=== PATIENT | female | born 1950 | race Caucasian/White ===

== ENCOUNTER 2020-03-18 08:16 | Outpatient (REF) | payer MEDICARE, OTHER, SELFPAY ==
--- NOTE | 2020-03-19 11:50 | HO.PICC ---
PICC Line Insertion NPICC Diagnosis: [FOR ANTIBIOTICS] Indication: [PROPHYLACTICALLY ON VANCOMYCIN FOR A PROCEDURE] Pertinent Labs: [REVIEWED] Technique: Following informed consent including risks, benefits and alternatives and using sterile technique including cap and mask, sterile gown, glove and drape, the [RIGHT] arm was prepped and draped in the usual sterile fashion of full barrier technique with CHG. Following completion of [place] Protocol the skin and soft tissues were anesthetized with 1% Lidocaine plain. Using ultrasound guidance, [THE RIGHT BASILIC] vein access was obtained. Over an 0.018 wire through peel-away sheath, a [SINGLE LUMEN] PICC line was positioned. Catheter length is [40 CM] internal length, [ZERO] external length, for a total trimmed length of [40 CM]. The procedure was performed in [ROOM 7]. Tip verification was performed by Richie Napier with Sheradri 3CG. Tip located in SVC. Ultrasound was used to document vein patency and for needle entry. A formal ultrasound picture and cardiac rhythm strip was recorded. [employer] has released the line for use and it is currently dressed with a StatLock, Tegaderm, and CHG disc. Verification has been performed for blood return and line patency. Arm Circumference: [37.5 CM] Equipment: [[employer] POWER PICC SOLO] Catheter Type: [4 DOMINICAN SINGLE LUMEN] Lot #: [[id number]]
== END 2020-03-18 08:17 | disposition home or self-care (01) ==
LOC: HO.RADIR 08:16
PROVIDERS: Visit Provider Anesthesiology
DX: Z45.2 Encounter for adjustment and management of vascular access device (principal); Z98.890 Other specified postprocedural states
CPT/HCPCS: 36573; C1751

== ENCOUNTER 2020-03-18 10:07 | Outpatient (REF) | payer MEDICARE, OTHER, SELFPAY ==
[2020-03-18 11:21] LABS: Estimated Glomerular Filt Rate 49
== END 2020-03-18 10:08 | disposition home or self-care (01) ==
LOC: HO.MDS 10:07
PROVIDERS: PCP Internal Medicine; Visit Provider Anesthesiology
DX: Z45.2 Encounter for adjustment and management of vascular access device (principal); T80.211A Bloodstream infection due to central venous catheter, initial encounter; B99.9 Unspecified infectious disease
CPT/HCPCS: 36415; 82565; 96365; J3370

== ENCOUNTER 2020-03-19 06:56 | Day surgery (SDC) | payer MEDICARE, OTHER, SELFPAY ==
--- NOTE | 2020-03-17 10:15 | P.CONAN_ITS ---
Documented by User: Marilee Muhammad 03/18/20 14:41 HPI - Anesthesia Eval Consult details Narrative: 69yo F for Spinal Cord Stim Trial [facility] Past Medical History Medical History Clostridioides difficile infection Disc disorder Fatty liver Low back pain Osteoarthritis Osteoporosis Renal cancer Surgical History Surgical History H/O kyphoplasty H/O partial adrenalectomy H/O partial nephrectomy History of back surgery Hx of appendectomy Social History Social History Smoking Status: Current every day smoker Packs Per Day: 1 Cigarettes Per Day: 20.0 Years Smoked: 50 Smoked in Last 30 Days: Yes Use of substances other than those prescribed or required for medical reasons: No Advance Directives: No Advance Directives Information Provided: No Advance Directives on File: No Meds Allergies Allergy/AdvReac Type Severity Reaction Status Date / Time No Known Allergies Allergy Verified 03/17/20 10:17 Home Medications Medication Instructions Recorded Confirmed Type Lactobacillus acidophilus 03/19/20 03/19/20 History [Probiotic] aspirin 81 mg PO DAILY 03/19/20 03/19/20 History duloxetine 1 cap PO DAILY 03/19/20 03/19/20 History lisinopril 20 mg PO DAILY 03/19/20 03/19/20 History lorazepam 1 tab PO TID PRN 03/19/20 03/19/20 History omega-3 fatty acids [Fish Oil] 1,000 mg PO DAILY 03/19/20 03/19/20 History oxycodone 1 tab PO Q8H PRN 03/19/20 03/19/20 History promethazine 1 tab PO TID 03/19/20 03/19/20 History promethazine PO 03/19/20 History Exam Exam Date and Time: March 17, 2020 1015 Assessment and Plan Assessment Anesthesia Assessment: Chart Reviewed Documented by User: Aviva Akhtar 03/19/20 08:25 [facility] Past Medical History Medical History Clostridioides difficile infection Disc disorder Fatty liver Low back pain Osteoarthritis Osteoporosis Renal cancer Surgical History Surgical History H/O kyphoplasty H/O partial adrenalectomy H/O partial nephrectomy History of back surgery Hx of appendectomy Social History Social History Smoking Status: Current every day smoker Packs Per Day: 1 Cigarettes Per Day: 20.0 Years Smoked: 50 Smoked in Last 30 Days: Yes Use of substances other than those prescribed or required for medical reasons: No Advance Directives: No Advance Directives Information Provided: No Advance Directives on File: No Meds Allergies Allergy/AdvReac Type Severity Reaction Status Date / Time No Known Allergies Allergy Verified 03/17/20 10:17 Home Medications Medication Instructions Recorded Confirmed Type Lactobacillus acidophilus 03/19/20 03/19/20 History [Probiotic] aspirin 81 mg PO DAILY 03/19/20 03/19/20 History duloxetine 1 cap PO DAILY 03/19/20 03/19/20 History lisinopril 20 mg PO DAILY 03/19/20 03/19/20 History lorazepam 1 tab PO TID PRN 03/19/20 03/19/20 History omega-3 fatty acids [Fish Oil] 1,000 mg PO DAILY 03/19/20 03/19/20 History oxycodone 1 tab PO Q8H PRN 03/19/20 03/19/20 History promethazine 1 tab PO TID 03/19/20 03/19/20 History promethazine PO 03/19/20 History Exam Airway Mallampati Class: II TM Dist: >3cm Neck ROM: Full Loose/Missing/Broken Teeth: No Heart: rrr Lungs: cta Assessment and Plan Assessment Anesthesia Assessment: Anesthesia Plan Discussed, Consent Obtained, Smoking Cess. Discussed and Chart Reviewed Final Anesthetic Review NPO: Yes ASA Class: III Final Preanesthetic Review: No Changes in Pt Med Stat, Meds & Allergies Reviewed, Consent Obtained/Reviewed, Med/Surg/Anes Hx Reviewed, Last Cigarette (If Appl.) and Anes Risks/Benef Reviewed Patient Risk: Intermediate Procedure Risk: Low Assessment/Block/Sedation in SS: Assess/Block/Sedation-SS Anesthetic Plan Anesthetic Plan: MAC: Disposition: Standard PACU
[2020-03-19] VITALS (10 sets, daily range): BP systolic 93–125; BP diastolic 41–60; PULSE 91–108; RESP 16–20; TEMP 36.4–36.7; O2SAT 92–97; BMI 31.0
[2020-03-19] MEDS: Lactated Ringers 1,000 ML 100 ML IVCONT (07:00)
--- NOTE | 2020-03-19 07:20 | FL_ITS ---
EXAMINATION: XR FLUOROSCOPY WITH IMAGES CLINICAL INFORMATION: Spinal stimulator. COMPARISON: None. TECHNIQUE: Fluoroscopy performed by Dr. Menjivar. Fluoroscopy time: 3.1 minutes DAP: 43.9 Gycm2 Images: 4 FINDINGS: There are 2 spinal stimulator electrodes seen overlying the mid to lower thoracic spine. The lateral view shows a prior vertebral augmentation. One lead extends to level of superior endplate of the fourth vertebrae superior to the augmentation. The other lead extends to level inferior endplate third vertebrae superior to the augmentation. IMPRESSION: Fluoroscopy for pain management procedure.
[2020-03-19] MEDS: ceFAZolin Sodium/Dextrose,Iso 2 GM/50 ML PIGGYBACK IV (07:38)
--- NOTE | 2020-03-19 08:41 | PC.NURSE ---
NEVRO- REF: [id number] LOT [id number] EXP 2022-11 NEVRO- REF: [id number] EXP 2022-08 NEVRO- REF [id number] EXP 2022-07
[2020-03-19] MEDS: 0.9 % Sodium Chloride Flush 10 ML SYRINGE 5 ML IVFLUSH (11:35)
--- NOTE | 2020-03-19 12:54 | P.OP_ITS ---
Operative Note Operative Note Narrative: Ms.Dianne Ashraf is very pleasant 69 years old lady who came today into the operating room for trial of spinal cord stimulator for the treatment of post laminectomy Syndrome. Preoperatively patient received Vancomycin 1 g approximately started 15 minutes before procedure. After obtaining informed consent patient was brought to the operating room, SHE was positioned prone on operating table, [employer] monitors were applied and patient was deeply sedated. The patient was taken inside of the operating room where she was positioned prone operating table. Time-out was performed delineating correct site, side, the nature of the procedure, patient's allergy, preoperative antibiotic if needed. All operating room staff was participating in OR time-out procedure. Patient's entire back was prepped with ChloraPrep twice and draped with full body fenestrated drape. Sterilely draped C-arm was brought over operating field and sqare picture of T11-T12 L1 L2 vertebrae as were demonstrated on the screen. Attention FIRST was concentrated on the_ L1-L2 epidural interspace. The location of the projection of the right pedicle center of the [id number] was found on the skin using C-arm. This location was injected with mixture of lidocaine 2% and Marcaine 0.5% 5 cc. After that 11 blade was used to make a ariana on the skin. 10 cm 14 gauge straight introducer epidural needle was inserted through the ariana and advanced to L1-L2 epidural interspace. The advancement of the needle was performed on anterior posterior and lateral views. Guitar wire and loss of resistance technique were used to locate epidural space. When guitar wire was spread in the epidural fashion, epidural lead was inserted through the needle and attempted to advance in the epidural space. Significant resistance was encountered at this level and probably due to adhesions in epidural space the lead advancement resulted in the lead position in the anterior epidural space. The decision was made after that to approach T12-L1 epidural space. Coude needle 14 gauge 6 in long was used to advance to the T12-L1 epidural interspace using loss of resistance technique with needle location on anterior posterior and lateral views. guitar wire was inserted into the needle and was spread in the epidural fashion. Epidural lead was inserted into the needle after the removal of guitar wire and it was advanced to the posterior epidural space to the upper border of T9 level slightly left to the midline. The resistance was felt in the attempt of the advancement of the lead in the right side of the epidural space.The resistance was secondary to adhesion probably because the patient HAD PREVIOUSLY DONE T12 VERTEBROPLASTY. AFTER THAT ATTEMPT WAS MADE TO REACH T11-T12 EPIDURAL SPACE ON THE RIGHT TO AVOID THE ABOVE-MENTIONED ADHESIONS. The pedicle of L1 on the right was chosen as the start of the target. Projection of the pedicle to the skin was injected with lidocaine and Marcaine mixture as above. After than 10 cm 14 gauge straight introducer needle was attempted to advanced into T11-T12 epidural interspace on anterior posterior and lateral views intermittently. The loss of resistance technique was used to locate the epidural space however the attempt to insert guitar wire into the epidural space was not very successful probably because of the same adhesions. The attempt to reach T11-T12 epidural interspace was abandoned. After that L2 pedicle projection to the skin on the left side was injected with anesthetic mixtures above. Small ariana on the skin was made with 15 blade of the scalpel and after that 10 cm 14 gauge needle was inserted through the skin and advanced to were T12-L1 epidural interspace on anterior posterior and lateral views. Loss of resistance technique was used to locate epidural space guitar wire was inserted and through this projection advanced to the epidural space without difficulty in the midline fashion. Guitar wire was withdrawn and epidural lead was inserted into the needle and advanced to upper border of the T8 epidural space posteriorly in strict midline fashion. The left position epidural lead which was positioned slightly more to the left and closer to the left gutter in the epidural space was withdrawn and re- advanced to were the T9 posterior epidural space. Lateral picture of electrode position in the posterior epidural space was obtained. Both electrodes were closely position at the midline. The electrodes were connected to the testing device and adequate impedance was read. After that the needles were withdrawn from the skin and subcutaneous tissues while care was taking to keep electrodes in their position. The position of the electrodes was again verified by x-ray on the anterior posterior and lateral views. Anchoring devices were dislodged on the each of the electrodes and sutured with 2 silk sutures to the skin. The screw driving mechanism was used to fix the electrodes inside of the anchoring devices. Upon completion of this procedure bacitracin ointment was applied to the entrance of the epidural leads with electrode and sterile dressing was applied. The testing device was also glued to the patient's back. Upon completion of the procedure the patient was taken to PACU where SHE recovered UNEVENTFULLY, SHE WENT HOME WITHOUT IMMEDIATE COMPLICATIONS. the patient was ordered to go for the every day Vancomycin infusion through the PICC line which she received 2 days ago. peak and trough will be measured on Sunday and patient will continue a Vancomycin injections. She has nephrectomy patient and Vancomycin Level needs to be monitored.
--- NOTE | 2020-03-19 13:27 | HO.POSTANES ---
Post Anesthesia Evaluation Post Anesthesia Evaluation Vital Signs: Vital Signs Temp Pulse Resp BP Pulse Ox 03/19/20 12:58 98.0 F 92 20 101/60 97 03/19/20 12:30 91 20 93/51 L 95 03/19/20 12:00 93 18 102/51 L 03/19/20 11:30 97 20 105/50 L 95 03/19/20 11:00 94 18 103/51 L 94 03/19/20 10:45 91 16 110/52 L 93 03/19/20 10:30 94 18 125/41 L 93 03/19/20 10:15 99 20 116/45 L 92 03/19/20 10:00 97.6 F 108 H 16 120/57 L 94 03/19/20 07:27 98.0 F 98 18 102/60 96 Anesthesia: Monitored Mental Status: Awake Pain Control: Satisfactory Nausea/Vomiting: None Hydration: Adequate Anesthesia-Related Issues: No Anes. Related Issues
== END 2020-03-19 13:36 ==
PROVIDERS: PCP Internal Medicine; Visit Provider Anesthesiology
PROC: (CPT 63650; principal; 2020-03-19 07:30)
DX: M96.1 Postlaminectomy syndrome, not elsewhere classified (principal); M47.816 Spondylosis without myelopathy or radiculopathy, lumbar region; M48.07 Spinal stenosis, lumbosacral region; M51.36 Other intervertebral disc degeneration, lumbar region; M54.5 Low back pain; M81.0 Age-related osteoporosis without current pathological fracture; Z85.528 Personal history of other malignant neoplasm of kidney; Z90.5 Acquired absence of kidney; F17.210 Nicotine dependence, cigarettes, uncomplicated; M19.90 Unspecified osteoarthritis, unspecified site; Z98.890 Other specified postprocedural states
CPT/HCPCS: 63650 ×2; C1897; J0690; J2405; J3010; J3370

== ENCOUNTER 2020-03-20 10:03 | Outpatient (REF) | payer MEDICARE, OTHER, SELFPAY ==
[2020-03-20 10:12] VITALS: BMI 31.9
[2020-03-20 11:15] LABS: Estimated Glomerular Filt Rate 57
[2020-03-20 11:21] LABS: Vancomycin Trough 4.9 mcg/mL (10.0-20.0)
== END 2020-03-20 10:04 | disposition home or self-care (01) ==
LOC: HO.MDS 10:03
PROVIDERS: PCP Internal Medicine; Visit Provider Anesthesiology
DX: M96.1 Postlaminectomy syndrome, not elsewhere classified (principal)
CPT/HCPCS: 36415; 80202; 82565; 96365; 96366; J3370

== ENCOUNTER 2020-03-21 09:50 | Outpatient (REF) | payer MEDICARE, OTHER, SELFPAY ==
[2020-03-21 11:10] LABS: Estimated Glomerular Filt Rate 57
== END 2020-03-21 09:51 | disposition home or self-care (01) ==
LOC: HO.MDS 09:50
PROVIDERS: PCP Internal Medicine; Visit Provider Anesthesiology
DX: M96.1 Postlaminectomy syndrome, not elsewhere classified (principal)
CPT/HCPCS: 36415; 82565; 96365; J3370

== ENCOUNTER 2020-03-22 09:47 | Outpatient (REF) | payer MEDICARE, OTHER, SELFPAY ==
[2020-03-22 10:51] LABS: Estimated Glomerular Filt Rate 52
[2020-03-22 10:58] LABS: Vancomycin Random 10.5 mcg/mL (15-20)
== END 2020-03-22 09:48 | disposition home or self-care (01) ==
LOC: HO.MDS 09:47
PROVIDERS: PCP Internal Medicine; Visit Provider Anesthesiology
DX: M96.1 Postlaminectomy syndrome, not elsewhere classified (principal)
CPT/HCPCS: 36415; 80202; 82565; 96365; 96366; J3370

== ENCOUNTER 2020-03-23 10:12 | Outpatient (REF) | payer MEDICARE, OTHER, SELFPAY ==
--- NOTE | 2020-03-23 12:25 | P.PICC_ITS ---
PICC Line Insertion NPICC Diagnosis: [] Indication: [] Pertinent Labs: [] Technique: Following informed consent including risks, benefits and alternatives and using sterile technique including cap and mask, sterile gown, glove and drape, the [] arm was prepped and draped in the usual sterile fashion of full barrier technique with G. Following completion of [place] Protocol the skin and soft tissues were anesthetized with 1% Lidocaine plain. Using ultrasound guidance, [] vein access was obtained. Over an 0.018 wire through peel-away sheath, a [] PICC line was positioned. Catheter length is [] internal length, [] external length, for a total trimmed length of []. The procedure was performed in []. Tip verification was performed by Richie Napier with Romaine 3CG. Tip located in SVC. Ultrasound was used to document vein patency and for needle entry. A formal ultrasound picture and cardiac rhythm strip was recorded. [employer] has released the line for use and it is currently dressed with a StatLock, Tegaderm, and CHG disc. Verification has been performed for blood return and line patency. Arm Circumference: [] Equipment: [] Catheter Type: [] Lot #: []
--- NOTE | 2020-03-26 09:26 | P.PICC_ITS ---
PICC Line Insertion PICC Removal) Indication: [PT NO LONGER NEEDED PICC LINES] Technique: Pt was in the discharge Lounge on 03/23/20 at 11:05, Right Bas ilic Single lumen Picc line 40Cm intact removed. No bleeding/edematous or s/s of infection. Pt tolerated procedure of removal (PICC LINE).
== END 2020-03-23 10:13 | disposition home or self-care (01) ==
LOC: HO.MDS 10:12
PROVIDERS: PCP Internal Medicine; Visit Provider Anesthesiology
DX: M96.1 Postlaminectomy syndrome, not elsewhere classified (principal); Z45.2 Encounter for adjustment and management of vascular access device
CPT/HCPCS: 96365; J3370

== ENCOUNTER 2020-03-24 | Outpatient (REF) | payer MEDICARE, OTHER, SELFPAY ==
--- NOTE | 2020-03-19 07:15 | HO.ANESPROP2 ---
[facility] Past Medical History Medical History Disc disorder Low back pain Osteoarthritis Osteoporosis Renal cancer Surgical History Surgical History H/O kyphoplasty H/O partial adrenalectomy H/O partial nephrectomy Social History Social History Advance Directives: No Advance Directives Information Provided: No Meds Allergies Allergy/AdvReac Type Severity Reaction Status Date / Time No Known Allergies Allergy Verified 03/17/20 10:17 Home Medications Medication Instructions Recorded Confirmed Type lisinopril 1 tab PO DAILY 03/19/20 03/19/20 History lorazepam 1 tab PO TID PRN 03/19/20 03/19/20 History Exam Exam Date and Time: March 19, 2020 0715 Airway Mallampati Class: II TM Dist: >3cm Neck ROM: Full Heart: RRR Lungs: CTA
--- NOTE | 2020-03-19 07:16 | HO.ANESPROP2 ---
[facility] Past Medical History Medical History Disc disorder Low back pain Osteoarthritis Osteoporosis Renal cancer Surgical History Surgical History H/O kyphoplasty H/O partial adrenalectomy H/O partial nephrectomy Social History Social History Advance Directives: No Advance Directives Information Provided: No Meds Allergies Allergy/AdvReac Type Severity Reaction Status Date / Time No Known Allergies Allergy Verified 03/17/20 10:17 Home Medications Medication Instructions Recorded Confirmed Type lisinopril 1 tab PO DAILY 03/19/20 03/19/20 History lorazepam 1 tab PO TID PRN 03/19/20 03/19/20 History Exam Exam Date and Time: March 19, 2020 0716 Assessment and Plan Assessment Anesthesia Assessment: Anesthesia Plan Discussed, Consent Obtained and Smoking Cess. Discussed Final Anesthetic Review NPO: Yes ASA Class: II Final Preanesthetic Review: No Changes in Pt Med Stat, Meds & Allergies Reviewed, Consent Obtained/Reviewed, Med/Surg/Anes Hx Reviewed and Anes Risks/Benef Reviewed Patient Risk: Intermediate Procedure Risk: Low Assessment/Block/Sedation in SS: Assess/Block/Sedation-SS Anesthetic Plan Anesthetic Plan: MAC: Disposition: Standard PACU
[2020-03-24 09:42] LABS: CDIFF Ag Negative (Negative)
[2020-03-24 09:43] LABS: CDIFF Internal ctrl Dots and bkg OK (V); CDiff Toxin Negative (Negative)
== END 2020-03-24 00:01 | disposition home or self-care (01) ==
LOC: HO.MDS
PROVIDERS: Visit Provider Anesthesiology
DX: M96.1 Postlaminectomy syndrome, not elsewhere classified (principal)
CPT/HCPCS: 87324; 87449

== ENCOUNTER → 2020-04-29 07:51 | Outpatient (BNVA) | payer MEDICARE, OTHER, SELFPAY | PROVIDERS: PCP Internal Medicine; Referring Provider Internal Medicine; Visit Provider Anesthesiology | DX: M96.1 Postlaminectomy syndrome, not elsewhere classified (principal); M51.9 Unspecified thoracic, thoracolumbar and lumbosacral intervertebral disc disorder; A49.8 Other bacterial infections of unspecified site | CPT/HCPCS: 99212 ==

== ENCOUNTER 2020-07-09 06:03 | Day surgery (SDC) | payer MEDICARE, OTHER, SELFPAY ==
[2020-07-05 11:36] VITALS: BMI 31.4
--- NOTE | 2020-07-08 14:03 | HO.ANESPROP2 ---
Documented by User: Marilee Muhammad 07/08/20 14:05 HPI - Anesthesia Eval Consult details Narrative: 70yo F for Lumar Spinal Stimuation Implant Spinal stim trial 03/2020 with MAC [facility] Past Medical History Medical History Back pain Clostridioides difficile infection Disc disorder Fatty liver History of chemotherapy Hypertension Low back pain ELIAS on CPAP Osteoarthritis Osteoporosis Renal cancer Smoker Surgical History Surgical History H/O kyphoplasty H/O partial adrenalectomy H/O partial nephrectomy History of back surgery Hx of appendectomy Status post kyphoplasty Social History Social History Smoking Status: Current every day smoker Packs Per Day: 0.5 Cigarettes Per Day: 10.0 Years Smoked: 50 Smoked in Last 30 Days: Yes Patient Given Instructions on How to Stop Smoking: Yes Date Education Initiated: 07/05/20 Use of substances other than those prescribed or required for medical reasons: No Advance Directives: No Advance Directives Information Provided: No Advance Directives on File: No Recently lost weight without trying: No Meds Allergies Allergy/AdvReac Type Severity Reaction Status Date / Time No Known Allergies Allergy Verified 07/05/20 11:36 Home Medications Medication Instructions Recorded Confirmed Type Probiotic 03/19/20 03/19/20 History duloxetine 1 cap PO DAILY 03/19/20 07/05/20 History lisinopril 20 mg PO DAILY 03/19/20 07/09/20 History lorazepam 1 tab PO TID PRN 03/19/20 07/09/20 History omega-3 fatty acids 1,000 mg PO DAILY 03/19/20 07/05/20 History promethazine 1 tab PO TID 03/19/20 07/05/20 History oxycodone 5 mg tablet 5 mg PO Q8H PRN 04/29/20 07/05/20 History prochlorperazine maleate 10 mg 10 mg PO Q6H 04/29/20 07/05/20 History tablet Exam Exam Date and Time: July 08, 2020 1403 Height,Weight and Vital Signs: Height 5 ft 8 in Weight 93.894 kg Assessment and Plan Assessment Anesthesia Assessment: Chart Reviewed Documented by User: Jaclyn Bolden 07/09/20 07:37 PMFSH Past Medical History Medical History Back pain Clostridioides difficile infection Disc disorder Fatty liver History of chemotherapy Hypertension Low back pain ELIAS on CPAP Osteoarthritis Osteoporosis Renal cancer Smoker Surgical History Surgical History H/O kyphoplasty H/O partial adrenalectomy H/O partial nephrectomy History of back surgery Hx of appendectomy Status post kyphoplasty Social History Social History Smoking Status: Current every day smoker Packs Per Day: 0.5 Cigarettes Per Day: 10.0 Years Smoked: 50 Smoked in Last 30 Days: Yes Patient Given Instructions on How to Stop Smoking: Yes Date Education Initiated: 07/05/20 Use of substances other than those prescribed or required for medical reasons: No Advance Directives: No Advance Directives Information Provided: No Advance Directives on File: No Recently lost weight without trying: No Meds Allergies Allergy/AdvReac Type Severity Reaction Status Date / Time No Known Allergies Allergy Verified 07/05/20 11:36 Home Medications Medication Instructions Recorded Confirmed Type Probiotic 03/19/20 03/19/20 History duloxetine 1 cap PO DAILY 03/19/20 07/05/20 History lisinopril 20 mg PO DAILY 03/19/20 07/09/20 History lorazepam 1 tab PO TID PRN 03/19/20 07/09/20 History omega-3 fatty acids 1,000 mg PO DAILY 03/19/20 07/05/20 History promethazine 1 tab PO TID 03/19/20 07/05/20 History oxycodone 5 mg tablet 5 mg PO Q8H PRN 04/29/20 07/05/20 History prochlorperazine maleate 10 mg 10 mg PO Q6H 04/29/20 07/05/20 History tablet Exam Airway Mallampati Class: III (Poor mouth opening effort) TM Dist: >3cm Neck ROM: Limited Loose/Missing/Broken Teeth: No Heart: RRR Lungs: CTA Assessment and Plan Assessment Anesthesia Assessment: Anesthesia Plan Discussed and Chart Reviewed Final Anesthetic Review NPO: Yes ASA Class: III Final Preanesthetic Review: Meds/Allgs Chart Reviewed, Consent Obtained/Reviewed and Anes Risks/Benef Reviewed Patient Risk: Intermediate Procedure Risk: Intermediate Anesthetic Plan Anesthetic Plan: MAC: Disposition: Standard PACU
[2020-07-09 06:24] VITALS: BP 120/66; PULSE 117; RESP 18; TEMP 36.4; O2SAT 96
--- NOTE | 2020-07-09 06:42 | MHC.SHP ---
Pre-Procedural Eval Section A The patient is an INPATIENT: No The History & Physical has been completed within 30 days and I have reviewed it.: No Section B Chief Complaint: Postlaminectomy Syndrome, Kidney Cancer Details of Present Illness: as above Relevant Family History (Specify if Yes): No Relevant Social History: None Present Medications: see Short Stay Collaborative assessment Medical History: Significant History History of Previous Operations: Relevant previous surgery/procedure and date(s) Allergies: Allergies Allergy/AdvReac Type Severity Reaction Status Date / Time No Known Allergies Allergy Verified 07/05/20 11:36 Review of Systems Sugical H&P ROS: Negative: Cardiovascular, Respiratory, Neurological, Psychiatric, Hem-Onc, Allergic/Immunologic, Gastrointestinal, Genitourinary, Musculoskeletal, Integumentary, Endocrine and Eyes/Ears/Nose/Throat and Yes, Specify: Constitution (Obesity) Exam Surgical H&P Exam: Normal: HEENT, Normal: Heart, Normal: Lungs, Normal: Extremities, Normal: Abdomen, Normal: Skin and Normal: Neurological Plan I have reviewed the history and physical and performed a pertinent physical examination on my patient. No changes have occurred unless specified.
--- NOTE | 2020-07-09 06:44 | P.OP_ITS ---
Operative Note Operative Note Date of Service: 07/09/20 Narrative: Preoperatively patient received Vancomycin 1 g approximately 1 hourbefore the procedure. After obtaining informed consent patient was brought to the operating room, she was positioned prone on operating table, [employer] monitors were applied and patient was deeply sedated. Time-out was performed delineating correct site, side, the nature of the procedure, patient's allergy, preoperative antibiotic. All operating room staff was participating in OR time-out procedure. Patient's entire back was prepped with ChloraPrep twice and draped with full body drape including Ioban film. Sterilely draped C-arm was brought over operating field and sqare picture of T12, L1, L2 vertebrae as were demonstrated on the screen. THE PROJECTION OF L2-L3 SPINAL PROCESSES TO THE SKIN WERE INFILTRATED WITH LIDOCAINE 2% MIXED WITH BUPIVACAINE 0.5%. Six CM LONG VERTICAL INCISION using 15 blade scalpel WAS PERFORMED IN STRICT MIDLINE VERTICAL FASHION. THOROUGH HEMOSTASIS WAS PERFORMED using electrocautery. Thorough tissue dissections was performed until prevertebral fascia was freed from overlying tissues. Attention FIRST was concentrated on the RIGHT L1-L2 epidural interspace. The location of the projection of the right pedicle center of the L3 vertebra was found on the prevertebral fascia using C-arm. This location was injected with mixture of lidocaine 2% and Marcaine 0.5% 5 cc in a pproximate direction of needle advancement.. After that 10cm 14 gauge - introducer epidural needle was inserted through the fascia and advanced toward L1-L2 epidural interspace. The advancement of the needle was performed on anterior posterior and lateral views. Guitar wire and loss of resistance technique were used to locate epidural space. When guitar wire was spread in the epidural fashion, epidural lead was inserted through the skin and it was advanced to T9 position POSTERIOR EPIDURAL SPACE slightly right TO THE MIDLINE. After that location of the projection of the LEFT pedicle center of the L2 vertebra was found -using C-arm. This location was injected with mixture of lidocaine 2% and Marcaine 0.5% 5 cc.. . 10 cm 14 gauge curved introducer epidural needle was inserted through the fascia and advanced to L1-L2 epidural interspace. The advancement of the needle was performed on anterior posterior and lateral views. Guitar wire and loss of resistance technique were used to locate epidural space. When guitar wire was spread in the epidural fashion, epidural lead was inserted through the needle and advanced to the T8 POSTERIOR EPIDURAL SPACE SLIGHTLY left TO THE MIDLINE. THE LOCATION OF BOTH LEADS WAS VERIFIED ON ANTERIOR POSTERIOR AND LATERAL VIEWS. After satisfactory position of the leads were established the needles were withdrawn, the stylette wires were removed from the epidural leads. At this moment patient was awaken a and the position of the epidural leads was tested. The right position epidural lead corresponded to stimulation on the right lower extremity in lower right lower back a and the left positioned epidural lead with corresponding to the left sided stimulation. The position of the electrodes was deemed to be satisfactory. The trial was undertaken for this patient with Nevro device because the patient had very short trial of spinal cord stimulator only 3 days. It was shortened because patient developed diarrhea and with thought that it is C diff diarrhea. It happened to be not so however the electrodes were removed. After establishing correct position of the epidural leads anchoring devices were dislodged on the leads and advanced to the level of the prevertebral fascia. The anchoring devices were advanced along the epidural leads and dislodged and epidural leads at the level of prevertebral fascia. They were sutured to prevertebral fascia with 2 separate etibone sutures per each anchoring device. Locking device was screwed down after the suture position was verified and position of the tips of the leads was verified. After that the wound was irrigated with copious amount of Vancomycin containing normal saline and packed with Vancomycin soaked 4 x 4. After that attention was concentrated on the left upper buttock of the patient where he wanted battery to be implanted. 6 cm long horizontal incision was performed 3 cm below the TOP right iliac crest. Thorough hemostasis was obtained. the pocket for the battery of spinal cord stimulator was formed under the skin. The wound was irrigated with copious amount of Vancomycin contained normal saline. Tunneling device was used to connect the 2 wounds and epidural leads were dislodged into the side wound. They were connected to the battery and locked with a locking screwdriver device. After that the anchoring sutures Tycron were applied in the most superior medial and most superior lateral corners of the wound. After that they were connected to the anchoring holes on the body of the battery, the epidural leads were gathered behind the body of the battery, the battery and the leads were inserted into the pocket wound and after that the anchoring 2 sutures were tied. The wounds were irrigated again with Vancomycin containing normal saline, thorough hemostasis was checked, and after that the wounds were closed using 0 Vicryl. After that the skin edges wore approximated using 2 0 Vicryl, tad were applied to the wounds at the level of the skin. sterile dressings were applied to the staple lines. Two large Tegaderm were applied to hold the dressing to the patient's skin. Abdominal binder to wear was provided to the patient. At this moment patient was awaken and transferred to the bed. she was recovering uneventfully in PACU.
[2020-07-09] MEDS: Lactated Ringers 1,000 ML 100 ML IVCONT (06:46)
--- NOTE | 2020-07-09 07:14 | FL_ITS ---
EXAMINATION: XR FLUOROSCOPY WITH IMAGES CLINICAL INFORMATION: Lumbar spinal stimulation implantation. COMPARISON: Spinal fluoroscopic spot views 03/19/2020 TECHNIQUE: Fluoroscopy performed by Dr. Bora Menjivar. Fluoroscopy time: 8.5 minutes DAP: 54.8 Gycm2 Images: 2 FINDINGS: There is prior vertebral augmentation demonstrated. There are 2 spinal stimulator leads posterior spinal canal and ending at mid aspect 4th vertebral levels superior to the augmentation. FL/FL guidance in OR IMPRESSION: Fluoroscopy for pain management procedure.
[2020-07-09 10:07] VITALS: BP 112/59; PULSE 95; RESP 12; TEMP 36.4; O2SAT 96
[2020-07-09] MEDS: Acetaminophen 325 MG TABLET 650 MG PO (10:10)
--- NOTE | 2020-07-09 10:10 | PM.OP ---
Brief Operative Note Date of Service: 07/09/20 Pre-op diagnosis: Postlaminectomy syndrome Procedure: Implantation of spinal cord stimulator Nevro. Implants: Nevro spinal cord stimulation battery and 2 epidural electrode leads. Surgeon: Bora Menjivar MD Anesthesia: MAC Estimated blood loss (mL): 20 Pathology: none sent Condition: stable Disposition: PACU
[2020-07-09] MEDS: oxyCODONE HCl Immed Release 5 MG TABLET 10 MG PO (10:11)
[2020-07-09 10:22] VITALS: BP 127/67; PULSE 89; RESP 16; TEMP 36.4; O2SAT 96
--- NOTE | 2020-07-09 10:54 | HO.POSTANES ---
Post Anesthesia Evaluation Post Anesthesia Evaluation Vital Signs: Vital Signs Temp Pulse Resp BP Pulse Ox 07/09/20 10:22 97.5 F 89 16 127/67 96 07/09/20 10:07 97.5 F 95 12 112/59 L 96 07/09/20 06:24 97.5 F 117 H 18 120/66 96 Anesthesia: Monitored Mental Status: Awake Pain Control: Satisfactory Nausea/Vomiting: None Hydration: Adequate Anesthesia-Related Issues: No Anes. Related Issues
== END 2020-07-09 11:15 | disposition home or self-care (01) ==
PROVIDERS: Visit Provider Anesthesiology
PROC: (CPT 63685; principal; 2020-07-09 07:30)
DX: M96.1 Postlaminectomy syndrome, not elsewhere classified (principal); Z98.890 Other specified postprocedural states; M51.9 Unspecified thoracic, thoracolumbar and lumbosacral intervertebral disc disorder; M54.5 Low back pain; M81.0 Age-related osteoporosis without current pathological fracture; I10 Essential (primary) hypertension; G47.33 Obstructive sleep apnea (adult) (pediatric); Z85.528 Personal history of other malignant neoplasm of kidney; Z92.21 Personal history of antineoplastic chemotherapy; Z90.5 Acquired absence of kidney; F17.210 Nicotine dependence, cigarettes, uncomplicated; M19.90 Unspecified osteoarthritis, unspecified site
CPT/HCPCS: 63685; 63650 ×2; C1778; C1787; C1816; C1897; J1100; J2250; J2405; J3010; J3370

== ENCOUNTER → 2020-07-15 11:16 | Outpatient (BNVA) | payer MEDICARE, OTHER, SELFPAY | PROVIDERS: Visit Provider Anesthesiology | DX: M54.5 Low back pain (principal); M96.1 Postlaminectomy syndrome, not elsewhere classified; M51.9 Unspecified thoracic, thoracolumbar and lumbosacral intervertebral disc disorder; A49.8 Other bacterial infections of unspecified site; Z98.890 Other specified postprocedural states | CPT/HCPCS: 99212 ==

== ENCOUNTER → 2020-07-22 11:19 | Outpatient (BNVA) | payer MEDICARE, OTHER, SELFPAY | PROVIDERS: PCP Internal Medicine; Referring Provider Internal Medicine; Visit Provider Anesthesiology | DX: M96.1 Postlaminectomy syndrome, not elsewhere classified (principal); M51.9 Unspecified thoracic, thoracolumbar and lumbosacral intervertebral disc disorder; Z98.890 Other specified postprocedural states; Z86.19 Personal history of other infectious and parasitic diseases | CPT/HCPCS: 99212 ==

== ENCOUNTER → 2020-07-28 10:20 | Outpatient (BNVA) | payer MEDICARE, OTHER, SELFPAY | PROVIDERS: PCP Internal Medicine; Visit Provider Anesthesiology | DX: M54.5 Low back pain (principal); M96.1 Postlaminectomy syndrome, not elsewhere classified; M51.9 Unspecified thoracic, thoracolumbar and lumbosacral intervertebral disc disorder; A49.8 Other bacterial infections of unspecified site; Z98.890 Other specified postprocedural states | CPT/HCPCS: 99212 ==

== ENCOUNTER → 2020-09-16 15:10 | Outpatient (BNVA) | payer MEDICARE, OTHER, SELFPAY | PROVIDERS: PCP Internal Medicine; Visit Provider Anesthesiology | DX: M54.5 Low back pain (principal); M96.1 Postlaminectomy syndrome, not elsewhere classified; M51.9 Unspecified thoracic, thoracolumbar and lumbosacral intervertebral disc disorder; A49.8 Other bacterial infections of unspecified site; F17.200 Nicotine dependence, unspecified, uncomplicated; Z98.890 Other specified postprocedural states; Z71.6 Tobacco abuse counseling | CPT/HCPCS: Q3014 ==

== ENCOUNTER 2020-10-12 03:22 | Emergency (ER) | payer MEDICARE, OTHER, SELFPAY ==
--- NOTE | ~2020-10-12 | CT_ITS ---
EXAMINATION: NONCONTRAST HEAD CT NONCONTRAST CERVICAL SPINE CT INDICATION INFORMATION: Fall COMPARISON: None TECHNIQUE: Separate noncontrast CT examinations of the head and cervical spine were performed. Coronal and sagittal images were created for each examination at the technologist workstation. This CT examination was performed using dose optimization techniques as appropriate, variously including the following: *Automated exposure control *Adjustment of mA and/or kV according to patient size (this includes techniques or standardized protocols for targeted exams where dose is matched to indication/reason for exam; i.e. extremities or head) *Use of iterative reconstruction technique DLP: 1625 mGy-cm FINDINGS: Head: There is no evidence of acute intracranial hemorrhage or territorial infarction. No abnormal mass effect or midline shift is seen. [place] to white matter differentiation is well preserved. No extra-axial fluid collections are identified. No hydrocephalus. No significant volume loss. There is no abnormal attenuation within the brain parenchyma. Subgaleal hematoma overlies the left parietal convexity. There is also swelling over the left occipital region. No calvarial fracture. Bilateral partial mastoid air cell effusions. The visualized portions of the paranasal sinuses are well aerated. Cervical spine: There is anatomic alignment of the vertebral bodies and posterior elements. The atlantoaxial and atlantooccipital articulations are intact. Vertebral body heights are maintained. There is multilevel intervertebral disc space narrowing with endplate osteophyte formation and facet arthropathy. Fusion of the right C2-C3 facets. No evidence of acute fracture. No prevertebral soft tissue swelling. Mild emphysema of the lung apices.. The thyroid gland is unremarkable. CT/CT cervical spine wo con IMPRESSION: 1. No acute intracranial finding. 2. No acute fracture or malalignment of the cervical spine. Mild degenerative changes.
[2020-10-12 03:41] VITALS: BP 128/88; PULSE 85; O2SAT 95
[2020-10-12 03:48] VITALS: BP 128/66; PULSE 84; RESP 16; TEMP 37.1; O2SAT 99; BMI 31.9
--- NOTE | 2020-10-12 03:56 | ECG_ITS ---
Test Reason : FALL Blood Pressure : / mmHG Vent. Rate : 083 BPM Atrial Rate : 083 BPM P-R Int : 146 ms QRS Dur : 078 ms QT Int : 398 ms P-R-T Axes : 059 050 047 degrees QTc Int : 467 ms Normal sinus rhythm Possible Left atrial enlargement Borderline ECG No previous ECGs available Referred By: Jaclyn Montero Electronically Signed By:AUGUSTUS FERREIRA MD
--- NOTE | 2020-10-12 03:57 | ED_ITS ---
HPI - Fall General Chief Complaint: Fall Stated Complaint: FALL/HEAD SWELLING Time Seen by Provider: 10/12/20 03:26 Source: patient and other Mode of arrival: EMS History of Present Illness HPI Narrative: 70-year-old female, every day smoker, who is brought in by EMS after reported unwitnessed fall at the long-term care facility but according to patient she states she was using her walker and going from the bathroom back to her bed became unsteady at which time she lost her balance and fell backward onto her bottom and she states she struck her head but denies any loss of consciousness. Otherwise, patient denies any fever, chills, shortness of breath, chest pain/palpitations, or GI / symptoms. Related Data Home Medications Medication Instructions Recorded Confirmed Probiotic 03/19/20 03/19/20 duloxetine 1 cap PO DAILY 03/19/20 07/05/20 lisinopril 20 mg PO DAILY 03/19/20 07/09/20 lorazepam 1 tab PO TID PRN 03/19/20 07/09/20 omega-3 fatty acids 1,000 mg PO DAILY 03/19/20 07/05/20 promethazine 1 tab PO TID 03/19/20 07/05/20 oxycodone 5 mg tablet 5 mg PO Q8H PRN 04/29/20 07/05/20 prochlorperazine maleate 10 mg 10 mg PO Q6H 04/29/20 07/05/20 tablet Previous Rx's Medication Instructions Recorded oxycodone-acetaminophen 5 mg-325 1 tab PO Q6H PRN #16 tab 07/09/20 mg tablet cephalexin 500 mg PO Q12H 7 Days #14 cap 10/12/20 Allergies Allergy/AdvReac Type Severity Reaction Status Date / Time lactose Allergy Unknown Verified 10/12/20 03:52 Review of Systems Review of Systems: Pertinent positives and negatives as stated in HPI 10 point of systems is otherwise negative. PMFSH Past Medical History Source: nursing notes reviewed Medical History Back pain Clostridioides difficile infection Disc disorder Fatty liver History of chemotherapy Hypertension Low back pain ELIAS on CPAP Osteoarthritis Osteoporosis Renal cancer Smoker Surgical History H/O kyphoplasty H/O partial adrenalectomy H/O partial nephrectomy History of back surgery Hx of appendectomy Status post kyphoplasty Social History Social History Alcohol intake: never Smoking Status: Light tobacco smoker Packs Per Day: 0.5 Cigarettes Per Day: 10.0 Years Smoked: 50 Smoked in Last 30 Days: No Use of substances other than those prescribed or required for medical reasons: No Advance Directives: No Physical Exam Vital Signs: Vital Signs: Last Vital Signs Temp 98.8 F 10/12/20 03:48 Pulse 82 10/12/20 06:00 Resp 18 10/12/20 06:00 BP 119/55 L 10/12/20 06:00 Pulse Ox 97 10/12/20 06:00 Body Mass Index 31.9 VITAL SIGNS: Reviewed. GENERAL: Well developed, well nourished, in no acute distress. HEAD: Normocephalic/slight bump at frontal vertex no lac EYES: PERRLA, EOMI OROPHARYNX: no oral lesions noted, posterior pharynx clear, dry mucosa NECK: Supple, no adenopathy LUNGS: Normal breath sounds. No adventitious sounds or accessory muscle use. SpO2<99> CARDIOVASCULAR: Regular rate and rhythm without noted murmurs, no JVD or lower extremity edema. ABDOMEN: Soft, non-tender, non-distended with bowel sounds. BACK: No midline vertebral tenderness MUSCULOSKELETAL: No tenderness, deformities, or effusions noted on gross inspection. SKIN: Inspection of the skin reveals no rashes NEUROLOGIC: Alert and oriented x 4. Strength and sensation to light touch were grossly intact x 4. Course Course Course Narrative: 70-year-old female with history and clinical presentation suggestive mechanical fall, versus fall due to infections/anemia/arrhythmia. Review of all investigations without acute findings from chronically stable with the exception of a positive urinalysis for nitrites. Patient received initial antibiotics here and then will be discharged back to long-term care with a prescription for the remaining course. She was informed of all findings. MDM - Fall Lab Data Result diagrams: 10/12/20 05:38 10/12/20 05:38 Labs: Lab Results 10/12/20 10/12/20 10/12/20 Range/Units 05:28 05:38 05:38 WBC 18.9 H (4.8-10.8) X10*3/uL RBC 3.72 L (4.20-5.50) X10*6/uL Hgb 12.7 (12.0-16.0) g/dl Hct 40.2 (37-47) % MCV 108.1 H (80-98) fL MCH 34.1 H (27.0-33.0) pg MCHC 31.6 (31.0-35.0) g/dl RDW 14.9 (11.0-16.0) % Plt Count 195 (160-400) X10*3/uL MPV 12.5 H (9.4-12.3) fL Immature Gran % (Auto) Cancelled Neut % (Auto) Cancelled Lymph % (Auto) Cancelled [place] % (Auto) Cancelled Eos % (Auto) Cancelled Baso % (Auto) Cancelled Lymph # (Auto) Cancelled [place] # (Auto) Cancelled Eos # (Auto) Cancelled Baso # (Auto) Cancelled Abs Immat Gran (auto) Cancelled Absolute Neuts (auto) Cancelled Absolute Nucleated RBC 0.030 H (0.0-0.012) X10*3/uL Nucleated RBC % (auto) 0.2 (0.0-0.2) /100WBC Neutrophils % (Manual) 75 H (45-73) % Band Neutrophils % 6 H (3-5) % Lymphocytes % (Manual) 9 L (20-40) % Monocytes % (Manual) 9 (2-11) % Eosinophils % (Manual) 1 (0-4) % Abs Neuts (Manual) 15.3 H (2.2-7.9) X10*3/uL Lymphocytes # (Manual) 1.7 (0.6-4.8) X10*3/uL Monocytes # (Manual) 1.7 H (0.0-1.2) X10*3/uL Eosinophils # (Manual) 0.2 (0.0-0.8) X10*3/UL Platelet Estimate NORMAL (NORMAL) Large Platelets PRESENT Plt Morphology Comment NOTED RBC Morphology NOTED Polychromasia 1+ (0-2) /OIF Macrocytosis 2+ (15-30) /OIF PT (10.8-13.0) SEC INR (0.9-1.1) Sodium 139 (135-145) mmol/L Potassium 4.1 (3.3-5.1) mmol/L Chloride 106 (96-108) mmol/L Carbon Dioxide 21 L (22-29) mmol/L Anion Gap 16 (12-20) BUN 12 (9-16) mg/dL Creatinine 0.69 (0.5-1.4) mg/dL Estim Creat Clear Calc 92.9 Estimated GFR > 60 Random Glucose 110 (60-115) mg/dL Calcium 8.5 (8.4-10.2) mg/dL Total Bilirubin 2.5 H (0.0-1.0) mg/dL AST 169 H (5-31) U/L ALT 89 H (0-31) U/L Alkaline Phosphatase 465 H D (39-117) U/L Total Protein 5.3 L (6.5-8.0) g/dL Albumin 2.7 L (3.5-5.0) g/dL Urine Color SIRENA Urine Appearance HAZY Urine pH 5.5 (5.0-8.0) Ur Specific [place] 1.025 (1.005-1.025) Urine Protein TRACE (NEG-TRACE) MG/DL Urine Glucose (UA) NEG (NEG) MG/DL Urine Ketones NEG (NEG) MG/DL Urine Blood TRACE (NEG) Urine Nitrite POS H (NEG) Ur Leukocyte Esterase 1+ H (NEG) Urine RBC 0-2 (0) /HPF Urine WBC 15-29 H (0-4) /HPF Urine WBC Clumps NOTED Ur Squamous Epith Cells 2+ /LPF Urine Bacteria 4+ /LPF 10/12/20 Range/Units 05:38 WBC (4.8-10.8) X10*3/uL RBC (4.20-5.50) X10*6/uL Hgb (12.0-16.0) g/dl Hct (37-47) % MCV (80-98) fL MCH (27.0-33.0) pg MCHC (31.0-35.0) g/dl RDW (11.0-16.0) % Plt Count (160-400) X10*3/uL MPV (9.4-12.3) fL Immature Gran % (Auto) Neut % (Auto) Lymph % (Auto) [place] % (Auto) Eos % (Auto) Baso % (Auto) Lymph # (Auto) [place] # (Auto) Eos # (Auto) Baso # (Auto) Abs Immat Gran (auto) Absolute Neuts (auto) Absolute Nucleated RBC (0.0-0.012) X10*3/uL Nucleated RBC % (auto) (0.0-0.2) /100WBC Neutrophils % (Manual) (45-73) % Band Neutrophils % (3-5) % Lymphocytes % (Manual) (20-40) % Monocytes % (Manual) (2-11) % Eosinophils % (Manual) (0-4) % Abs Neuts (Manual) (2.2-7.9) X10*3/uL Lymphocytes # (Manual) (0.6-4.8) X10*3/uL Monocytes # (Manual) (0.0-1.2) X10*3/uL Eosinophils # (Manual) (0.0-0.8) X10*3/UL Platelet Estimate (NORMAL) Large Platelets Plt Morphology Comment RBC Morphology Polychromasia /OIF Macrocytosis /OIF PT 14.8 H (10.8-13.0) SEC INR 1.2 H (0.9-1.1) Sodium (135-145) mmol/L Potassium (3.3-5.1) mmol/L Chloride (96-108) mmol/L Carbon Dioxide (22-29) mmol/L Anion Gap (12-20) BUN (9-16) mg/dL Creatinine (0.5-1.4) mg/dL Estim Creat Clear Calc Estimated GFR Random Glucose (60-115) mg/dL Calcium (8.4-10.2) mg/dL Total Bilirubin (0.0-1.0) mg/dL AST (5-31) U/L ALT (0-31) U/L Alkaline Phosphatase (39-117) U/L Total Protein (6.5-8.0) g/dL Albumin (3.5-5.0) g/dL Urine Color Urine Appearance Urine pH (5.0-8.0) Ur Specific [place] (1.005-1.025) Urine Protein (NEG-TRACE) MG/DL Urine Glucose (UA) (NEG) MG/DL Urine Ketones (NEG) MG/DL Urine Blood (NEG) Urine Nitrite (NEG) Ur Leukocyte Esterase (NEG) Urine RBC (0) /HPF Urine WBC (0-4) /HPF Urine WBC Clumps Ur Squamous Epith Cells /LPF Urine Bacteria /LPF ECG Data Attestation: I personally reviewed and interpreted this ECG as follows: Prior ECG tracings: not available for review Discharge Plan Discharge Clinical Impression: Fall, Acute UTI Patient Disposition: er [facility] Instructions: Fall Prevention for Older Adults (ED), Urinary Tract Infection in Older Adults (ED) Additional Instructions: Resume all home medications as prescribed. Follow-up with your primary care provider by calling the office today to set up re-evaluation. Return to the emergency department for any acute worsening of your symptoms. Prescriptions: New cephalexin 500 mg capsule 500 mg PO Q12H 7 Days Qty: 14 RF: 0 No Action oxycodone-acetaminophen [Percocet] 5-325 mg tablet 1 tab PO Q6H PRN (Reason: pain) Qty: 16 RF: 0 lorazepam 1 mg tablet 1 tab PO TID PRN (Reason: Anxiety) RF: 0 lisinopril 20 mg Tablet 20 mg PO DAILY RF: 0 promethazine 50 mg tablet 1 tab PO TID RF: 0 omega-3 fatty acids Capsule 1,000 mg PO DAILY RF: 0 duloxetine 30 mg capsule,delayed release(DR/EC) 1 cap PO DAILY RF: 0 Probiotic 10 billion cell Capsule RF: 0 Referrals: Physician,Unknown [Primary Care Provider] - 2 days
[2020-10-12 04:00] VITALS: BP 128/69; PULSE 81; RESP 20; O2SAT 99
[2020-10-12 05:33] LABS: Glucose Urine UA NEG (NEG); Leukocyte Esterase Urine 1+ (NEG); Nitrite Urine POS (NEG); PH 5.5 (5.0-8.0); Specific Gravity - Urine 1.025 (1.005-1.025); UACC Culture Trigger YES; Urine Blood TRACE (NEG); Urine Ketones NEG (NEG); Urine Protein TRACE MG/DL (NEG-TRACE)
[2020-10-12 05:34] LABS: Appearance Urine HAZY; Color Urine AMBER
[2020-10-12 05:42] LABS: Bacteria Urine 4+ /LPF; RBC Urine 0-2 /HPF (0); Squamous Epithelial Cell Urine 2+ /LPF; WBC Clumps Urine NOTED
[2020-10-12 05:45] LABS: Hematocrit 40.2 % (37-47); Hemoglobin 12.7 g/dl (12.0-16.0); Mean Corpuscular HGB Conc 31.6 g/dl (31.0-35.0); Mean Corpuscular Hemoglobin 34.1 pg (27.0-33.0); Mean Corpuscular Volume 108.1 fL (80-98); Mean Platelet Volume 12.5 fL (9.4-12.3); NRBC Pct Auto 0.2 /100WBC (0.0-0.2); Platelet Count 195 X10*3/uL (160-400); Red Blood Count 3.72 X10*6/uL (4.20-5.50); Red Cell Distribution Width 14.9 % (11.0-16.0); WBC ABN SCTR FOR CBC 1
[2020-10-12 05:57] LABS: INTERNATIONAL NORM RATIO 1.2 (0.9-1.1); Prothrombin Time 14.8 SEC (10.8-13.0)
--- NOTE | 2020-10-12 05:57 | PC.NURSE ---
pt straight cath for 130 cc yellow. urine sent to lab. pt josef well no complications
[2020-10-12 06:00] VITALS: BP 119/55; PULSE 82; RESP 18; O2SAT 97
[2020-10-12 06:09] LABS: White Blood Count 18.9 X10*3/uL (4.8-10.8)
[2020-10-12 06:11] LABS: Band Neutrophils Percent 6 % (3-5); Eosinophils Absolute Manual 0.2 X10*3/UL (0.0-0.8); Eosinophils Percent Manual 1 % (0-4); Lymphocytes Absolute Manual 1.7 X10*3/uL (0.6-4.8); Lymphocytes Percent Manual 9 % (20-40); Monocytes Absolute Manual 1.7 X10*3/uL (0.0-1.2); Monocytes Percent Manual 9 % (2-11); Neutrophils Absolute Manual 15.3 X10*3/uL (2.2-7.9); Neutrophils Percent Manual 75 % (45-73)
[2020-10-12 06:13] LABS: Large Platelet PRESENT; Macrocytosis 2+ (15-30) /OIF; Platelet Estimate NORMAL (NORMAL); Platelet Morphology Comment NOTED; Polychromasia 1+ (0-2) /OIF; RBC Morphology NOTED
[2020-10-12 06:15] LABS: Alanine Aminotransferase 89 U/L (0-31); Albumin Level 2.7 g/dL (3.5-5.0); Alkaline Phosphatase 465 U/L (39-117); Anion Gap 16 (12-20); Aspartate Amino Transferase 169 U/L (5-31); Bilirubin Total 2.5 mg/dL (0.0-1.0); Blood Urea Nitrogen 12 mg/dL (9-16); Calcium 8.5 mg/dL (8.4-10.2); Carbon Dioxide 21 mmol/L (22-29); Chloride 106 mmol/L (96-108); Creatinine Clr Calc Pharmacy 92.9; Estimated Glomerular Filt Rate > 60; Glucose Random 110 mg/dL (60-115); Potassium 4.1 mmol/L (3.3-5.1); Sodium 139 mmol/L (135-145); Total Protein 5.3 g/dL (6.5-8.0)
[2020-10-12] MEDS: cephALEXin 500 MG CAPSULE PO (07:13)
== END 2020-10-12 07:44 | disposition skilled nursing facility (03) ==
PROVIDERS: Emergency Provider Student in an Organized Health Care Education/Training Program
DX: N39.0 Urinary tract infection, site not specified (principal); S00.83XA Contusion of other part of head, initial encounter; W01.0XXA Fall on same level from slipping, tripping and stumbling without subsequent striking against object, initial encounter; Z85.53 Personal history of malignant neoplasm of renal pelvis; F17.210 Nicotine dependence, cigarettes, uncomplicated; Y93.89 Activity, other specified; Y92.122 Bedroom in nursing home as the place of occurrence of the external cause; Y99.9 Unspecified external cause status
CPT/HCPCS: 36415; 51701; 70450; 72125; 80053; 81001; 81003; 85007; 85025; 85027; 85610; 87086; 87088; 87186; 93005; 99284; 99285

== ENCOUNTER 2020-10-16 00:18 | Emergency (ER) | payer MEDICARE, OTHER, SELFPAY ==
--- NOTE | ~2020-10-16 | CT_ITS ---
EXAMINATION: NONCONTRAST HEAD CT NONCONTRAST CERVICAL SPINE CT INDICATION INFORMATION: Fall. Frontal pain. COMPARISON: 10/12/2020 TECHNIQUE: Separate noncontrast CT examinations of the head and cervical spine were performed. Coronal and sagittal images were created for each examination at the technologist workstation. This CT examination was performed using dose optimization techniques as appropriate, variously including the following: *Automated exposure control *Adjustment of mA and/or kV according to patient size (this includes techniques or standardized protocols for targeted exams where dose is matched to indication/reason for exam; i.e. extremities or head) *Use of iterative reconstruction technique DLP: 1323 mGy-cm FINDINGS: Head: There is no evidence of acute intracranial hemorrhage or territorial infarction. No abnormal mass effect or midline shift is seen. Barroso to white matter differentiation is well preserved. No extra-axial fluid collections are identified. No hydrocephalus. Proportional prominence of the ventricles and sulcal spaces is consistent with mild volume loss. Patchy periventricular and deep white matter hypoattenuation is consistent with mild small vessel ischemic changes. The soft tissue swelling over the left parieto-occipital region is improving.. Bilateral mastoid air cell effusion. The visualized paranasal sinuses are well aerated. Cervical spine: There is anatomic alignment of the vertebral bodies and posterior elements. The atlantoaxial and atlantooccipital articulations are intact. Vertebral body heights are maintained. There is multilevel intervertebral disc space narrowing with endplate osteophyte formation and facet arthropathy. No evidence of acute fracture. No prevertebral soft tissue swelling. The thyroid gland is unremarkable. CT/CT cervical spine wo con IMPRESSION: 1. No acute intracranial finding. 2. No acute fracture or malalignment of the cervical spine. Moderate degenerative change.
[2020-10-16 00:21] VITALS: BP 102/54; PULSE 83; RESP 20; O2SAT 96; BMI 32.3
--- NOTE | 2020-10-16 01:38 | ED_ITS ---
HPI - Fall General Chief Complaint: Fall Stated Complaint: FALL Time Seen by Provider: 10/16/20 01:22 Source: patient, family and EMS Mode of arrival: wheelchair Limitations: no limitations History of Present Illness HPI Narrative: Patient comes emergency room complaining of a 2nd fall this week. Patient states she tripped while walking over her own feet. Patient landed forward, bumped her head on the floor on the frontal aspect. Patient has no laceration, states that she has chronic back pain. No new pain or complaints since this fall. Patient is recovering from a UTI, states she is compliant with taking cephalexin. [facility] Patient denies loss of consciousness, she is not on blood thinners. Patient has a spinal stimulator to help control her back pain Related Data Home Medications Medication Instructions Recorded Confirmed Probiotic 03/19/20 03/19/20 duloxetine 1 cap PO DAILY 03/19/20 07/05/20 lisinopril 20 mg PO DAILY 03/19/20 07/09/20 lorazepam 1 tab PO TID PRN 03/19/20 07/09/20 omega-3 fatty acids 1,000 mg PO DAILY 03/19/20 07/05/20 promethazine 1 tab PO TID 03/19/20 07/05/20 oxycodone 5 mg tablet 5 mg PO Q8H PRN 04/29/20 07/05/20 prochlorperazine maleate 10 mg 10 mg PO Q6H 04/29/20 07/05/20 tablet Previous Rx's Medication Instructions Recorded oxycodone-acetaminophen 5 mg-325 1 tab PO Q6H PRN #16 tab 07/09/20 mg tablet cephalexin 500 mg PO Q12H 7 Days #14 cap 10/12/20 Allergies Allergy/AdvReac Type Severity Reaction Status Date / Time lactose Allergy Unknown Verified 10/12/20 03:52 Review of Systems Review of Systems: Constitutional : No Weight loss, No Fever, No Chills, No Night Sweats, No Fatigue, chronic generalized weakness ENT/Mouth : No Hearing loss, No Ear Pain, No Nasal Congestion, No Sinus Pain, No Hoarseness, No sore throat, No Rhinorrhea, No Swallowing Difficulty Eyes: No Eye Pain, No Swelling, No Redness, No Foreign Body, No Discharge, No Vision Changes Cardiovascular : No Chest Pain, No SOB, No Dyspnea on Exertion, No Orthopnea, No Edema, No Palpitations Respiratory : No Cough, No Sputum, No Wheezing, No Smoke Exposure, No Dyspnea Gastrointestinal : No Nausea, No Vomiting, No Diarrhea, No Constipation, No abdominal Pain, No Hematochezia, No Melena Genitourinary : no irregular bleeding, No Dysuria, No Urinary Frequency, No Hematuria, No Urinary Incontinence, No Urgency, No Flank Pain, No Urinary Flow Changes, No Hesitancy Musculoskeletal : Chronic back pain, No Myalgias, No Joint Swelling Skin : No Skin Lesions, No rash Neuro : No Weakness, No Numbness, No Paresthesias, No Loss of Consciousness, No Dizziness, No Headache Psych : No Anxiety/Panic, No Depression, No SI/HI/AH/VH, No Social Issues, Heme/Lymph: No Bruising, No Bleeding,No Lymphadenopathy Endocrine : No Polyuria, No Polydipsia, No Temperature Intolerance PMFSH Past Medical History Medical History Back pain Clostridioides difficile infection Disc disorder Fatty liver History of chemotherapy Hypertension Low back pain ELIAS on CPAP Osteoarthritis Osteoporosis Renal cancer Smoker Surgical History H/O kyphoplasty H/O partial adrenalectomy H/O partial nephrectomy History of back surgery Hx of appendectomy Status post kyphoplasty Social History Social History Alcohol intake: never Smoking Status: Light tobacco smoker Packs Per Day: 0.5 Cigarettes Per Day: 10.0 Years Smoked: 50 Advance Directives: No Advance Directives Information Provided: No Physical Exam Vital Signs: Vital Signs: Last Vital Signs Temp 97.6 F 10/16/20 01:58 Pulse 74 10/16/20 01:58 Resp 16 10/16/20 01:58 BP 138/64 10/16/20 01:58 Pulse Ox 99 10/16/20 01:58 Body Mass Index 32.3 Appearance: Alert. Oriented X3. No acute distress. Eyes: Pupils equal, round and reactive to light. ENT: Pharynx normal. Neck: On C-spine precautions, no C-spine tenderness on palpation, no palpable step-offs CVS: Normal heart rate and rhythm. Pulses normal. Normal S1 and S2 Respiratory: No respiratory distress. Breath sounds normal. No Wheezing. No rales Abdomen: Soft and nontender. No rigidity. No distention Skin: Skin warm and dry. Normal skin color. Normal skin turgor. Extremities: No lower extremity edema. No lower extremity edema. No Lacerations. No Rash Neuro: Oriented X 3. No motor deficit. No sensory deficit. Moving all extermities. No slurred speech. Course Course Course Narrative: I discussed the CT scan with the patient and her jive developer. No acute findings. Urinary tract infection seems to be clearing up. Instructed to finish a course of antibiotics. Patient's family will be returning her to [facility] Lab Data Labs: Lab Results 10/16/20 Range/Units 06:08 Urine Color SIRENA Urine Appearance HAZY Urine pH 6.0 (5.0-8.0) Ur Specific [place] 1.020 (1.005-1.025) Urine Protein TRACE (NEG-TRACE) MG/DL Urine Glucose (UA) NEG (NEG) MG/DL Urine Ketones NEG (NEG) MG/DL Urine Blood NEG (NEG) Urine Nitrite NEG (NEG) Ur Leukocyte Esterase NEG (NEG) Imaging Data Head and neck CT: Radiologist's impression: FINDINGS: Head: There is no evidence of acute intracranial hemorrhage or territorial infarction. No abnormal mass effect or midline shift is seen. Barroso to white matter differentiation is well preserved. No extra-axial fluid collections are identified. No hydrocephalus. Proportional prominence of the ventricles and sulcal spaces is consistent with mild volume loss. Patchy periventricular and deep white matter hypoattenuation is consistent with mild small vessel ischemic changes. The soft tissue swelling over the left parieto-occipital region is improving.. Bilateral mastoid air cell effusion. The visualized paranasal sinuses are well aerated. Cervical spine: There is anatomic alignment of the vertebral bodies and posterior elements. The atlantoaxial and atlantooccipital articulations are intact. Vertebral body heights are maintained. There is multilevel intervertebral disc space narrowing with endplate osteophyte formation and facet arthropathy. No evidence of acute fracture. No prevertebral soft tissue swelling. The thyroid gland is unremarkable. CT/CT cervical spine wo con IMPRESSION: 1. No acute intracranial finding. 2. No acute fracture or malalignment of the cervical spine. Moderate degenerative change. Discharge Plan Discharge Clinical Impression: Fall Qualifiers: Encounter type: initial encounter Qualified Code(s): W19.XXXA - Unspecified fall, initial encounter Contusion Qualifiers: Encounter type: initial encounter Contusion area: head Patient Disposition: Home, Self-Care Instructions: Fall Prevention for Older Adults (ED) Additional Instructions: Please continue taking the course of antibiotics until finished. Please follow-up with your primary care physician tomorrow. If you have any worsening or new symptoms, please return to the emergency room or call 911 Prescriptions: No Action oxycodone-acetaminophen [Percocet] 5-325 mg tablet 1 tab PO Q6H PRN (Reason: pain) Qty: 16 RF: 0 lorazepam 1 mg tablet 1 tab PO TID PRN (Reason: Anxiety) RF: 0 lisinopril 20 mg Tablet 20 mg PO DAILY RF: 0 promethazine 50 mg tablet 1 tab PO TID RF: 0 omega-3 fatty acids Capsule 1,000 mg PO DAILY RF: 0 duloxetine 30 mg capsule,delayed release(DR/EC) 1 cap PO DAILY RF: 0 Probiotic 10 billion cell Capsule RF: 0 cephalexin 500 mg capsule 500 mg PO Q12H 7 Days Qty: 14 RF: 0
[2020-10-16 01:58] VITALS: BP 138/64; PULSE 74; RESP 16; TEMP 36.4; O2SAT 99
--- NOTE | 2020-10-16 02:02 | PC.NURSE ---
MD IBARRA AWARE THAT KARLI MATAMOROS SAID TO HOLD OFF ON DOING STRAIGHT CATH UNTIL PATIENT IS CLEAR OF SCAN .
[2020-10-16] MEDS: oxyCODONE HCl Immed Release 5 MG TABLET PO (04:41)
[2020-10-16 06:18] LABS: Glucose Urine UA NEG (NEG); Leukocyte Esterase Urine NEG (NEG); Nitrite Urine NEG (NEG); Urine Blood NEG (NEG); Urine Ketones NEG (NEG); Urine Protein TRACE MG/DL (NEG-TRACE)
[2020-10-16 06:19] LABS: Appearance Urine HAZY; Color Urine AMBER; UACC Culture Trigger NO
== END 2020-10-16 08:44 | disposition home or self-care (01) ==
PROVIDERS: Emergency Provider Emergency Medicine
DX: S00.93XA Contusion of unspecified part of head, initial encounter (principal); G44.309 Post-traumatic headache, unspecified, not intractable; M54.2 Cervicalgia; M54.5 Low back pain; W19.XXXA Unspecified fall, initial encounter; Y93.9 Activity, unspecified; Y92.9 Unspecified place or not applicable; Y99.9 Unspecified external cause status; Z79.899 Other long term (current) drug therapy; F17.210 Nicotine dependence, cigarettes, uncomplicated; Z71.6 Tobacco abuse counseling
CPT/HCPCS: 51701; 51702; 70450; 72125; 81003; 99284

== ENCOUNTER 2020-10-16 08:32 | Emergency (ER) | payer MEDICARE, OTHER, SELFPAY ==
--- NOTE | ~2020-10-16 | XR_ITS ---
EXAMINATION: XR LUMBAR SPINE: 2 VIEWS XR SACRUM / COCCYX: 3 VIEWS CLINICAL INFORMATION: Fall COMPARISON: None FINDINGS: Lumbar spine: No acute fracture or traumatic malalignment. Chronic compression fracture T12 with 50-60% loss of vertebral body height status post kyphoplasty. Mild retrolisthesis of L2 on L3 proximal a 5 mm. Endplate osteophytes present throughout the lumbar spine, with moderate loss of disc space height at L2-L3, L4-L5 and L5-S1. Mild facet arthropathy throughout the lower lumbar spine. Spinal cord stimulator leads enter the lumbar spine at L1-L2 coursing superiorly into the lower thoracic spine. Paraspinal soft tissues unremarkable. Sacrum/coccyx no acute fracture or traumatic malalignment. Sacrum coccyx and sacrococcygeal alignment are intact. Sacral neurostimulator generator XR/XR lumbar spine 2-3V IMPRESSION: No acute fracture or traumatic malalignment.
--- NOTE | ~2020-10-16 | XR_ITS ---
EXAMINATION: XR LUMBAR SPINE: 2 VIEWS XR SACRUM / COCCYX: 3 VIEWS CLINICAL INFORMATION: Fall COMPARISON: None FINDINGS: Lumbar spine: No acute fracture or traumatic malalignment. Chronic compression fracture T12 with 50-60% loss of vertebral body height status post kyphoplasty. Mild retrolisthesis of L2 on L3 proximal a 5 mm. Endplate osteophytes present throughout the lumbar spine, with moderate loss of disc space height at L2-L3, L4-L5 and L5-S1. Mild facet arthropathy throughout the lower lumbar spine. Spinal cord stimulator leads enter the lumbar spine at L1-L2 coursing superiorly into the lower thoracic spine. Paraspinal soft tissues unremarkable. Sacrum/coccyx no acute fracture or traumatic malalignment. Sacrum coccyx and sacrococcygeal alignment are intact. Sacral neurostimulator generator XR/XR sacrum coccyx min 2V IMPRESSION: No acute fracture or traumatic malalignment.
--- NOTE | ~2020-10-16 | CT_ITS ---
EXAMINATION: CT HEAD WITHOUT CONTRAST CLINICAL INFORMATION: Fall. Evaluate for hemorrhage. COMPARISON: Previous head CT from earlier the same day TECHNIQUE: Contiguous axial imaging was performed from the skull base to vertex without intravenous administration of contrast. This CT examination was performed using dose optimization techniques as appropriate, variously including the following: *Automated exposure control *Adjustment of mA and/or kV according to patient size (this includes techniques or standardized protocols for targeted exams where dose is matched to indication/reason for exam; i.e. extremities or head) *Use of iterative reconstruction technique DLP: 1004 mGy-cm FINDINGS: There is no evidence of an extra-axial collection. There is question of a small focus of hemorrhage seen adjacent to the right frontal lobe near the sylvian fissure axial image 58 series 2. No other evidence of intra-axial or extra-axial hemorrhage is seen. The ventricles and extra-axial CSF spaces are appropriate. Barroso-white matter differentiation is normal. No mass, mass effect or infarct is seen. No skull fracture is seen. There is a scalp hematoma overlying the left posterior parietal bone. There is minimal soft tissue opacification of the bilateral mastoid air cells. The middle ears and paranasal sinuses are clear. CT/CT head/brain wo con IMPRESSION: Question small focus of extra-axial subarachnoid hemorrhage adjacent to the right frontal lobe near the sylvian fissure. Large scalp hematoma overlying the left posterior parietal bone. These findings are new compared to exam from earlier the same day. Findings were communicated to Dr. Nelson by telephone on 10/17/2019 at 10:40 AM.
[2020-10-16 09:14] VITALS: BP 113/54; PULSE 102; RESP 18; TEMP 36.5; O2SAT 95; BMI 33.4
--- NOTE | 2020-10-16 09:35 | ED_ITS ---
HPI - Fall General Chief Complaint: Fall Stated Complaint: FALL Time Seen by Provider: 10/16/20 09:35 History of Present Illness HPI Narrative: Patient resident of a detention was here last night evaluated for a fall was discharged went back to the detention and when she got out of the car she fell again she fell on her buttocks and hit the back of her head, now she complains of low back pain mostly in the coccyx area and denies any headache vomiting or vision change , there was no preceding dizziness or syncope she has no chest pain palpitations or shortness of breath, no neck pain no abdominal pain no extremity injury She takes a daily aspirin but no other blood thinners Related Data Home Medications Medication Instructions Recorded Confirmed Probiotic 03/19/20 03/19/20 duloxetine 1 cap PO DAILY 03/19/20 07/05/20 lisinopril 20 mg PO DAILY 03/19/20 07/09/20 lorazepam 1 tab PO TID PRN 03/19/20 07/09/20 omega-3 fatty acids 1,000 mg PO DAILY 03/19/20 07/05/20 promethazine 1 tab PO TID 03/19/20 07/05/20 oxycodone 5 mg tablet 5 mg PO Q8H PRN 04/29/20 07/05/20 prochlorperazine maleate 10 mg 10 mg PO Q6H 04/29/20 07/05/20 tablet Previous Rx's Medication Instructions Recorded oxycodone-acetaminophen 5 mg-325 1 tab PO Q6H PRN #16 tab 07/09/20 mg tablet cephalexin 500 mg PO Q12H 7 Days #14 cap 10/12/20 Allergies Allergy/AdvReac Type Severity Reaction Status Date / Time lactose Allergy Unknown Verified 10/12/20 03:52 Review of Systems Review of Systems: Positive for head injury and back pain No fainting no loss of consciousness no no dizziness or weakness no neck pain no chest pain no abdominal pain no extremity pain no numbness weakness or tingling [facility] Past Medical History Attestation statement: The following information was validated with the patient. [facility] Narrative: Patient has long history of back pain with the stimulator in place in her back, she is currently a detention resident, she was admitted to the detention after an episode where she possibly overmedicated went to [facility] and was sent to the detention as she was having difficulty with ambulation She has had 3 falls in the last week Medical History Back pain Clostridioides difficile infection Disc disorder Fatty liver History of chemotherapy Hypertension Low back pain ELIAS on CPAP Osteoarthritis Osteoporosis Renal cancer Smoker Surgical History H/O kyphoplasty H/O partial adrenalectomy H/O partial nephrectomy History of back surgery Hx of appendectomy Status post kyphoplasty Social History Social History Alcohol intake: never Smoking Status: Never smoker Packs Per Day: 0.5 Cigarettes Per Day: 10.0 Years Smoked: 50 Use of substances other than those prescribed or required for medical reasons: No Advance Directives: Yes Advance Directives Information Provided: Yes Advance Directives on File: No Physical Exam Vital Signs: Vital Signs: Last Vital Signs Temp 97.7 F 10/16/20 11:17 Pulse 91 10/16/20 11:17 Resp 18 10/16/20 11:17 BP 138/69 10/16/20 11:17 Pulse Ox 96 10/16/20 11:17 Body Mass Index 33.4 General appearance is no acute distress, a and O x3, cooperative The head did have a hematoma palpable on the left side of the rear of the skull, no dial sign no raccoon eyes Ear exam no hemotympanum Eye exam pupils equal round reactive to light extraocular motions intact Neck exam there is no tenderness, full range of motion A chest exam no chest wall tenderness, lungs are clear to auscultation bilaterally Abdomen soft nontender Back exam there is diffuse lower lumbar and coccyx tenderness, skin of the back was normal, there is no focal bony tenderness no CVA tenderness Extremities full range of motion x4 without tenderness swelling or deformity Skin no laceration Neuro there is no focal motor or sensory deficit Course Course Course Narrative: No acute findings on x-rays of back and coccyx, no fracture seen Head CT revealed small subarachnoid hemorrhage adjacent to right frontal lobe This was discussed with radiologist Dr. Ge who confirmed that there is a new small subarachnoid hemorrhage, this was not seen on the CT of her head which was done 8 hours prior from her previous fall Case was discussed with attending physician Dr. johns who agreed patient would be transferred to Trauma Service at [facility] for further evaluation and monitoring I spoke with Trauma who accepted the patient Re exam symptoms have not progressed and patient continues to be a and O x3 with no new neurologic deficit no acute changes She is aware of plan for transfer and is excepting of this plan MDM - Fall Imaging Data CT scan - head: Radiologist's impression: FINDINGS: There is no evidence of an extra-axial collection. There is question of a small focus of hemorrhage seen adjacent to the right frontal lobe near the sylvian fissure axial image 58 series 2. No other evidence of intra-axial or extra-axial hemorrhage is seen. The ventricles and extra-axial CSF spaces are appropriate. Barroso-white matter differentiation is normal. No mass, mass effect or infarct is seen. No skull fracture is seen. There is a scalp hematoma overlying the left posterior parietal bone. There is minimal soft tissue opacification of the bilateral mastoid air cells. The middle ears and paranasal sinuses are clear. CT/CT head/brain wo con IMPRESSION: Question small focus of extra-axial subarachnoid hemorrhage adjacent to the right frontal lobe near the sylvian fissure. Large scalp hematoma overlying the left posterior parietal bone. These findings are new compared to exam from earlier the same day. Findings were communicated to Dr. Nelson by telephone on 10/17/2019 at 10:40 AM. Lumbar spine: No acute fracture or traumatic malalignment. Chronic compression fracture T12 with 50-60% loss of vertebral body height status post kyphoplasty. Mild retrolisthesis of L2 on L3 proximal a 5 mm. Endplate osteophytes present throughout the lumbar spine, with moderate loss of disc space height at L2-L3, L4-L5 and L5-S1. Mild facet arthropathy throughout the lower lumbar spine. Spinal cord stimulator leads enter the lumbar spine at L1-L2 coursing superiorly into the lower thoracic spine. Paraspinal soft tissues unremarkable. Sacrum/coccyx no acute fracture or traumatic malalignment. Sacrum coccyx and sacrococcygeal alignment are intact. Sacral neurostimulator generator XR/XR lumbar spine 2-3V IMPRESSION: No acute fracture or traumatic malalignment. Discharge Plan Discharge Clinical Impression: Subarachnoid hemorrhage Patient Disposition: [facility] Transfer Details: Case was discussed with excepting Dr. Avila for transfer to [facility] for trauma evaluation for subarachnoid hemorrhage after a fall Additional Instructions: Our CT scan imaging showed that there is a new small subarachnoid hemorrhage As we do not have services necessary to treat this should it get any worse we are transferring to [facility] trauma team for further evaluation and monitoring Accepting doctor was Dr. Avila Prescriptions: No Action oxycodone-acetaminophen [Percocet] 5-325 mg tablet 1 tab PO Q6H PRN (Reason: pain) Qty: 16 RF: 0 lorazepam 1 mg tablet 1 tab PO TID PRN (Reason: Anxiety) RF: 0 lisinopril 20 mg Tablet 20 mg PO DAILY RF: 0 promethazine 50 mg tablet 1 tab PO TID RF: 0 omega-3 fatty acids Capsule 1,000 mg PO DAILY RF: 0 duloxetine 30 mg capsule,delayed release(DR/EC) 1 cap PO DAILY RF: 0 Probiotic 10 billion cell Capsule RF: 0 cephalexin 500 mg capsule 500 mg PO Q12H 7 Days Qty: 14 RF: 0
[2020-10-16] MEDS: cephALEXin 500 MG CAPSULE PO (10:26)
[2020-10-16 11:17] VITALS: BP 138/69; PULSE 91; RESP 18; TEMP 36.5; O2SAT 96
== END 2020-10-16 12:25 | disposition short-term general hospital (02) ==
PROVIDERS: Emergency Provider Emergency Medicine
DX: S06.6X9A Traumatic subarachnoid hemorrhage with loss of consciousness of unspecified duration, initial encounter (principal); G44.309 Post-traumatic headache, unspecified, not intractable; M54.5 Low back pain; W01.0XXA Fall on same level from slipping, tripping and stumbling without subsequent striking against object, initial encounter; Y93.9 Activity, unspecified; Y92.129 Unspecified place in nursing home as the place of occurrence of the external cause; Y99.9 Unspecified external cause status; F17.210 Nicotine dependence, cigarettes, uncomplicated; Z79.899 Other long term (current) drug therapy; Z71.6 Tobacco abuse counseling
CPT/HCPCS: 51701; 51702; 70450; 72100; 72125; 72220; 81003; 99284; 99285

== ENCOUNTER 2020-10-18 00:31 | Outpatient (REF) | payer OTHER, MEDICARE, SELFPAY | END 2020-10-18 00:32 | disposition home or self-care (01) | LOC: HO.MMNH1L 00:31 | PROVIDERS: Visit Provider Family Medicine | DX: Z13.89 Encounter for screening for other disorder (principal) ==

== ENCOUNTER → 2020-12-27 13:19 | Outpatient (BNVA) | payer OTHER, MEDICARE, SELFPAY | PROVIDERS: Visit Provider Anesthesiology ==

== ENCOUNTER 2021-09-22 12:56 | Outpatient (REF) | payer MEDICARE, OTHER, SELFPAY ==
--- NOTE | ~2021-09-22 | XR_ITS ---
EXAMINATION: XR THORACOLUMBAR SPINE CLINICAL INFORMATION: Postlaminectomy syndrome COMPARISON: None TECHNIQUE: AP, lateral and swimmer's views FINDINGS: No acute fracture or traumatic malalignment.. Previous vertebroplasty at T12. Age indeterminant anterior wedge compression fracture at T7. Vertebral body heights preserved. Spinal neurostimulator present within the dorsal epidural space at T12. Paraspinal soft tissues unremarkable. XR/XR thoracic spine 2V IMPRESSION: Age-indeterminate anterior wedge compression fracture at T7 resulting in 30% height loss anteriorly.
== END 2021-09-22 12:57 | disposition home or self-care (01) ==
LOC: HO.LAB 12:56
PROVIDERS: PCP Internal Medicine; Visit Provider Anesthesiology
DX: M96.1 Postlaminectomy syndrome, not elsewhere classified (principal); T85.192A Other mechanical complication of implanted electronic neurostimulator of spinal cord electrode (lead), initial encounter; Z98.890 Other specified postprocedural states
CPT/HCPCS: 72070

== ENCOUNTER → 2021-10-06 08:30 | Outpatient (BNVA) | payer MEDICARE, OTHER, SELFPAY | PROVIDERS: Visit Provider Anesthesiology | DX: Z13.89 Encounter for screening for other disorder (principal) | CPT/HCPCS: Q3014 ==

== ENCOUNTER → 2021-11-28 14:51 | Outpatient (BNVA) | payer MEDICARE, OTHER, SELFPAY | PROVIDERS: Visit Provider Internal Medicine | DX: T85.192A Other mechanical complication of implanted electronic neurostimulator of spinal cord electrode (lead), initial encounter (principal); M96.1 Postlaminectomy syndrome, not elsewhere classified; M47.816 Spondylosis without myelopathy or radiculopathy, lumbar region; M54.50 Low back pain, unspecified | CPT/HCPCS: 99212 ==

== ENCOUNTER → 2021-12-14 16:56 | Outpatient (BNVA) | payer MEDICARE, OTHER, SELFPAY | PROVIDERS: Visit Provider Anesthesiology | DX: T85.192D Other mechanical complication of implanted electronic neurostimulator of spinal cord electrode (lead), subsequent encounter (principal); M96.1 Postlaminectomy syndrome, not elsewhere classified; Z98.890 Other specified postprocedural states | CPT/HCPCS: Q3014 ==

== ENCOUNTER → 2022-03-13 15:51 | Outpatient (BNVA) | payer MEDICARE, OTHER, SELFPAY | PROVIDERS: Visit Provider Anesthesiology | DX: T85.192A Other mechanical complication of implanted electronic neurostimulator of spinal cord electrode (lead), initial encounter (principal); M96.1 Postlaminectomy syndrome, not elsewhere classified; Z98.890 Other specified postprocedural states | CPT/HCPCS: Q3014 ==

== ENCOUNTER 2022-03-31 09:17 | Day surgery (SDC) | payer MEDICARE, OTHER, SELFPAY ==
--- NOTE | 2022-03-30 13:08 | HO.ANESPROP2 ---
Documented by User: Marilee Muhammad NP 03/30/22 13:09 HPI - Anesthesia Eval Consult details Narrative: 71yo F for Remove Nevro Spinal Cord Stimulator s/p spinal stim implant 06/2020 with MAC PMFSH Active Problems Active Problems: All Active Problems (Updated 12/15/21 @ 08:15 by Bora Menjivar MD) Lumbar spondylosis (Acute) Spinal cord stimulator dysfunction (Acute) Postlaminectomy syndrome (Acute) Status post kyphoplasty (Acute) Low back pain (Acute) Disc disorder (Acute) Clostridioides difficile infection (Acute) Past Medical History Medical History Back pain C. difficile colitis Clostridioides difficile infection Disc disorder Fatty liver History of chemotherapy Hypertension Low back pain ELIAS on CPAP Osteoarthritis Osteoporosis Renal cancer Smoker Spinal cord stimulator dysfunction Surgical History Surgical History H/O kyphoplasty H/O partial adrenalectomy H/O partial nephrectomy History of back surgery Hx of appendectomy Status post kyphoplasty Social History Social History Alcohol intake: never Patient Tobacco Use Status: Former Tobacco user Quit Date: 2020 Cigarette Packs Per Day: 0.5 Cigarettes Per Day: 10.0 Years Smoked: 50 Use of substances other than those prescribed or required for medical reasons: No Advance Directives: No Advance Directives Information Provided: Yes Meds Allergies Allergy/AdvReac Type Severity Reaction Status Date / Time lactose Allergy Unknown Verified 03/13/22 15:52 Home Medications Medication Instructions Recorded Confirmed Last Taken Type Lactobacillus acidophilus 10 03/19/20 11/28/21 Unknown History billion cell capsule (Probiotic) duloxetine 30 mg capsule,delayed 1 cap PO DAILY 03/19/20 11/28/21 Unknown History release lisinopril 20 mg tablet 20 mg PO DAILY 03/19/20 11/28/21 03/31/22 History prochlorperazine maleate 10 mg 10 mg PO Q6H 04/29/20 11/28/21 Unknown History tablet lorazepam 1 mg tablet 2 mg PO TID PRN Anxiety 11/28/21 11/28/21 07/09/20 History metoprolol tartrate 50 mg tablet 50 mg PO DAILY 11/28/21 11/28/21 Unknown History Exam Exam Date and Time: March 30, 2022 1308 Assessment and Plan Assessment Anesthesia Assessment: Chart Reviewed Documented by User: Meghana Wyatt MD 03/31/22 11:03 [facility] Past Medical History Medical History Back pain C. difficile colitis Clostridioides difficile infection Disc disorder Fatty liver History of chemotherapy Hypertension Low back pain ELIAS on CPAP Osteoarthritis Osteoporosis Renal cancer Smoker Spinal cord stimulator dysfunction Functional capacity: independent ambulation Patient : No Family History Family history of problems with anesthesia: No Surgical History Surgical History H/O kyphoplasty H/O partial adrenalectomy H/O partial nephrectomy History of back surgery Hx of appendectomy Status post kyphoplasty History of Problems with Anesthesia: No Social History Social History Alcohol intake: never Patient Tobacco Use Status: Former Tobacco user Quit Date: 2020 Cigarette Packs Per Day: 0.5 Cigarettes Per Day: 10.0 Years Smoked: 50 Use of substances other than those prescribed or required for medical reasons: No Advance Directives: No Advance Directives Information Provided: Yes Meds Allergies Allergy/AdvReac Type Severity Reaction Status Date / Time lactose Allergy Unknown Verified 03/13/22 15:52 Home Medications Medication Instructions Recorded Confirmed Last Taken Type Lactobacillus acidophilus 10 03/19/20 11/28/21 Unknown History billion cell capsule (Probiotic) duloxetine 30 mg capsule,delayed 1 cap PO DAILY 03/19/20 11/28/21 Unknown History release lisinopril 20 mg tablet 20 mg PO DAILY 03/19/20 11/28/21 03/31/22 History prochlorperazine maleate 10 mg 10 mg PO Q6H 04/29/20 11/28/21 Unknown History tablet lorazepam 1 mg tablet 2 mg PO TID PRN Anxiety 11/28/21 11/28/21 07/09/20 History metoprolol tartrate 50 mg tablet 50 mg PO DAILY 11/28/21 11/28/21 Unknown History Exam Airway Mallampati Class: III TM Dist: >3cm Neck ROM: Full Heart: RRR Lungs: CTA Assessment and Plan Final Anesthetic Review Family History of Problems with Anesthesia: No History of Problems with Anesthesia: No ASA Class: III Final Preanesthetic Review: No Changes in Pt Med Stat, Meds/Allgs Chart Reviewed, Consent Obtained/Reviewed and Anes Risks/Benef Reviewed Patient Risk: Intermediate Procedure Risk: Low Anesthetic Plan Anesthetic Plan: GA Disposition: Standard PACU
[2022-03-31] VITALS (8 sets, daily range): BP systolic 139–183; BP diastolic 86–105; PULSE 71–82; RESP 16; TEMP 36.2–36.8; O2SAT 94–100; BMI 32.3
--- NOTE | ~2022-03-31 | FL_ITS ---
EXAMINATION: XR FLUOROSCOPY WITH IMAGES CLINICAL INFORMATION: Removal spinal cord stimulator. COMPARISON: Thoracic spine radiographs 09/22/2021 TECHNIQUE: Fluoroscopy performed by Dr. Bora Menjivar. Fluoroscopy time: 0.1 minutes. Cumulative Dose: 4.59 mGy. DAP: 1.255 Gycm2. Images: 2. FINDINGS: No spinal stimulator leads are demonstrated overlying the spine. There is a metallic clamp and a metallic retractor on one of the views. The other projection shows old post vertebroplasty changes lower thoracic spine similar to previous exam. FL/FL guidance in OR IMPRESSION: Fluoroscopy for pain management procedure.
--- NOTE | 2022-03-31 10:26 | P.HPSUR_ITS ---
Pre-Procedural Eval Section A Date of Service: 03/31/22 The patient is an INPATIENT: No Changes since office visit: Yes Patient answered all questions The History & Physical has been completed within 30 days and I have reviewed it.: No Section B Chief Complaint: Other mechanical complication of implanted electro Details of Present Illness: presence of Nevro SCS patient desires to remove SCS Relevant Family History (Specify if Yes): No Relevant Social History: None Present Medications: see Short Stay Collaborative assessment Medical History: No relevant PMH History of Previous Operations: Relevant previous surgery/procedure and date(s) (implantation of the SCS Nevro) Allergies: Allergies Allergy/AdvReac Type Severity Reaction Status Date / Time lactose Allergy Unknown Verified 03/13/22 15:52 Review of Systems Sugical H&P ROS: Negative: Constitution, Cardiovascular, Respiratory, Neurological, Psychiatric, Hem-Onc, Gastrointestinal, Genitourinary, Muscu loskeletal, Integumentary, Endocrine and Eyes/Ears/Nose/Throat and Yes, Specify: Allergic/Immunologic (h/o c-diff colitis.) Exam Surgical H&P Exam: Normal: HEENT, Normal: Heart, Normal: Lungs, Normal: Extremities, Normal: Abdomen, Normal: Skin and Normal: Neurological Plan Diagnosis/Plan: Unchanged I have reviewed the history and physical and performed a pertinent physical examination on my patient. No changes have occurred unless specified.
[2022-03-31] MEDS: Lactated Ringers 1,000 ML 100 ML IVCONT (10:44)
--- NOTE | 2022-03-31 11:45 | P.OP_ITS ---
Operative Note Operative Note Date of Service: 03/31/22 Narrative: Serene is very pleasant 71 years old female who came today into the operating room for explantation of spinal cord stimulator Nevro.? She continued to feel the stimulation in the appropriate painful areas when stimulator is on low frequency mode but she denies any pain relief neither on low frequency nor on high-frequency, any benefits from the device.? she requested to remove the the device. she was explained multiple times including this morning that it is not necessary to remove the device, he could live with the device without charging it - she continued to insist on the explantation. she denies any presence of the discomfort in the area of the spinal cord stimulator with the areaof the battery implantation. After obtaining informed consent patient was brought to the operating room, she was positioned supine on the stretcher, [place] [employer]hes[employer] monitors were applied and patient was induced with GETA. She was transferred on the OR table prone, all pressure points were protected. Time-out was performed delineating correct site, side, the nature of the procedure, patient's allergy, preoperative antibiotic.? All operating room staff was participating in OR time-out procedure. Patient's entire back was prepped with ChloraPrep twice and draped with full body drape .? Sterilely draped C-arm was brought over the operating field and picture of the spinal cord stimulator was demonstrated again in the appropriate position of the patient's body. Local anesthetic mixture of lidocain 2% and ropivacaine 0.5% was injected along the scar in the right? upper buttock.? 6 cm long horizontal incision was performed onto the previous scar. The wound was widened and deepened using scalpel and metzenbaum scissors.The body of the battery was located in the wound and anchoring sutures were severed, the device was delivered to the level of the skin and? gentle tugging force was applied on epidural leads.? under x-ray vision the leads were dislodged to the level L1 L2 intervertebral space below the area entrance into the epidural space. However further tugging force on the leads resulted in leads rupture. The pocket wound was packed with dry lap pad and attention was concentrated on patient's lumbar spine. Between L2 on L3 spinous processes local anesthetic was infiltrated along side the previous scar. 6 cm long incision was made along side the previous scar in strict midline fashion. The C-arm assistance was used to locate anchoring devices. The sutures holding anchoring devices of the epidural leads were severed and the location of the epidural leads were detected in the tissue. They were removed from the surrounding tissues , the tips of the epidural leads were intact. Therefore in spinal canal there were no metal artifact left!. Possibility however existed that some small fragments of the ruptured epidural leads have left behind in the subcutaneous tissues. The C-arm was brought over the operating field and the entire length of the traveling epidural leads route from l2 vertebra through the left loin and the left battery pocket was examined with x-ray. We did not find any metal artifacts on the screen. After that thorough hemostasis was obtained in the midline incision using interrupted sutures 0 Polysorb on 2 occasions as well as using bipolar and unipolar electrocautery. After that the diffuse bleeding was arrested using electrocautery, thorough irrigation was performed in the wound using normal saline with addition of vancomycin and 0 Polysorb sutures were used to close deep tissues. thorough irrigation was performed with vancomycin containing normal saline. The skin level was approximated using 2-0 Polysorb sutures. [place] were applied to the suture lines. After that attention was diverted to the left buttock pocket. The scar tissues which were forming the pocket of the spinal cord stimulator was excised using dull and sharp dissection as well as electrocautery. Hemostasis was obtained using electrocautery. The wound was irrigated? with Vancomycin containing normal saline. Irrigation with normal saline containing vancomycin was performed. 0 Polysorb sutures were used to close the battery pocket. After that the 0 Polysorb sutures were used to approximate the soft tissue. After that 2-0 Polysorb sutures was used to approximate the level of the skin. The tad were applied to the level of the skin. compression dressing was applied to the both sides due to diffuse capillary bleeding. ? Bacitracin ointment was applies to the level of the tad and sterile dressings were applied to the staple lines.? Compression tape was applied to hold the dressing to the patient's skin.?The? patient was transferred on the stretcher supine,? awaken extubated and transferred to PACU.? She was recovering uneventfully in PACU. ?
[2022-03-31 12:06] LABS: MRSA Nasal PCR NEGATIVE (Negative); SA Nasal PCR NEGATIVE (Negative)
--- NOTE | 2022-03-31 14:10 | P.BOP_ITS ---
Brief Operative Note Date of Service: 03/31/22 Pre-op diagnosis: Presence of spinal cord stimulator Nevro, patient's desire to remove spinal cord stimulator. Post-op diagnosis: same Procedure: Explantation of Nevro spinal cord stimulator battery and epidural leads. Implants: None Surgeon: Bora Menjivar MD Anesthesia: GETA Was an Hvac Design Mechanical Engineer used for this Procedure?: No Estimated blood loss (mL): 80 Pathology: none sent Condition: stable Disposition: PACU
--- NOTE | 2022-03-31 14:24 | HO.POSTANES ---
Post Anesthesia Evaluation Post Anesthesia Evaluation Vital Signs: Vital Signs Temp Pulse Resp BP Pulse Ox O2 Del Method 03/31/22 10:20 97.5 F 77 16 155/89 H 94 Room Air Anesthesia: General Endotracheal-GETA Mental Status: Awake Pain Control: Satisfactory Nausea/Vomiting: None Hydration: Adequate Anesthesia-Related Issues: No Anes. Related Issues
[2022-03-31] MEDS: oxyCODONE HCl Immed Release 5 MG TABLET PO (15:50)
[2022-03-31] MEDS: Acetaminophen 325 MG TABLET 650 MG PO (15:51)
== END 2022-03-31 15:59 | disposition home or self-care (01) ==
PROVIDERS: Nurse Practitioner Family; PCP Internal Medicine; Visit Provider Anesthesiology
PROC: (CPT 63661; principal; 2022-03-31 12:10)
DX: T85.192A Other mechanical complication of implanted electronic neurostimulator of spinal cord electrode (lead), initial encounter (principal); T85.840A Pain due to nervous system prosthetic devices, implants and grafts, initial encounter; G89.18 Other acute postprocedural pain; Y82.8 Other medical devices associated with adverse incidents; Y83.8 Other surgical procedures as the cause of abnormal reaction of the patient, or of later complication, without mention of misadventure at the time of the procedure; Y92.9 Unspecified place or not applicable; M96.1 Postlaminectomy syndrome, not elsewhere classified; M54.50 Low back pain, unspecified; M81.0 Age-related osteoporosis without current pathological fracture; I10 Essential (primary) hypertension; G47.33 Obstructive sleep apnea (adult) (pediatric); Z98.890 Other specified postprocedural states; Z86.19 Personal history of other infectious and parasitic diseases; Z85.528 Personal history of other malignant neoplasm of kidney; Z92.21 Personal history of antineoplastic chemotherapy; Z87.891 Personal history of nicotine dependence
CPT/HCPCS: 63661; 63688; 87640; 87641; J0690; J1100; J2250; J2405; J2795; J3010; J3370

== ENCOUNTER → 2022-04-04 15:32 | Outpatient (BNVA) | payer MEDICARE, OTHER, SELFPAY | PROVIDERS: PCP Internal Medicine; Visit Provider Nurse Practitioner Family | DX: M47.816 Spondylosis without myelopathy or radiculopathy, lumbar region (principal); M96.1 Postlaminectomy syndrome, not elsewhere classified; T85.192A Other mechanical complication of implanted electronic neurostimulator of spinal cord electrode (lead), initial encounter | CPT/HCPCS: 99212 ==

== ENCOUNTER → 2022-04-06 10:19 | Outpatient (BNVA) | payer MEDICARE, OTHER, SELFPAY | PROVIDERS: PCP Internal Medicine; Visit Provider Anesthesiology | DX: M47.816 Spondylosis without myelopathy or radiculopathy, lumbar region (principal); M96.1 Postlaminectomy syndrome, not elsewhere classified; T85.192A Other mechanical complication of implanted electronic neurostimulator of spinal cord electrode (lead), initial encounter | CPT/HCPCS: 99212 ==

== ENCOUNTER → 2022-04-13 10:16 | Outpatient (BNVA) | payer MEDICARE, OTHER, SELFPAY | PROVIDERS: PCP Internal Medicine; Visit Provider Anesthesiology | DX: Z48.89 Encounter for other specified surgical aftercare (principal); Z48.1 Encounter for planned postprocedural wound closure; M47.816 Spondylosis without myelopathy or radiculopathy, lumbar region; M96.1 Postlaminectomy syndrome, not elsewhere classified | CPT/HCPCS: 99212 ==

== ENCOUNTER → 2022-08-14 08:55 | Outpatient (BNVA) | payer MEDICARE, OTHER, SELFPAY | PROVIDERS: PCP Internal Medicine; Visit Provider Anesthesiology | DX: M47.816 Spondylosis without myelopathy or radiculopathy, lumbar region (principal); M96.1 Postlaminectomy syndrome, not elsewhere classified | CPT/HCPCS: 99212 ==

== ENCOUNTER 2022-09-05 06:29 | Outpatient (REF) | payer MEDICARE, OTHER, SELFPAY ==
--- NOTE | ~2022-09-05 | FL_ITS ---
EXAMINATION: XR FLUOROSCOPY WITH IMAGES CLINICAL INFORMATION: M47.816 - Spondylosis without myelopathy or radiculopathy, lumbar region COMPARISON: Lumbar radiographs 10/16/2020 TECHNIQUE: Fluoroscopy Supervised By: Dr. Bora Menjivar. Fluoroscopy Time: 0.5 minutes. Cumulative Dose: 35.6 mGy. DAP: 9.72 Gycm2. Images: 6. FINDINGS: There are spinal needles overlying the bilateral outer L3, L4, and L5 neural foramen. There is contrast seen in the respective nerve sheaths. Some early transforaminal epidural extension is suggested. No visible vascular communication. There are again degenerative disc changes seen lumbar spine. FL/FL guidance in treatment room IMPRESSION: Fluoroscopy for pain management procedures.
== END 2022-09-05 06:30 | disposition home or self-care (01) ==
LOC: CF 06:29
PROVIDERS: Visit Provider Anesthesiology
DX: M47.816 Spondylosis without myelopathy or radiculopathy, lumbar region (principal)
CPT/HCPCS: 64493; 64494

== ENCOUNTER → 2022-09-11 09:33 | Outpatient (BNVA) | payer MEDICARE, OTHER, SELFPAY | PROVIDERS: PCP Internal Medicine; Visit Provider Anesthesiology | DX: M47.816 Spondylosis without myelopathy or radiculopathy, lumbar region (principal); M96.1 Postlaminectomy syndrome, not elsewhere classified | CPT/HCPCS: Q3014 ==

== ENCOUNTER → 2022-10-05 09:05 | Outpatient (BNVA) | payer MEDICARE, OTHER, SELFPAY | PROVIDERS: PCP Internal Medicine; Visit Provider Anesthesiology | DX: M47.816 Spondylosis without myelopathy or radiculopathy, lumbar region (principal); M96.1 Postlaminectomy syndrome, not elsewhere classified; T85.192A Other mechanical complication of implanted electronic neurostimulator of spinal cord electrode (lead), initial encounter | CPT/HCPCS: 99212 ==

== ENCOUNTER 2022-10-20 12:35 | Day surgery (SDC) | payer MEDICARE, OTHER, SELFPAY ==
--- NOTE | ~2022-10-20 | FL_ITS ---
EXAMINATION: XR FLUOROSCOPY WITH IMAGES CLINICAL INFORMATION: medial branch radiofrequency AB bilateral COMPARISON: Fluoroscopic spot views 09/05/2022 TECHNIQUE: Fluoroscopy Supervised By: Dr. Bora Menjivar. Fluoroscopy Time: 1.1 minutes. Cumulative Dose: 25.0 mGy. DAP: 5.73 Gycm2. Images: no fluoroscopic spot views provided. FL/FL guidance in OR IMPRESSION: Fluoroscopy for pain management procedures.
[2022-10-20 14:25] VITALS: BMI 32.7
--- NOTE | 2022-10-20 14:38 | P.HPSUR_ITS ---
Pre-Procedural Eval Section A Date of Service: 10/20/22 Changes since office visit: Yes Patient answered all questions The History & Physical has been completed within 30 days and I have reviewed it.: No Section B Chief Complaint: Spondylosis without myelopathy or radiculopathy, l Details of Present Illness: as above Relevant Family History (Specify if Yes): No Relevant Social History: None Present Medications: see Short Stay Collaborative assessment Medical History: No relevant PMH History of Previous Operations: No relevant previous surgery Allergies: Allergies Allergy/AdvReac Type Severity Reaction Status Date / Time lactose Allergy Diarrhea Verified 10/20/22 14:21 Microfoam surgical tape Allergy Severe Blister Uncoded 10/05/22 09:17 Review of Systems Sugical H&P ROS: Negative: Constitution, Cardiovascular, Respiratory, Neurological, Psychiatric, Hem-Onc, Allergic/Immunologic, Gastrointestinal, Genitourinary, Musculoskeletal, Integumentary, Endocrine and Eyes/Ears/Nose /Throat Exam Surgical H&P Exam: Normal: HEENT, Normal: Heart, Normal: Lungs, Normal: Extremities, Normal: Abdomen, Normal: Skin and Normal: Neurological Plan Diagnosis/Plan: Unchanged I have reviewed the history and physical and performed a pertinent physical examination on my patient. No changes have occurred unless specified. Time Spent With Patient Time: Total time managing care of this patient today ____ minutes.
[2022-10-20 15:30] VITALS: BP 110/68; PULSE 85; RESP 18; TEMP 36; O2SAT 96
--- NOTE | 2022-10-20 15:37 | HO.ANESPROP2 ---
HPI - Anesthesia Eval Consult details Narrative: 72 yo female patient for bilateral radiofrequency ablation of L3, L4 and dorsal rami of L5 PMFSH Active Problems Active Problems: All Active Problems (Updated 10/20/22 @ 15:39 by Carmelina Glasgow MD) Postlaminectomy syndrome (Acute) Lumbar spondylosis (Acute) Spinal cord stimulator dysfunction (Acute) Status post kyphoplasty (Acute) Low back pain (Acute) Disc disorder (Acute) Clostridioides difficile infection (Acute) Past Medical History Medical History Back pain C. difficile colitis Clostridioides difficile infection Depression Disc disorder Fatty liver History of chemotherapy Hypertension Low back pain ELIAS on CPAP Osteoarthritis Osteoporosis Renal cancer Smoker Spinal cord stimulator dysfunction Family History Family history of problems with anesthesia: No Surgical History Surgical History H/O kyphoplasty H/O partial adrenalectomy History of back surgery Hx of appendectomy Hx of partial nephrectomy Status post kyphoplasty History of Problems with Anesthesia: No Social History Social History Alcohol intake: never Patient Tobacco Use Status: Former Tobacco user Quit Date: 09/22/2020 Cigarette Packs Per Day: 0.5 Cigarettes Per Day: 10.0 Years Smoked: 50 Meds Allergies Allergy/AdvReac Type Severity Reaction Status Date / Time lactose Allergy Diarrhea Verified 10/20/22 14:21 Microfoam surgical tape Allergy Severe Blister Uncoded 10/05/22 09:17 Home Medications Medication Instructions Recorded Confirmed Last Taken Type Lactobacillus acidophilus 10 1 cell PO DAILY 03/19/20 10/05/22 Unknown History billion cell capsule (Probiotic) lisinopril 20 mg tablet 20 mg PO DAILY 03/19/20 10/05/22 03/31/22 History prochlorperazine maleate 10 mg 10 mg PO Q6H PRN Nausea 04/29/20 10/05/22 Unknown History tablet hydroxyzine HCl 10 mg tablet 10 mg PO TID PRN anxiety 04/04/22 10/05/22 Unknown History celecoxib 200 mg capsule 200 mg PO BID 08/14/22 10/05/22 Unknown History lorazepam 2 mg tablet 2 mg PO BEDTIME 09/11/22 10/05/22 Unknown History sertraline 100 mg tablet 100 mg PO DAILY 09/11/22 10/05/22 Unknown History vitamin E PO DAILY 10/20/22 Unknown History Exam Exam Date and Time: October 20, 2022 1537 Height,Weight and Vital Signs: Height 5 ft 8 in Weight 97.522 kg Vital Signs Temp Pulse Resp BP Pulse Ox O2 Del Method 10/20/22 15:30 96.8 F 85 18 110/68 96 Room Air Airway Mallampati Class: II TM Dist: >3cm Neck ROM: Full Loose/Missing/Broken Teeth: No (Denies broken, loose, missing teeth) Heart: RRR Lungs: CTAB Assessment and Plan Assessment Anesthesia Assessment: Anesthesia Plan Discussed and Chart Reviewed Final Anesthetic Review Family History of Problems with Anesthesia: No History of Problems with Anesthesia: No NPO: Yes ASA Class: III Final Preanesthetic Review: No Changes in Pt Med Stat, Meds/Allgs Chart Reviewed, Consent Obtained/Reviewed and Anes Risks/Benef Reviewed Patient Risk: Intermediate Procedure Risk: Intermediate Assessment/Block/Sedation in SS: Assess/Block/Sedation- Anesthetic Plan Anesthetic Plan: GA and MAC: Disposition: Standard PACU
--- NOTE | 2022-10-20 15:57 | W.PM.OPN ---
Operative Note Operative Note Date of Service: 10/20/22 Narrative: [id number] on the Bilateral Informed consent was explained to the patient. All questions were explained and answered. The patient was taken inside the operating room where he was positioned prone on the operating table. Patient was not sedated, he was wide awake and? able to answer the questions and respond to the commands. Time-out was performed delineating name and of the patient,? correct site and side? ( the procedure was planned to be bilateral),? the nature of the procedure, patient's allergy, preoperative antibiotic if needed. All operating room staff was participating in OR time-out procedure. The lower back was prepped with ChloraPrep and draped with sterile towels. C-arm was brought over the operating field and sq picture of L4, L5 vertebra and S1 AREA were delineated on the screen. Point of interest were delineated as connection of superior articular process of? L4, L5 vertebra bilateral? with corresponding transverse processes as well as connection of the sacral alae on the right with superior articular process of S1 bilateral. ?The projection of the point of interest to the skin were injected with the small amount of local anesthetic lidocaine 2% 1-1.5 cc. After that 18 gauge 100 mm RFA canulas? were driven to the point of interest in oblique fashion. After needles gently contacted the bone the sensory test was performed, patient reported pressure? sensation on sensory test.? After that motor tests were performed and no motor response was detected in the patients feet lower legs or thighs. After that? at the point of interests the cannulas? were injected with small amount of ropivacaine 0.5% mixed with lidocaine 1%-1cc? and also mixed with very small amount of Kenalog. 90 seconds after the injection the energy application was performed at 89 degrees Centigrade for 90 second. After first energy application the canullas were rotated 180 degrees and energy application was repeated at the same setting. . Upon completion of the energy applications canullas were removed and sterile bandaids? were applied. the patient was taking outside of the operating room to recovery room where she recovered uneventfully. In postoperative Observation area she was examined and demonstrated no neurological deficits on lower extremities.
[2022-10-20 17:01] VITALS: BP 132/86; PULSE 70; RESP 14; TEMP 36.2; O2SAT 97
--- NOTE | 2022-10-20 17:11 | PC.NURSE ---
PATIENT REPORTS BASELINE SOME WEAKNESS TO LOWER EXTREMITIES.
--- NOTE | 2022-10-20 17:12 | PM.OP ---
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 Surgeon: Bora Menjivar MD Anesthesia: MAC Was an Brush Loader And Handle Attacher used for this Procedure?: No Estimated blood loss (mL): 8 Condition: stable Disposition: PACU
[2022-10-20 17:16] VITALS: BP 132/86; PULSE 67; RESP 18; TEMP 36.4; O2SAT 98
== END 2022-10-20 17:44 | disposition home or self-care (01) ==
PROVIDERS: PCP Internal Medicine; Visit Provider Anesthesiology
PROC: (CPT 64635; principal; 2022-10-20 13:50)
DX: M47.816 Spondylosis without myelopathy or radiculopathy, lumbar region (principal); M96.1 Postlaminectomy syndrome, not elsewhere classified; I10 Essential (primary) hypertension; G47.33 Obstructive sleep apnea (adult) (pediatric); Z87.891 Personal history of nicotine dependence; Z99.89 Dependence on other enabling machines and devices
CPT/HCPCS: 64635; 64636 ×2; J2250; J2795; J3010; J3301

== ENCOUNTER → 2022-11-22 10:07 | Outpatient (BNVA) | payer MEDICARE, OTHER, SELFPAY | PROVIDERS: PCP Internal Medicine; Visit Provider Anesthesiology | DX: M47.816 Spondylosis without myelopathy or radiculopathy, lumbar region (principal); M96.1 Postlaminectomy syndrome, not elsewhere classified; T85.192A Other mechanical complication of implanted electronic neurostimulator of spinal cord electrode (lead), initial encounter; Z98.890 Other specified postprocedural states | CPT/HCPCS: 99212 ==

== ENCOUNTER 2025-04-17 10:25 | Outpatient (AMB) | payer MEDICARE, OTHER, SELFPAY ==
--- NOTE | 2025-04-17 11:17 | A.SPINEOV_ITS ---
Vital Signs 04/17/25 11:18 Height 5 ft 8 in Weight 209 lb BMI 31.8 Intake Visit Reasons: LBP Intake Note: Mrs. Randolph is here today c/o Low back pain. Pipe Supervisor Required: No Allergies lactose Allergy (Verified 11/22/22 10:30) Diarrhea Microfoam surgical tape Allergy (Severe, Uncoded 10/05/22 09:17) Blister Physical Exam Vital Signs: BMI result Body Mass Index 31.8 Assessment & Plan Assessment & Plan (1) Low back pain: Code(s): M54.5 - Low back pain Category: Medical Plan Mrs Randolph came back in today for follow-up. She is a patient known to Dr. Marie from [facility] where he evaluated her previously for consideration of surgery but because of her bone quality and previous history of compression fractures she was deemed nonsurgical. She came back in today for another follow-up. She had a new MRI and this shows more less the same that she has multilevel degenerative disc disease, with no specific level being worse than the other. There is no new compression fracture. There are post augmentation changes at T12. She has a bone scan showing that she has osteopenia, however the CAT scan she had done at [facility] of her abdomen shows that she still has thinning bones. Unfortunately she runs a risk of high complication rate with her poor bone quality if we attempt to treat her back pain with spinal fusion. Dr. Marie has previously recommended she follow up with Dr. Menjivar for spinal cord stimulator, which she did try, but unfortunately did not work so she had a removed. She has been seeing Dr. Garnica and was consider potential candidate for Intracept but because of her bone quality was deemed contraindication. Unfortunately it seems like she is in a terrible situation. She takes oxycodone daily but that is starting to not be as helpful. Unfortunately we have nothing more we can offer her given her bone quality. Total amount of time spent in this visit was 20 minutes in discussion of symptoms, lumbar MRI at [facility] imaging results and subsequent plan of care Eber Marie MD,PhD [facility] Coding Level of Care Code Est Pt Level 3 (34266) Diagnoses Low back pain M54.5
[2025-04-17 11:18] VITALS: BMI 31.8
--- OUTSIDE RECORDS SUMMARY | 2025-04-17 11:48 | XMS_ITS | Clinical Summary ---
Author Organization [facility] Address [address] [place] [address] Phone Care Team Providers Care Seismic Prospecting Observer Helper Name Role Phone Wang Tilley MD Unavailable [phone] Rose Marie Manrique MD Primary Care Prov ider Benjamín Michelle MD Unavailable Unavailable Allergies Active Allergy Reactions Criticality Noted Date Comments Lactulose 09/20/2016 Medications aspirin 81 MG EC tablet Take 81 mg by mouth daily. Active LORazepam (ATIVAN) 1 MG tablet Take 1 mg by mouth 2 (two) times a day. Active valsartan (DIOVAN) 80 MG tablet Take 240 mg by mouth daily. Active Active Problems Problem Noted Date Diagnosed Date Renal cell carcinoma 09/20/2016 Assessment & Plan (09/20/2016 8:06 AM EDT): Assessment: Serene Araujo is a 66 y.o. female with a diagnosis of stage 3 renal cell carcinoma, possibly an unclassified variant, who is status post a left open partial nephrectomy in July 2015, now with new lesions noted with surveillance imaging one arising from the kidney adjacent to the prior resection site as well as separately in the retroperitoneum superior on the left side near the diaphragm, both concerning for disease recurrence. She has good performance status. Plan: 1. I spent this consultation with Serene Araujo discussing the natural history and management of renal cell carcinoma. I stressed that the recent imaging study cannot definitively diagnose recurrent disease, but disease recurrence must be considered or even assumed based on the history of a stage 3 renal cell carcinoma, unclassified variant. Among stage 3 renal cell carcinoma, the risk of recurrent disease can be as high as 40% and unclassified variants of RCC are often more aggressive than conventional clear cell renal cell carcinoma. 2. We spoke about the role of a percutaneous biopsy to assess the lesions for recurrent disease. I stated that the potential challenges of redo surgery argues for confirmation of malignancy preoperatively. Additionally, I stated that a biopsy would be appropriate prior to percutaneous ablation, for instance cryoablation, which is another option. However, Ms. Araujo is quite anxious about the possibility of disease recurrence and is very much intent on a completion nephrectomy. 3. I stated that a completion left nephrectomy with a wide resection to resect the 1.7 cm lesion near the diaphragm is the most definitive therapy. Given the likely perinephric fibrosis as well as the location of the retroperitoneal lesion, I explained that a left adrenalectomy may be necessary as well; I reassured Ms. Araujo that the right adrenal gland appears quite normal and thus I do not feel that there is any concern for postoperative adrenal insufficiency. The risks of surgery including bleeding, infection, injury to surrounding structure, failure to cure, renal insufficiency, deep venous thrombosis, pulmonary embolism, stroke, heart attack, and loss of life were discussed. I stated that the risks of surgery are all elevated given the prior left open partial nephrectomy. That said, I feel that this proposed surgery can be achieved via a minimally invasive laparoscopic approach.with possible open conversion. 4. Ms. Araujo will speak to Dr. Tilley about her preferred management option. At this point, Ms. Araujo remains undecided regarding her preferred therapy. I have given her my contact information and she will let me know if she has additional questions or if she wishes to proceed to surgery as described above with me. I explained that prior to surgery, I recommend completion of staging with a chest CT; however if there is a concern for pulmonary metastases, I would still recommend the above procedure given the recognized role of cytoreductive surgery in the setting a metastatic renal cell carcinoma. Family History Medical History Relation Comments Pancreatic cancer Father Hypertension Mother Relation Status Comments Father Mother Social History Tobacco Use Types Packs/Day Years Used Date Smoking Tobacco: Every Day Alcohol Use Standard Drinks/Week Comments Yes 0 (1 standard drink = 0.6 oz pur e alcohol) Education Answer Date Recorded Are you interested in more education? Not on rena e 10/13/2022 Are you concerned about learning? Not on file 10/13/2022 No 10/13/2022 No 10/13/2022 Digital Access Answer Date Recorded No 11/13/2022 No 11/13/2022 No 11/13/2022 Reliable internet access at home? Not on file 11/13/2022 Device with a working camera? Not on file Comments Unknown Sex and Gender Information Value Date Recorded Sex Assigned at Not on file Legal Sex Female 2:40 PM EST Gender Identity Not on file Sexual Orientation Not on file Last Filed Vital Signs Vital Sign Reading Time Taken Comments Blood Pressure 122/61 09/19/2016 1:39 PM EDT Pulse 110 09/19/2016 1:39 PM EDT Temperature 36.7 C (98.1 F) 09/19/2016 1:39 PM EDT Respiratory Rate 18 09/19/2016 1:39 PM EDT Oxygen Saturation - - Inhaled Oxygen Concentration - - Weight 96.7 kg (213 lb 3 oz) 09/19/2016 1:39 PM EDT dfci Height 172.6 cm (5' 7.95 ) 09/19/2016 1:39 PM ED T dfci Body Mass Index 32.46 09/19/2016 1:39 PM EDT Plan of Treatment Health Maintenance Due Date Last Done Comments Adult Td,Tdap Booster 1950 CREATININE LEVEL 1950 LIPID PANEL 1951 POTASSIUM LEVEL 1951 DEPRESSION SCREENING 1963 SMOKING Hx and SMOKELESS TOBACCO SCREENING 1964 HEPATITIS C SCREENING 1969 ZOSTER VACCINES (1 of 2) 1970 MAMMOGRAM 1991 COLOGUARD 1996 COLONOSCOPY 1996 COLORECTAL CANCER SCREENING 1996 FIT TEST 1996 FOBT 1996 SIGMOIDOSCOPY 1996 VIRTUAL COLONOSCOPY 1996 OSTEOPOROSIS SCREENING INITI AL (ONE-TIME) 2016 PNEUMOCOCCAL VACCINES (50+ years) (2 of 2 - PPSV23) 08/30/2017 07/05/2017 INFLUENZA VACCINE (#1) 2025 0, 03/26/2019, 03/17/2016 COVID-19 VACCINE (2 - 2024-2 6 season) 2025 09/08/2020 RSV VACCINE (1 - 1-dose 75+ series) 2026 HEPATITIS A VACCINES Aged Out No long er eligible based on patient's age to complete this topic HIB VACCINES Aged Out No longer eligi ble based on patient's age to complete this topic MENINGOCOCCAL VACCINES (ACWY) Aged Out No longer eligible based on patient's age to complete this topic MENINGOCOCCAL VACCINES (B) Aged Out N o longer eligible based on patient's age to complete this topic Medical Devices Not on file Insurance [employer] [facility] TOTAL CHOICE INDEMNITY MEDICARE PART A & B [facility] TOTAL CHOICE INDEMNITY MEDICARE PART A & B [facility] TOTAL CHOICE INDEMNITY MEDICARE PART A & B [facility] TOTAL CHOICE INDEMNITY MEDICARE PART A & B Member Subscriber Plan / Payer ([facility] Name:Serene Araujo Member ID:[id number] Relation to Subscriber:Self Name:Serene Araujo Subscriber ID:[id number] Payer ID:[id number] Group ID:Not on file Type:Medicare Address: [employer] [address] [place] [id number] [employer] TOTAL CHOICE INDEMNITY MEDICARE PART A & B [facility] TOTAL CHOICE INDEMNITY MEDICARE PART A & B [employer] TOTAL CHOICE INDEMNITY MEDICARE PART A & B [employer] TOTAL CHOICE INDEMNITY MEDICARE PART A & B [facility] TOTAL CHOICE INDEMNITY [employer] Address: [address] [facility] [address] [facility] [place] [address] MEDICARE PART A & B Advance Directives For more information, please contact: [phone] (9AM - 5PM [facility], Sunday-Sunday) Documents on File Type Date Recorded Patient Senior Technical Trainer Expl anation Durable Power of Cake Icer 11/17/2019 11:10 AM Healthcare Proxy 09/19/2016 1:14 PM Healthc are Proxy Care Teams Seismic Prospecting Observer Helper Relationship Specialty Start Date End Date Rose Marie Manrique MD [address] [facility] [address] [place] [address] PCP - General Internal Medicine 09/19/16 Wang Tilley MD [address] [facility] [address] [place] [address] [email or web address] Referring Physician Urology 08/23/16 Benjamín Michelle MD Orthopedic Surgery 09/19/16 Additional Source Comments The information contained in this document represents components of the legal health record. It is not the complete legal health record.[facility]
--- OUTSIDE RECORDS SUMMARY | 2025-04-17 11:49 | XMS_ITS | Encounter Summary ---
Author Organization [facility] Address [address] [place] [address] Phone Care Team Providers Care Chief Technology Officer Name Role Phone Wang Tilley MD Unavailable [phone] Rose Marie Manrique MD Primary Care Prov ider Benjamín Michelle MD Unavailable Unavailable Encounter Details Date Type Department Care Team (Late st Contact Info) Description 09/19/2016 Procedure Pass [facility] [address] [place] [address] Social History Tobacco Use Types Packs/Day Years Used Date Smoking Tobacco: Never Assessed Comments Unknown Sex and Gender Information Value Date Recorded Sex Assigned at Not on file Legal Sex Female 2:40 PM EST Gender Identity Not on file Sexual Orientation Not on file documented as of this encounter Plan of Treatment Not on file documented as of this encounter Visit Diagnoses Not on filedocumented in this encounter Care Teams Chief Technology Officer Relationship Specialty Start Date End Date Rose Marie Manrique MD [address] [facility] [address] [place] [address] PCP - General Internal Medicine 09/19/16 Wang Tilley MD [address] [facility] [address] [place] [address] [email or web address] Referring Physician Urology 08/23/16 Benjamín Michelle MD Orthopedic Surgery 09/19/16 documented as of this encounter Additional Source Comments The information contained in this document represents components of the legal health record. It is not the complete legal health record.[facility]
--- OUTSIDE RECORDS SUMMARY | 2025-04-17 11:49 | XMS_ITS | Clinical Summary ---
Author Organization [facility] Address [address] [place] [phone] Phone Care Team Providers Care Wrecking Mechanic Name Role Phone Dennise Mcelroy MD Primary Care Provider Allergies Active Allergy Reactions Criticality Noted Date Comments Lactose Other (see comments) 03/20/2024 Lactulose 09/20/2016 Medications gabapentin (NEURONTIN) 100 MG capsule Take 100 mg by mouth in the morning and 100 mg at noon and 100 mg in the evening. 4 Active hydrOXYzine (ATARAX) 50 MG tablet Take 50 mg by mouth 2 (two) times a day if needed for anxiety 4 Active lisinopril 20 MG tablet Take 20 mg by mouth 1 (one) time each day 1 Active LORazepam (ATIVAN) 2 MG tablet TAKE ONE TABLET BY MOUTH DAILY AT BEDTIME NEEDED Active oxyCODONE (ROXICODONE) 5 MG immediate release tablet Take 5 mg by mouth 1 (one) time each day Active OxyCONTIN 15 MG 12 hr abuse-deterren t tablet Take 15 mg by mouth every 12 (twelve) hours 4 Active prochlorperazi ne (COMPAZINE) 10 MG tablet Take 1 tablet by mouth every 6 (six) hours if needed 3 Active DULoxetine (CYMBALTA) [address] capsule Take 60 mg by mouth 1 (one) time each day Do not crush or chew. Active BUPROPION HCL PO Take 70 mg by mouth in the morning and 70 mg in the evening. Active Probiotic Product (PROBIOTIC ADVANCED PO) Take by mouth Act aditi calcium citrate (CALCITRATE) 950 (200 Ca) MG tablet Take 950 mg by mouth 1 (one) time each day Active Ascorbic Acid (vitamin C) 1000 MG tablet Take 1,000 mg by mouth 1 (one) time each day Active INOSITOL PO Take by mouth Acti ve cloNIDine (CATAPRES) 0.1 MG tablet TAKE ONE TABLET BY MOUTH TWICE A DAY NEEDED FOR ANXIETY/PANIC ATTACKS 4 Active D-Mannose 500 MG capsule Take 1 capsule every day by oral route. Active estradiol (ESTRACE) 0.1 MG/GM vaginal cream INSERT 1 APPLICATORFUL VAGINALLY 3 TIMES A WEEK DIRECTED Active FLUoxetine (PROzac) 10 MG capsule Active furosemide (LASIX) 20 MG tablet Take 20 mg by mouth in the morning. 5 Active metoprolol succinate XL (TOPROL XL) 25 MG 24 hr tablet take one tablet by mouth every day as directed Active Mag Aspart-Potassi um Aspart 250-250 MG capsule Take 1 capsule every day by oral route. 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 Insomnia 03/20/2024 Hypercholesterolemia 03/20/2024 Hypertensive disorder 03/20/2024 Weight decreased 03/01/2021 Clostridioides difficile infection 03/01/2021 Anxiety 03/01/2021 Candidiasis of mouth 11/26/2020 Cachexia 11/26/2020 Abnormal gait 11/26/2020 Urinary tract infection 09/28/2020 Acute urinary tract infection 09/28/2020 Smoker 09/28/2020 Opioid abuse, uncomplicated 09/28/2020 Metabolic encephalopathy 09/28/2020 Malignant neoplasm of unspec ified kidney, except renal pelvis 09/28/2020 Major depressive disorder, recurrent, mild 09/28 History of nephrectomy 09/28/2020 H/O: alcoholism 09/28/2020 Gastro-esophageal reflux disease without esophag itis 09/28/2020 Chronic pain 09/28/2020 Mixed anxiety and depressive disorder 09/28/2020 Anxiety disorder 09/28/2020 Alcohol dependence, uncomplicated 09/28/2020 Acute kidney failure 09/28/2020 Abuse of other non-psychoactive substance 2020 Muscle wasting and atrophy, not elsewhere classified, shoulder 09/27/2020 Difficulty in walking 09/27/2020 Body mass index (BMI) 34.0-34.9, adult 1 Left upper quadrant pain 09/08/2020 Alcohol abuse 09/08/2020 Backache 09/30/2019 extermination inspector systemic steroid user 08/19/2019 Osteoporosis 04/08/2019 Nausea 03/24/2019 Essential hypertension 03/24/2019 Collagenous colitis 03/24/2019 Malignant tumor of kidney 02/28/2017 Renal cell carcinoma 09/20/2016 Overview (03/20/2024): Last Assessment & Plan: Assessment: Serene Araujo is a 66 y.o. [...] the setting a metastatic renal cell carcinoma. Encounters Date Type Department Care Team Description 04/06/2025 1:30 PM EDT Office Visit [facility] [address] [address] Josiah Bright MD Stage 3 chronic kidney disease, not otherwise specified (HCC) (Primary Dx); Hypertension; S/P nephrectomy 04/04/2025 Orders Only [facility]. [address] [address] Josiah Bright MD Stage 3 chronic kidney disease, not otherwise specified (HCC) from Last 3 Months Family History Medical History Relation Comments Cancer Father Hypertension Mother Relation Status Comments Father Mother Social History Tobacco Use Types Packs/Day Years Used Date Smoking Tobacco: Former Cigarettes Smokeless Tobacco: Never Tobacco Cessation:Counseling Given: Not Answered Alcohol Use Standard Drinks/Week Comments Yes 0 (1 standard drink = 0.6 oz pur e alcohol) Comments Unknown Sex and Gender Information Value Date Recorded Sex Assigned at Not on file Legal Sex Female 4:28 PM EDT Gender Identity Not on file Sexual Orientation Not on file Last Filed Vital Signs Vital Sign Reading Time Taken Comments Blood Pressure 110/70 04/06/2025 1:17 PM EDT Pulse 74 04/06/2025 1:17 PM EDT Temperature - - Respiratory Rate - - Oxygen Saturation 93% 03/20/2024 1:09 PM EDT Inhaled Oxygen Concentration - - Weight 94.8 kg (209 lb) 04/06/2025 1:17 PM EDT Height 172.7 cm (5' 8 ) 03/20/2024 1:09 PM EDT Body Mass Index 31.78 03/20/2024 1:09 PM EDT Plan of Treatment Upcoming Encounters Date Type Department Care Team (Late st Contact Info) Description 04/05/2026 1:45 PM EDT [facility]. [address] [address] Josiah Bright MD [address] [address] Health Maintenance Due Date Last Done Comments Breast Cancer Screening 1950 Colorectal Cancer Screening: Annual FOBT 2000 Colorectal Cancer Screening: Colonoscopy 2000 Hepatitis B Vaccine (1 of 3 - Risk 3-dose series) 2011 Influenza Vaccine (#1) 2025 4, 04/07/2022, 03/04/2022, Additional history exists Colorectal Cancer Screening: Sigmoidoscopy 10/04/2029 10/04/2024 Pneumococcal Vaccine: 50+ Years Completed 8, 06/28/2016 Procedures Procedure Name Priority Date/Time Associated Diagnosis Comments URINE ALBUMIN / CREATININE RATIO Routine 03/31/2025 10:55 AM EDT RENAL FUNCTION PANEL Routine 03/31/2025 10:55 AM EDT from Last 3 Months Results * (ABNORMAL) Urine Albumin / Creatinine Ratio (03/31/2025 10:55 AM EDT) Creatinine, Ur 58.2 Not Estab. mg/dL [facility] Albumin, Urine 71.9 Not Estab. ug/mL [facility] Albumin/Creatin ine Ratio 124(H) 0 - 29 mg/g creat [facility] Comment: Normal: 0 - 29 Moderately increased: 30 - 300 Severely increased: >300 03/31/2025 10:5 5 AM EDT 03/31/2025 Josiah Bright MD LAB URINE ORDERABLES Final Resul t [facility] [address] [place] [address] * (ABNORMAL) Renal Function Panel (03/31/2025 10:55 AM EDT) Glucose 101(H) 70 - 99 mg/dL [facility] BUN 31(H) 8 - 27 mg/dL [facility] Creatinine 1.31(H) 0.57 - 1.00 mg/dL [facility] eGFR CKD-EPI CR 2020 43(L) >59 mL/min/1.7 3 [facility] BUN/Creatinine Ratio 24 12 - 28 [facility] Sodium 139 134 - 144 mmol/L [facility] Potassium 5.2 3.5 - 5.2 mmol/L [facility] Chloride 103 96 - 106 mmol/L [facility] Bicarbonate (CO2) 18(L) 20 - 29 mmol/L [facility] Calcium 10.0 8.7 - 10.3 mg/dL [facility] Albumin 4.4 3.8 - 4.8 g/dL [facility] Phosphorus 3.4 3.0 - 4.3 mg/dL [facility] 03/31/2025 10:5 5 AM EDT 03/31/2025 us Josiah Bright MD LAB BLOOD ORDERABLES Final Resul t [facility] [address] [place] [phone] from Last 3 Months Insurance Medicare [facility] Medicare [employer] Care Teams Wrecking Mechanic Relationship Specialty Start Date End Date Dennise Mcelroy MD [address] [phone] PCP - General Family Medicine 01/22/24
--- OUTSIDE RECORDS SUMMARY | 2025-04-17 11:49 | XMS_ITS | Encounter Summary ---
Author Organization [facility] Address [address] [place] [address] Care Team Providers Care Manager Technical Services Name Role Phone Dennise Mcelroy MD Primary Care Provider [phone] Encounter Details Date Type Department Care Team (Late st Contact Info) Description 10/27/2024 Lab Requisition [facility] - Main Lab [address] [facility] [place] [address] Racquel Hendricks MD [address] [place] [phone] Acute kidney failure, unspecified (CMS/HCC V24); Sepsis, unspecified organism (CMS/HCC V24, CMS/HCC V28) Social History Tobacco Use Types Packs/Day Years Used Date Smoking Tobacco: Every Day Cigarettes Smokeless Tobacco: Never Alcohol Use Standard Drinks/Week Comments Yes 0 (1 standard drink = 0.6 oz pur e alcohol) Housing Instability Answer Date Recorde d Are you worried that in the next 2 months you may not have stable housing? No 10/04/2024 Food Access & Nutrition Answer Date Rec orded Do you have access to a vari ety of food including fruits and vegetables? Yes 10/04/2024 Health Literacy Answer Date Recorded How often do you need to hav e someone help you when you read instructions, pamphlets, or other written material from your doctor or pharmacy? Never 10/04/2024 Caregiver: How often do you need to have someone help you when you read instructions, pamphlets, or other written material from your doctor or pharmacy? Not on file 10/04/2024 Financial Risk Answer Date Recorded How hard is it for you to pa y for the very basics like food, housing, medical care, and air conditioning / heating? Not very hard 10/04/2024 Transportation Answer Date Recorded Has the lack of transportati on kept you from meetings, work, or from getting things needed for daily living? No Has the lack of transportati on kept you from medical appointments or from getting medications? No 10/04/2024 Social Isolation Answer Date Recorded How often do you feel lonely or isolated from th ose around you? Never 10/04/2024 Food Risk Answer Date Recorded Within the past 12 months we worried whether our food would run out before we got money to buy more. Never true 10/04/2024 Within the past 12 months th e food we bought just didn't last and we didn't have money to get more. Never true 10/04/2024 Dependent Care Answer Date Recorded Do you need help finding or paying for care for your loved ones. For example, early childhood coordinator or elderly care for an older adult? No 10/04/2024 Education Answer Date Recorded Do you think completing more education or training, like finishing a GED, going to college, or learning a trade, would be helpful for you? No 10/04/2024 Employment and Income Answer Date Recor ded During the last four weeks, have you been actively looking for work? No 10/04/2024 Living Situation Answer Date Recorded What is your living situation? Unrecognized valu e 10/04/2024 Interpersonal Safety Answer Date Record ed Physical Abuse Unrecognized value 10/18/2024 Verbal Abuse Unrecognized value 10/18/2024 Comments No Sex and Gender Information Value Date Recorded Sex Assigned at Female 10/17/2024 3:19 PM EDT Legal Sex Female 9:37 AM EST Gender Identity Female 10/17/2024 3:19 PM EDT Sexual Orientation Straight 10/04/2024 12 :21 AM EDT documented as of this encounter Plan of Treatment Upcoming Encounters Date Type Department Care Team (Late st Contact Info) Description 05/12/2025 1:30 PM EST Office Visit [facility] [address] [facility] [address] [place] [phone] Nick Esqueda MD [facility] [address] [place] [phone] 05/29/2025 9:45 AM EST Office Visit [facility] [address] [place] [address] Teo Mcclain MD [address] [place] [address] documented as of this encounter Procedures Procedure Name Priority Date/Time Associated Diagnosis Comments COMPLETE BLOOD COUNT Routine 10/27/2024 4:14 AM EDT Acute kidney failure, unspecified (CMS/HCC V24) Sepsis, unspecified organism ([facility]/HCC V24, CMS/HCC V28) BASIC METABOLIC PANEL Routine 10/27/2024 4:14 AM EDT Acute kidney failure, unspecified (CMS/HCC V24) Sepsis, unspecified organism ([facility]/HCC V24, CMS/HCC V28) documented in this encounter Results * (ABNORMAL) Basic metabolic panel (10/27/2024 4:14 AM EDT) Sodium 142 133 - 145 mmol/L LAB CHEMISTRY METHOD 10/27/2024 10:43 AM [facility] Potassium 4.0 3.5 - 5.5 mmol/L LAB CHEMISTRY METHOD 10/27/2024 10:43 AM [facility] Comment:Hemolysis present Chloride 106 96 - 110 mmol/L LAB CHEMISTRY METHOD 10/27/2024 10:43 AM [facility] CO2 28 21 - 32 mmol/L LAB CHEMISTRY METHOD 10/27/2024 10:43 AM [facility] Anion Gap 8 3 - 11 LAB CHEMISTRY METHOD 10/27/2024 10:43 AM EDT [facility] Glucose 84 70 - 100 mg/dL LAB CHEMISTRY METHOD 10/27/2024 10:43 AM [facility] BUN 7 5 - 25 mg/dL LAB CHEMISTRY METHOD 10/27/2024 10:43 AM [facility] Creatinine 1.19(H) 0.50 - 1.10 mg/dL LAB CHEMISTRY METHOD 10/27/2024 10:43 AM [facility] eGFR 48(L) >=60 mL/min/1. 73m2 LAB CHEMISTRY METHOD 10/27/2024 10:43 AM [facility] Comment:Calculation based on the Chronic Kidney Disease Epidemiology Collaboration (CKD-EPI) equation refit without adjustment for race. BUN/Creatinine Ratio 5.9 LAB CHEMISTRY METHOD 10/27/2024 10:43 AM [facility] Calcium 9.0 8.5 - 10.5 mg/dL LAB CHEMISTRY METHOD 10/27/2024 10:43 AM [facility] Blood Venous blood specimen / Unknown Venipuncture / Unknown 10/27/2024 4:14 AM EDT 10/27/2024 9:43 AM EDT us Racquel Hendricks MD LAB BLOOD ORDERABLES Final Resu lt [facility] [address] [place] [address], * (ABNORMAL) Complete blood count (10/27/2024 4:14 AM EDT) WBC 4.7(L) 4.8 - 10.8 K/mcL LAB HEMETOLOGY METHOD 10/27/2024 10:08 AM EDT [facility] RBC 3.50(L) 3.80 - 4.80 M/mcL LAB HEMETOLOGY METHOD 10/27/2024 10:08 AM EDT [facility] Hemoglobin 9.9(L) 11.5 - 16.0 g/dL LAB HEMETOLOGY METHOD 10/27/2024 10:08 AM [facility] Hematocrit 32.5(L) 35.0 - 47.0 % LAB HEMETOLOGY METHOD 10/27/2024 10:08 AM [facility] MCV 93.4 79.0 - 98.0 FL LAB HEMETOLOGY METHOD 10/27/2024 10:08 AM [facility] MCH 28.4 27.0 - 32.0 pcg LAB HEMETOLOGY METHOD 10/27/2024 10:08 AM [facility] MCHC 30.5(L) 32.0 - 37.0 g/dL LAB HEMETOLOGY METHOD 10/27/2024 10:08 AM [facility] RDW 14.6 11.0 - 15.0 % LAB HEMETOLOGY METHOD 10/27/2024 10:08 AM [facility] Platelets 136 130 - 400 K/mcL LAB HEMETOLOGY METHOD 10/27/2024 10:08 AM [facility] MPV 12.6(H) 7.0 - 11.0 FL LAB HEMETOLOGY METHOD 10/27/2024 10:08 AM [facility] NRBC 0.0 <1.0 % LAB HEMETOLOGY METHOD 10/27/2024 10:08 AM [facility] NRBC Absolute 0.00 <0.10 K/mcL LAB HEMETOLOGY METHOD 10/27/2024 10:08 AM [facility] Blood Venous blood specimen / Unknown Venipuncture / Unknown 10/27/2024 4:14 AM EDT 10/27/2024 9:43 AM EDT us Racquel Hendricks MD LAB BLOOD ORDERABLES Final Resu lt [facility] [address] [place] [address], documented in this encounter Visit Diagnoses Diagnosis Acute kidney failure, unspecified (CMS/[facility] V24) Acute kidney failure, unspecified Sepsis, unspecified organism (CMS/HCC V24, CMS/HCC V28) documented in this encounter Care Teams Manager Technical Services Relationship Specialty Start Date End Date Dennise Mcelroy MD [address] [phone] PCP - General 08/08/23 documented as of this encounter
--- OUTSIDE RECORDS SUMMARY | 2025-04-17 11:49 | XMS_ITS | Clinical Summary ---
Author Organization [facility] Address [address] [place] [address] Phone Care Team Providers Care Res Habilitation Assistant Name Role Phone Dennise Mcelroy MD Primary Care Provider [phone] Allergies Active Allergy Reactions Criticality Noted Date Comments Lactose Unknown 10/03/2024 Medications calcium citrate-vitamin D (CITRACAL+D) 315 mg-5 mcg (200 unit) per tablet Take 1 tablet by mouth 2 (two) times a day. Active folic acid/multivit-m in/lutein (CENTRUM SILVER ORAL) Take by mouth 1 (one) time each day. Active omega-3 fatty acids 1,000 mg capsule Take by mouth daily. Active Lactobacillus acidophilus (PROBIOTIC ORAL) Take by mouth. Activ e cloNIDine (CATAPRES) 0.1 mg tablet Take 1 tablet (0.1 mg total) by mouth 2 (two) times a day. Active rosuvastatin (CRESTOR) 10 mg tablet Take 1 tablet (10 mg total) by mouth 1 (one) time each day. Active prochlorperazin e (COMPAZINE) 10 mg tablet Take 1 tablet (10 mg total) by mouth every 6 (six) hours if needed for nausea. 120 tablet 3 5 Active DULoxetine (CYMBALTA) [address] capsule Take 2 capsules (60 mg total) by mouth 1 (one) time each day. Do not crush or chew. 5 Active buPROPion (WELLBUTRIN) 75 mg tablet Take 1 tablet (75 mg total) by mouth 2 (two) times a day. 60 each 5 Active lisinopriL (PRINIVIL,ZESTR IL) 5 mg tablet Take 1 tablet (5 mg total) by mouth 1 (one) time each day. 30 each 5 Active furosemide (LASIX) 20 mg tablet Take 1 tablet (20 mg total) by mouth 1 (one) time each day. 30 each 5 Active hydrOXYzine pamoate (VISTARIL) 50 mg capsuleIndicati ons:Aspiration pneumonia of both lungs, unspecified aspiration pneumonia type, unspecified part of lung ([facility] V24, [facility] V28),Severe diarrhea Take 1 capsule (50 mg total) by mouth 3 (three) times a day if needed for anxiety for up to 10 days. 5 Active lactobacillus acidoph-l.bulga r 100 million cell granules in packet Take 1 packet by mouth 4 (four) times a day (with meals and nightly). 5 Active mirtazapine (REMERON) 7.5 mg tablet Take 1 tablet (7.5 mg total) by mouth at bedtime as needed (sleep). 5 Active psyllium (METAMUCIL) 3.4 gram packet Take 1 packet by mouth 1 (one) time each day. 5 10/27/19 26 Active metoprolol tartrate (LOPRESSOR) 25 mg tablet Take 1 tablet (25 mg total) by mouth 2 (two) times a day. 5 10/26/19 26 Active bisacodyL (DULCOLAX) 5 mg EC tablet Take 2 tablets by mouth right before beginning bowel prep. See instructions provided by the office 2 tablet 5 Active polyethylene glycol (Golytely) 236-22.74-6.74 -5.86 gram solution Take 4L by mouth once for one dose. May substitue any PEG. Starting at 6PM the night before your procedure drink 1 8oz glasses at your own pace until you complete half of the gallon. Finish 2nd half of the gallon 5 hours before your procedure. 4000 mL 5 Active LORazepam (ATIVAN) 2 mg tablet Take 1 tablet (2 mg total) by mouth at bedtime as needed. 1 Active mirtazapine (REMERON) 15 mg tablet Take 1 tablet (15 mg total) by mouth. at bedtime Active lisinopriL (PRINIVIL,ZESTR IL) 5 mg tablet Take 1 tablet (5 mg total) by mouth 1 (one) time each day. Active buPROPion SR (WELLBUTRIN SR) 150 mg 12 hr tablet Take 1 tablet (150 mg total) by mouth 1 (one) time each day in the morning. Active Active Problems Problem Noted Date Diagnosed Date Acute encephalopathy 10/18/2024 Acute hypoxic respiratory fa ilure ([facility] V24, [facility] V28) 10/18/2024 Septic shock ([facility]24, [facility] V28) 10/19/19 25 Aspiration pneumonia ([facility] V24, [facility] V28) 10/18/2024 Sepsis with acute organ dysf unction, due to unspecified organism, unspecified organ dysfunction type, unspecified whether septic shock present ([facility] V24, [facility] V28) 10/17/2024 Anxiety and depression 10/06/2024 Panic anxiety syndrome 10/06/2024 Septic shock ([facility] V24, [facility] V28) 10/04/19 25 UTI (urinary tract infection) 10/03/2024 Metabolic acidosis 10/03/2024 Increased ammonia level 10/03/2024 Severe diarrhea 10/03/2024 Severe dehydration 10/03/2024 DEVYN (acute kidney injury) ([facility] V24) 10/04/19 25 Clostridium difficile infection 03/01/2021 Weight loss 03/01/2021 Cachexia ([facility] V24) 11/26/2020 Gait instability 11/26/2020 Oral candidiasis 11/26/2020 Alcohol abuse 09/08/2020 Left upper quadrant abdominal pain 09/08/2020 Intractable back pain 09/30/2019 Anxiety 06/02/2019 Osteoporosis with current pathological fracture 04/08/2019 Weight gain 04/08/2019 Collagenous colitis 03/24/2019 Essential hypertension 03/24/2019 Nausea 03/24/2019 Malignant neoplasm metastati c to both lungs ([facility] V24, [facility] V28) 10/29/2017 Malignant neoplasm of left k idney ([facility] V24, [facility] V28) 02/28/2017 Immunizations Immunization Administration Dates Next Due Pfizer (ages 12 & older) GERARD S-CoV-2 COVID-19, mRNA, LNP-S, stephen-sucrose, preservative free 09/16/2021 Pfizer SARS-CoV-2 COVID-19, mRNA, LNP-S, preservative free 04/08/2021,09/30/2020,09/08/2020 SARS-COV-2 (COVID-19) Vaccin e, Unspecified 03/21/2023,04/13/2022,09/16/2021,2020,09/30/2020,09/08/2020 Surgical History Surgery Date Site/Laterality Comments BACK SURGERY PROCEDURE:BACK SURGERY PARTIAL NEPHRECTOMY PROCEDURE:PARTIAL NEPHRECTOMY COLONOSCOPY Medical History Medical History Date Comments FH: kidney cancer DX:FH: kidney cancer Hypertension DX:Hypertension Depression DX:Depression Anxiety disorder DX:Anxiety diso rder Renal cell carcinoma ([facility] V24, [facility] V28) DX:Renal cell carcinoma (HCC) Hyperlipidemia Sleep apnea Social History Tobacco Use Types Packs/Day Years Used Date Smoking Tobacco: Every Day Cigarettes Smokeless Tobacco: Never Tobacco Cessation:Ready to Q uit: Not Asked; Counseling Given: Not Answered Alcohol Use Standard Drinks/Week [...] care for your loved ones. For example, child welfare counselor or elderly care for an older adult? [...] Date Record ed Physical Abuse Unrecognized value 11/25/2024 Verbal Abuse Unrecognized value 11/25/2024 Comments No Sex and Gender Information Value Date Recorded Sex Assigned at Female 10/17/2024 3:19 PM EDT Legal Sex Female 9:37 AM EST Gender Identity Female 10/17/2024 3:19 PM EDT Sexual Orientation Straight 10/04/2024 12 :21 AM EDT Obstetrics History Last Filed Vital Signs Vital Sign Reading Time Taken Comments Blood Pressure 128/61 11/27/2024 10:06 AM EDT Pulse 110 11/27/2024 10:06 AM EDT Temperature 37 C (98.6 F) 11/27/2024 10:06 AM EDT Respiratory Rate 17 11/25/2024 12:38 PM EDT Oxygen Saturation 97% 11/27/2024 10:06 AM EDT Inhaled Oxygen Concentration - - Weight 93.2 kg (205 lb 6.4 oz) 11/27/2024 10:06 AM EDT Height 172.7 cm (5' 8 ) 11/27/2024 10:06 AM EDT Body Mass Index 31.23 11/27/2024 10:06 AM EDT Plan of Treatment Upcoming Encounters Date Type Department Care Team (Late st Contact Info) Description 05/12/2025 1:30 PM EST Office Visit [facility] [address] [place] [address] Nick Esqueda MD [address] [place] [address] [address] [place] [phone] 05/29/2025 9:45 AM EST Office Visit [facility] Hematology Oncology [address] [place] [address] Hadley-Teo Hawthorne MD [address] [place] [address] Health Maintenance Due Date Last Done Comments Hepatitis A Vaccines (1 of 2 - Risk 2-dose series) 1970 Hepatitis B Vaccines (1 of 3 - Risk 3-dose series) 2011 Breast Cancer Screening 01/06/2022 01/07/2020 Cholesterol Screening (Lipid Panel) 05/25/2022 Hepatitis C Screening 05/25/2022 Medicare Annual Wellness Visit 11/03/2023 11/02/2022 Depression Screening 06/18/2024 COVID-19 Vaccine (12 - Mixed Product risk season) 2025 03/08/2024, 03/21/2023, 04/13/2022, Additional history exists Influenza Vaccine (#1) 2025 , 03/15/2023, 03/06/2023, Additional history exists DTaP,Tdap,and Td Vaccines (3 - Td or Tdap) 05/19/2025 05/19/2015, 10/29/2006 Social Influencers of Health Screening 10/04/2025 10/04/2024 Falls Risk Assessment 11/25/2025 11/25/2024 Hypertension/CHF/CAD Annual BMP Blood Test 11/27/2025 11/27/2024, 10/31/2024, 10/27/2024, Additional history exists Osteoporosis Screening (Bone Density Screening) 01/03/2029 01/03/2019 Colorectal Cancer Screening: Colonoscopy 11/25/2034 11/25/2024, 09/24/2024 Pneumococcal Vaccine: 50+ Years Completed 04/14/2022, 07/05/2017, 06/28/2016 RSV Immunization Adult Patients Completed 03/06/2023 Zoster Vaccines Completed 02/07/2024, 11/16, 07/20/2012 HIB Vaccines Aged Out No longer eligi ble based on patient's age to complete this topic HPV Vaccines Aged Out No longer eligi ble based on patient's age to complete this topic IPV Vaccines Aged Out No longer eligi ble based on patient's age to complete this topic MMR Vaccines Aged Out No longer eligi ble based on patient's age to complete this topic Meningococcal ACWY Vaccine Aged Out N o longer eligible based on patient's age to complete this topic Meningococcal B Vaccine Aged Out No l onger eligible based on patient's age to complete this topic RSV Immunization Patients Under 20 months Aged Out No longer eligible based on patient's age to complete this topic Varicella Vaccines Aged Out No longer eligible based on patient's age to complete this topic Procedures Procedure Name Priority Date/Time Associated Diagnosis Comments COMPREHENSIVE METABOLIC PANEL Routine 11/27/2024 11:02 AM EDT Malignant neoplasm of left kidney ([facility] V24, [facility] V28) COLONOSCOPY Routine 11/25/2024 12:17 PM EDT History of colon polyps from Last 3 Months or Most Recently Relevant to Health Maintenance Results * (ABNORMAL) Comprehensive metabolic panel (11/27/2024 11:02 AM EDT) Sodium 143 133 - 145 mmol/L LAB CHEMISTRY METHOD 11/27/2024 1:47 PM EDT [facility] Potassium 3.8 3.5 - 5.5 mmol/L LAB CHEMISTRY METHOD 11/27/2024 1:47 PM [facility] Chloride 107 96 - 110 mmol/L LAB CHEMISTRY METHOD 11/27/2024 1:47 PM [facility] CO2 25 21 - 32 mmol/L LAB CHEMISTRY METHOD 11/27/2024 1:47 PM [facility] Anion Gap 11 3 - 11 LAB CHEMISTRY METHOD 11/27/2024 1:47 PM [facility] Glucose 107(H) 70 - 100 mg/dL LAB CHEMISTRY METHOD 11/27/2024 1:47 PM [facility] BUN 27(H) 5 - 25 mg/dL LAB CHEMISTRY METHOD 11/27/2024 1:47 PM [facility] Creatinine 1.83(H) 0.50 - 1.10 mg/dL LAB CHEMISTRY METHOD 11/27/2024 1:47 PM [facility] eGFR 29(L) >=60 mL/min/1. 73m2 LAB CHEMISTRY METHOD 11/27/2024 1:47 PM [facility] Comment:Calculation based on the Chronic Kidney Disease Epidemiology Collaboration (CKD-EPI) equation refit without adjustment for race. BUN/Creatinine Ratio 14.8 LAB CHEMISTRY METHOD 11/27/2024 1:47 PM [facility] Calcium 9.5 8.5 - 10.5 mg/dL LAB CHEMISTRY METHOD 11/27/2024 1:47 PM [facility] AST (SGOT) 31 10 - 42 unit/L LAB CHEMISTRY METHOD 11/27/2024 1:47 PM [facility] ALT (SGPT) 28 10 - 60 unit/L LAB CHEMISTRY METHOD 11/27/2024 1:47 PM [facility] Alkaline Phosphatase 144(H) 42 - 121 unit/L LAB CHEMISTRY METHOD 11/27/2024 1:47 PM [facility] Total Protein 7.8 6.0 - 8.0 g/dL LAB CHEMISTRY METHOD 11/27/2024 1:47 PM EDT [facility] Albumin 3.7 3.2 - 5.0 g/dL LAB CHEMISTRY METHOD 11/27/2024 1:47 PM EDT [facility] Total Bilirubin 0.2 0.0 - 1.4 mg/dL LAB CHEMISTRY METHOD 11/27/2024 1:47 PM EDT [facility] Blood Venous blood specimen / Unknown Venipuncture / Unknown 11/27/2024 11:02 AM EDT 11/27/2024 12:53 PM EDT Subramony Sarahi [facility] LAB BLOOD ORDERABLE S Final Result [facility] [address] [place] [address], * COLONOSCOPY Anesthesia - MAC; [facility] ENDOSCOPY (11/25/2024 12:17 PM EDT) Anatomical Region Laterality Modality Other 11/25/2024 11:5 3 AM EDT Impressions 11/25/2024 12:13 PM EDT - Diverticulosis in the sigmoid colon. - Non-bleeding internal hemorrhoids. - The examination was otherwise normal on direct and retroflexion views. - No specimens collected. Recommendation: - Discharge patient to home. - High fiber diet. - Continue present medications. - Repeat colonoscopy in 5 years for surveillance. - Return to GI office as previously scheduled. Narrative 11/25/2024 12:13 PM EDT [facility] GI Patient Name: Serene Araujo Procedure Date: 11/25/2024 11:53 AM Date of : 1950 Age: 74 Room: ROOM 14 Gender: Female Note Status: Finalized Attending MD: Jose Maria Aragon MD, Procedure Date No Time: 11/25/2024 Procedure: Colonoscopy Indications: High risk colon cancer surveillance: Personal history of colonic polyps Providers: Jose Maria Aragon MD Referring MD: Jose Maria Aragon MD Medicines: Monitored Anesthesia Care Complications: No immediate complications. Estimated Blood Loss: Estimated blood loss: none. Procedure: Pre-Anesthesia Assessment: - ASA Grade Assessment: III - A patient with severe systemic disease. - After reviewing the risks and benefits, the patient was deemed in satisfactory condition to undergo the procedure. After I obtained informed consent, the scope was passed under direct vision. Throughout the procedure, the patient's blood pressure, pulse, and oxygen saturations were monitored continuously.The Olympus Colonoscope was introduced through the anus and advanced to the cecum, identified by appendiceal orifice and ileocecal valve. The colonoscopy was performed without difficulty. The patient tolerated the procedure well. The quality of the bowel preparation was adequate. Findings: Scattered small-mouthed diverticula were found in the sigmoid colon. Non-bleeding internal hemorrhoids were found during retroflexion. The hemorrhoids were small. The exam was otherwise without abnormality on direct and retroflexion views. Procedure Code(s): --- Professional --- G0105, Colorectal cancer screening; colonoscopy on individual at high risk Diagnosis Code(s): --- Professional --- Z86.010, Personal history of colonic polyps CPT copyright 2020 [employer]. All rights reserved. The codes documented in this report are preliminary and upon automatic log cut off sawyer review may be revised to meet current compliance requirements. Jose Maria Aragon MD 11/25/2024 12:13:02 PM This report has been signed electronically.Jose Maria Aragon MD Number of Addenda: 0 Note Initiated On: 11/25/2024 11:53 AM Scope In: Scope Out: Endoscopy Department at [facility] - [address] [place] [id number] Procedure Note Jose Maria Aragon MD - 11/25/2024 [facility] GI Patient Name: Serene Araujo Procedure Date: 11/25/2024 11:53 AM Date of : 1950 Age: 74 Room: ROOM 14 Gender: Female Note Status: Finalized Attending MD: JoseM aria Aragon MD, Procedure Date No Time: 11/25/2024 Procedure: Colonoscopy Indications: High risk colon cancer surveillance: Personalhistory of colonic polyps Providers: Jose Maria Aragon MD Referring MD: Jose Maria Aragon MD Medicines: Monitored Anesthesia Care Complications: No immediate complications. Estimated Blood Loss: Estimated blood loss: none. Procedure: Pre-Anesthesia Assessment: - ASA Grade Assessment: III - A patient with severe systemic disease. - After reviewing the risks and benefits, thepatient was deemed in satisfactory condition to undergo the procedure. After I obtained informed consent, the scope was passed under direct vision. Throughout theprocedure, the patient's blood pressure, pulse, and oxygen saturations were monitored continuously.The Olympus Colonoscope was introduced through the anus and advanced to the cecum, identified by appendiceal orifice and ileocecal valve. The colonoscopy was performed without difficulty. The patient tolerated the procedure well. The quality of the bowel preparation was adequate. Findings: Scattered small-mouthed diverticula were found inthe sigmoid colon. Non-bleeding internal hemorrhoids were found during retroflexion. The hemorrhoids were small. The exam was otherwise without abnormality ondirect and retroflexion views. Procedure Code(s): --- Professional --- G0105, Colorectal cancer screening; colonoscopy on individual at high risk Diagnosis Code(s): --- Professional --- Z86.010, Personal history of colonic polyps CPT copyright 2020 [employer]. All rights reserved. The codes documented in this report are preliminary and upon automatic log cut off sawyer reviewmay be revised to meet current compliance requirements. Jose Maria Aragon MD 11/25/2024 12:13:02 PM This report has been signed electronically.Jose Maria Aragon MD Number of Addenda: 0 Note Initiated On: 11/25/2024 11:53 AM Scope In: Scope Out: Endoscopy Department at [facility] - [address] [place] [phone] IMPRESSION: - Diverticulosis in the sigmoid colon. - Non-bleeding internal hemorrhoids. - The examination was otherwise normal on directand retroflexion views. - No specimens collected. Recommendation: - Discharge patient to home. - High fiber diet. - Continue present medications. - Repeat colonoscopy in 5 years for surveillance. - Return to GI office as previously scheduled. us Jose Maria Aragon MD GI~PROCEDURE ORDERABLES Final Result from Last 3 Months or Most Recently Relevant to Health Maintenance Insurance MEDICARE [facility] Advance Directives Documents on File Type Date Recorded Patient Factory Maintenance Manager Expl anation Health Care Decision (hx) 09/28/2020 ADVANCE DIRECTIVE Health Care Decision (hx) 09/28/2020 ADVANCE DIRECTIVE Health Care Decision (hx) 09/28/2020 ADVANCE DIRECTIVE Health Care Decision (hx) 09/28/2020 ADVANCE DIRECTIVE Health Care Decision (hx) 09/28/2020 ADVANCE DIRECTIVE Health Care Decision (hx) 09/28/2020 ADVANCE DIRECTIVE Health Care Decision (hx) 09/28/2020 ADVANCE DIRECTIVE Health Care Decision (hx) 09/28/2020 ADVANCE DIRECTIVE Health Care Decision (hx) 09/28/2020 ADVANCE DIRECTIVE Health Care Decision (hx) 09/28/2020 ADVANCE DIRECTIVE Health Care Decision (hx) 09/28/2020 ADVANCE DIRECTIVE Health Care Decision (hx) 09/28/2020 ADVANCE DIRECTIVE Health Care Decision (hx) 09/28/2020 ADVANCE DIRECTIVE Health Care Decision (hx) 09/28/2020 ADVANCE DIRECTIVE Health Care Decision (hx) 09/28/2020 Colby Chilel WatsonNancy Misislex ADVANCE DIRECTIVE Health Care Decision (hx) 09/25/2020 ADVANCE DIRECTIVE Health Care Decision (hx) 09/25/2020 ADVANCE DIRECTIVE Health Care Decision (hx) 09/25/2020 ADVANCE DIRECTIVE Health Care Decision (hx) 09/25/2020 ADVANCE DIRECTIVE Health Care Decision (hx) 09/25/2020 ADVANCE DIRECTIVE Health Care Decision (hx) 09/25/2020 ADVANCE DIRECTIVE Health Care Decision (hx) 09/25/2020 ADVANCE DIRECTIVE Health Care Decision (hx) 09/25/2020 ADVANCE DIRECTIVE Health Care Decision (hx) 09/25/2020 ADVANCE DIRECTIVE Health Care Decision (hx) 09/25/2020 ADVANCE DIRECTIVE Health Care Decision (hx) 09/25/2020 ADVANCE DIRECTIVE Health Care Decision (hx) 09/25/2020 ADVANCE DIRECTIVE Health Care Decision (hx) 09/25/2020 ADVANCE DIRECTIVE Health Care Decision (hx) 09/25/2020 ADVANCE DIRECTIVE Health Care Decision (hx) 09/25/2020 ADVANCE DIRECTIVE * Full Code - Confirmed (Latest Code Status on File) Date Activated Date Inactivated Comments 10/17/2024 9:48 PM 10/25/2024 6:39 PM This code sta tus was ascertained in the following way: Code status discussion: discussion with healthcare medical representative To update the patient's code status, place a code status order. Do not modify or discontinue any currently active code status orders. * Full Code - Confirmed Date Activated Date Inactivated Comments 10/03/2024 9:38 PM 10/16/2024 2:44 PM This code sta tus was ascertained in the following way: Code status discussion: discussion with patient To update the patient's code status, place a code status order. Do not modify or discontinue any currently active code status orders. Healthcare Agents on File Name Relationship Healthcare Agent Relationshi p Communication Colby Araujo Spouse Health Care Agent Care Teams Res Habilitation Assistant Relationship Specialty Start Date End Date Dennise Mcelroy MD [address] [phone] PCP - General 08/08/23
--- OUTSIDE RECORDS SUMMARY | 2025-04-17 11:49 | XMS_ITS | Encounter Summary ---
Author Organization [facility] Address [address] [place] [address] Care Team Providers Care Tanbark Laborer Name Role Phone Dennise Mcelroy MD Primary Care Provider Encounter Details Date Type Department Care Team (Late st Contact Info) Description 10/31/[address] [facility] - Main Lab [address] [facility] [place] [address] Racquel Hendricks MD [address] [place] [id number] Chronic systolic (congestive) heart failure (CMS/HCC V24, CMS/HCC V28); Severe sepsis with septic shock (CODE) (CMS/HCC V24, CMS/HCC V28) Social History Tobacco [...] your loved ones. For example, child welfare worker or elderly care for an older adult? [...] Description 05/12/2025 1:30 PM EST Office Visit [facility] - [address] [place] [phone] Nick Esqueda MD [address] [facility] [address] [place] [phone] 05/29/2025 9:45 AM EST Office Visit [facility] Hematology Oncology [address] [place] [address] Teo Mcclain MD [address] [place] [address] documented as of this encounter Procedures Procedure Name Priority Date/Time Associated Diagnosis Comments CBC WITH AUTO DIFFERENTIAL Routine 10/31/2024 5:42 AM EDT Chronic systolic (congestive) heart failure (CMS/HCC V24, CMS/HCC V28) Severe sepsis with septic shock (CODE) ([facility]/HCC V24, CMS/[facility] V28) CBC AND DIFFERENTIAL Routine 10/31/2024 5:42 AM EDT Chronic systolic (congestive) heart failure (CMS/HCC V24, CMS/HCC V28) Severe sepsis with septic shock (CODE) (CMS/HCC V24, CMS/HCC V28) BASIC METABOLIC PANEL Routine 10/31/2024 5:42 AM EDT Chronic systolic (congestive) heart failure (CMS/HCC V24, CMS/HCC V28) Severe sepsis with septic shock (CODE) (CMS/HCC V24, CMS/HCC V28) documented in this encounter Results * (ABNORMAL) CBC auto differential (10/31/2024 5:42 AM EDT) [facility] Signature WBC 7.6 4.8 - 10.8 K/mcL LAB HEMETOLOGY METHOD 10/31/2024 10:14 AM EDT [facility] LAB RBC 3.70(L) 3.80 - 4.80 M/mcL LAB HEMETOLOGY METHOD 10/31/2024 10:14 AM [facility] LAB Hemoglobin 10.4(L) 11.5 - 16.0 g/dL LAB HEMETOLOGY METHOD 10/31/2024 10:14 AM [facility] LAB Hematocrit 34.0(L) 35.0 - 47.0 % LAB HEMETOLOGY METHOD 10/31/2024 10:14 AM [facility] LAB MCV 92.9 79.0 - 98.0 FL LAB HEMETOLOGY METHOD 10/31/2024 10:14 AM [facility] LAB MCH 28.4 27.0 - 32.0 pcg LAB HEMETOLOGY METHOD 10/31/2024 10:14 AM [facility] LAB MCHC 30.6(L) 32.0 - 37.0 g/dL LAB HEMETOLOGY METHOD 10/31/2024 10:14 AM [facility] LAB RDW 14.1 11.0 - 15.0 % LAB HEMETOLOGY METHOD 10/31/2024 10:14 AM [facility] LAB Platelets 172 130 - 400 K/mcL LAB HEMETOLOGY METHOD 10/31/2024 10:14 AM [facility] LAB MPV 12.6(H) 7.0 - 11.0 FL LAB HEMETOLOGY METHOD 10/31/2024 10:14 AM [facility] LAB NRBC 0.0 <1.0 % LAB HEMETOLOGY METHOD 10/31/2024 10:14 AM [facility] LAB NRBC Absolute 0.00 <0.10 K/mcL LAB HEMETOLOGY METHOD 10/31/2024 10:14 AM [facility] LAB Neutrophils Relative 60.8 % LAB HEMETOLOGY METHOD 10/31/2024 10:14 AM [facility] LAB Lymphocytes Relative 23.6 % LAB HEMETOLOGY METHOD 10/31/2024 10:14 AM [facility] Monocytes Relative 10.8 % LAB HEMETOLOGY METHOD 10/31/2024 10:14 AM [facility] LAB Eosinophils Relative 4.1 % LAB HEMETOLOGY METHOD 10/31/2024 10:14 AM [facility] LAB Basophils Relative 0.4 % LAB HEMETOLOGY METHOD 10/31/2024 10:14 AM [facility] LAB Immature Granulocytes Relative 0.3 % LAB HEMETOLOGY METHOD 10/31/2024 10:14 AM [facility] LAB Neutrophils Absolute 4.61 1.50 - 7.00 K/mcL LAB HEMETOLOGY METHOD 10/31/2024 10:14 AM [facility] Lymphocytes Absolute 1.79 1.00 - 5.00 K/mcL LAB HEMETOLOGY METHOD 10/31/2024 10:14 AM [facility] LAB Monocytes Absolute 0.82 0.20 - 1.00 K/mcL LAB HEMETOLOGY METHOD 10/31/2024 10:14 AM [facility] Eosinophils Absolute 0.31 0.00 - 0.50 K/mcL LAB HEMETOLOGY METHOD 10/31/2024 10:14 AM [facility] Basophils Absolute 0.03 0.00 - 0.20 K/mcL LAB HEMETOLOGY METHOD 10/31/2024 10:14 AM [facility] LAB Immature Granulocytes Absolute 0.02 0.00 - 0.03 K/mcL LAB HEMETOLOGY METHOD 10/31/2024 10:14 AM [facility] LAB Blood Venous blood specimen / Unknown Venipuncture / Unknown 10/31/2024 5:42 AM EDT 10/31/2024 9:15 AM EDT us Racquel Hendricks MD LAB BLOOD ORDERABLES Final Resu lt [facility] [address] [place] [address], * (ABNORMAL) Basic metabolic panel (10/31/2024 5:42 AM EDT) Sodium 140 133 - 145 mmol/L LAB CHEMISTRY METHOD 10/31/2024 11:47 AM [facility] Potassium 3.5 3.5 - 5.5 mmol/L LAB CHEMISTRY METHOD 10/31/2024 11:47 AM [facility] Chloride 103 96 - 110 mmol/L LAB CHEMISTRY METHOD 10/31/2024 11:47 AM [facility] CO2 25 21 - 32 mmol/L LAB CHEMISTRY METHOD 10/31/2024 11:47 AM [facility] Anion Gap 12(H) 3 - 11 LAB CHEMISTRY METHOD 10/31/2024 11:47 AM [facility] Glucose 72 70 - 100 mg/dL LAB CHEMISTRY METHOD 10/31/2024 11:47 AM [facility] BUN 22 5 - 25 mg/dL LAB CHEMISTRY METHOD 10/31/2024 11:47 AM [facility] Creatinine 1.64(H) 0.50 - 1.10 mg/dL LAB CHEMISTRY METHOD 10/31/2024 11:47 AM [facility] LAB eGFR 33(L) >=60 mL/min/1. 73m2 LAB CHEMISTRY METHOD 10/31/2024 11:47 AM [facility] LAB Comment:Calculation based on the Chronic Kidney Disease Epidemiology Collaboration (CKD-EPI) equation refit without adjustment for race. BUN/Creatinine Ratio 13.4 LAB CHEMISTRY METHOD 10/31/2024 11:47 AM [facility] Calcium 9.5 8.5 - 10.5 mg/dL LAB CHEMISTRY METHOD 10/31/2024 11:47 AM EDT [facility] Blood Venous blood specimen / Unknown Venipuncture / Unknown 10/31/2024 5:42 AM EDT 10/31/2024 9:15 AM EDT us Racquel Hendricks MD LAB BLOOD ORDERABLES Final Resu lt [facility] ([facility] [address] [place] [address], documented in this encounter Visit Diagnoses Diagnosis Chronic systolic (congestive) heart failure (CMS/HCC V24, CMS/HCC V28) Severe sepsis with septic shock (CODE) (CMS/HCC V24, CMS/HCC V28) documented in this encounter Care Teams Tanbark Laborer Relationship Specialty Start Date End Date Dennise Mcelroy MD [address] [phone] PCP - General 08/08/23 documented as of this encounter
--- OUTSIDE RECORDS SUMMARY | 2025-04-17 11:49 | XMS_ITS | Clinical Summary ---
Author Organization [facility] Address [address] [place] [address] Care Team Providers Care Tv Technician Name Role Phone Dennise Mcelroy MD Primary Care Provider Allergies Active Allergy Reactions Criticality Noted Date Comments Lactulose 02/27/2017 Medications Medication Sig Dispensed Refills Start Date End Date Status Multiple Vitamins-Minerals (CENTRUM SILVER PO) Take by mouth daily. 0 Active calcium citrate-vitamin D (CITRACAL+D) 315-200 MG-UNIT per tablet Take 1 tablet by mouth 2 (two) times a day. 0 Active Probiotic Product (PROBIOTIC PO) Take by mouth. 0 Active [place]-3 Fatty Acids (FISH OIL) 1000 MG CAPS Take by mouth daily. 0 Active DULoxetine (CYMBALTA) DR capsule 30 mg Take 1 capsule (30 mg total) by mouth daily. 0 Active lisinopril (PRINIVIL,ZESTRIL) tablet 20 mg Take 1 tablet (20 mg total) by mouth daily. 0 Active LORazepam (ATIVAN) 1 MG tablet Take 2 tablets (2 mg total) by mouth every 6 (six) hours as needed. 0 Active prochlorperazine (COMPAZINE) 10 MG tablet TAKE ONE TABLET BY MOUTH EVERY 6 HOURS NEEDED 120 tablet 1 09/29/2022 Active oxyCODONE (ROXICODONE) 5 MG immediate release tablet Take 1 tablet (5 mg total) by mouth every 4 (four) hours as needed for pain. 0 Active oxyCODONE-acetaminop hen (PERCOCET) 5-325 MG per tablet Take 1 tablet by mouth every 6 (six) hours as needed for pain. 0 Active buPROPion (WELLBUTRIN) 100 MG tablet Take 1 tablet (100 mg total) by mouth 2 (two) times a day. 0 Active Active Problems Problem Noted Date Diagnosed Date Anxiety 03/01/2021 Weight loss 03/01/2021 Clostridium difficile infection 03/01/2021 Cachexia 11/26/2020 Gait instability 11/26/2020 Oral candidiasis 11/26/2020 Left upper quadrant abdominal pain 09/08/2020 Alcohol abuse 09/08/2020 Intractable back pain 09/30/2019 Steroid dependent for adrenal supression 020 Osteoporosis with current pathological fracture 04/08/2019 Weight gain 04/08/2019 Collagenous colitis 03/24/2019 Nausea 03/24/2019 Essential hypertension 03/24/2019 Malignant neoplasm metastatic to both lungs 10/16 Malignant neoplasm of left kidney 02/28/2017 Social History Tobacco Use Types Packs/Day Years Used Date Smoking Tobacco: Every Day Cigarettes 1.5 Smokeless Tobacco: Never Alcohol Use Standard Drinks/Week Comments Yes 0 (1 standard drink = 0.6 oz pur e alcohol) social Sex and Gender Information Value Date Recorded Sex Assigned at Not on file Gender Identity Not on file Sexual Orientation Not on file Job Start Date Occupation Industry Not on file Not on file Not on file Last Filed Vital Signs Vital Sign Reading Time Taken Comments Blood Pressure 131/83 01/30/2024 11:40 AM EDT Pulse 109 01/30/2024 11:40 AM EDT Temperature 36.2 C (97.2 F) 01/30/2024 11:40 AM EDT Respiratory Rate 22 09/08/2020 12:2 8 PM EDT Oxygen Saturation 95% 01/30/2024 11: 40 AM EDT Inhaled Oxygen Concentration - - Weight 103.2 kg (227 lb 9.6 oz) 024 11:40 AM EDT Height 175.3 cm (5' 9 ) 08/08/2022 11:0 7 AM EST Body Mass Index 33.61 08/08/2022 11:07 AM EST Plan of Treatment Health Maintenance Due Date Last Done Comments Hepatitis C Screening 1950 Depression Screening 1963 BMI Counseling 1969 Preventative Health Evaluation 1969 Tobacco Cessation Counseling 1969 Colon Cancer Screening (Colonoscopy) 1996 Breast Cancer Screening (Mammogram) 2001 Fall Risk Assessment 2016 Osteoporosis Screening (DEXA Scan) 2016 Shingrix-Zoster Vaccine (2 of 2) 01/23/2024 11/28/2023 COVID-19 Vaccine ( season) 2025 03/21/2023, 04/13/2022, 09/16/2021, Additional history exists Influenza Vaccine (#1) 2025 3, 04/07/2022, 03/04/2022, Additional history exists DTap / Tdap / Td (2 - Td or Tdap) 05/19/2025 05/19/2015, 10/29/2006, 10/29/2006 Pneumococcal Vaccine Completed 04/14/2022, 07/05/2017, 06/28/2016 RSV Adult > 60+ Yrs or Completed 03/06/2023 Hepatitis B Vaccines Aged Out No long er eligible based on patient's age to complete this topic RSV Ped < 20 months Aged Out No longe r eligible based on patient's age to complete this topic Care Teams Tv Technician Relationship Specialty Start Date End Date Dennise Mcelroy MD [address] [phone] PCP - General Internal Medicine 08/08/23
--- OUTSIDE RECORDS SUMMARY | 2025-04-17 11:49 | XMS_ITS ---
Author [place] [facility] [place] Providers Care Veterinary Practice Manager Name Role Phone Funmilayo Rivera Unavailable Unavailable Allergies and adverse reactions No Known Allergies Care Team Name Role Address Phone Organization Dates Rivera Funmilayo [address], [place], [address], [place] (Office): : [facility] 09/27/2020 - 10/16/2020 Goals Section Goals Description Status Target Date I will be free from discomfo rt or adverse reactions related to anti-anxiety therapy through the review date Active I will be free from discomfo rt or adverse reactions related to antidepressant therapy through the review date Active 021 I will be free of injury through the next review date. Active 01/01/2021 I will be offered drinks and snacks. I am on a heart healthy, regular texture, thin liquid diet. Active 01/01/2021 I will effectively cope with his/her feelings of social isolation. Active 01/01/2021 I will exhibit acceptable be havior AEB (e.g., No alcohol / drugs hidden in room or brought in by visitors, No use of addictive substances unless physician prescribed, No inappropriate disruptive or abusive behavior directed at staff or other patients). Active 01/01/2021 I will express my need to ch rajwinder my Advance Directives if I wish to. Active 01/01/2021 I will have intact skin, debbie e of redness, blisters or discoloration by/through review date Active 01/01/2021 I will improve current level of function in (Specify Bed Mobility, Transfers, Eating, Dressing, Toilet Use and Personal Hygiene, ADL Score) through the review date. Active 01/01/2021 I will maintain involvement in cognitive stimulation, social activities as desired through next review date. Active 2020 I will not have an interrupt ion in normal activities due to pain through the review date Active 01/01/2021 My discharge goal is to return home as soon as a ble Active 01/01/2021 My urinary tract infection w ill resolve without complications by the review date. Active 01/01/2021 Will have intake >75% of daniel ls W ill have stable weights W ill tolerate a therapeutic diet S kin intact W ill have no s/sx of dehydration Active 01/01/2021 Immunizations Immunization Status Vaccine Details Vaccine Code CodeSystem Jhon e Notes Influenza completed Influenza, split virus, trivalent, injectable, contains preservative 141 CVX created date: 09/28/2020 administered date: 03/18/2020 PCV13 (Pneumococcal Conjugate)Vaccine new pneumococcal conjugate vaccine, 13 valent 133 CVX created date: 09/28/2020 consent date: 09/28/2020 Mental Status Section Date Assessment Total Score Description 10/16/2020 CAM 0 No delirium ind icated 10/04/2020 BIMS 15 cognitively int act CAM 0 No delirium ind icated PHQ-9 00 Insurance Providers Plan of Treatment Section Interventions Intervention Code Code System Display Name Proposed D ate Problems Problem # Description Date of onset Resolved Date Code CodeSystem Concern Status 1 ABUSE OF OTHER NON-PSYCHOACTIVE SUBSTANCES 09/28/[address] active 2 ACUTE KIDNEY FAILURE, UNSPECIFIED 09/28/[address] active 3 ALCOHOL DEPENDENCE, UNCOMPLICATED 09/28/[address] active 4 ANXIETY DISORDER, UNSPECIFIED 09/28/[address] active 5 ESSENTIAL (PRIMARY) HYPERTENSION 09/28/[address] active 6 MAJOR DEPRESSIVE DISORDER, RECURRENT, MILD 09/28/[address] active 7 MALIGNANT NEOPLASM OF UNSPECIFIED KIDNEY, EXCEPT RENAL PELVIS 09/28/[address] active 8 METABOLIC ENCEPHALOPATHY 09/28/[address] active 9 OPIOID ABUSE, UNCOMPLICATED 09/28/[address] active 10 URINARY TRACT INFECTION, SITE NOT SPECIFIED 09/28/[address] active 11 BODY MASS INDEX [BMI] 34.0-34.9, ADULT 09/27/[address] active 12 DIFFICULTY IN WALKING, NOT ELSEWHERE CLASSIFIED 09/27/[address] active 13 MUSCLE WASTING AND ATROPHY, NOT ELSEWHERE CLASSIFIED, LEFT SHOULDER 09/27/[address] active 14 MUSCLE WASTING AND ATROPHY, NOT ELSEWHERE CLASSIFIED, RIGHT SHOULDER 09/27/[address] active Reason for Referral No Reasons for Referral Entered Social History Social History Observation Description Start Date End Date Code Code System Current Smoking Status Tobacco smoking consumption unknown 331764241 SNOMED CT Sex Assigned At Female 1950 15157-5 [facility] Gender Identity Sexual Orientation Vital Signs Code Code System Vitals Name Values and Units Timing Information 2339-0 [facility] Blood Sugar Dgnig=096.0 Units=mg/dL 10/16/2020 13650-3 [facility] Pain Level Value=6.0 10/16/2020 9279-1 [facility] Respiratory Rate Value=20.0 Units=/m in 10/16/2020 8310-5 [facility] Body Temperature Value=96.8 Units= F 10/16/2020 73217-6 [facility] O2 % BldC Oximetry Value=96.0 Units= % 10/16/2020 8867-4 [facility] Heart rate Value=89.0 Units=/min 06/2020 8462-4 [facility] Blood Pressure-Diastolic Value=72 Un its=mmHg 10/15/2020 8480-6 [facility] Blood Pressure-Systolic Nheiy=286 Un its=mmHg 10/15/2020 11388-3 [facility] Weight Nrath=026.0 Units=Lbs 8302-2 [facility] Height Value=66.0 Units=Inches 09/27/2020
--- OUTSIDE RECORDS SUMMARY | 2025-04-17 11:49 | XMS_ITS ---
Author Organization [facility] [place] [facility] Care Team Providers Care Spindle Frame Carver Name Role Phone Annelise Huynh Unavailable Unavailable Esthela Toney Unavailable Unavailable Anneliese Lopez Unavailable Bertha vailable Allergies and adverse reactions No Known Allergies Care Team Name Role Address Phone Organization Dates Annelise Huynh [address] [facility] [address], [place], [address], [facility] (Office): : : [facility] [place] 10/21/2020 - 11/11/2020 Esthela Toney [address] [place] [address], [address], [place] (Office): : [facility] [place] [facility] [place] 10/21/2020 - 11/11/2020 Anneliese Schneider [address] [place], [address], [place] (Office): : [facility] [place] 10/21/2020 - 11/11/2020 Immunizations Immunization Status Vaccine Details Vaccine Code CodeSystem Jhon e Notes TB 2 Step Mantoux Skin Test completed tuberculin skin test; purified protein derivative solution, intradermal lotNumber: [id number] expiry: 08/15/2021 Mfg: PAR Given 0.1 ml Left Forearm intradermally Step 1 of Multi-step with next step required 96 CVX created date: 10/31/2020 consent date: 10/31/2020 administere d date: 10/30/2020 COVID-19 Vaccine Dose 1 completed unknown vaccine or immune globulin 999 CVX created date: 10/27/2020 administere d date: 09/08/2020 COVID-19 Vaccine Dose 2 completed unknown vaccine or immune globulin 999 CVX created date: 10/27/2020 administere d date: 09/30/2020 Mental Status Section Date Assessment Total Score Description 11/11/2020 BIMS 10 moderate cognit aditi impairment CAM 0 No delirium ind icated PHQ-9 10 moderate depres joselyn 10/27/2020 BIMS 08 moderate cognit aditi impairment CAM 0 No delirium ind icated PHQ-9 18 moderately deysi re depression Insurance Providers Problems Problem # Description Date of onset Resolved Date Code CodeSystem Concern Status 1 AGE-RELATED OSTEOPOROSIS WITH CURRENT PATHOLOGICAL FRACTURE, UNSPECIFIED SITE, INITIAL ENCOUNTER FOR FRACTURE 10/21/[address] active 2 ANXIETY DISORDER, UNSPECIFIED 10/21/[address] active 3 COGNITIVE COMMUNICATION DEFICIT 10/21/[address] active 4 COLLAGENOUS COLITIS 10/21/[address] T active 5 ESSENTIAL (PRIMARY) HYPERTENSION 10/21/[address] active 6 LOW BACK PAIN 10/21/[address] act aditi 7 MAJOR DEPRESSIVE DISORDER, RECURRENT, MILD 10/21/[address] active 8 MALIGNANT NEOPLASM OF UNSPECIFIED PART OF UNSPECIFIED BRONCHUS OR LUNG 10/21/[address] active 9 MUSCLE WEAKNESS (GENERALIZED) 10/21/[address] active 10 NONTRAUMATIC SUBARACHNOID HEMORRHAGE, UNSPECIFIED 10/21/[address] active 11 PERSONAL HISTORY OF OTHER MALIGNANT NEOPLASM OF KIDNEY 10/21/[address] active 12 TRAUMATIC SUBARACHNOID HEMORRHAGE WITH LOSS OF CONSCIOUSNESS OF UNSPECIFIED DURATION, SUBSEQUENT ENCOUNTER 10/21/[address] active 13 UNSPECIFIED FALL, SUBSEQUENT ENCOUNTER 10/21/[address] active 14 UNSTEADINESS ON FEET 10/21/[address] active 15 URINARY TRACT INFECTION, SITE NOT SPECIFIED 10/21/[address] active 16 WEAKNESS 10/21/[address] active Reason for Referral No Reasons for Referral Entered Social History Social History Observation Description Start Date End Date Code Code System Current Smoking Status Tobacco smoking consumption unknown 009555800 SNOMED CT Sex Assigned At Female 1950 96[address]-3 [facility] Gender Identity Sexual Orientation Vital Signs Code Code System Vitals Name Values and Units Timing Information 11980-4 [facility] Weight Naxbf=605.4 Units=Lbs 9279-1 [facility] Respiratory Rate Value=20.0 Units=/m in 11/08/2020 8310-5 [facility] Body Temperature Value=97.4 Units= F 11/08/2020 8867-4 [facility] Heart rate Value=77.0 Units=/min 83265-6 [facility] O2 % BldC Oximetry Value=95.0 Units= % 11/08/2020 98783-4 [facility] Pain Level Value=0.0 11/08/2020 8302-2 [facility] Height Value=64.0 Units=Inches 10/28/2020 8462-4 [facility] Blood Pressure-Diastolic Value=74 Un its=mmHg 10/27/2020 8480-6 [facility] Blood Pressure-Systolic Eqbhw=197 Un its=mmHg 10/27/2020
--- OUTSIDE RECORDS SUMMARY | 2025-04-17 11:49 | XMS_ITS | Encounter Summary ---
Author Organization [facility] Address [address] [place] [address] Phone Care Team Providers Care Emergency Medicine Medical Director Name Role Phone Wang Tilley MD Unavailable [phone] Rose Marie Manrique MD Primary Care Prov ider Benjamín Michelle MD Unavailable Unavailable Encounter Details Date Type Department Care Team (Late st Contact Info) Description 09/19/2016 Procedure Pass [facility] [address] [place] [address] Social History Tobacco Use Types Packs/Day Years [...] on filedocumented in this encounter Care Teams Emergency Medicine Medical Director Relationship Specialty Start Date End Date Rose Marie Manrique MD [address] [facility] [address] [place] [address] PCP - General Internal Medicine 09/19/16 Wang Tilley MD [address] [facility] [address] [place] [address] [email or web address] Referring Physician Urology 08/23/16 Benjamín Michelle MD Orthopedic Surgery 09/19/16 documented as of this encounter Additional Source Comments The information contained in this document represents components of the legal health record. It is not the complete legal health record.[facility]
--- OUTSIDE RECORDS SUMMARY | 2025-04-17 11:49 | XMS_ITS | Encounter Summary ---
Author Organization [facility] Address [address] [place] [address] Phone Care Team Providers Care New Product Trainer Name Role Phone Wang Tilley MD Unavailable [phone] Rose Marie Manrique MD Primary Care Prov ider Benjamín Michelle MD Unavailable Unavailable Encounter Details Date Type Department Care Team (Late st Contact Info) Description 09/19/2016 Procedure Pass [facility] [address] [place] [address] Social History Tobacco Use Types Packs/Day Years [...] on filedocumented in this encounter Care Teams New Product Trainer Relationship Specialty Start Date End Date Rose Marie Manrique MD [address] [facility] [address] [place] [address] PCP - General Internal Medicine 09/19/16 Wang Tilley MD [address] [facility] [address] [place] [address] [email or web address] Referring Physician Urology 08/23/16 Benjamín Michelle MD Orthopedic Surgery 09/19/16 documented as of this encounter Additional Source Comments The information contained in this document represents components of the legal health record. It is not the complete legal health record.[facility]
--- OUTSIDE RECORDS SUMMARY | 2025-04-17 11:49 | XMS_ITS | Data Portability ---
Author Organization [facility], Main Office Address [address] [facility] [address] [place] [id number] Care Team Providers Care Finish Repair Worker Name Role Phone KIET RESTREPO Senior Electrical Controls Engineer [phone] [facility] Oncologist DE MORROW Network Systems Administrator SAM LORENZO Medical Oncologist [phone] MAURO SUNG Sports Medicine ROSE GERMAIN Donation Worker [facility] Pain Management LIAN COCHRAN Referring Provider DANILO HICKMAN General Surgeon BENTLEY PATTERSON Orthopedic Surgeon TO DELA CRUZ Neurologist DENNISE MCELROY Primary Care Provider MAGNO CADENA Ict Support Technicians Assessment Encounter Date Assessment Date Assessment LastModified by Organization Details LastModified Time 11/27/2024 11/27/2024 I have spent 45 minutes on this encounter. The time documented represents time spent on the day of the encounter preparing for and completing the visit. Time spent performing a physical exam, obtaining history from the patient, counseling/educ ating the patient n possible diagnosis and treatment options. This time is independent of any additional procedures/diag nostic testing/interpr etations. Not available 11/27/2024 20:06:06 02/27/2025 02/27/2025 This service was provided using telemedicine. Patient consented to video & audio visit Patient was located at home in the [facility]. Provider was located in the office. No other persons participated in the telemedicine visit except for the patient unless otherwise indicated here. Total time of visit was 12 minutes. Not available 02/27/2025 16:22:38 Plan of Treatment Reminders Order Date Submit Date Provider Last Modified By Organization Details Last Modified Time Details Appointments FOLLOW UP 2024 09:15A Kenny MCELROY MD Not available Not available Not available Lab vaginal pathogens panel, RAMANDEEP+probe , vaginal fluid 2024 025 NORDEN [facility] (Centralized Electronic Ordering - All Locations), Patient Can Go To The Location Of Their Choice, [id number] 02/22/2025 08:33:05 Referral cardiolog ist referral - attention Ramona, would like to see Nick Esqueda 2024 025 [facility] Cardiology, [address], [facility] [address], [place], [address], 12/02/2024 10:31:57 Procedures None recorded. Surgeries None recorded. Imaging electroca rdiogram 2024 025 [email or web address] In-Office Order, Internal Use Only DO Not Attach Compendium DO Not Attach Compendium, Do Not Delete/merge, [id number] 12/16/2024 15:20:06 MAMMO, screening , bilateral 2024 025 Not available 11/27/2024 14:55:57 Medication Orders oxycodone -acetamin ophen 10 mg-325 mg tablet 2024 025 [facility]I [facility], [address] [place], [address], 02/27/2025 14:55:32 estradiol 0.01% (0.1 mg/gram) vaginal cream 2024 025 NORDEN [facility], [address] [place], [address], 02/27/2025 14:55:32 morphine 30 mg immediate release tablet 2024 025 NORDEN [facility], [address] [place] [address], [address], 02/27/2025 16:23:32 fluconazo le 150 mg tablet 2024 025 NORDEN [facility], [address] [place] [address], [address], 03/04/2025 05:02:01 oxycodone -acetamin ophen 10 mg-325 mg tablet 2024 025 NORDEN [facility], [address] [place] [address], [address], 02/19/2025 14:16:59 buprenorp lilia 10 mcg/hour weekly transderm al patch 2024 025 [place] [address] [facility], [address] [place] [address], [address], 01/09/2025 16:55:14 metoprolo l succinate ER 25 mg tablet,ex tended release 24 hr 2024 025 [place] [address] [facility], [address] [place] [address], [address], 02/27/2025 14:48:36 Suboxone 2 mg-0.5 mg sublingua l film 2024 025 [place] [address] [facility], [address] [place] [address], [address], 12/16/2024 15:12:07 metoprolo l succinate ER 50 mg tablet,ex tended release 24 hr 2024 025 [place] [address] [facility], [address] [place] [address], [address], 12/16/2024 15:16:11 Patient TargetsNo targets recorded. Patient Instructions Encounter Date Encounter Id Patient Instructions Last Modified By Organization Details Last Modified Time 11/27/2024 [id number] palpitations: care instructions Not available 11/27/2024 14:55:11 medicines to avoid with kidney disease: care instructions Not available 11/27/2024 14:55:11 At [facility] follow up visit, all current and discharge medications (OTC, herbal therapies, supplements) reviewed and reconciled with patient and or caregiver, including potential side effects, drug interactions, instructions, and the consequences of not taking medication. Reviewed potential barriers to medication adherence, such as side effects from medication or cost of medication. 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 Ramona, would like to see Nick Esqueda Referring Physician: Dennise Mcelroy, Family Medicine, Encounter Date: 11/27/2024 Results Created Date Observation Date Name Description Value Unit Range Abnormal Flag Note LastModifiedBy Organization Detail LastModifiedTime 10/28/1910/27/2024 COMPL ETE BLOOD COUNT WBC 4.7 K/mcL 4.8-10 .8 low Not Available [address], [address], 10/27/2024 10:10:40 05/12/20 25 10/27/2024 COMPL ETE BLOOD COUNT RBC 3.50 M/mcL 3.80-4 .80 low Not Available [address], [address], 10/27/2024 10:10:40 10/28/19 25 10/27/2024 COMPL ETE BLOOD COUNT hemoglobin 9.9 g/dL 11.5-1 6.0 low Not Available [address], [address], 10/27/2024 10:10:40 10/28/19 25 10/27/2024 COMPL ETE BLOOD COUNT hematocrit 32.5 % 35.0-4 7.0 low Not Available [address], [address], 10/27/2024 10:10:40 10/28/19 25 10/27/2024 COMPL ETE BLOOD COUNT MCV 93.4 fL 79.0-9 8.0 Not Available [address], [address], 10/27/2024 10:10:40 10/28/19 25 10/27/2024 COMPL ETE BLOOD COUNT MCH 28.4 pcg 27.0-3 2.0 Not Available [address], [address], 10/27/2024 10:10:40 10/28/19 25 10/27/2024 COMPL ETE BLOOD COUNT MCHC 30.5 g/dL 32.0-3 7.0 low Not Available [address], [address], 10/27/2024 10:10:40 10/28/19 25 10/27/2024 COMPL ETE BLOOD COUNT RDW 14.6 % 11.0-1 5.0 Not Available [address], [address], 10/27/2024 10:10:40 10/28/19 25 10/27/2024 COMPL ETE BLOOD COUNT platelets 136 K/mcL 130-40 0 Not Available [address], [address], 10/27/2024 10:10:40 10/28/19 25 10/27/2024 COMPL ETE BLOOD COUNT MPV 12.6 fL 7.0-11 .0 high Not Available [address], [address], 10/27/2024 10:10:40 10/28/19 25 10/27/2024 COMPL ETE BLOOD COUNT NRBC 0.0 % <1.0 Not Available [address], [address], 10/27/2024 10:10:40 10/28/19 25 10/27/2024 COMPL ETE BLOOD COUNT NRBC absolute 0.00 K/mcL <0.10 Not Available [address], [address], 10/27/2024 10:10:40 10/28/19 25 10/27/2024 COMPL ETE BLOOD COUNT note See Report [facility], [address] [facility] [address], [place], [place] [address] Not Available [address], [address], 10/27/2024 10:10:40 10/28/19 25 10/27/2024 BASIC METAB OLIC PANEL sodium 142 mmol/ L 133-14 5 Not Available [address], [address], 10/27/2024 10:45:22 10/28/19 25 10/27/2024 BASIC METAB OLIC PANEL potassium 4.0 mmol/ L 3.5-5. 5 Hemol ysis prese nt Not Available [address], [address], 10/27/2024 10:45:22 10/28/19 25 10/27/2024 BASIC METAB OLIC PANEL chloride 106 mmol/ L 96-110 Not Available [address], [address], 10/27/2024 10:45:22 10/28/19 25 10/27/2024 BASIC METAB OLIC PANEL CO2 28 mmol/ L 21-32 Not Available [address], [address], 10/27/2024 10:45:22 10/28/19 25 10/27/2024 BASIC METAB OLIC PANEL anion gap 8 3-11 Not Available [address], [address], 10/27/2024 10:45:22 10/28/19 25 10/27/2024 BASIC METAB OLIC PANEL glucose 84 mg/dL 70-100 Not Available [address], [address], 10/27/2024 10:45:22 10/28/19 25 10/27/2024 BASIC METAB OLIC PANEL BUN 7 mg/dL 5-25 Not Available [address], [address], 10/27/2024 10:45:22 10/28/19 25 10/27/2024 BASIC METAB OLIC PANEL creatinine 1.19 mg/dL 0.50-1 .10 high Not Available [address], [address], 10/27/2024 10:45:22 10/28/19 25 10/27/2024 BASIC METAB OLIC PANEL eGFR 48 mL/mi n/1.7 3m2 >=60 low Calcu latio n based on the Chron ic Kidne y Disea se Epide miolo gy Colla borat ion (CKD- EPI) equat ion refit witho ut adjus tment for race. Not Available [address], [address], 10/27/2024 10:45:22 10/28/19 25 10/27/2024 BASIC METAB OLIC PANEL BUN/creatini ne ratio 5.9 Not Available [address], [address], 10/27/2024 10:45:22 10/28/19 25 10/27/2024 BASIC METAB OLIC PANEL calcium 9.0 mg/dL 8.5-10 .5 Not Available [address], [address], 10/27/2024 10:45:22 10/28/19 25 10/27/2024 BASIC METAB OLIC PANEL note See Report [facility], [address] [facility] [address], [place], [place] [address] Not Available [address], [address], 10/27/2024 10:45:22 11/01/19 25 10/31/2024 CBC WITH AUTO DIFFE RENTI AL WBC 7.6 K/mcL 4.8-10 .8 Not Available [facility] [address] [place], [address], 10/31/2024 10:16:37 11/01/19 25 10/31/2024 CBC WITH AUTO DIFFE RENTI AL RBC 3.70 M/mcL 3.80-4 .80 low Not Available [facility] [address] [facility] [place] [address], 10/31/2024 10:16:37 11/01/19 25 10/31/2024 CBC WITH AUTO DIFFE RENTI AL hemoglobin 10.4 g/dL 11.5-1 6.0 low Not Available [facility] [address] [facility] [place], [address], 10/31/2024 10:16:37 11/01/19 25 10/31/2024 CBC WITH AUTO DIFFE RENTI AL hematocrit 34.0 % 35.0-4 7.0 low Not Available [facility] Dept [facility] [place], [address], 10/31/2024 10:16:37 11/01/19 25 10/31/2024 CBC WITH AUTO DIFFE RENTI AL MCV 92.9 fL 79.0-9 8.0 Not Available [facility] Dept [facility] [place], [address], 10/31/2024 10:16:37 11/01/19 25 10/31/2024 CBC WITH AUTO DIFFE RENTI AL MCH 28.4 pcg 27.0-3 2.0 Not Available [facility]/S Dept [address] [place] [address] [facility] [address], 10/31/2024 10:16:37 11/01/19 25 10/31/2024 CBC WITH AUTO DIFFE RENTI AL MCHC 30.6 g/dL 32.0-3 7.0 low Not Available [facility] Dept [facility] [place] [place], [address], 10/31/2024 10:16:37 11/01/19 25 10/31/2024 CBC WITH AUTO DIFFE RENTI AL RDW 14.1 % 11.0-1 5.0 Not Available [facility] Dept [address] [place] [address] [place], [address], 10/31/2024 10:16:37 11/01/19 25 10/31/2024 CBC WITH AUTO DIFFE RENTI AL platelets 172 K/mcL 130-40 0 Not Available [facility]/S Dept [address] [place], [place] [address] [address], 10/31/2024 10:16:37 11/01/19 25 10/31/2024 CBC WITH AUTO DIFFE RENTI AL MPV 12.6 fL 7.0-11 .0 high Not Available [facility] [address] [place], [place] [address]sonia [facility] [place], [address], 10/31/2024 10:16:37 11/01/19 25 10/31/2024 CBC WITH AUTO DIFFE RENTI AL NRBC 0.0 % <1.[address] [facility] [address] [place] [address] [place], [address], 10/31/2024 10:16:37 11/01/19 25 10/31/2024 CBC WITH AUTO DIFFE RENTI AL NRBC absolute 0.00 K/mcL <0.10 Not Available [facility] [address] [place] [address] [place], [address], 10/31/2024 10:16:37 11/01/19 25 10/31/2024 CBC WITH AUTO DIFFE RENTI AL neutrophils relative 60.8 % Not Available [facility] [address] [place] [address], [address], 10/31/2024 10:16:37 11/01/19 25 10/31/2024 CBC WITH AUTO DIFFE RENTI AL lymphocytes relative 23.6 % Not Available [facility] [address] [place] [address] [place], [address], 10/31/2024 10:16:37 11/01/19 25 10/31/2024 CBC WITH AUTO DIFFE RENTI AL monocytes relative 10.8 % Not Available [facility] [address] [place] [address], [address], 10/31/2024 10:16:37 11/01/19 25 10/31/2024 CBC WITH AUTO DIFFE RENTI AL eosinophils relative 4.1 % Not Available [facility] [address] [place] [address] [place], [address], 10/31/2024 10:16:37 11/01/19 25 10/31/2024 CBC WITH AUTO DIFFE RENTI AL basophils relative 0.4 % Not Available [facility] [address] [place] [address] [place], [address], 10/31/2024 10:16:37 11/01/19 25 10/31/2024 CBC WITH AUTO DIFFE RENTI AL immature granulocytes relative 0.3 % Not Available [facility] [address] [place] [address] [place], [address], 10/31/2024 10:16:37 11/01/19 25 10/31/2024 CBC WITH AUTO DIFFE RENTI AL neutrophils absolute 4.61 K/mcL 1.50-7 .00 Not Available [facility] [address] [place] [address] [place], [address], 10/31/2024 10:16:37 11/01/19 25 10/31/2024 CBC WITH AUTO DIFFE RENTI AL lymphocytes absolute 1.79 K/mcL 1.00-5 .00 Not Available [facility] [address] [place] [address], [address], 10/31/2024 10:16:37 11/01/19 25 10/31/2024 CBC WITH AUTO DIFFE RENTI AL monocytes absolute 0.82 K/mcL 0.20-1 .00 Not Available [facility] [address] [place] [address], [address], 10/31/2024 10:16:37 11/01/19 25 10/31/2024 CBC WITH AUTO DIFFE RENTI AL eosinophils absolute 0.31 K/mcL 0.00-0 .50 Not Available [facility] [address] [place] [address], [place], [address], 10/31/2024 10:16:37 11/01/19 25 10/31/2024 CBC WITH AUTO DIFFE RENTI AL basophils absolute 0.03 K/mcL 0.00-0 .20 Not Available [facility] Dept [facility] [place], [address], 10/31/2024 10:16:37 11/01/19 25 10/31/2024 CBC WITH AUTO DIFFE RENTI AL immature granulocytes absolute 0.02 K/mcL 0.00-0 .03 Not Available [facility] Dept [facility] [place], [address], 10/31/2024 10:16:37 11/01/19 25 10/31/2024 CBC WITH AUTO DIFFE RENTI AL note See Report [facility], [address], [place], [place] [address] Not Available [facility]/S Dept [address] [place], [place] [address], [address], 10/31/2024 10:16:37 11/01/19 25 10/31/2024 BASIC METAB OLIC PANEL sodium 140 mmol/ L 133-14 5 Not Available [facility] Dept [address] [place], [place] [address]one [place] [facility], [address], 10/31/2024 11:49:01 11/01/19 25 10/31/2024 BASIC METAB OLIC PANEL potassium 3.5 mmol/ L 3.5-5. 5 Not Available [facility] [address] [place] [address] [facility], [address], 10/31/2024 11:49:01 11/01/19 25 10/31/2024 BASIC METAB OLIC PANEL chloride 103 mmol/ L 96-110 Not Available [facility] Dept [address] [place], [place] [address], [address], 10/31/2024 11:49:01 11/01/19 25 10/31/2024 BASIC METAB OLIC PANEL CO2 25 mmol/ L 21-32 Not Available [facility] [address] [place] [address] [place], [address], 10/31/2024 11:49:01 11/01/19 25 10/31/2024 BASIC METAB OLIC PANEL anion gap 12 3-11 high Not Available [facility] [address] [place] [address] [place], [address], 10/31/2024 11:49:01 11/01/19 25 10/31/2024 BASIC METAB OLIC PANEL glucose 72 mg/dL 70-[address] [facility] [address] [place], [place] [address], [place], [address], 10/31/2024 11:49:01 11/01/19 25 10/31/2024 BASIC METAB OLIC PANEL BUN 22 mg/dL 5-[address] [facility] [address] [place], [place] [address], [place], [address], 10/31/2024 11:49:01 11/01/19 25 10/31/2024 BASIC METAB OLIC PANEL creatinine 1.64 mg/dL 0.50-1 .10 high Not Available [facility] [address] [place] [address] [place], [address], 10/31/2024 11:49:01 11/01/19 25 10/31/2024 BASIC METAB OLIC PANEL eGFR 33 mL/mi n/1.7 3m2 >=60 low Calcu latio n based on the Chron ic Kidne y Disea se Epide miolo gy Colla borat ion (CKD- EPI) equat ion refit witho ut adjus tment for race. Not Available [facility] [address] [place], [address], 10/31/2024 11:49:01 11/01/19 25 10/31/2024 BASIC METAB OLIC PANEL BUN/creatini ne ratio 13.4 Not Available [facility]/S Dept [facility] [place], [address], 10/31/2024 11:49:01 11/01/19 25 10/31/2024 BASIC METAB OLIC PANEL calcium 9.5 mg/dL 8.5-10 .5 Not Available [facility]S Dept [facility] [place], [address], 10/31/2024 11:49:01 11/01/19 25 10/31/2024 BASIC METAB OLIC PANEL note See Report [facility], [address], [place]ne[place] geriiel d, [facility] [place] [address] Not Available [facility]S Dept [facility] [place], [address], 10/31/2024 11:49:01 11/28/19 25 11/27/2024 CBC WITH AUTO DIFFE RENTI AL WBC 9.1 K/mcL 4.8-10 .8 Not Available [facility]S Dept [facility] [place], [address], 11/27/2024 13:11:52 11/28/19 25 11/27/2024 CBC WITH AUTO DIFFE RENTI AL RBC 4.10 M/mcL 3.80-4 .80 Not Available [facility]S Dept [facility] [place], [address], 11/27/2024 13:11:52 11/28/19 25 11/27/2024 CBC WITH AUTO DIFFE RENTI AL hemoglobin 11.0 g/dL 11.5-1 6.0 low Not Available [facility] Dept [facility] [place], [address], 11/27/2024 13:11:52 11/28/19 25 11/27/2024 CBC WITH AUTO DIFFE RENTI AL hematocrit 37.4 % 35.0-4 7.0 Not Available [facility] [place], [address], 11/27/2024 13:11:52 11/28/19 25 11/27/2024 CBC WITH AUTO DIFFE RENTI AL MCV 92.1 fL 79.0-9 8.0 Not Available [facility] Dept [address] [place], [place] [address], [address], 11/27/2024 13:11:52 11/28/19 25 11/27/2024 CBC WITH AUTO DIFFE RENTI AL MCH 27.1 pcg 27.0-3 2.0 Not Available [facility] Dept [facility] [place] [place], [address], 11/27/2024 13:11:52 11/28/19 25 11/27/2024 CBC WITH AUTO DIFFE RENTI AL MCHC 29.4 g/dL 32.0-3 7.0 low Not Available [facility] [address] [place], [place] [address], [address], 11/27/2024 13:11:52 11/28/19 25 11/27/2024 CBC WITH AUTO DIFFE RENTI AL RDW 14.3 % 11.0-1 5.0 Not Available [facility]/S Dept [address] [place] [address] [place], [address], 11/27/2024 13:11:52 11/28/19 25 11/27/2024 CBC WITH AUTO DIFFE RENTI AL platelets 207 K/mcL 130-40 0 Not Available [facility]/S Dept [address] [place], [place] [address], [place], [address], 11/27/2024 13:11:52 11/28/19 25 11/27/2024 CBC WITH AUTO DIFFE RENTI AL MPV 11.7 fL 7.0-11 .0 high Not Available [facility]/S Dept [facility] [place], [address], 11/27/2024 13:11:52 11/28/19 25 11/27/2024 CBC WITH AUTO DIFFE RENTI AL NRBC 0.0 % <1.[address] [facility]/S Dept [facility] [place], [address], 11/27/2024 13:11:52 11/28/19 25 11/27/2024 CBC WITH AUTO DIFFE RENTI AL NRBC absolute 0.00 K/mcL <0.10 Not Available [facility] [place], [address], 11/27/2024 13:11:52 11/28/19 25 11/27/2024 CBC WITH AUTO DIFFE RENTI AL neutrophils relative 67.3 % Not Available [facility] [address] [place], [place] [address], [address], 11/27/2024 13:11:52 11/28/19 25 11/27/2024 CBC WITH AUTO DIFFE RENTI AL lymphocytes relative 20.8 % Not Available [facility]/S Dept [address] [place] [address] [place], [address], 11/27/2024 13:11:52 11/28/19 25 11/27/2024 CBC WITH AUTO DIFFE RENTI AL monocytes relative 7.9 % Not Available [facility] [address] [place], [place] [address], [address], 11/27/2024 13:11:52 11/28/19 25 11/27/2024 CBC WITH AUTO DIFFE RENTI AL eosinophils relative 3.4 % Not Available [facility] Dept [address] [place], [place] [address], [address], 11/27/2024 13:11:52 11/28/19 25 11/27/2024 CBC WITH AUTO DIFFE RENTI AL basophils relative 0.3 % Not Available [facility] [address] [place] [address] [place], [address], 11/27/2024 13:11:52 11/28/19 25 11/27/2024 CBC WITH AUTO DIFFE RENTI AL immature granulocytes relative 0.3 % Not Available [facility] [address] [place] [address] [place], [address], 11/27/2024 13:11:52 11/28/19 25 11/27/2024 CBC WITH AUTO DIFFE RENTI AL neutrophils absolute 6.10 K/mcL 1.50-7 .00 Not Available [facility] [address] [place] [address] [place], [address], 11/27/2024 13:11:52 11/28/19 25 11/27/2024 CBC WITH AUTO DIFFE RENTI AL lymphocytes absolute 1.89 K/mcL 1.00-5 .00 Not Available [facility] [address] [place] [address] [place], [address], 11/27/2024 13:11:52 11/28/19 25 11/27/2024 CBC WITH AUTO DIFFE RENTI AL monocytes absolute 0.72 K/mcL 0.20-1 .00 Not Available [facility] [address] [place] [address] [place], [address], 11/27/2024 13:11:52 11/28/19 25 11/27/2024 CBC WITH AUTO DIFFE RENTI AL eosinophils absolute 0.31 K/mcL 0.00-0 .50 Not Available [facility]/S Dept [address] [place], [place] [address] [place], [address], 11/27/2024 13:11:52 11/28/19 25 11/27/2024 CBC WITH AUTO DIFFE RENTI AL basophils absolute 0.03 K/mcL 0.00-0 .20 Not Available [facility] [address] [place] [address] [place], [address], 11/27/2024 13:11:52 11/28/19 25 11/27/2024 CBC WITH AUTO DIFFE RENTI AL immature granulocytes absolute 0.03 K/mcL 0.00-0 .03 Not Available [facility] Dept [address] [place] [address] [place] [address], 11/27/2024 13:11:52 11/28/19 25 11/27/2024 CBC WITH AUTO DIFFE RENTI AL note See Report [facility], [address], Fern gutierrez d, [facility] [place] [address] Not Available [facility]S Dept [address] [place] [address] [place], [address], 11/27/2024 13:11:52 11/28/19 25 11/27/2024 COMPR EHENS EZIO METAB OLIC PANEL sodium 143 mmol/ L 133-14 5 Not Available [facility] [address] [place] [address] [place], [address], 11/27/2024 13:49:13 11/28/19 25 11/27/2024 COMPR EHENS EZIO METAB OLIC PANEL potassium 3.8 mmol/ L 3.5-5. 5 Not Available [facility] [address] [place] [address] [place], [address], 11/27/2024 13:49:13 11/28/19 25 11/27/2024 COMPR EHENS EZIO METAB OLIC PANEL chloride 107 mmol/ L 96-110 Not Available [facility] Dept [facility] [place], [address], 11/27/2024 13:49:13 11/28/19 25 11/27/2024 COMPR EHENS EZIO METAB OLIC PANEL CO2 25 mmol/ L 21-32 Not Available [facility] [address] [place] [address] [place], [address], 11/27/2024 13:49:13 11/28/19 25 11/27/2024 COMPR EHENS EZIO METAB OLIC PANEL anion gap 11 3-11 Not Available [facility] [place], [address], 11/27/2024 13:49:13 11/28/19 25 11/27/2024 COMPR EHENS EZIO METAB OLIC PANEL glucose 107 mg/dL 70-[address] [facility] [address] [place] [address] [place], [address], 11/27/2024 13:49:13 11/28/19 25 11/27/2024 COMPR EHENS EZIO METAB OLIC PANEL BUN 27 mg/dL 5-25 high Not Available [facility] [address] [place] [address] [place], [address], 11/27/2024 13:49:13 11/28/19 25 11/27/2024 COMPR EHENS EZIO METAB OLIC PANEL creatinine 1.83 mg/dL 0.50-1 .10 high Not Available [facility] [address] [place] [address] [place], [address], 11/27/2024 13:49:13 11/28/19 25 11/27/2024 COMPR EHENS EZIO METAB OLIC PANEL eGFR 29 mL/mi n/1.7 3m2 >=60 low Calcu latio n based on the Chron ic Kidne y Disea se Epide miolo gy Colla borat ion (CKD- EPI) equat ion refit witho ut adjus tment for race. Not Available [facility] Dept [facility] [place], [address], 11/27/2024 13:49:13 11/28/19 25 11/27/2024 COMPR EHENS EZIO METAB OLIC PANEL BUN/creatini ne ratio 14.8 Not Available [facility] Dept [address] [place] [address] [place], [address], 11/27/2024 13:49:13 11/28/19 25 11/27/2024 COMPR EHENS EZIO METAB OLIC PANEL calcium 9.5 mg/dL 8.5-10 .5 Not Available [facility] [address] [place] [address], [address], 11/27/2024 13:49:13 11/28/19 25 11/27/2024 COMPR EHENS EZIO METAB OLIC PANEL AST (SGOT) 31 unit/ L 10-42 Not Available [facility] Dept [address] [place], [place] [address], [address], 11/27/2024 13:49:13 11/28/19 25 11/27/2024 COMPR EHENS EZIO METAB OLIC PANEL ALT (SGPT) 28 unit/ L 10-60 Not Available [facility] Dept [address] [place] [address] [place], [address], 11/27/2024 13:49:13 11/28/19 25 11/27/2024 COMPR EHENS EZIO METAB OLIC PANEL alkaline phosphatase 144 unit/ L 42-121 high Not Available [facility] Dept [address] [place] [address] [place], [address], 11/27/2024 13:49:13 11/28/19 25 11/27/2024 COMPR EHENS EZIO METAB OLIC PANEL total protein 7.8 g/dL 6.0-8. 0 Not Available [facility] [place], [address], 11/27/2024 13:49:13 11/28/19 25 11/27/2024 COMPR EHENS EZIO METAB OLIC PANEL albumin 3.7 g/dL 3.2-5. 0 Not Available [facility] [place], [address], 11/27/2024 13:49:13 11/28/19 25 11/27/2024 COMPR EHENS EZIO METAB OLIC PANEL total bilirubin 0.2 mg/dL 0.0-1. 4 Not Available [facility] [place], [address], 11/27/2024 13:49:13 11/28/19 25 11/27/2024 COMPR EHENS EZIO METAB OLIC PANEL note See Report [facility], [address], [place], [facility] [place] [address] Not Available [facility] [place], [address], 11/27/2024 13:49:13 11/28/19 25 11/27/2024 BHAVESH TIN ferritin 17 NG/mL 8-252 Not Available [facility] Dept [facility] [place], [address], 11/27/2024 13:49:14 11/28/19 25 11/27/2024 BHAVESH TIN note See Report [facility], [address], [place], [facility] [place] [place] [address] Not Available [facility]/ Dept [facility] [address], [place], [address], 11/27/2024 13:49:14 11/28/19 25 11/27/2024 HAPTO GLOBI N haptoglobin 316 mg/dL 16-200 high Not Available [facility] Dept [address] [place], [place] [address], [address], 11/27/2024 13:49:15 11/28/19 25 11/27/2024 HAPTO GLOBI N note See Report high [facility], [address], Fern [place], [place] [address] Not Available [facility] [address] [place] [address] [place], [address], 11/27/2024 13:49:15 11/28/19 25 11/27/2024 LACTA TE DEHYD ROGEN ASE LDH 228 unit/ L 120-24 6 Not Available [facility] Dept [address] [place] [address] [place], [address], 11/27/2024 13:49:16 11/28/19 25 11/27/2024 LACTA TE DEHYD ROGEN ASE note See Report [facility], [address], [place], [place] [address] Not Available [facility] [address] [place] [address] [place], [address], 11/27/2024 13:49:16 11/28/19 25 11/27/2024 IRON AND TIBC iron 35 mcg/d L 40-150 low Not Available [facility] [address] [place] [address] [place], [address], 11/27/2024 13:49:18 11/28/19 25 11/27/2024 IRON AND TIBC TIBC 505 mcg/d L 250-45 0 high Not Available [facility] [address] [place] [address] [place], [address], 11/27/2024 13:49:18 11/28/19 25 11/27/2024 IRON AND TIBC iron saturation 7 % 15-50 low Not Available [facility] Dept [facility] [place], [address], 11/27/2024 13:49:18 11/28/19 25 11/27/2024 IRON AND TIBC note See Report low [facility], [address], Fern gutierrez d, [place] [facility] [place] [place] [address] Not Available [facility]/S Dept [address] [place], [place] [address], [address], 11/27/2024 13:49:18 11/28/19 25 11/27/2024 VITAM IN B12 AND FOLAT E vitamin B-12 524 pcg/m L 250-90 0 Not Available [facility] Dept [address] [place], [place] [address], [place], [address], 11/27/2024 13:49:19 11/28/19 25 11/27/2024 VITAM IN B12 AND FOLAT E folate >20.0 NG/mL 2.8-17 .0 high Not Available [facility] Dept [address] [place], [place] [address], [place], [address], 11/27/2024 13:49:19 11/28/19 25 11/27/2024 VITAM IN B12 AND FOLAT E note See Report high [facility], [address], Fern gutierrez d, [facility] [place] [address] Not Available [facility] Dept [address] [place], [place] [address], [place], [address], 11/27/2024 13:49:19 02/20/20 25 02/20/2025 NUSWA B VAGIN ITIS PLUS (VG+) atopobium vaginae Low - 0 score Not Available [facility] ([facility]) [address] [facility], [place], [address], 02/22/2025 08:33:05 02/20/20 25 02/20/2025 NUSWA B VAGIN ITIS PLUS (VG+) bvab 2 Low - 0 score Not Available [facility] ([facility]) [address] [facility], [place], [address], 02/22/2025 08:33:05 02/20/20 25 02/20/2025 NUA B VAGIN ITIS PLUS (VG+) megasphaera 1 Low - 0 score Calcu late total score by abigail ward the 3 indiv idual bacte rial vagin osis (BV) marke r score s toget her. Total score is inter prete d as follo ws: Total score 0-1: Indic ates the absen ce of BV. Total score 2: Indet ermin ate for BV. Addit ional clini gerhard data shoul d be evalu ated to estab dontae a diagn osis. Total score 3-6: Indic ates the prese nce of BV. Not Available [facility] ([facility]) [address] [facility], [place], [address], 02/22/2025 08:33:05 02/20/20 25 02/20/2025 NUSWA B VAGIN ITIS PLUS (VG+) dami albicans, RAMANDEEP Negati ve negati ve Not Available [facility] ([facility]) [address] [place], [address], 02/22/2025 08:33:05 02/20/20 25 02/20/2025 NUSWA B VAGIN ITIS PLUS (VG+) dami glabrata, RAMANDEEP Negati ve negati ve Not Available [facility] ([facility]) [address] [facility], [place], [address], 02/22/2025 08:33:05 02/20/20 25 02/22/2025 NUSWA B VAGIN ITIS PLUS (VG+) trich vag by RAMANDEEP Negati ve negati ve Not Available [facility] ([facility]) [address] [facility], [place], [address], 02/22/2025 08:33:05 02/20/20 25 02/22/2025 NUA B VAGIN ITIS PLUS (VG+) chlamydia trachomatis, RAMANDEEP Negati ve negati ve Not Available [facility] ([facility]) [address] [facility], [place], [address], 02/22/2025 08:33:05 02/20/20 25 02/22/2025 NUA B VAGIN ITIS PLUS (VG+) neisseria gonorrhoeae, RAMANDEEP Negati ve negati ve Not Available [facility] ([facility]) [address] [facility], [place], [address], 02/22/2025 08:33:05 11/26/19 25 colon oscop y proce dure (PROC ) No observ ation record ed. [facility] Dept [address] [facility], [place], [address], 11/25/2024 17:25:06 12/17/19 25 12/25/2024 elect rocar diogr am No observ ation record ed. In-Office Order Internal Use Only DO Not Attach Compendium DO Not Attach Compendium, Do Not Delete/merge, [id number] 12/25/2024 12:29:38 12/17/19 elect rocar diogr am No observ ation record ed. In-Office Order Internal Use Only DO Not Attach Compendium DO Not Attach Compendium, Do Not Delete/merge, [id number] 12/16/2024 16:37:55 01/08/20 25 01/07/2025 MRI, lumba r spine , w/o contr ast See Note [facility] , a member of [facility] Name: SERENE ASHRAF Date of : 1949 Reason for Exam: pain Exam Date: 2024 [id number] EST Report Status : Final Orderi ng Provid er: BUSHRA GILLIAM PCP: ALBERTO ANDREWS PROCED URE: Lumbar spine MRI INDICA TION: Pain TECHNI QUE: Multip lanar, multis equenc e MRI of the Lumbar spine Withou t contra st. COMPAR NITISH: 2024 CT. FINDIN GS: Mild retrol isthes is at L1-2, L2-3, and L3-4, simila r compar ed to prior. Chroni c T12 compre ssion fractu re with eviden ce of prior verteb ral augmen tation , unchan ged. No acute fractu re or suspic ious marrow replac ing lesion . Multil evel degene rative loss of normal disc height and signal of associ ated degene rative discog enic endpla te change , most pronou nced at L1-2 and L3-4. Type I degene rative Modic change s seen at L1-2 and L3-4. Lower lumbar predom inant degene rative facet arthri tis, most pronou nced on the right at L3-4, L4-5, and L5-S1 as well as on the left at L5-S1. Conus medull fifi is normal and termin ates at L1. No epidur al collec tion or masses in the spinal canal. Parasp inal muscle s are within normal limits . Visual ized intra- abdomi nal and pelvic struct ures are unrema rkable . Findin gs by level: L1-2: Diffus e disc bulge with endpla te spurri ng. Bilate ral facet arthro will. Modera te left greate r than right forami nal stenos is. No spinal canal stenos is.. L2-3: Bilate ral facet arthro will and ligame ntum flavum thicke sheldon. Diffus e disc bulge with endpla te spurri ng, eccent clif to the left. Modera te left and mild right forami nal stenos is. Mild spinal canal stenos is. L3-4: Diffus e disc bulge with endpla te spurri ng, eccent clif to the left. Right greate r than left arthro will. Mild spinal canal stenos is. Modera te forami nal stenos is bilate rally. L4-5: Suspec adán prior right lamino coral. No spinal canal stenos is. Bilate ral facet arthro will. Diffus e disc bulge with endpla te spurri ng. Mild forami nal stenos is bilate rally. L5-S1: Bilate ral facet arthro will and ligame ntum flavum thicke sheldon. Diffus e disc bulge with centra l annula r tear and endpla te spurri ng. Mild forami nal stenos is bilate rally. No spinal canal stenos is. IMPRES JOSELYN: Degene rative and postsu rgical change s throug hout the lumbar spine withou t high-g rade forami nal or spinal canal stenos is. Chroni c T12 compre ssion fractu res status post verteb ral augmen tation . No acute fractu re. ------ -- FINAL REPORT ------ -- Dictat ed By: PJ CASIANO Dictat ed Date: 2024 15:11 ET Assign ed Physic inderjit: PJ CASIANO Review ed and Electr onical ly Signed By: PJ CASIANO Signed Date: 2024 15:30 ET Workst ation ID: [id number] Transc ribed By: Self Edit Transc ribed Date: 2024 15:11 ET [facility] Dept [address] [place] [address] [place], [address], 01/07/2025 16:03:47 02/10/20 25 02/09/2025 MAMMO , scree sheldon, digit al, bilat eral PROCED URE: MM Digita l Mammo Screen ing INDICA TION: Screen ing for breast cancer . No known palpab le abnorm alitie s. COMPAR NITISH: Priors dating back to 09/18/19 22 TECHNI QUE: Full-f ield digita l CC and MLO 3D tomosy nthesi s images of both breast s were acquir ed. Comput er-aid ed detect ion (CAD) was utiliz ed in the interp retati on of this study. DENSIT Y: There are scatte red areas of fibrog landul ar densit y. FINDIN GS: No suspic ious masses , suspic ious microc alcifi cation s, or areas of dorie ectura l distor tion are seen in either breast to sugges t malign luzma. IMPRES JOSELYN: No mammog raphic eviden ce of malign luzma. RECOMM ENDATI ON: Annual mammog raphic screen ing BI-RAD S: 1 (Negat ezio) Lay letter mailed to brea schafer WSN: [id number] Orderi ng Physic inderjit: Alberto Hoffman Dictat ed By: Chelsea Pritchett MD Dictat ed Date/T nathan: 4:15 pm Review ed By: Chelsea Pritchett MD Signed By: Chelsea Pritchett MD Signed Date/T nathan: 4:15 pm Transc ribed By: CSB Transc riptio n Date/T nathan: 4:15 pm Birads : Brea schafer Class: Outpat ient [id number] [facility] (Outpt Imaging) [address], [place], [address], 02/13/2025 15:25:23 02/10/2002/09/2025 MAMMO , scree sheldon, digit al, bilat eral No observ ation record ed. [facility] [address] [facility], [place], [address], 02/09/2025 19:25:33 Result Notes Documentation Provider Name and Address Organization Details Recorded Time Mri, Lumbar Spine, W/o Contrast : See Note [facility], a member of [employer] Patient Name: SERENE ASHRAF Date of : 1950 Reason for Exam: pain Exam Date: 01/07/2025 [id number] EST Report Status: Final Ordering Provider: MONICA BAKER PCP: DENNISE MCELROY PROCEDURE: Lumbar spine MRI INDICATION: Pain TECHNIQUE: Multiplanar, multisequence MRI of the Lumbar spine Without contrast. COMPARISON: 10/17/2024 CT. FINDINGS: Mild retrolisthesis at L1-2, L2-3, and L3-4, similar compared to prior. Chronic T12 compression fracture with evidence of prior vertebral augmentation, unchanged. No acute fracture or suspicious marrow replacing lesion. Multilevel degenerative loss of normal disc height and signal of associated degenerative discogenic endplate change, most pronounced at L1-2 and L3-4. Type I degenerative Modic changes seen at L1-2 and L3-4. Lower lumbar predominant degenerative facet arthritis, most pronounced on the right at L3-4, L4-5, and L5-S1 as well as on the left at L5-S1. Conus medullaris is normal and terminates at L1. No epidural collection or masses in the spinal canal. Paraspinal muscles are within normal limits. Visualized intra-abdominal and pelvic structures are unremarkable. Findings by level: L1-2: Diffuse disc bulge with endplate spurring. Bilateral facet arthropathy. Moderate left greater than right foraminal stenosis. No spinal canal stenosis.. L2-3: Bilateral facet arthropathy and ligamentum flavum thickening. Diffuse disc bulge with endplate spurring, eccentric to the left. Moderate left and mild right foraminal stenosis. Mild spinal canal stenosis. L3-4: Diffuse disc bulge with endplate spurring, eccentric to the left. Right greater than left arthropathy. Mild spinal canal stenosis. Moderate foraminal stenosis bilaterally. L4-5: Suspected prior right laminotomy. No spinal canal stenosis. Bilateral facet arthropathy. Diffuse disc bulge with endplate spurring. Mild foraminal stenosis bilaterally. L5-S1: Bilateral facet arthropathy and ligamentum flavum thickening. Diffuse disc bulge with central annular tear and endplate spurring. Mild foraminal stenosis bilaterally. No spinal canal stenosis. IMPRESSION: Degenerative and postsurgical changes throughout the lumbar spine without high-grade foraminal or spinal canal stenosis. Chronic T12 compression fractures status post vertebral augmentation. No acute fracture. -------- FINAL REPORT -------- Dictated By: PJ CASIANO Dictated Date: 01/07/2025 15:11 ET Assigned Physician: PJ CASIANO Reviewed and Electronically Signed By: PJ CASIANO Signed Date: 01/07/2025 15:30 ET Workstation ID: [id number] Transcribed By: Self Edit Transcribed Date: 01/07/2025 15:11 ET DENNISE MCELROY MD [address], [place], [address], [facility] 01/07/2025 16:03:47 Mammo, Screening, Digital, Bilateral : PROCEDURE: MM Digital Mammo Screening INDICATION: Screening for breast cancer. No known palpable abnormalities. COMPARISON: Priors dating back to 09/17/2021 TECHNIQUE: Full-field digital CC and MLO 3D tomosynthesis images of both breasts were acquired. Computer-aided detection (CAD) was utilized in the interpretation of this study. DENSITY: There are scattered areas of fibroglandular density. FINDINGS: No suspicious masses, suspicious microcalcifications, or areas of architectural distortion are seen in either breast to suggest malignancy. IMPRESSION: No mammographic evidence of malignancy. RECOMMENDATION: Annual mammographic screening BI-RADS: 1 (Negative) Lay letter mailed to patient WSN: [id number] Ordering Physician: Dennise Mcelroy Dictated By: Oliva Pritchett MD Dictated Date/Time: 02/09/25 4:15 pm Reviewed By: Oliva Pritchett MD Signed By: Oliva Pritchett MD Signed Date/Time: 02/09/25 4:15 pm Transcribed By: MO Recruiting Coordinator Date/Time: 02/09/25 4:15 pm Birads: Patient Class: Outpatient Kiana Peoples criss 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 10:40:53 Anxiety state 379320647 Active Eusebia kahn [facility] 10:40:53 Tobacco dependen ce syndrome 20142365 Completed 07/01/2024 DENNISE MCELROY MD [address] [facility] [address], [place], [address] , [facility] 5 07:35:00 Malaise and fatigue 128428843 Completed 11/15/2016 Gordo kahn [facility] 7 09:33:44 Chronic nonalcoh olic liver disease 16963583 Active Eusebia kahn, [facility] 1 10:40:53 Pure hypercho lesterol emia 227618791 Completed 10/10/2017 Gordo Geovanna-Di fozia criss, [facility] 8 09:53:41 [facility]ia l hyperten joselyn [id number] Completed 12/26/2017 DENNISE MCELROY MD [address], [place], [address] , [facility] 5 07:33:45 Hypokale joselin [id number] Completed 05/06/2023 DENNISE MCELROY MD [address], [place], [address] , [facility] 3 10:24:28 Recurren t major depressi ve episodes 041550070 Completed 07/05/2017 Gordo Geovanna-Bernice fozia criss, [facility] 8 10:28:21 Persiste nt insomnia 401753251 Active Eusebia kahn [facility] 1 10:40:53 Sleep apnea 79822044 Active Eusebia kahn [facility] 1 10:40:53 Upper respirat ory infectio n 71276259 Completed 11/15/2016 DARNELL Bourne, [facility] 7 08:49:31 Major depressi on in partial remissio n 59755841 Active Eusebia kahn [facility] 1 10:40:53 Lesion of neck 610301463 Completed 11/15/2016 Gordo Austin-Bernice copelandfozia criss [facility] 7 09:33:47 Advance care planning Active DARNELL Bourne, [facility] 3 13:55:35 Allergic rhinitis 15005556 Completed 200701/06/2014 IMPRESSI ON: STABLE ON JANIS; RECORDED 02/13/20 08 3:47PM BY GIANNI LOCKATI ON/ADDEN DUM Not Available [facility] 4 14:24:31 Cough 24803441 Completed 200701/06/2014 IMPRESSI ON: MUCH BETTER ON JANIS; RECORDED 02/13/20 08 3:47PM BY GIANNI LOCKATI ON/ADDEN DUM Not Available [facility] 4 14:24:32 General examinat ion of patient Completed 200701/06/2014 RESOLVED DATE: 02/13/20 08; IMPRESSI ON: PAP, MAMMO UP TO DATE.; RECORDED 02/13/20 08 3:48PM BY GIANNI LOCKATI ON/ADDEN DUM Not Available [facility] 4 14:24:32 Allergic rhinitis 57379705 Completed 200701/26/2014 IMPRESSI ON: STABLE ON JANIS; RECORDED 02/13/20 08 3:47PM BY GIANNI LOCKATI ON/ADDEN DUM Not Available [facility] 4 06:41:40 Cough 70727879 Completed 200701/26/2014 IMPRESSI ON: MUCH BETTER ON JANIS; RECORDED 02/13/20 08 3:47PM BY KAITLYN LOCK ON/ADDEN DUM Not Available [facility] 4 06:41:40 General examinat ion of patient Completed 200701/26/2014 RESOLVED DATE: 02/13/20 08; IMPRESSI ON: PAP, MAMMO UP TO DATE.; RECORDED 02/13/20 08 3:48PM BY KAITLYN LOCK ON/ADDEN DUM Not Available [facility] 4 06:41:40 Generali zed abdomina l pain [id number] Completed 200701/06/2014 IMPRESSI ON: US WITH MILD FATTY LIVER, PT WILL WATCH CHOLESTE ROL AND I WILL SEE PT IN A FEW WEEKS AND SEND HER A SHHET WITH INFO; RECORDED 05/20/20 08 9:10AM BY GIANNI BELTRANATI ON/ADDEN DUM Not Available [facility] 4 14:24:31 Abnormal weight gain [id number] Completed 200701/06/2014 IMPRESSI ON: GAINED 14 LBS IN A YEAR, NEG ABD AND PELVIS US EXCEPT FOR FTTY LIVER. CHECK TSH, INCREASE EXERCISE ; RECORDED 05/20/20 08 9:10AM BY GIANNI BELTRANATI ON/ADDEN DUM Not Available [facility] 4 14:24:32 Generali zed abdomina l pain [id number] Completed 200701/26/2014 IMPRESSI ON: US WITH MILD FATTY LIVER, PT WILL WATCH CHOLESTE ROL AND I WILL SEE PT IN A FEW WEEKS AND SEND HER A SHHET WITH INFO; RECORDED 05/20/20 08 9:10AM BY GIANNI BELTRANATI ON/ADDEN DUM Not Available [facility] 4 06:41:40 Abnormal weight gain 147797630 Completed 200701/26/2014 IMPRESSI ON: GAINED 14 LBS IN A YEAR, NEG ABD AND PELVIS US EXCEPT FOR FTTY LIVER. CHECK TSH, INCREASE EXERCISE ; RECORDED 05/20/20 08 9:10AM BY GIANNI BELTRANATI ON/ADDEN DUM Not Available [facility] 4 06:41:40 Acute upper respirat ory infectio n [id number] Completed 200801/06/2014 IMPRESSI ON: MILD, SELF RESOLVIN G; RECORDED 07/23/19 09 3:45PM BY KAITLYN BOURNE ON/ADDEN DUM Not Available [facility] 4 14:24:31 Acute upper respirat ory infectio n [id number] Completed 200801/26/2014 IMPRESSI ON: MILD, SELF RESOLVIN G; RECORDED 07/23/19 09 3:45PM BY GIANNI BOURNEATI ON/ADDEN DUM Not Available [facility] 4 06:41:40 Screenin g for malignan t neoplasm of breast Completed 201101/06/2014 RECORDED 04/11/20 12 8:57AM BY JAMIN WADDELL MA, ANNOTATI ON/ADDEN DUM Not Available [facility] 4 14:24:31 Screenin g for malignan t neoplasm of cervix Completed 201101/06/2014 RECORDED 04/11/20 12 8:57AM BY JAMIN WADDELL MA, ANNOTATI ON/ADDEN DUM Not Available [facility] 4 14:24:32 Low back pain [id number] Completed 201101/06/2014 IMPRESSI ON: GETTING BETTER SOUNDS MUSCULAR , STRETCH MOTRIN; RECORDED 04/11/20 12 8:57AM BY JAMIN WADDELL MA, ANNOTATI ON/ADDEN DUM Not Available [facility] 4 14:24:32 Chronic sinusiti s [id number] Completed 201101/06/2014 RECORDED 04/11/20 12 8:57AM BY JAMIN WADDELL MA, ANNOTATI ON/ADDEN DUM Not Available [facility] 4 14:24:33 Screenin g for malignan t neoplasm of colon Completed 201101/06/2014 RECORDED 04/11/20 12 8:57AM BY JAMIN WADDELL MA, ANNOTATI ON/ADDEN DUM Not Available [facility] 4 14:24:33 Spontane ous ecchymos is [id number] Completed 201101/06/2014 RECORDED 04/11/20 12 8:57AM BY JAMIN WADDELL MA, ANNOTATI ON/ADDEN DUM Not Available [facility] 4 14:24:33 Screenin g for malignan t neoplasm of breast Completed 201101/26/2014 RECORDED 04/11/20 12 8:57AM BY JAMIN WADDELL MA, ANNOTATI ON/ADDEN DUM Not Available [facility] 4 06:41:40 Screenin g for malignan t neoplasm of cervix Completed 201101/26/2014 RECORDED 04/11/20 12 8:57AM BY JAMIN WADDELL MA, ANNOTATI ON/ADDEN DUM Not Available [facility] 4 06:41:40 Low back pain [id number] Completed 201101/26/2014 IMPRESSI ON: GETTING BETTER SOUNDS MUSCULAR , STRETCH MOTRIN; RECORDED 04/11/20 12 8:57AM BY JAMIN WADDELL MA, ANNOTATI ON/ADDEN DUM Not Available [facility] 4 06:41:40 Chronic sinusiti s [id number] Completed 201101/26/2014 RECORDED 04/11/20 12 8:57AM BY JAMIN WADDELL MA, ANNOTATI ON/ADDEN DUM Not Available [facility] 4 06:41:40 Screenin g for malignan t neoplasm of colon Completed 201101/26/2014 RECORDED 04/11/20 12 8:57AM BY JAMIN WADDELL MA, ANNOTDONN ON/ADDEN DUM Not Available [facility] 4 06:41:40 Spontane ous ecchymos is [id number] Completed 201101/26/2014 RECORDED 04/11/20 12 8:57AM BY JAMIN WADDELL MA, ANNOTATI ON/ADDEN DUM Not Available [facility] 4 06:41:40 Influenz a vaccine needed [id number] 06 Completed 201201/06/2014 RECORDED 06/19/19 13 9:29AM BY YULISA MALIK, OFFICE VISIT Not Available [facility] 4 14:24:32 Influenz a vaccine needed [id number] 06 Completed 201201/26/2014 RECORDED 06/19/19 13 9:29AM BY YULISA MALIK, OFFICE VISIT Not Available [facility] 4 06:41:40 Administ ration of viral vaccine Completed 201201/06/2014 RECORDED 09/06/19 13 10:02AM BY KAITLYN BOURNE ON/ADDEN DUM Not Available [facility] 4 14:24:33 Administ ration of viral vaccine Completed 201201/26/2014 RECORDED 09/06/19 13 10:02AM BY KAITLYN BOURNE ON/ADDEN DUM Not Available [facility] 4 06:41:40 Diarrhea [id number] Completed 201301/06/2014 IMPRESSI ON: SOUNDS RELATED TO CEFTIN NOT C DIF BUT EDUCATED PT TO CHECK C DIF TEST IF NOT GETTING BETTER OR GETTING WORSE, FEVER, CRAMPS OR BLOOD IN THE STOOL SHE HAS A CUP, IWL INCREASE DOSE OF PROBIOTI C AND ADD YOGURT; RECORDED 07/09/19 14 10:53AM BY CLARITA CHOWDARY MA, KAITLYN ON/ADDEN DUM Not Available [facility] 4 14:24:32 Blood chemistr y outside referenc e range [id number] Completed 201301/06/2014 IMPRESSI ON: ALT AND AST UP A BIT, PT TO STOP DRINKING NAD RECHECK IN 3 WEEKS; RECORDED 07/09/19 14 10:53AM BY CLARITA CHOWDARY MA, KAITLYN ON/ADDEN DUM Not Available [facility] 4 14:24:32 Malaise and fatigue [id number] Completed 201301/06/2014 IMPRESSI ON: DEPRESSI ON IS ACTIVE, DRINKING 3 RUM AND COKES A DAY, PT WILL CUT IT OUT OR DECREASE PT WILL SET UP COUNSELI NG FOR HERSELF; RECORDED 07/09/19 14 10:53AM BY CLARITA CHOWDARY MA, KAITLYN ON/ADDEN DUM Gordo kahn, [facility] [place] 7 09:33:44 Insomnia [id number] Completed 201301/06/2014 IMPRESSI ON: USE ALPROZOL AM AT NIGHT; RECORDED 07/09/19 14 10:53AM BY CLARITA CHOWDARY MA, ANNOTATI ON/ADDEN DUM DENNISE MCELROY MD [address] [address], [place], [address] , [facility] 5 07:37:03 Urinary tract infectio us disease [id number] Completed 201301/06/2014 IMPRESSI ON: SYMPTOMS RESOLVED ; RECORDED 07/09/19 14 10:53AM BY CLARITA CHOWDARY MA, ANNOTATI ON/ADDEN DUM DENNISE MCELROY MD [address] [facility] [address], [place], [address] , [facility] 5 07:34:53 Diarrhea [id number] Completed 201301/26/2014 IMPRESSI ON: SOUNDS RELATED TO CEFTIN NOT C DIF BUT EDUCATED PT TO CHECK C DIF TEST IF NOT GETTING BETTER OR GETTING WORSE, FEVER, CRAMPS OR BLOOD IN THE STOOL SHE HAS A CUP, IWL INCREASE DOSE OF PROBIOTI C AND ADD YOGURT; RECORDED 07/09/19 14 10:53AM BY CLARITA CHOWDARY MA, ANNOTATI ON/ADDEN DUM Not Available [facility] 4 06:41:40 Blood chemistr y outside referenc e range [id number] Completed 201301/26/2014 IMPRESSI ON: ALT AND AST UP A BIT, PT TO STOP DRINKING NAD RECHECK IN 3 WEEKS; RECORDED 07/09/19 14 10:53AM BY CLARITA CHOWDARY MA, GIANNIATI ON/ADDEN DUM Not Available [facility] 4 06:41:40 Insomnia [id number] Completed 201301/26/2014 IMPRESSI ON: USE ALPROZOL AM AT NIGHT; RECORDED 07/09/19 14 10:53AM BY CLARITA CHOWDARY MA, ANNOTATI ON/ADDEN DUM DENNISE MCELROY MD [address] [facility] [address], [place], [address] , [facility] 5 07:37:03 Urinary tract infectio us disease [id number] Completed 201301/26/2014 IMPRESSI ON: SYMPTOMS RESOLVED ; RECORDED 07/09/19 14 10:53AM BY CLARITA CHOWDARY MA, ANNOTATI ON/ADDEN DUM DENNISE MCELROY MD [address] [facility] [address], [place], [address] , [facility] 5 07:34:53 Adult health examinat ion Completed 201301/06/2014 IMPRESSI ON: PAP, MAMMOGRA M AND COLONOSC OY ARE UTD, PT TO GET MORE ACITVE, WORK ON DIET AND WEIGHT LOSS. LIMIT WINE TO ONE GLASS A NIGHT MAX,MAY BE BRINGING OUT SLEEP APNEA; RECORDED 10/16/19 14 11:19AM BY KAITLYN BOURNE ON/ADDEN DUM Not Available [facility] 4 14:24:32 Adult health examinat ion Completed 201301/26/2014 IMPRESSI ON: PAP, MAMMOGRA M AND COLONOSC OY ARE UTD, PT TO GET MORE ACITVE, WORK ON DIET AND WEIGHT LOSS. LIMIT WINE TO ONE GLASS A NIGHT MAX,MAY BE BRINGING OUT SLEEP APNEA; RECORDED 10/16/19 14 11:19AM BY KAITLYN BOURNE ON/ADDEN DUM Not Available [facility] 4 06:41:40 Renal cell carcinom a [id number] Completed 201607/01/2024 DENNISE MCELROY MD [address] [facility] [address], [place], [address] , [facility] 5 07:35:23 Malignan t neoplasm of kidney 578854033 Active [address] 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 1 10:40:53 Collagen ous colitis 55550149 Active 2018 [facility] 1 10:40:53 Nausea 299013130 Completed 201805/04/2021 DENNISE MCELROY MD [address], [place], [address] , [facility] 5 07:35:47 Nausea 634270353 Completed 201807/01/2024 DENNISE MCELROY MD [address] [facility] [address], [place], [address] , [facility] 5 07:35:47 Kyra alves 21376636 Completed 201807/01/2024 DENNISE MCELROY MD [address], [place], [address] , [facility] 5 07:33:45 Osteopor osis 99231206 [facility] 10:[facility] Weight gain 0413699 Completed 201807/01/2024 DENNISE MCELROY MD [address], [place], [address] , [facility] 5 07:34:47 FCI systemic steroid user [id number] 427418 Completed 201905/04/20[facility] 11:22:09 FCI systemic steroid user 89402126231 445438 Active 2019 DAR[address] Bourne, [facility] 4 15:04:00 Harmful pattern of use of alcohol 20389580 Completed 202007/01/2024 DENNISE MCELROY MD [address], [place], [address] , [facility] 5 07:32:56 Left upper quadrant pain 784841495 Completed 202007/01/2024 DENNISE MCELROY MD [address], [place], [address] , [facility] 5 07:37:20 Acute kidney injury 35439266 Completed 202007/01/2024 DENNISE MCELROY MD [address], [place], [address] , [facility] 5 07:31:40 History of alcoholi sm 280794188 Active 2020 Yulisa Malik MA null, [facility] 4 15:04:00 Gastroes ophageal reflux disease without esophagi tis 513421638 Active 2020 Yulisa Malik MA null, [facility] 4 15:04:01 Acute urinary tract infectio n 012089929 Completed 202007/01/2024 DENNISE MCELROY MD [address], [place], [address] , [facility] 5 07:31:37 Metaboli c encephal opathy 81228483 Completed 202007/01/2024 DENNISE MCELROY MD [address], [place], [address] , [facility] 5 07:36:14 History of nephrect jazzy 45979274322 104 Active 2020 Yulisa Malik MA null, [facility] 4 15:04:01 Urinary tract infectio us disease 10012571 Completed 202007/01/2024 DENNISE MCELROY MD [address], [place], [address] , [facility] 5 07:34:53 Chronic pain 00357792 Active 2020 uYlisa Malik MA null, [facility] 4 15:04:01 Abnormal gait 39374376 Active 2020 Yulisa Malik MA null, [facility] 4 15:04:01 Cachexia 928746505 Completed 202007/01/2024 DENNISE MCELROY MD [address], [place], [address] , [facility] 5 07:33:01 Candidia sis of mouth 44771264 Completed 202007/01/2024 DENNISE MCELROY MD [address] [facility] [address], [place], [address] , [facility] 5 07:33:18 Clostrid ioides difficil e infectio n 648873758 Completed 202007/01/2024 DENNISE MCELROY MD [address] [address], [place], [address] , [facility] 5 07:33:25 Weight loss 41075956 Completed 202007/01/2024 DENNISE MCELROY MD [address] [address], [place], [address] , [facility] 5 07:34:40 History of primary malignan t neoplasm of kidney 742930245 Active 2021 Gordo kahn, [facility] 2 10:40:23 Chronic low back pain 093870869 Active 2021 Kingsley Pham PA-C [address] [address], [place], [address] , [facility] 2 15:22:35 COVID-19 888943373 Completed 202205/06/2023 DENNISE MCELROY MD [address] [address], [address] , [facility] 3 10:24:04 Ex-smoke r 9677190 Active 2022 DENNISE MCELROY MD [address] [facility] [place], [address] , [facility] 3 20:09:51 Chronic kidney disease stage 3 130525402 Active 2023 DENNISE MCELROY MD [address] [address], [address] , [facility] 4 07:06:13 Impaired fasting glycemia 959212797 Active 2023 DENNISE MCELROY MD [address] [facility] [address], [place], [address] , [facility] 4 07:06:20 Cellulit is of left foot 99499321179 189806 Completed 202305/01/2024 DENNISE MCELROY MD [address] [facility] [address], [place], [address] , [facility] 4 12:22:46 Gout 57367820 Active 2023 [facility] [address] [facility] [address], [place], [address] , [facility] 4 13:44:32 Hyperten sive renal disease 58067397 Active 2023 Sonjaaidan Garciavedalysa kahn, [facility] 4 16:23:02 Hypercho lesterol emia 94406696 Active 2023 DARNE[address] Bourne, 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 4 15:04:01 Notes:Some problems listed i n Documents: #[id number], #[id number], #[id number] could not be added to this patient's chart. Please review these documents and add these problems to the patient's chart manually as needed. Problem Notes None recorded. Procedures Surgical History Date Name Laterality Status Provider Name and Address Organization Details Recorded Time 02/10/20 25 Most Recent Mammogram completed Kiana Peoples [facility] 02/13/2025 15:25:20 02/10/20 25 Mammogram screening completed Kiana Peoples [facility] 02/13/2025 15:25:07 11/26/19 25 Date of Last Colonoscopy completed Kiana Peoples [facility] 11/25/2024 13:39:34 11/26/19 25 Colonoscopy completed Kiana Peoples [facility] 11/25/2024 13:38:40 09/30/19 25 Chronic Pain Assessment completed DENNISE MCELROY MD [address], [place], [address], [facility] 09/29/2024 12:21:01 07/01/19 25 Advanced Care Planning completed DENNISE MCELROY MD [address], [place], [address], [facility] 07/01/2024 07:21:35 02/19/20 24 Chronic Pain Assessment completed Yulisa Malik MA [facility] 02/19/2024 14:03:41 12/24/19 24 procedure completed Joanna Lopez [facility] 12/24/2023 10:07:26 11/21/19 24 injection of sacroiliac joint completed Joanna Lopez [facility] 11/21/2023 09:07:33 11/05/19 24 Chronic Pain Assessment completed Yulisa Malik MA [facility] 11/05/2023 11:35:11 10/02/19 24 Chronic Pain Assessment completed Roxann Leiva MA [facility] 10/02/2023 11:30:16 09/13/19 24 Other completed [address] [facility] 09/13/2023 12:37:44 08/20/19 24 Chronic Pain Assessment completed Jamin paulino MA [facility] 08/20/2023 15:37:52 10/21/19 23 Other completed [address]anna Lopez [facility] 10/23/2022 10:29:02 03/31/20 22 removal of spinal neurostimulator completed Joanna Lopez [facility] 04/03/2022 16:11:05 09/10/19 22 Advanced Care Planning completed Yulisa Malik MA [facility] 09/09/2021 10:02:25 04/12/20 20 Six-Item Cognitive Test completed Yulisa Malik MA [facility] 04/12/2020 13:58:38 12/17/19 20 laparoscopic-mary alice adán right colectomy completed Hilary Earl [facility] 12/18/2019 08:31:55 12/17/19 20 Appendectomy completed Yulisa Malik MA [facility] 09/09/2021 09:55:01 01/16/20 19 Mini-Cog Test completed Yulisa Malik MA [facility] 01/15/2019 14:00:47 01/04/20 19 Most Recent Bone Density completed Eusebia Ahuja [facility] 01/08/2019 13:45:43 01/04/20 19 Dxa bone density jeffrey vrt fx completed Eusebia Ahuja [facility] 01/08/2019 13:45:35 07/05/19 18 Fall Risk Assessment completed Yulisa Malik MA [facility] 07/05/2017 09:26:05 07/05/19 18 Mini-Cog Test completed Yulisa Malik MA [facility] 07/05/2017 09:24:57 01/27/20 17 Perc cryo ablate renal dru completed Eusebia Ahuja [facility] 02/14/2017 11:53:26 10/25/19 17 Remove kidney open completed Gayle Bergeron [facility] 10/26/2016 15:04:06 10/25/19 17 Cancer Surgery completed Yulisa Malik MA [facility] 09/09/2021 09:55:01 06/28/19 17 Fall Risk Assessment completed Yulisa Malik MA [facility] 06/28/2016 14:33:19 06/28/19 17 Mini-Cog Test completed Yulisa Malik MA [facility] 06/28/2016 14:32:11 05/17/20 16 Date of Last Pap Smear completed Lizeth Osullivan [facility] 05/18/2016 10:01:55 06/18/19 06 Back Surgery completed Yulisa Malik MA [facility] 09/09/2021 09:55:01 Other completed Yulisa Malik MA [facility] 09/20/2015 10:18:27 Back Surgery completed Yulisa Malik MA [facility] 06/28/2016 14:42:14 Cancer Surgery completed Donna Blevins MA [facility] 02/09/2021 13:28:26 Appendectomy completed Donna Blevins MA [facility] 02/09/2021 13:28:26 Imaging Results None recorded. Procedure Notes None recorded. Medical Equipment None Reported. Allergies Allergen ID Allergen Name Allergen Category Reaction Reaction Severity Criticality Documentation Date Start Date Code Code System Note Provider Name and Address Organization Details Recorded Time 23151 lactulose medicatio n Not available Not available Not available 11/19/20192016 6218 RxNorm DENNISE MCELROY MD [address] [facility] [address] [address], [facility] 5 14:32:44 24398 lactose food,medi cation other Not available Not available 05/01/20242023 [address] [facility] 4 15:11:42 9432 cow milk allergeni c extract food,medi cation Not available Not available Not available 12/30/2013 25238 5 RxNorm REACT ION: SALIC YLIC LACTO SE PROBL EMS DARNELL Bourne [facility] 4 15:11:42 Medications Name Sig Start Date Stop Date Status Note LastModified by Organization Details LastModified Time achz ketoprofe n 10% pain relief APPLY 4-5 GRAMS (4-5 PUMPS) TOPICALL Y TO LOWER BACK TWICE A DAY 04/12 completed Not Available Not Available Not Available celecoxib 200 mg capsule TAKE ONE CAPSULE BY MOUTH TWICE A DAY 05/28 completed Not Available Not Available Not Available amoxicill in 500 mg capsule TAKE FOUR CAPSULES BY MOUTH 1 HOUR PRIOR TO DENTAL APPOINTM ENT, AND THEN 1 CAPSULE THREE TIMES A DAY FOR 1 WEEK 05/07 completed Not Available Not Available Not Available clotrimaz ole 10 mg tosin DISSOLVE ONE TOSIN MOUTH/TH ROAT 5 TIMES A DAY FOR 7 DAYS 02/08 completed Not Available Not Available Not Available bupropion HCl SR 150 mg tablet,12 hr sustained -release TAKE ONE TABLET BY MOUTH EVERY MORNING active Not Available Not Available No t Available ascorbic acid (vitamin C) 1,000 mg tablet Take 1000 mg by oral route. 05/09 completed Not Available Not Available Not Available venlafaxi ne ER 37.5 mg capsule,e xtended release 24 hr TAKE ONE CAPSULE BY MOUTH EVERY DAY STARTING 05/04/2305/28 completed Not Available Not Available Not Available clonidine HCl 0.1 mg tablet TAKE ONE TABLET BY MOUTH TWICE A DAY NEEDED FOR ANXIETY/ PANIC ATTACKS active Not Available Not Available No t Available prednison e 10 mg tablet TAKE 5 TABLETS BY MOUTH ONCE DAILY FOR 2 DAYS. THEN TAKE 4 TABLETS FOR 2 DAYS, THEN TAKE 3 TABLETS FOR 2 DAYS. THEN TAKE 2 TABLETS FOR 2 DAY 11/04 completed Not Available Not Available Not Available venlafaxi ne ER 75 mg capsule,e xtended release 24 hr TAKE ONE CAPSULE BY MOUTH EVERY MORNING FOR 14 DAYS, THEN DECREASE TO 37.5MG CAPSULES 05/07 completed Not Available Not Available Not Available atorvasta tin 20 mg tablet TAKE ONE TABLET BY MOUTH EVERY DAY 12/09 completed Not Available Not Available Not Available citalopra m 40 mg tablet Take 1 tablet every day by oral route in the morning for 30 days. 2013 active Not Available Not Available Not Avai lable Vitamin C 500 mg tablet Take 2 tablets every day by oral route. active Not Available Not Available No t Available trazodone 50 mg tablet 1 at night 01/15 completed Not Available Not Available Not Available polyethyl jessica glycol 3350 17 gram oral powder packet 07/05 completed Not Available Not Available Not Available ibuprofen 800 mg tablet TAKE ONE TABLET BY MOUTH FOUR TIMES A DAY NEEDED 07/31 completed Not Available Not Available Not Available Lidocaine Viscous 2 % mucosal solution 07/05 completed Not Available Not Available Not Available fluconazo le 150 mg tablet Take 1 tablet every 72 hours by oral route as directed for 6 days. 03/04 completed Not Available Not Available Not Available metoprolo l succinate ER 50 mg tablet,ex tended release 24 hr TAKE ONE TABLET BY MOUTH EVERY DAY active Not Available Not Available No t Available urea 40 % topical cream active Not Available Not Available Not Available senna 8.6 mg tablet Take 2 tablets every day by oral route as directed . 04/12 completed Not Available Not Available Not Available sucralfat e 100 mg/mL oral suspensio n TAKE 10ML BY MOUTH 4 TIMES A DAY, (SHAKE WELL BEFORE EACH USE) 11/19 completed Not Available Not Available Not Available prochlorp erazine maleate 5 mg tablet 11/12 completed Not Available Not Available Not Available meloxicam 15 mg tablet 02/08 completed Not Available Not Available Not Available promethaz ine 12.5 mg tablet 04/12 completed Not Available Not Available Not Available lisinopri l 20 mg tablet TAKE ONE TABLET BY MOUTH EVERY DAY active Not Available Not Available No t Available ondansetr on HCl 4 mg tablet TAKE ONE TABLET BY MOUTH EVERY 8 TO 12 HOURS 11/19 completed Not Available Not Available Not Available prednison e 20 mg tablet TAKE TWO TABLETS BY MOUTH EVERY DAY DIRECTED FOR 5 DAYS 07/01 completed Not Available Not Available Not Available alendrona te 70 mg tablet TAKE ONE TABLET BY MOUTH ONCE WEEKLY IN THE MORNING ON EMPTY STOMACH WITH FULL GLASS OF WATER. REMAIN UPRIGHT AND NO OTHER FOOD/ DRINK FOR 3 11/02 completed Not Available Not Available Not Available clonazepa m 0.5 mg tablet Take 1 tablet twice a day by oral route for 30 days. 06/28 completed Not Available Not Available Not Available doxycycli ne hyclate 50 mg capsule 01/15 completed Not Available Not Available Not Available sertralin e 100 mg tablet TAKE ONE AND ONE-HALF TABLETS BY MOUTH EVERY MORNING 11/02 completed Not Available Not Available Not Available prednison e 5 mg tablet 1 in am 01/15 completed Not Available Not Available Not Available Zithromax Z-Mahendra 250 mg tablet QD 10/16 completed RECORDED 11/01/19 12 12:20PM BY MONICA SARABIA, PA-C, MEDICATI ON AUTO-DOROTHY CTIVATIO N;2PO QD FOR 1 DAY, THEN 1 QD FOR 4 DAYS. Not Available Not Available Not Available venlafaxi ne ER 150 mg capsule,e xtended release 24 hr TAKE ONE CAPSULE BY MOUTH EVERY MORNING 05/07 completed Not Available Not Available Not Available diphenoxy late-atro pine 2.5 mg-0.025 mg tablet 08/17 completed Not Available Not Available Not Available valsartan 80 mg tablet TAKE 3 TABLETS DAILY 01/09 completed Not Available Not Available Not Available metronida zole 500 mg tablet 08/17 completed Not Available Not Available Not Available hydroxyzi ne HCl 50 mg tablet TAKE ONE TABLET BY MOUTH TWICE A DAY NEEDED FOR ANXIETY 12/16 completed Not Available Not Available Not Available acetamino phen 300 mg-codein e 30 mg tablet TAKE ONE TO TWO TABLETS BY MOUTH EVERY 4 TO 6 HOURS NEEDED FOR PAIN 11/02 completed Not Available Not Available Not Available prochlorp erazine maleate 10 mg tablet TAKE ONE TABLET BY MOUTH EVERY 6 HOURS NEEDED FOR NAUSEA AND VOMITING active Not Available Not Available No t Available allopurin ol 100 mg tablet Take 1 tablet every day by oral route for 30 days. 06/16 completed Not Available Not Available Not Available morphine ER 30 mg tablet,ex tended release TAKE ONE TABLET BY MOUTH EVERY 12 HOURS 07/08 completed Not Available Not Available Not Available sulfameth oxazole 800 mg-trimet hoprim 160 mg tablet TAKE 1 TABLET BY MOUTH EVERY 12 HOURS DIRECTED FOR 7 DAYS 03/10 completed Not Available Not Available Not Available olanzapin e 2.5 mg tablet Take 1 mg twice a day by oral route. 04/12 completed Not Available Not Available Not Available aspirin 81 mg tablet,de layed release Take 1 mg every day by oral route. 11/19 completed Not Available Not Available Not Available tramadol 50 mg tablet 07/31 completed Not Available Not Available Not Available acetamino phen 500 mg tablet TAKE ONE TABLET BY MOUTH EVERY 8 HOURS 04/12 completed Not Available Not Available Not Available bupropion HCl SR 100 mg tablet,12 hr sustained -release active Not Available Not Available Not Available vancomyci n 125 mg capsule TAKE ONE CAPSULE BY MOUTH FOUR TIMES A DAY FOR 14 DAYS, THEN TAKE ONE CAPSULE BY MOUTH TWICE A DAY FOR 7 DAYS, THEN TAKE 1 BY MOUTH EVERY OT 12/09 completed Not Available Not Available Not Available calcium 315 mg (as citrate)- ergocalci ferol (vit D2) 200 unit tablet Take 1 {tbl} by oral route. 04/12 completed Not Available Not Available Not Available magnesium aspartate -potassiu m aspartate 250 mg-250 mg capsule Take 1 capsule every day by oral route. active Not Available Not Available No t Available oxycodone -acetamin ophen 5 mg-325 mg tablet TAKE ONE TABLET BY MOUTH EVERY 12 HOURS NEEDED FOR 5 DAYS 07/14 completed Not Available Not Available Not Available bupropion HCl 100 mg tablet TAKE ONE TABLET BY MOUTH TWICE A DAY; SECOND DOSE SHOULD BE TAKEN NO LATER THAN 2PM. 11/04 completed Not Available Not Available Not Available alprazola m 0.5 mg tablet TAKE ONE TABLET(S ) TWICE A DAY ASNECESS SELMA active Not Available Not Available No t Available propranol ol 10 mg tablet Take 1 tablet twice a day by oral route for 30 days. 06/28 completed Not Available Not Available Not Available calcium 600 mg (as calcium carbonate 1,500 mg) tablet QD active RECORDED 09/08/19 12 8:20AM BY JAMIN WADDELL MA, OFFICE VISIT; Not Available Not Available Not Available amoxicill in 875 mg tablet TAKE ONE TABLET BY MOUTH TWICE A DAY FOR 7 DAYS UNTIL FINISHED 09/09 completed Not Available Not Available Not Available hydromorp christelle 2 mg tablet TAKE ONE TABLET BY MOUTH TWICE A DAY NEEDED FOR PAIN 11/19 completed Not Available Not Available Not Available oxycodone -acetamin ophen 10 mg-325 mg tablet TAKE ONE TABLET BY MOUTH EVERY 8 HOURS NEEDED active Not Available Not Available No t Available Mapap (acetamin ophen) 500 mg capsule Take 1 capsule every 8 hours by oral route as directed . 04/12 completed Not Available Not Available Not Available dexametha sone 1 mg tablet 08/27 completed Not Available Not Available Not Available lorazepam 2 mg tablet TAKE ONE TABLET BY MOUTH DAILY AT BEDTIME NEEDED active Not Available Not Available No t Available diazepam 2 mg tablet 10/15 completed RECORDED 10/16/19 14 11:27AM BY YULISA MALIK, OFFICE VISIT; Not Available Not Available Not Available promethaz ine 50 mg tablet TAKE ONE TABLET BY MOUTH EVERY 8 HOURS NEEDED FOR NAUSEA 04/12 completed Not Available Not Available Not Available prochlorp erazine 25 mg rectal supposito ry INSERT ONE SUPPOSIT ORY INTO RECTUM ONCE DAILY NEEDED FOR NAUSEA. 11/19 completed Not Available Not Available Not Available Janis 180 mg tablet DAILY 11/11 completed RECORDED 11/12/19 10 2:41PM BY YULISA MALIK, OFFICE VISIT; Not Available Not Available Not Available benzonata te 100 mg capsule TAKE ONE CAPSULE BY MOUTH THREE TIMES A DAY NEEDED FOR 7 DAYS FOR COUGH 11/04 completed Not Available Not Available Not Available morphine 30 mg immediate release tablet TAKE ONE TABLET BY MOUTH EVERY 8 HOURS 02/27 completed Not Available Not Available Not Available cephalexi n 500 mg capsule TAKE ONE CAPSULE BY MOUTH EVERY 12 HOURS FOR 7 DAYS 11/19 completed Not Available Not Available Not Available erythromy tom 5 mg/gram (0.5 %) eye ointment 04/16 completed Not Available Not Available Not Available venlafaxi ne 37.5 mg tablet START WITH TAKE ONE TABLET BY MOUTH EVERY DAY FOR 2 WEEKS, THEN INCREASE TO TAKE ONE TABLET BY MOUTH TWICE A DAY IF WELL TOLERATE D 12/21 completed Not Available Not Available Not Available potassium 75 mg tablet Take 1 tablet every day by oral route. 07/05 completed Not Available Not Available Not Available nystatin 100,000 unit/gram topical cream APPLY TOPICALL Y TO AFFECTED AREA TWO TIMES A DAY FOR 10 DAYS 05/09 completed Not Available Not Available Not Available vancomyci n 250 mg capsule TAKE ONE CAPSULE BY MOUTH FOUR TIMES A DAY 12/31 completed Not Available Not Available Not Available oxycodone 5 mg capsule Take 1 capsule every day by oral route as directed for 30 days. 10/01 completed Not Available Not Available Not Available bupropion HCl 75 mg tablet TAKE ONE TABLET TWO TIMES A DAY 11/27 completed Not Available Not Available Not Available guanfacin e 1 mg tablet 08/17 completed Not Available Not Available Not Available indometha tom 50 mg capsule TAKE 1 CAPSULE BY MOUTH 3 TIMES A DAY 02/26 completed Not Available Not Available Not Available nicotine 21 mg/24 hr daily transderm al patch 02/08 completed Not Available Not Available Not Available fluoxetin e 10 mg capsule active Not Available Not Available Not Available docusate sodium 100 mg capsule TAKE ONE CAPSULE BY MOUTH EVERY DAY NEEDED 01/20 completed Not Available Not Available Not Available gabapenti n 300 mg capsule TAKE 1 CAPSULE BY MOUTH 3 TIMES A DAY FOR 30 DAYS 05/28 completed Not Available Not Available Not Available buspirone 7.5 mg tablet 06/28 completed Not Available Not Available Not Available omeprazol e 20 mg capsule,d elayed release TAKE ONE CAPSULE BY MOUTH TWICE A DAY 11/19 completed Not Available Not Available Not Available irbesarta n 75 mg tablet Take 3 tablets every day by oral route for 30 days. 03/27 completed Not Available Not Available Not Available folic acid 1 mg tablet TAKE ONE TABLET BY MOUTH EVERY DAY 11/19 completed Not Available Not Available Not Available hydroxyzi ne HCl 25 mg tablet TAKE ONE TABLET BY MOUTH TWICE A DAY NEEDED FOR ANXIETY 11/04 completed Not Available Not Available Not Available allopurin ol 300 mg tablet TAKE ONE TABLET BY MOUTH EVERY DAY 09/29 completed Not Available Not Available Not Available bisacodyl 5 mg tablet,de layed release TAKE TWO TABLETS BY MOUTH RIGHT BEFORE BEGINNIN G BOWEL PREP . SEE INSTRUCT IONS PROVIDED BY THE OFFICE 11/27 completed Not Available Not Available Not Available lisinopri l 5 mg tablet TAKE ONE TABLET BY MOUTH ONCE DAILY 11/27 completed Not Available Not Available Not Available hydrochlo rothiazid e 25 mg tablet QD 10/15 completed RECORDED 10/16/19 14 11:26AM BY YULISA MALIK, OFFICE VISIT; Not Available Not Available Not Available zolpidem 5 mg tablet TAKE ONE TABLET BY MOUTH EVERY DAY AT BEDTIME 02/08 completed Not Available Not Available Not Available furosemid e 20 mg tablet TAKE ONE TABLET BY MOUTH EVERY DAY 11/27 completed Not Available Not Available Not Available mirtazapi ne 15 mg tablet TAKE ONE TABLET BY MOUTH DAILY AT BEDTIME active Not Available Not Available No t Available gabapenti n 100 mg capsule Take 1 capsule 3 times a day by oral route. 07/01 completed Not Available Not Available Not Available metoprolo l succinate ER 25 mg tablet,ex tended release 24 hr TAKE ONE TABLET BY MOUTH EVERY DAY DIRECTED active Not Available Not Available No t Available clobetaso l 0.05 % topical ointment APPLY A THIN FILM TOPICALL Y TO AFFECTED AREA SUNDAY & SUNDAY active Not Available Not Available No t Available propranol ol ER 120 mg capsule,2 4 hr,extend ed release TAKE ONE CAPSULE BY MOUTH EVERY DAY 12/09 completed Not Available Not Available Not Available lorazepam 1 mg tablet TAKE ONE TABLET BY MOUTH 1 HOUR PRIOR TO INJECTIO N IF NEEDED FOR ANXIETY 01/20 completed Not Available Not Available Not Available budesonid e DR - ER 3 mg capsule,d elayed,ex tended release Take 2 capsules every day by oral route for 30 days. 11/19 completed Not Available Not Available Not Available diazepam 10 mg tablet TAKE 1 TO 2 TABLETS BY MOUTH 1 HOUR BEFORE MRI 04/12 completed Not Available Not Available Not Available chlorprom azine 200 mg tablet 04/12 completed Not Available Not Available Not Available estradiol 0.01% (0.1 mg/gram) vaginal cream INSERT 1 APPLICAT ORFUL VAGINALL Y 3 TIMES A WEEK DIRECTED active Not Available Not Available No t Available scopolami ne 1 mg over 3 days transderm al patch APPLY 1 PATCH ONTO THE SKIN EVERY THIRD DAY 04/12 completed Not Available Not Available Not Available colchicin e 0.6 mg tablet TAKE 3 TABLETS BY MOUTH DAILY FOR 3 DAYS. 05/09 completed PRN Not Available Not Available Not Available dexametha sone 0.5 mg tablet TAKE 1 TABLET (0.5MG) BY MOUTH 3 TIMES DAILY. 04/16 completed Not Available Not Available Not Available ketoconaz ole 2 % topical cream APPLY TO RED SCALY RASH ON FACE TWO TIMES A DAY FOR MAINTENA NCE 09/29 completed Not Available Not Available Not Available hydromorp christelle 4 mg tablet 11/15 completed Not Available Not Available Not Available morphine 15 mg immediate release tablet TAKE ONE TABLET BY MOUTH EVERY 12 HOURS 07/31 completed Not Available Not Available Not Available hydroxyzi ne HCl 10 mg tablet TAKE ONE TABLET BY MOUTH THREE TIMES A DAY NEEDED FOR ANXIETY SYMPTOMS 11/02 completed Not Available Not Available Not Available lisinopri l 40 mg tablet 05/29 completed .5 po qd Mar [address] Malloy Not Available Not Available Not Available ondansetr on 4 mg disintegr ating tablet Place 4 mg by oral route. 04/12 completed Not Available Not Available Not Available cefdinir 300 mg capsule TAKE 1 CAPSULE BY MOUTH EVERY 12 HOURS 02/26 completed Not Available Not Available Not Available losartan 100 mg tablet Take 1 tablet every day by oral route for 90 days. 07/09 completed Not Available Not Available Not Available sertralin e 50 mg tablet TAKE ONE TABLET BY MOUTH EVERY MORNING FOR 2 WEEKS, THEN DECREASE TO 1/2 TABLET ONCE DAILY 11/02 completed Not Available Not Available Not Available Potassium Chloride CR 10 mEq tablet,ex tended release DAILY 11/11 completed RECORDED 11/12/19 10 2:42PM BY YULISA MALIK, OFFICE VISIT; Not Available Not Available Not Available irbesarta n 300 mg tablet Take 1 tablet every day by oral route as directed for 90 days. 07/09 completed Not Available Not Available Not Available metoclopr amide 10 mg tablet TAKE ONE TABLET BY MOUTH FOUR TIMES A DAY 04/12 completed Not Available Not Available Not Available amoxicill in 875 mg-potass ium clavulana te 125 mg tablet TAKE 1 TABLET BY MOUTH EVERY 12 HOURS FOR 5 DAYS. 05/09 completed Not Available Not Available Not Available amoxicill in 500 mg-potass ium clavulana te 125 mg tablet TAKE 1 TABLET BY MOUTH TWICE A DAY FOR 2 DAYS DIRECTED 04/12 completed Not Available Not Available Not Available tobramyci n 0.3 %-dexamet hasone 0.1 % eye drops,[facility] 01/15 completed Not Available Not Available Not Available oxycodone 5 mg tablet TAKE ONE TABLET BY MOUTH EVERY DAY 07/01 completed Not Available Not Available Not Available inositol 650 mg tablet Take 1 tablet every day by oral route as directed . 05/15 completed Not Available Not Available Not Available Excedrin Extra Strength 250 mg-250 mg-65 mg tablet Take 1 tablet as needed by oral route. 03/18 completed Not Available Not Available Not Available magnesium 200 mg tablet DAILY active RECORDED 10/16/19 14 11:26AM BY YULISA MALIK, OFFICE VISIT; Not Available Not Available Not Available calcium 200 mg (as calcium citrate 950 mg) tablet Take 950 mg by oral route. 07/01 completed Not Available Not Available Not Available bupropion HCl SR 200 mg tablet,12 hr sustained -release TAKE ONE TABLET BY MOUTH EVERY DAY 10/01 completed Not Available Not Available Not Available Mucinex 600 mg tablet, extended release Take 1 tablet every 12 hours by oral route as needed for 5 days. 11/04 completed Not Available Not Available Not Available alprazola m ER 0.5 mg tablet,ex tended release 24 hr DAILY PRN ANXIETY 04/09 completed RECORDED 06/21/19 11 4:05PM BY GORDO Roberts MD, MEDICATI ON AUTO-DOROTHY CTIVATIO N;PRN ANXIETY Not Available Not Available Not Available cholestyr amine (with sugar) 4 gram oral powder TAKE 1 SCOOP DISSOLVE D IN WATER THREE TIMES A DAY WITH MEALS 05/24 completed Not Available Not Available Not Available cholestyr amine (with sugar) 4 gram powder for susp in a packet 08/17 completed Not Available Not Available Not Available rosuvasta tin 10 mg tablet TAKE ONE TABLET BY MOUTH EVERY DAY active Not Available Not Available No t Available bupropion HCl XL 300 mg 24 hr tablet, extended release 06/28 completed Not Available Not Available Not Available bupropion HCl XL 150 mg 24 hr tablet, extended release 06/28 completed Not Available Not Available Not Available Aspartate -Mg+K 99 mg- 90 mg capsule IN THE EVENING active RECORDED 04/11/20 12 9:03AM BY JAMIN WADDELL MA, OFFICE VISIT; Not Available Not Available Not Available mirtazapi ne 7.5 mg tablet Take 1 tablet every day by oral route as directed . 12/16 completed Not Available Not Available Not Available duloxetin e 20 mg capsule,d elayed release TAKE ONE CAPSULE BY MOUTH EVERY DAY FOR 14 DAYS, IF WELL TOLERATE D INCREASE TO 30MG CAPSULES 05/07 completed Not Available Not Available Not Available duloxetin e 30 mg capsule,d elayed release TAKE ONE CAPSULE BY MOUTH ONCE DAILY IN THE MORNING. START 05/04/2305/28 completed Not Available Not Available Not Available duloxetin e 60 mg capsule,d elayed release TAKE ONE CAPSULE BY MOUTH EVERY MORNING active Not Available Not Available No t Available omega-3 acid ethyl esters 1 gram capsule 04/12 completed Not Available Not Available Not Available bromfenac 0.09 % eye drops Instill 1 drop twice a day by ophthalm ic route for 60 days. 03/30 completed Not Available Not Available Not Available chlorhexi dine gluconate 0.12 % mouthwash RINSE MOUTH WITH 15 ML 1 CAPFUL) FOR 30 SECONDS IN THE IN THE MORNING AND IN THE EVENING AFTER TOOTHBRU SHING. SPIT OUT AFTER RINSING. DO 11/02 completed Not Available Not Available Not Available sertralin e 50 mg 1 po qd 12/21 completed Not Available Not Available Not Available vancomyci n 50mg 1 po q d 12/31 completed Not Available Not Available Not Available aspirin 81 mg po qd 11/27 completed Not Available Not Available Not Available Acidophil us 1 capsule by mouth 4 times a day 12/16 completed Not Available Not Available Not Available lidocaine apply every day as directed 11/19 completed Not Available Not Available Not Available Centrum Silver 1 Tablet PO DAILY 10/10 completed Not Available Not Available Not Available Metamucil heaping teaspoon po qd 04/12 completed Not Available Not Available Not Available Centrum 1 po qd active Not Available Not Avai lable Not Available Maalox liquid 15 ml qid as directed 11/19 completed Not Available Not Available Not Available Glucosami ne Complex 1 Tablet PO TWO TIMES DAILY 11/19 completed Not Available Not Available Not Available Calcium Citrate + D 1 Tablet QD active Not Available Not Available No t Available One A Day W/Mineral s 1 po qd 12/26 completed Not Available Not Available Not Available sodium fluoride 1.1 % dental paste BRUSH TWO TIMES A DAY DIRECTED active Not Available Not Available No t Available sodium fluoride 1.1 %-potassi um nitrate 5 % dental paste BRUSH TEETH TWICE DAILY. 12/21 completed Not Available Not Available Not Available varenicli ne tartrate 1 mg tablet BID 11/11 completed RECORDED 11/12/19 10 2:40PM BY YULISA MALIK, OFFICE VISIT; Not Available Not Available Not Available Zostavax (PF) 19,400 unit/0.65 mL subcutane ous suspensio n SAI X 1 06/20 completed RECORDED 06/24/19 13 8:39AM BY GORDO Roberts MD, MEDICATI ON AUTO-DOROTHY CTIVATIO N; Not Available Not Available Not Available Chantix Starting Month Mahendra 0.5 mg (11)-1 mg (42) tablets in dose pack BID 05/03 completed RECORDED 05/06/20 07 11:39AM BY GORDO Rboerts MD, MEDICATI ON AUTO-DOROTHY CTIVATIO N; Not Available Not Available Not Available morphine ER 10 mg capsule,e xtended release pellets Take 1 capsule every 12 hours by oral route as directed for 30 days, for chronic pain. 09/29 completed Not Available Not Available Not Available oxycodone 10 mg tablet TAKE 1/2 TABLETS BY MOUTH EVERY DAY\ FOR 8 DAYS. 10/01 completed Not Available Not Available Not Available psyllium husk 3.4 gram/5.8 gram oral powder Take 1 {packet} by oral route. 04/12 completed Not Available Not Available Not Available febuxosta t 40 mg tablet TAKE ONE TABLET BY MOUTH EVERY DAY 07/01 completed Not Available Not Available Not Available GaviLyte- N 420 gram oral solution 06/28 completed Not Available Not Available Not Available GaviLyte- G 236 gram-22.7 4 gram-6.74 gram-5.86 gram oral solution STARTING AT 6PM THE NIGHT BEFORE PROCEDUR E DRINK ONE 8OZ PORTION AT A TIME AT YOUR OWN PACE UNTIL HALF OF THE GALLON IS GONE. DRINK 2ND HALF 12/16 completed Not Available Not Available Not Available Votrient 200 mg tablet 07/05 completed Not Available Not Available Not Available Probiotic 1 Tablet PO DAILY active Not Available Not Available No t Available buprenorp lilia 2 mg-naloxo ne 0.5 mg sublingua l film PLACE 1 FILM UNDER THE TONGUE EVERY 8 HOURS 12/16 completed says ''I am not taking it Not Available Not Available Not Available thiamine mononitra te (vitamin B1) 100 mg tablet TAKE ONE TABLET BY MOUTH EVERY DAY 11/19 completed Not Available Not Available Not Available buprenorp lilia 10 mcg/hour weekly transderm al patch APPLY 1 PATCH TO SKIN ONCE A WEEK. REMOVE OLD PATCH BEFORE APPLYING THE NEXT ONE 01/09 completed Not Available Not Available Not Available psyllium husk (bulk) 100 % powder 10 ml by mouth one time a day 2024 active Not Available Not Available Not Avai lable oxycodone 5 mg tablet,or al ONLY (not feeding tubes) Take 5 mg by oral route. 05/01 completed Not Available Not Available Not Available budesonid e DR-ER 9 mg tablet,de layed and extended release TAKE 1 TABLET BY MOUTH DAILY 04/12 completed Not Available Not Available Not Available buprenorp lilia 15 mcg/hour weekly transderm al patch active Not Available Not Available Not Available Probiotic Formula (inulin) once a day as directed 11/19 completed Not Available Not Available Not Available OxyContin 15 mg tablet,cr ush resistant ,extended release Take 1 tablet twice a day by oral route. 07/01 completed Not Available Not Available Not Available Narcan 4 mg/actuat ion nasal spray Take 1 spray by nasal route as needed for 1 day. 2023 active Not Available Not Available Not Avai lable bupropion HCl 150 mg tablet,12 hr sustained -release( smoking deterrent ) Take 1 tablet every day by oral route. 09/29 completed Not Available Not Available Not Available Fluvirin 7118-4160 45 mcg (15 mcg x 3)/0.5 mL intramusc ular suspensio n 06/28 completed Not Available Not Available Not Available Fish Oil 1,000 mg (120 mg-180 mg) capsule Take 1 capsule every day by oral route. active Not Available Not Available No t Available metoprolo l succinate ER 50 mg capsule sprinkle, ext. release 24 hr Take 1 capsule every day by oral route. 02/27 completed Not Available Not Available Not Available Fluzone High-Dose 2018- (PF) 180 mcg/0.5 mL intramusc ular syringe VACCINAT ION ADMINIST ERED BY [facility] 04/12 completed Not Available Not Available Not Available Fluad Quad (65yr up)(PF) 60 mcg (15 mcg x 4)/0.5mL IM syringe VACCINE ADMINSIT ERED BY THE [facility] 04/12 completed Not Available Not Available Not Available d-mannose 500 mg capsule Take 1 capsule every day by oral route. active Not Available Not Available No t Available Paxlovid 150 mg-100 mg tablets in a dose pack (Moderate Renal Dose) TAKE TWO TABLETS BY MOUTH TWICE A DAY FOR 5 DAYS 05/07 completed Not Available Not Available Not Available Vitals Date Recorded Oxygen saturation Oxygen saturation in Arterial blood by Pulse oximetry Heart rate Provider Name and Address Organization Details Last Updated DateTime 11/27/2024 94 % 94 % 114 /min DENNISE MCELROY MD [address] [facility] [address], [address], [facility] 11/27/2024 19:32:51 Date Recorded Body height Body mass index (BMI) Body weight Heart rate Oxygen saturation Oxygen saturation in Arterial blood by Pulse oximetry Body temperature Systolic And Diastolic Provider Name and Address Organization Details Last Updated DateTime 5 172.72 cm 31.2 kg/m2 17281.4 4 g 110 /min 93 % 93 % 97 [degF] 128/79 mm[Hg] Jess Wiggins MA [facility] 5 14:17:27 Date Recorded Body height Body mass index (BMI) Body weight Oxygen saturation Oxygen saturation in Arterial blood by Pulse oximetry Heart rate Body temperature Systolic And Diastolic Provider Name and Address Organization Details Last Updated DateTime 5 172.72 cm 31.6 kg/m2 61410.9 1 g 98 % 98 % 69 /min 97.6 [degF] 126/83 mm[Hg] Yulisa Malik MA [facility] 5 14:47:34 Date Recorded Body height Body mass index (BMI) Body weight Heart rate Oxygen saturation Oxygen saturation in Arterial blood by Pulse oximetry Body temperature Systolic And Diastolic Provider Name and Address Organization Details Last Updated DateTime 5 172.72 cm 30.4 kg/m2 32139.4 7 g 90 /min 95 % 95 % 97.3 [degF] 104/74 mm[Hg] Monica Goodwin MA [facility] 5 12:01:16 Date Recorded Body height Body mass index (BMI) Body weight Heart rate Oxygen saturation Oxygen saturation in Arterial blood by Pulse oximetry Body temperature Systolic And Diastolic Provider Name and Address Organization Details Last Updated DateTime 5 172.72 cm 30.7 kg/m2 03123.6 6 g 69 /min 95 % 95 % 96.7 [degF] 103/71 mm[Hg] Jess Wiggins MA [facility] 5 13:56:28 Date Recorded Body height Provider Name an d Address Organization Details Last Updated DateTime 02/27/2025 172.72 cm Jses Wiggins MA [facility] 02/27/2025 14:32:47 Social History Question Answer Notes LastModified by Organizat ion Details LastModified Time Tobacco Smoking Status [facility]09[facility]21 13:28:22 Is Blood Transfusion Acceptable In An Emergency? Yes [email or web address] Information not available 01/14/2015 What Is Your Level Of Caffeine Consumption? Occasional [email or web address] Information not available 09/09/2021 How Much Tobacco Do You Chew? None Information not available 09/09/2021 What Type Of Diet Are You Following? REGULAR [email or web address] Information not available 01/14/2015 When Did You Quit Smoking? 1-5yearssincel astcigarette [email or web address] Information not available 05/04/2021 Live Alone Or With Others? With Others Information not available 03/30/2022 Do You Take Precautions To Prevent Distracted Driving? Yes [email or web address] Information not available 01/14/2015 How Often Do You Need To Have Someone Help You When You Read Instructions, Pamphlets, Or Other Written Material From Your Doctor Or Pharmacy? Never Information not available 01/14/2015 Have You Served In The ? No Information not available 06/28/2016 Have You Or Anyone In Your Household Had Any Of The Following Symptoms In The Last 14 Days: Sore Throat, Cough, Chills, Body Aches For Unknown Reasons, Shortness Of Breath For Unknown Reasons, Loss Of Smell, Loss Of Taste, Fever At Or Greater Than 100 Degrees Fahrenheit? No [email or web address] Information not available 04/12/2020 Are You Or Anyone In Your Household A Health Care Provider Or Emergency Responder? No [email or web address] Information not available 04/12/2020 To The Best Of Your Knowledge Have You Been In Close Proximity To Any Individual Who Tested Positive For COVID-19? No [email or web address] Information not available 04/12/2020 *[facility] ONLY* Are You Presently Prescribed Opioid Medication By PCP Or Specialist? If YES -Provider Assess The Benefit For Other, Non-opioid Pain Therapies Instead, Even If The Patient Does Not Have OUD But Is Possibly At Risk. Yes [email or web address] Information not available 07/01/2024 Have You Recently Traveled To A COVID-19 High Risk Area Or Gathering In The Last 10 Days? No [email or web address] Information not available 11/19/2020 What Was The Date Of Your Most Recent Tobacco Screening? 06/27/2000 [email or web address] Information not available 07/01/2024 How Many Children Do You Have? 2 [email or web address] Information not available 09/09/2021 What Is Your Current Pack Years? [email or web address] Information not available 03/30/2022 What Is Your Relationship Status? Information not available 03/30/2022 Do You Use Your Seat Belt Or Car Seat Routinely? Yes [email or web address] Information not available 09/09/2021 Seat Belts Used Routinely Yes Information not available 03/30/2022 Are You Sexually Active? No Information not available 02/09/2021 Smoke Alarm In Home Yes Information not available 03/30/2022 Do You Have Smoke And Carbon Monoxide Detectors In Your Home? Yes Information not available 02/09/2021 At What Age Did You Start Smoking Tobacco? 19 [email or web address] Information not available 09/09/2021 Are You Passively Exposed To Smoke? No [email or web address] Information no t available 09/09/2021 How Much Tobacco Do You Smoke? No [email or web address] Information not available 09/09/2021 General Stress Level High Information not available 03/30/2022 Do You Use Sunscreen Routinely? No Information not available 09/09/2021 How Many Years Have You Smoked Tobacco? 47 [email or web address] Information not available 06/28/2016 Sex: Unknown Functional Status Question Answer Note LastModified by Organizat ion Details LastModified Time What is your level of alcohol consumption? Occasional [email or web address] Information not available 09/09/2021 Are you currently employed? No retired Information not available 05/28/2023 Are you able to walk independently without assistance or assistive devices? YESASSIST uses for precaution when out Information not available 03/30/2022 Are you able to care for yourself independently? 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 None Information not available 05/28/2023 Mental Status None recorded. Family History Relationship Description Onset Age of this Age Resolved Age Notes LastModified by Organization Details LastModified Time Mother Essential hypertension Not available 06/2023 14:55:38 Mother Alzheimer's disease [email or web address] Not available 09/09 09:54:21 Father Malignant neoplasm of pancreas 75 Not available 2023 14:55:38 Sister Anxiety disorder [email or web address] Not available 09/09 09:54:21 Daughter Anxiety disorder [email or web address] Not available 09/09 09:54:21 Notes:No FH of colon or heladio st cancer Medical History Condition Response Anxiety Disorder Y Obesity Y Hospitalizations Y Headaches/Migraines N Cancer Y Hypertension Y Depression Y Allergies Y Kidney Disease Y Gynecological History Statement/Question Response Date of Last Pap Smear 05/17/2016 Date of Last Colonoscopy 11/25/2024 Most Recent Mammogram 02/09/2025 Most Recent Bone Density 01/03/2019 Obstetrics History GPAL:G 0 P 0 0 0 0 Immunizations Vaccine Type Date Status Note Provider Nam e and Address Organization Details Recorded Time Pneumococcal conjugate PCV 13 8 completed Yulisaamarjit Malik, [place] kahn, [facility] 09/09/2021 10:03:24 Influenza, high-dose, trivalent, PF 9 completed Yulisa Malik, [place] null, [facility] 09/09/2021 10:03:24 COVID-19, mRNA, LNP-S, PF, 30 mcg/0.3 mL dose 1 completed Yulisaamarjit Malik, [place] null, [facility] 09/09/2021 10:03:24 Influenza, high-dose, trivalent, PF 1 completed Yulisa Malik [place] null, [facility] 05/04/2021 11:06:23 Influenza, adjuvanted, quadrivalent, PF 1 completed Yulisa Malik [place] kahn, [facility] 09/09/2021 10:03:24 Influenza, split virus, trivalent, preservative 6 completed Yulisaamarjit Malik, [place] null, [facility] 09/09/2021 10:03:24 COVID-19, mRNA, LNP-S, PF, 30 mcg/0.3 mL dose 1 completed Yulisaamarjit Malik, [place] null, [facility] 09/09/2021 10:03:24 Influenza, adjuvanted, quadrivalent, PF 0 completed Yulisa Malik, [place] null, [facility] 09/09/2021 10:03:24 COVID-19, mRNA, LNP-S, PF, 30 mcg/0.3 mL dose 1 completed Yulisaamarjit Malik, [place] null, [facility] 09/09/2021 10:03:24 COVID-19, mRNA, LNP-S, PF, 30 mcg/0.3 mL dose, stephen-sucrose 2 completed Yulisaamarjit Malik [place] null, [facility] 12/09/2021 11:20:09 Influenza, split virus, quadrivalent, PF 5 completed Not Available [facility] 07/05/2019 02:22:02 Tdap 5 completed Not Available [facility] 07/05/2019 02:21:45 Influenza, high-dose, trivalent, PF 7 completed [place] Whitfield, [facility] 01/16/2022 14:39:14 pneumococcal polysaccharide PPV23 7 completed [place] Whitfield, [facility] 01/16/2022 14:39:15 Influenza, high-dose, trivalent, PF 8 completed D[place] Whitfield, [facility] 01/16/2022 14:39:15 Influenza, split virus, trivalent, PF 4 completed [place] Whitfield, [facility] 01/16/2022 14:39:15 Influenza, adjuvanted, quadrivalent, PF 2 completed DARNELL Hull, [facility] 03/10/2022 08:46:05 Influenza, adjuvanted, trivalent, PF 2 completed DARNELL Bourne, [facility] 11/02/2022 13:55:47 Pneumococcal conjugate PCV20, polysaccharide [id number] conjugate, adjuvant, PF 2 [facility] 13:55:47 COVID-19, mRNA, LNP-S, bivalent, PF, 30 mcg/0.3 mL dose 2 completed DARNELL Tracey, [facility] 11/27/2024 14:11:41 Influenza, high-dose, quadrivalent, PF 3 [facility]07[facility] 15:07:33 RSV, bivalent, protein subunit RSVpreF, diluent reconstituted, 0.5 mL, PF 3 completed DARNELL Bourne, [facility] 05/07/2023 15:07:33 COVID-19, mRNA, LNP-S, PF, stephen-sucrose, 30 mcg/0.3 mL 3 completed D[place]NE[place] Tracey, [facility] 11/27/2024 14:11:41 zoster recombinant 4 completed Eusebia Ahujajeff kahn, [facility] 01/21/2024 13:25:45 zoster recombinant 4 completed DARNELL Bourne, [facility] 02/19/2024 13:58:02 Influenza, adjuvanted, trivalent, PF 4 completed DARNE[place] Whitfield, [facility] 03/10/2024 14:18:16 COVID-19, mRNA, LNP-S, PF, stephen-sucrose, 30 mcg/0.3 mL 4 completed DARNELL Whitfield, [facility] 03/10/2024 14:18:16 Tdap 5 completed Not Available [facility] 02/27/2025 12:46:26 Td (adult), 2 Lf tetanus toxoid, preservative free, adsorbed 7 completed Eusebia Ahuja criss, [facility] 09/16/2020 10:40:54 influenza, seasonal, intradermal, preservative free 3 completed Eusebia Ahujajeff kahn, [facility] 09/16/2020 10:40:54 zoster live 3 completed Eusebia Ahuja null, [facility] 09/16/2020 10:40:54 Past Encounters Encounter ID Performer Location Encounter Start Date Encounter Closed Date Diagnosis/Indication Diagnosis SNOMED-CT Code Diagnosis ICD10 Code Diagnosis IMO Codes Diagnosis Note [id number] Gordo marcelo MD Main Office [address] [place] [address] 01/08/2014 10:31:05 01/08/2014 11:38:27 Hypertensive disorder 52720721 Recurrent major depressive episodes [id number] Hypokalemia 41322691 [id number] [facility] erce [address] [facility] [place] [address] 07/30/2006 00:00:00 [id number] autoEComm erce [address] [facility] [place] [address] 05/03/2006 00:00:00 [id number] autoEComm erce [address] [facility] [place] [address] 03/12/2006 00:00:00 [id number] autoEComm erce [address] [facility] [place] [address] 05/18/2004 00:00:00 [id number] autoEComm erce [address] [facility] [place] [address] 10/29/2006 00:00:00 [id number] autoE[employer] erce [address] [facility],[address] [place] [address] 12/31/2006 00:00:00 [id number] autoEComm erce [address] [facility] [place] [address] 04/05/2007 00:00:00 [id number] autoEComm erce [address] [facility] [place] [address] 05/13/2007 00:00:00 [id number] autoEComm erce [address] [facility] [place] [address] 06/24/2007 00:00:00 [id number] autoEComm erce [address] [facility] [place] [address] 08/08/2007 00:00:00 [id number] autoEComm erce [address] [facility] [place] [address] 12/05/2007 00:00:00 [id number] autoEComm erce [address] [facility] [place] [address] 02/13/2008 00:00:00 [id number] [place] [address] 05/20/2008 00:00:00 [id number] [address] [place] [address] 07/23/2008 00:00:00 [id number] [place] [address] 11/27/2008 00:00:00 [id number] [place] [address] 01/14/2009 00:00:[id number] [facility] [address] [place] [address] 04/15/2009 00:00:00 [id number] autoEComm erce [address] [facility],[address] [place] [address] 07/15/2009 00:00:00 [id number] autoEComm erce [address] [facility] [place] [address] 11/11/2009 00:00:00 [id number] autoEComm erce [address] [facility] [place] [address] 03/10/2010 00:00:00 [id number] autoEComm erce [address] [facility] [place] [address] 06/22/2010 00:00:00 [id number] autoEComm erce [address] [facility] [place] [address] 09/22/2010 00:00:00 [id number] autoEComm erce [address] [facility] [place] [address] 02/02/2011 00:00:00 [id number] autoEComm erce [address] [facility] [place] [address] 03/10/2011 00:00:[id number] [facility] [address] [place] [address] 09/08/2011 00:00:00 [id number] autoEComm erce [address] [facility] [place], [place] [address] 10/12/2011 00:00:00 [id number] [address] [address] [place], [place] [address] 12/04/2011 00:00:[id number] [facility] [address] [place], [place] [address] 04/11/2012 00:00:00 [id number] autoEComm erce [address] [facility] [place], [place] [address] 06/19/2012 00:00:00 [id number] autoEComm erce [address] [facility] [place], [place] [address] 09/05/2012 00:00:00 [id number] autoEComm erce [address] [facility] [place] [address] 12/06/2012 00:00:00 [id number] autoEComm erce [address] [facility] [place] [address] 07/09/2013 00:00:00 [id number] autoEComm erce [address] [facility] [place] [address] 10/15/2013 00:00:00 [id number] Gordo marcelo MD Main Office [address] [facility] [address] [place] [address] 03/05/2014 10:00:54 03/05/2014 10:43:31 Essential hypertension 67804198 BP is well controlled ,s he takes OTC K but not sure why she is on it, hoover top K and recheck labs today. if nl no K Recurrent major depressive episodes 760702760 pt is weaning off celexa, will continue therapy and knows to contact me if any worsening of mmod and I will restart antidepres sants, long hx of depression Hypokalemia 99897809 stop OTC K Active or passive immunization [id number] Gordo marcelo MD Main Office [address] [place] [address] 06/24/2014 08:32:25 06/24/2014 09:30:41 Essential hypertension 87558489 BP is a bit high, stressed. Recurrent major depressive episodes 300000071 pt is on Zoloft for anxiety, she is having low mood, is in counseling with Amado and finds that helps, will increase her Zoloft to 150mg a day Upper resp iratory infection 06555979 no abx needed, seems viral [id number] Gordo marcelo MD Main Office [address] [place] [address], [place] [address] 08/10/2014 09:45:11 08/10/2014 10:44:36 Essential hypertension 99780204 BP is a bit high due to stress, continue meds Recurrent major depressive episodes 508420377 pt with a lot of anxiety, she will try to see Amado more often and I will ask Amado to set pt up for a med eval, she will continue on sertraline and Xanax as needed. [id number] Gordo marcelo MD Main Office [address] [place] [address], [place] [address] 01/14/2015 10:45:04 01/14/2015 11:52:09 Hypertensive disorder 63629985 BP is well controlled . Recurrent major depressive episodes, moderate 314507918 pt is on meds, stress with caring her mother. is seeing amado once a month and sees psychiatry [id number] LULY Ruffin Main Office [address] [place] [address] 04/06/2015 10:43:05 04/06/2015 11:25:59 Essential hypertension 06288103 I10 Repeat manual BPs WNL. She has ordered a large cuff for her home BP, she will take BP daily at the same time and f/u in 1.5 months at her PE, she will keep a log and bring it with her. Call for any readings > 160 systolic, and alsoif any low readings < 100 systolic. Continue limiting sodium intake, and exercise [id number] Gordo marcelo MD Main Office [address] [place] [address] [place] [address] 05/19/2015 10:47:09 05/19/2015 12:05:57 Adult health examination 563741094 Z00.00 screening is utd. Needs infl uenza immunization 088740083 Z23 Administra tion of diphtheria, pertussis, and tetanus vaccine 357752728 Z23 Essential hypertension 02605791 I10 BP is well controlled . 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 36607515 F32.4 on meds and in counseling , will talk to them about meds for anxiety Tobacco de pendence syndrome 64027928 F17.290 will try to quit with a CD she ordered Malignant neoplasm of kidney 041044002 C64.9 left side, had partial nephroctom y, is doing well, next scan 01/31, healed wel from the surgery, needs to quit smoking [id number] Gordo marcelo MD Main Office [address] [address] [place] [address] 12/27/2015 14:40:09 12/27/2015 15:49:15 Malignant neoplasm of kidney 050662187 C64.9 left side, had partial nephroctom y, is doing well, next scan 01/31, healed wel from the surgery, needs to quit smoking Hypertensive disorder 38 152798 I10 BP is well controlled . pt needs to lose weight and exercise Tobacco de pendence syndrome 31671539 F17.290 Reviewed motivation s for smoking cessation. Advised about benefits of stopping smoking. 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 [address] [facility] [place] [address] 06/28/2016 14:14:16 06/28/2016 15:26:20 Adult health examination 096154142 Z00.00 screening is utd, needs to stop smoking, exercise History of primary malignant neoplasm of kidney 365904251 Z85.[address] scan through urology, had tumor removed Administra tion of pneumococcal vaccine 30702398 Z23 Fatigue 72316373 R53.83 check thyroid Hypertensive disorder 38 403196 I10 BP is well controlled . 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 Advised about benefits of stopping smoking. [id number] Gordo marcelo MD Main Office [address] [facility] [address] [facility] [place] [address] 11/15/2016 08:31:27 11/15/2016 09:41:52 Essential hypertension 20150621 I10 well controlled continuem eds Malignant neoplasm of kidney 181569203 C64.9 left nephrectom y and left adrenal removed, she is healing but still in pain. cancer is all removed Anxiety state F41.1 only on lorazepam bid adn in counsleing with Amado, feels well, will talk to prescriber if she needs to stay in counsleing Sleep apnea 14021870 G47 .30 well treated on CPAP [id number] Gordo marcelo MD Main Office [address] [facility] [address] [facility] [place] [address] 02/08/2017 09:45:00 02/08/2017 11:01:52 Malignant neoplasm of kidney 154536429 C64.9 long talk with pt, 2 surgeries and now implanted radiation tx due to local cancer on/near diaphragm, pt is interested in seeing an oncologist and will be seeing ehr urologist next week, will bring family to help her get all the info Fatigue 58523310 R53.83 check thyroid adn other labs, markedly tired Essential hypertension 28687225 I10 well controlled continue meds, well controlled . Influenza vaccine needed 2446118881 106 Z23 [id number] Gordo marcelo MD Main Office [address] [facility] [address] [place] [address] 07/05/2017 09:17:06 07/05/2017 10:35:39 Adult health examination 248997449 Z00.00 screening is utd, needs to stop smoking, exercise Malignant neoplasm of kidney 550883283 C64.9 see hpi, primary cancer in kidney, lesion on diaphragm and recent scan has 20 nodule on peritoenum , seeing oncology, pt is upset over early tx with DR Tilley, we discussed how I could help and she is interested in med talking to Dr Tilley to review the unfolding of her treatment . 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 Metastatic malignant neoplasm to kidney 80191490 C79.00 on meds for metastatic disease to diaphragm and peritoneum [id number] Gordo marcelo MD Main Office [address] [facility] [address] 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 depression is doing ok, obviously upset and angry over her diagnosis, pt will set up appt with Deanne Essential hypertension 96552667 I10 well controlled continue meds, well controlled . [id number] Gordo marcelo MD Main Office [address] [facility] [address] [place] [address] 12/26/2017 10:27:47 12/26/2017 11:21:44 Malignant neoplasm of kidney 984088530 C64.9 pt with metastatic kidney cancer, did chemothera py and repeat CT scan shows resolution of metastatic lesions! is on IV chemo every other week, will find out about how long she will be treated for. fllowed by Dr Lorenzo Recurrent major depressive episodes, moderate 244073684 F33.1 on duloxetine , pt sees a provider on [facility] for meds. sees Amado for counseling . mood and anxiety is doing well. Hypertensive disorder 38 032411 I10 BP is well controlled . continue meds Tobacco de pendence syndrome 39752635 F17.290 Reviewed motivation s for smoking cessation. Advised about benefits of stopping smoking. will try nicotine patch. Chronic no nalcoholic liver disease 29769665 K76.9 liver test is normal recent labs 12/20/17 [id number] Gordo marcelo MD Main Office [address] [facility] [address] [facility] [place] [address] 03/27/2018 10:22:32 03/27/2018 11:42:01 Hypertensive disorder 56043151 I10 poor control, gained weight and prednisone is increasing BP and weight. 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 is on IV chemo every other week, will need for a year total tired from chemo and puffy from prednisone [id number] Gordo marcelo MD Main Office [address] [place] [address] 08/17/2018 10:53:35 08/17/2018 12:10:33 Compression fracture of thoracic vertebra 9383852269 104 M48.54XA had kyphoplast y and oncology is looking into meds for osteoporos is Recurrent major depressive episodes, moderate 766875948 F33.1 I will take over the prescribin g, doses are stable Malignant neoplasm of kidney 386596698 C64.9 doing pretty well Anxiety 45571931 F41.9 [id number] Gordo marcelo MD Main Office [address] [facility] [address] [place] [address] 01/15/2019 13:50:28 01/15/2019 14:51:13 Adult health examination 253719980 Z00.00 screening is utd, needs to stop smoking, exercise Fatigue 29104433 R53.83 check thyroid adn other labs, markedly tired, only sleeps 4-6 hours Recurrent major depressive episodes, moderate 230881602 F33.1 I, doses are stable is on cymbalta Persistent insomnia 1919 80692 G47.09 uses lorazepam 2 times a day for anxiety, very poor sleep use 2mg at night, one in day if needed History of primary malignant neoplasm of kidney 157826728 Z85.[address] without evidence of disease Anxiety 74148723 F41.9 will increase lorazepam to 1mg 3 a day as needed, she will try one in day if needed and 2 for sleep. Hypertensive disorder 38 736979 I10 Pre-surger y evaluation 654256342 Z01.818 patient is cleared for surgery, will be getting lesions removed form eyelid next week, no preoperati ve labs or EKG needed [id number] Gordo marcelo MD Main Office [address] [facility] [address] [place] [address] 04/16/2019 12:35:03 04/16/2019 13:27:33 Persistent insomnia 513130100 G47.09 uses lorazepam 2 times a day for anxiety, very poor sleep use 2mg at night, one in day if needed Hypertensive disorder 38 237917 I10 well controlled . continue med Anxiety state 738804993 F41.1 is on prn lorazeapm, anxiety is well controlled , not in counseling . Sleep apnea 95307893 G47 .30 well treated on CPAP Malignant neoplasm of kidney 347303041 C64.9 doing pretty well, recent scan 03/07/19 without recurrence Low back pain 233584741 M54.5 being treated by pain management , Tobacco de pendence syndrome 35538660 F17.290 strongly encouraged pt to quit smoking pt is getting CT of chest due to malignancy , when they are done following then will need LDCT for lung cancer screening purposes [id number] Gordo marcelo MD Main Office [address] [facility] [address] [facility] [place] [address] 08/28/2019 09:29:39 08/28/2019 10:26:00 Hypertensive disorder 38683234 I10 well controlled . 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 18093926 F32.4 on meds and in counseling , depression is active, reaction over cancer dx Sleep apnea 96766644 G47 .30 well treated on CPAP History of primary malignant neoplasm of kidney 866950428 Z85.[address] without evidence of disease Metastatic malignant neoplasm 239848135 C79.9 kidney with metastatic disease to lung Adrenal co rtical hypofunction 003845981 E27.40 has stress dose steroids at home from endo, pt knows if she gets sick she will need to talk to a doc about this Persistent insomnia 1919 06475 G47.09 uses lorazepam 2 times a day for anxiety, very poor sleep use 2mg at night, one in day if needed [id number] Gordo marcelo MD [facility] [address] [place] [address] 11/13/2019 08:16:12 11/13/2019 13:34:13 Hypertensive disorder 44016895 I10 well controlled . 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 is very happy about that. Chronic low back pain 27 9183193 M54.5 awaiting spinal cord stimulator from pain management [id number] Gordo marcelo MD Main Office [address] [place] [address] 12/22/2019 14:22:22 12/23/2019 08:56:44 [id number] Gordo marcelo MD [facility] [address] [place] [address] 04/12/2020 11:56:48 04/12/2020 14:41:41 Adult health examination 489180641 Z00.00 screening is utd, needs to stop smoking, exercise. colonoscop y and mammogram are utd, Essential hypertension 16418390 I10 on lisinopril stable in past. will sign up for [employer] monitoring Low back pain 539537932 M54.5 being treated by pain management , used a stimulator and it helped some, pt will get implanted stimulator when her recovers from knee surgery Major depr ession single episode, in partial remission 22526941 F32.4 on cymbalta, mood is low, pt to see me in a month, if not any better will change meds and take off cymbalta and start SSRI [id number] Gordo marcelo MD [facility] [address] [place] [address] [address] [place] [address] 05/24/2020 08:39:56 05/24/2020 12:28:25 Anxiety state 587107266 F41.1 anxiety is up due to pandemic. treat as below, I recc pt see a psychiatri st [facility] and counsleing but she is not interested . 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 treat as below, in the past I recc pt see a psychiatri st since hx of taoamarjit sanchez anxiety and depression and counseling but she is not interested . Gastroesop hageal reflux disease 444997560 K21.9 having nausea. will increase to bid PPI Sleep apnea 63645697 G47 .30 well treated on CPAP Low back pain 178685203 M54.5 being treated by pain management , used a stimulator and it helped some, pt got implanted stimulator and is recovering . History of primary malignant neoplasm of kidney 959238885 Z85.528 follow up with urology [id number] Gordo marcelo MD [facility] [address] [facility] [address] [place] [address] 09/13/2020 08:41:49 09/13/2020 11:50:38 [id number] Gordo marcelo MD Main Office [address] [place] [address] [place] [address] 09/16/2020 10:23:47 09/21/2020 13:35:50 [id number] Gordo marcelo MD Main Office [facility] [address] [place] [address] 09/17/2020 09:17:20 09/17/2020 11:23:57 Anxiety state 722679692 F41.1 pt has had a lot of pain, anxiety is high will change to every 6 hours asneeded but encouraged limiting ot q 8 hours most days, will see me in office 5 weeks, could not ocme in now due to back pain she felt Chronic low back pain 27 3311827 M54.5 awaiting spinal cord stimulator from pain management , is very uncomforta ble [id number] Gordo marcelo MD Main Office [facility] [address] [place] [address] 11/12/2020 11:31:02 11/15/2020 14:04:42 [id number] Gordo marcelo MD Main Office [facility] [place] [address] [place] [address] 11/19/2020 10:24:19 11/19/2020 11:45:32 Memory impairment 266874067 R41.3 Pt had had MRI during hospital stay and has had most labs needed for workup. Some impairment may be due to alcohol usel History of subarachnoid hemorrhage 552159974 Z86.79 Pt was told no further followup needed, had almost resolved on last imaging Essential hypertension 00642294 I10 BP is controlled on present regimen, continue all meds at current dosages. 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 renew med for now Tobacco de pendence syndrome 17667682 F17.200 pt has stopped smoking Anxiety state 086154130 F41.1 pt has come off of benzodiaze carmen, will use hydroxyzin e sparingly only as needed. Her administer s her meds, advised using only if anxious. Want to avoid impairment of memory [id number] Gordo marcelo MD Main Office [address] [facility] 207 [facility] [place] [address] 12/31/2020 10:38:23 12/31/2020 11:43:47 Major depression in partial remission 64083251 F32.4 pt is on cymbalta, she is off of alcohol and stopped smoking, I told pt how I would give ambien for sleep and avoid lorazepam. Essential hypertension 03940991 I10 on lisinopril stable in past. Insomnia 352270447 G47.0 0 ambien started today History of primary malignant neoplasm of kidney 820326359 Z85.528 doing pretty well, has appt with oncology, [id number] Gordo marcelo MD [facility] [address] [facility] 207 [facility] [place] [address] 02/09/2021 10:18:38 02/09/2021 14:29:01 Persistent insomnia 797283284 G47.09 see HPI long talk with pt about addictive potential, was on lorazepam tid, I told pt I would only write for it if used just for sleep, she agreed, no ambien when using, Essential hypertension 30117328 I10 on lisinopril stable in past. 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 [id number] Gordo marcelo MD Main Office [address] [facility] [place] [address] 05/04/2021 10:34:53 05/04/2021 11:39:10 Essential hypertension 94870653 I10 on lisinopril stable in past. 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 Pain in left thumb 02663 25567 339741 M79.645 no help with cortisone injection. 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 [place] [address] 09/09/2021 09:50:57 09/09/2021 10:39:33 Adult health examination 378320035 Z00.00 not doing well, gained 15lbs, multiple medical complaints and is anxious screening is utd, colonoscop y and mammogram are utd, (has mammo appt) needs to take better care of self. Advance di rective discussed with patient 534036341 Z71.89 I discussed MOLST and health care proxy form. I gave pt MOLST form and proxy form, pt will fill out, discuss MOLST form with proxy and sign and return to our office Anxiety state 203253105 F41.1 gettin panic attacks, Essential hypertension 71266592 I10 on lisinopril stable in past. 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 gained a lot of weight History of primary malignant neoplasm of kidney 236254553 Z85.528 doing pretty well, has appt with oncology next month Insomnia 659526116 G47.0 0 sleeps well with lorazepam [id number] Gordo marcelo MD Main Office [address] [facility] [address] [facility] [place] [address] 12/09/2021 11:15:40 12/09/2021 11:56:40 Major depression in partial remission 17370646 F32.4 pt is on cymbalta, she is off of alcohol and stopped smoking, mood seems low, is anxious with many health complaints . gained a lot of weight will increase cymbalta to 30mg bid to help mood and pain Anxiety 13882338 F41.1 use for sleep, workon strategies for stress, not interested in a counselor History of primary malignant neoplasm of kidney 846606723 Z85.528 doing pretty well, has appt with oncology next month Low back pain 966584960 M54.50 increase cymbalta [id number] Ken Schwartz MD Main Office [address] [facility] [address] 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 207 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 [address] [place] [address] 03/30/2022 11:25:31 03/30/2022 11:59:02 Backache 080510405 M54.9 will be seeing rheumatolo gy and is getting nerve stimulator out. Chronic low back pain 27 3648113 M54.50 excedrin helps. 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 I recc pt see a marin mendez for her depression and start therapy, she is reluctant but agrees to do it knowing it will be the best step, pt to set up appts for psychiatry and counseling Anxiety 12167645 F41.1 hydroxyzin e really helps, continue and use lorazepam only for sleep [id number] Gordo marcelo MD Main Office [address] [facility] 207 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 Persistent insomnia 1919 63601 G47.09 off alcohol and smoking Tobacco de pendence syndrome 92444150 F17.200 stopped smoking History of primary malignant neoplasm of kidney 341095716 Z85.528 doing pretty well, has appt with oncology next month Low back pain 423772222 M54.50 just had radiofrequ ency ablation,. Hypercholesterolemia 136 67730 E78.00 [id number] Arnold Pickett MD Tele[facility] h [address] [facility] [address] [place] [address] 12/21/2022 14:43:37 12/22/2022 14:32:44 COVID-19 197732662 U07.1 We discussed side effects and isolation protocols. [id number] DENNISE MCELROY MD Main Office [address] [facility] 207 [facility] [place] [address] 05/07/2023 14:56:12 05/07/2023 15:36:45 Anxiety state 997001810 F41.1 - CHERYL-7 score of 6- c/w hydroxyzin e 25mg BID as needed and lorazepam 2mg as needed (given by med prescriber )- c/w venlafaxin e ER 37.5mg Chronic low back pain 27 5119683 M54.50 - pt is following with ortho, last seen on 03/30/2023 and MRI was ordered- pt is taking celecoxib 200mg BID> advised not to take with ibuprofen 800mg- gabapentin 900mg QD- pt will return in 4 weeks for discussion on chronic pain and starting pain medication Essential hypertension 36996503 I10 - at goal- BP today 124/77- c/w lisinopril 20mg QD Pt counselled on:-Dietar y Approaches to Stop Hypertensi on (DASH) is an eating plan rich in fruits, vegetables , whole grains, fish, poultry, nuts, legumes, and low-fat dairy. These foods are high in major nutrients such as potassium, magnesium, calcium, fiber, and protein.-A dvised continued adherence to medication s and low salt diet - extensive counsellin g done regarding dietary habits.-En couraged regular aerobic exercise 30 min for 4-5 x week.-BP monitoring at home advised to bring log at every visit-Side -effects of high BP can cause Stroke, Heart attack and even d/w pt-D/w pt when to call 911 or reach out to Health care provider:> Think you are having a reaction to a medicine you are taking.>Olivo ve headaches that keep coming back (recurring ).>Feel dizzy.>Hav e swelling in your ankles.>Olivo ve trouble with your vision. 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 69080462 F32.4 - PHQ-9 score of 11- c/w venlafaxin e ER 37.5mg QD and bupropion 75mg QD- pt saw a counsellor in the past and does not want try again- pt was does have a med provider who prescribes her medication for both anxiety and depression - denies SI/HI- counsellin g provided Persistent insomnia 1919 95506 G47.09 - pt currently taking lorazepam 2mg in the evening -> prescribed by another provider- pt also has a history of ELIAS on a CPAP- counselled on sleep hygiene Candidiasis of vagina 72 526363 B37.31 - located on genital region- started patient on nystatin cream- pt was advised to keep area clean and dry Ex-smoker 6626443 Z87.89 1 - quit four years ago, started at age 19, and smoked 2 packs per day- has an 98 year pack year smoking history- pt gets low dose CT scans every 6 months (last was 06/2022) [id number] DENNISE MCELROY MD Main Office [address] [facility] [address] 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 [address] [place] [address] 07/31/2023 10:28:51 07/31/2023 11:02:32 Chronic low back pain 870607097 M54.50 - pt is following with ortho, last seen on 03/30/2023 and MRI was ordered- stopped ibuprofen 800mg due to CKD- pt has stopped gabapentin 900mg QD- pt gave MD today all her left over oxycodone and hydrocodon e- tramadol and morphine was not providing relief- has had two facet injections with PSSP with no relief- was seen by pain management on 07/23/2023 who recommende d hydromorph one- c/w duloxetine 60mg QD- will now try oxycodone 5mg BID and percocet 5mg-325mg once daily for middle of day or if patient knows she will doing heavy lifting- pt has narcan at home- pt will return in 4 weeks for discussion on chronic pain and starting pain medication Chronic pain syndrome 37 0271440 G89.4 - please see above Chronic ki dney disease stage 3A 080865984 N18.31 - creatine 1.1 with GFR of 56- creatine clearance of 75- will need to monitor pain regimen as it cause kidney damage- pt to avoid NSAIDS [id number] DENNISE MCELROY MD Main Office [address] [facility] [address] [place] [address] 08/20/2023 15:20:00 08/20/2023 15:59:57 Chronic low back pain 848659249 M54.50 - pt is following with ortho, last seen on 03/30/2023 and MRI was ordered- stopped ibuprofen 800mg due to CKD- pt has stopped gabapentin 900mg QD- tramadol, percocet morphine was not providing relief- has had two facet injections with PSSP with no relief- was seen by pain management on 07/23/2023 who recommende d hydromorph one however will leave this till last resort- c/w duloxetine 60mg QD- started on oxycontin 15mg BID and can take oxycodone 5mg in the middle of the day- pt has narcan at home- pt will return in 4 weeks for discussion on chronic pain and starting pain medication Chronic pain syndrome 37 4010699 G89.4 - please see above Chronic ki dney disease stage 3A 951004831 N18.31 - creatine 1.1 with GFR of 56- creatine clearance of 75- will need to monitor pain regimen as it cause kidney damage- pt to avoid NSAIDS [id number] DENNISE MCELROY MD Main Office [address] [facility] 207 [facility] [place] [address] 10/02/2023 11:08:54 10/02/2023 12:34:00 Chronic low back pain 364004896 M54.50 - pt is following with ortho, last seen on 03/30/2023 and MRI was ordered> will see next at the end of September- stopped ibuprofen 800mg due to CKD- pt has stopped gabapentin 900mg QD as it was providing relief- tramadol, percocet morphine was not providing relief- has had two facet injections with PSSP with no relief- was seen by pain management on 07/23/2023 who recommende d hydromorph one however will not prescribe due to intensity of medication and hx of overdose on lorazepam- c/w duloxetine 60mg QD- c/w oxycontin 15mg BID and can take oxycodone 5mg in the middle of the day> not best regimen for patient however will not be increasing due to hx of overdose on lorazepam, pt does take more meds then supposed to- pt has narcan at home- pt will return in 4 weeks for discussion on chronic pain and starting pain medication Chronic pain syndrome 37 0573315 G89.4 - please see above Chronic ki dney disease stage 3A 242384845 N18.31 - creatine 1.1 with GFR of 56- creatine clearance of 75- will need to monitor pain regimen as it cause kidney damage- pt to avoid NSAIDS Low back pain 395793728 M54.50 Persistent cough 7737681 02 R05.3 - improved- due to recent URI- will switch to mucinex to be taken as needed- can also take honey for cough [id number] Arnold Pickett MD Main Office [address] [facility] [address] [facility] [place] [address] 09/28/2023 13:47:32 09/28/2023 14:17:13 Chronic low back pain 810898212 M54.50 -episode of a panic attack during office visit due to the chronic pain-pt states she has been taking her lorazepam as directed; is seeking more pain medication -highly advised pt to seek ER, pt refused and prefers to wait until next office visit on 10/01-low back pain is 30% better since last visit-pt requests refill to her oxycodone to last her until 10/01; PCP will cover Viral uppe r respiratory tract infection 345585937 J06.9 x3 days of cough, congestion , and fatigue-hu sband recently sick with similar symptoms last week-has been taking OTC medication s which provides relief-sukhwinder gs were CTA b/l-discus sed conservati ve measuremen ts; rest, hydration, and OTC medication s for symptomati c relief-paulina l provide benzonatat e for cough [id number] DENNISE MCELROY MD Main Office [address] [facility] 207 [facility] [place] [address] 11/05/2023 11:18:15 11/05/2023 11:57:48 Chronic low back pain 306993308 M54.50 - pt is following with ortho, last seen on 03/30/2023 and MRI was ordered> will see next at the end of September- stopped ibuprofen 800mg due to CKD- pt has stopped gabapentin 900mg QD as it was providing relief- tramadol, percocet, morphine, oxycodone (ER as well) was not providing relief- has had two facet injections with PSSP with no relief- was seen by pain management on 07/23/2023 who recommende d hydromorph one however will not prescribe due to intensity of medication and hx of overdose on lorazepam- c/w duloxetine 60mg QD- c/w oxycontin 15mg BID and can take oxycodone 5mg in the middle of the day> not best regimen for patient however will not be increasing due to hx of overdose on lorazepam, pt does take more meds then supposed to> signed narcotics contract- pt advised to continue to look for a new pain specialist as she feels pain is not adequately controlled and who will prescribe- pt has narcan at home- RTC in 3 months Chronic pain syndrome 37 0749879 G89.4 - please see above Chronic ki dney disease stage 3A 163858524 N18.31 - creatine 1.1 with GFR of 56- creatine clearance of 75- will need to monitor pain regimen as it cause kidney damage- pt to avoid NSAIDS Screening for malignant neoplasm of breast 650730111 Z12.39 Bone density finding 385 368150 M85.89 [id number] DENNISE MCELROY MD Main Office [address] [facility] [address] [facility] [place] [address] 01/21/2024 13:21:29 01/21/2024 14:26:02 History of primary malignant neoplasm of kidney 145673343 Z85.528 - currently in remission- will request most recent note Chronic ki dney disease stage 3B 802682685 N18.32 - GFR currently 37 which is a decrease from 56- pt counselled on staying hydrated- pt advised to hold advil- ordered repeat BMP for 4 weeks> if worsening will need to start holding the oxycodone- pt referred to nephrology Chronic low back pain 27 1905703 M54.50 - pt is following with ortho, last seen on 03/30/2023 and MRI was ordered> will see next at the end of September- stopped ibuprofen 800mg due to CKD- pt has stopped gabapentin 900mg QD as it was providing relief- tramadol, percocet, morphine, oxycodone (ER as well) was not providing relief- has had two facet injections with PSSP with no relief- was seen by pain management on 07/23/2023 who recommende d hydromorph one however will not prescribe due to intensity of medication and hx of overdose on lorazepam- c/w duloxetine 60mg QD- c/w oxycontin 15mg BID and can take oxycodone 5mg in the middle of the day> not best regimen for patient however will not be increasing due to hx of overdose on lorazepam, pt does take more meds then supposed to> signed narcotics contract- pt advised to continue to look for a new pain specialist as she feels pain is not adequately controlled and who will prescribe- pt has narcan at home- RTC in 3 months [id number] DENNISE MCELROY MD Main Office [address] [facility] [address] [facility] [place] [address] 02/19/2024 13:39:27 02/19/2024 14:39:44 Chronic kidney disease stage 3B 893886365 N18.32 - improving- GFR currently 42, increased from 37 (baseline is 44)- pt counselled on staying hydrated- pt advised to hold advil- pt referred to nephrology -> has an appoitment on 03/20/2024 History of primary malignant neoplasm of kidney 005998760 Z85.528 - currently in remission- last seen on 08/08/2023 Chronic low back pain 27 [id number] M54.50 - pt is following with ortho, last seen on 03/30/2023 and MRI was ordered> will see next at the end of September- stopped ibuprofen 800mg due to CKD- pt has stopped gabapentin 900mg QD as it was providing relief- tramadol, percocet, morphine, oxycodone (ER as well) was not providing relief- has had two facet injections with PSSP with no relief- was seen by pain management on 07/23/2023 who recommende d hydromorph one however will not prescribe due to intensity of medication and hx of overdose on lorazepam- c/w duloxetine 60mg QD- c/w oxycontin 15mg BID and can take oxycodone 5mg in the middle of the day> not best regimen for patient however will not be increasing due to hx of overdose on lorazepam, pt does take more meds then supposed to> signed narcotics contract- pt advised to continue to look for a new pain specialist as she feels pain is not adequately controlled and who will prescribe- pt has narcan at home- RTC in 3 months Chronic pain syndrome 37 4254048 G89.4 - please see above [id number] Arnold Pickett MD [facility] [address] [facility] [address] [facility] [place] [address] 02/27/2024 12:49:06 02/27/2024 13:59:57 Cellulitis of left foot [id number] L03.116 will change to bactrim BID x 7 days, take med with food, continue probiotic daily. elevate, ice as needed. Call/ return for worseningI f any worsening of redness, swelling, weeping, fever, chills please go to ED Gout [id number] M10.9 took 5 days of indomethac in, has 1 kidney, will rx prednisone x 5 days burst in case this is gout related. Chronic ki dney disease stage 3 957271456 N18.32 Hypertensi ve renal disease 65020642 I12.9 Repeat manual BPs WNL. She has ordered a large cuff for her home BP, she will take BP daily at the same time and f/u in 1.5 months at her PE, she will keep a log and bring it with her. Call for any readings > 160 systolic, and alsoif any low readings < 100 systolic. Continue limiting sodium intake, and exercise [id number] Ken Schwartz MD [facility] [address] [facility] [address] [place] [address] 03/10/2024 14:04:43 03/10/2024 15:44:29 Pain in bilateral feet [id number] 5322749 M79.671 Likely cause is arthritis flare. Pt. have been using topical OTC lidocaine with minimal results. Recommend to discontinu e that and try Voltaren gel to affected areas of the foot as per medicaton instructio ns. Call office next week if pain persisted or worsened after 1 week trial f topical antiinflam matory. [id number] Ken Schwartz MD [facility] h [address] [facility] [address] [facility] [place] [address] 03/18/2024 14:55:31 03/18/2024 16:15:41 Pain in bilateral feet [id number] M79.671 was previously rx'd c bactrim, prednisone then voltarenpt states her feet look normal (no redness or edema) hence why requested Rochelle feels 'sunburn' on her feet 08/01suspec t radiating from her lower backsee belowrtc next week for in-person assessment Lumbar radiculopathy 128 698559 M54.16 trial c gbn - pt states used to take this yr's ago from [facility] Chronic low back pain 27 5263259 M54.50 see abovecont narcotics as per pcpcont f/u c specialist s [id number] DENNISE MCELROY MD Main Office [address] [facility] [address] [facility] [place] [address] 05/01/2024 14:56:35 05/01/2024 15:40:12 Acute kidney injury [id number] N17.9 - creatine level at discharge was 1.3> GFR is at baseline- lisinopril on hold until kidney function is back to baseline- ordered repeat BMP Bacteremia 6704641 R78.8 1 - pt was found to be septic on hospitaliz ation 04/25/2024 from E. coli- repeat blood cultures were normal- pt is currently on augmentin for a total of 10 day antibiotic s> while in the hospital was on ceftriaxon e- due to bacteremia ordered U/S echo> mentions had it done however cannot find on pvix, re-ordered Urinary tr act infectious disease 49686954 N39.0 - caused bacteremia and sepsis> infection was coming from E. coli Chronic ki dney disease stage 3 561638828 N18.32 - GFR currently 44, increased from 37 (baseline is 44)> based on blood work from 04/28- pt counselled on staying hydrated- pt advised to hold advil- pt referred to nephrology -> has an appoitment on 03/20/2024 Hypertensi ve renal disease 61763793 I12.9 - BP today is 124/80- if DEVYN has resolved, will continue with lisinopril 20mg- for now to hold all bp meds Gout 09808890 M10.9 - most recent episode on 02/27/2024 and again on 04/01/2024 with steroids- this is two episodes within the last month- ordered uric acid- pt will need to be started on allopurino l after this flare- creatine clearance 78 currently, started on colchicine - rtc in 1 week 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 58871944 F32.4 - PHQ-9 score of 6- stable at this time, due to patient having a lot going on with her health- venlafaxin e switched to duloxetine - pt is still on wellbutrin 75mg- pt saw a counsellor in the past and does not want try again- pt was does have a med provider who prescribes her medication for both anxiety and depression - denies SI/HI- lay ward provided Transition from acute care to self-care [id number] 41128 Z76.89 - reviewed hospitaliz ation record note Hypokalemia 19007825 E87 .6 - potassium level at discharge was 3.4- will order repeat BMP to ensure within normal limits- pt has not started her potassium back yet, pt advised to start back [id number] DENNISE MCELROY MD Main Office [address] [facility] [address] [facility] [place] [address] 05/09/2024 08:14:05 05/09/2024 09:17:11 Acute kidney injury 37741742 N17.9 - resolved- creatine and GFR at baseline- restarted lisinopril - ordered repeat BMP Hypokalemia 76811342 E87 .6 - now resolved- potassium level at 4.1 Bacteremia 7565007 R78.8 1 - pt was found to be septic on hospitaliz ation 04/25/2024 from E. coli- repeat blood cultures were normal- completed augmentin for a total of 10 day antibiotic s> while in the hospital was on ceftriaxon e- due to bacteremia ordered U/S echo> mentions had it done however cannot find on pvix, re-ordered Chronic ki dney disease stage 3 528152788 N18.32 - GFR currently 44, increased from 37 (baseline is 44)> based on blood work from 04/28 and 05/01- pt counselled on staying hydrated- pt advised to hold advil- pt referred to nephrology -> has an appoitment on 03/20/2024 Gout 68450022 M10.9 - most recent episode on 02/27/2024 and again on 04/01/2024 with steroids- this is two episodes within the last month- uric acid trending down 10.4>8.9- pt will need to be started on allopurino l after this flare, will recheck CBC and inflammato ry markers before starting Candidiasis of vagina 72 827607 B37.31 - located on genital region- pt was advised to keep area clean and dry- pt provided with treatment [id number] Ken Schwartz MD Main Office [address] [facility] [address] [place] [address] 05/28/2024 09:22:38 05/28/2024 10:21:33 Gout 04957974 M10.9 acute on chronic gout. recom adding uloric 40 mg , generic form. It's slightly better than colchicine for gout and continue small dose allopurino l and purine free diet. F/u with PCP as scheduled in June. Pt. will need bmp repeated. [id number] DENNISE MCELROY MD Main Office [address] [place] [address] 07/01/2024 14:55:23 07/01/2024 15:45:09 Advance directive discussed with patient 203674403 Z71.89 - discussed molts and hcp Adult heal th examination 921933228 Z00.00 Health Maintenanc e FemaleA) Patient was counseled on healthy diet, exercise and nutrition due to BMI of 35 B) ScreeningL ast Mammogram: start at age 50 stop at 75Date: 02/08/2024 esult: BIRADS-1Ne xt: 01/2025 Last Pap smear: aged out Last Colonoscop y: start at age 45-75Date: 10/22/2018Re sult: diverticul osis (hx of tubular adenoma)Ne xt: 5 years, DUE Last DEXA scan:Date: 02/08/2024 esult: osteopenia Next: 01/2026 C) Vaccines:I nfluenza: 03/08/2024T dAP: 05/19/2015Z marylou: 11/28/2023, 4P CV13: 07/05/2017P PSV23: 06/28/2016P CV20: 04/14/2022 COVID: 09/08/2020, 09/30/2020, 04/08/2021 , 09/16/2021, 04/13/2022 , 03/21/2023, 03/08/2024 SV: 03/06/2023 D) Routine blood work orderedE) Updated patient's history RTC in one year for annual exam or sooner if any acute complaints Anxiety state 515562114 F41.1 - CHERYL-7 score of 6- c/w hydroxyzin e 25mg BID as needed and lorazepam 2mg as needed (given by med prescriber )- c/w duloxetine ER 60mg QD Chronic ki dney disease stage 3 406865486 N18.32 - GFR currently 46- pt counselled on staying hydrated- pt advised to hold advil- pt somers follow with nephrology Chronic low back pain 27 5325863 M54.50 - pt is following with ortho, last seen on 03/30/2023 and MRI was ordered> will see next at the end of September- stopped ibuprofen 800mg due to CKD- pt has stopped gabapentin 900mg QD as it was providing relief- tramadol, percocet, morphine, oxycodone (ER as well) was not providing relief- has had two facet injections with PSSP with no relief- was seen by pain management on 07/23/2023 who recommende d hydromorph one however will not prescribe due to intensity of medication and hx of overdose on lorazepam- c/w duloxetine 60mg QD- pt stopped oxycontin 15mg BID and can take oxycodone 5mg in the middle of the day as insurance no longer covers- will try morphine ER 30mg BID and morphine IR 30mg for miday- pt advised to continue to look for a new pain specialist as she feels pain is not adequately controlled and who will prescribe- pt has narcan at home- RTC in 3 months Clear cell carcinoma of kidney 821848551 C64.9 - hx of renal carcinoma Gout 20312004 M10.9 - most recent episode on 02/27/2024 and again on 04/01/2024 with steroids- this is two episodes within the last month- uric acid trending down 10.4>8.9>8 > ordered repeat levels- c/w allopurino l 300mg QD Hypertensi ve renal disease 87439346 I12.9 - at goal- BP today 125/81- c/w lisinopril 20mg QD Pt counselled on:-Dietar y Approaches to Stop Hypertensi on (DASH) is an eating plan rich in fruits, vegetables , whole grains, fish, poultry, nuts, legumes, and low-fat dairy. These foods are high in major nutrients such as potassium, magnesium, calcium, fiber, and protein.-A dvised continued adherence to medication s and low salt diet - extensive counsellin g done regarding dietary habits.-En couraged regular aerobic exercise 30 min for 4-5 x week.-BP monitoring at home advised to bring log at every visit-Side -effects of high BP can cause Stroke, Heart attack and even d/w pt-D/w pt when to call 911 or reach out to Health care provider:> Think you are having a reaction to a medicine you are taking.>Olivo ve headaches that keep coming back (recurring ).>Feel dizzy.>Hav e swelling in your ankles.>Olivo ve trouble with your vision. 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 47653038 F32.4 - PHQ-9 score of 16- stable at this time, due to patient having a lot going on with her health- venlafaxin e switched to duloxetine - c/w wellbutrin 150mg- pt has been started on mirtazapin e 15mg QD- pt saw a counsellor in the past and does not want try again- pt was does have a med provider who prescribes her medication for both anxiety and depression - denies SI/HI- counsellin g provided- pt has med-prescr iber, medication s to be adjusted by specialist Hypercholesterolemia 136 36020 E78.00 Screening for malignant neoplasm of breast 516012794 Z12.39 Screening for malignant neoplasm of colon 758031457 Z12.11 Fatigue 76120632 R53.83 Z00.00 [id number] DENNISE MCELROY MD Main Office [address] [facility] [address] [facility] [place] [place] [address] 09/29/2024 10:34:12 09/29/2024 11:12:10 Anxiety state 216710752 F41.1 - stable- c/w hydroxyzin e 25mg BID as needed and lorazepam 2mg as needed (given by med prescriber )- c/w duloxetine ER 60mg QD Chronic ki dney disease stage 3 534867043 N18.32 - GFR currently 27 (ordered by specialist )- pt counselled on staying hydrated- pt advised to hold advil- pt somers follow with nephrology Chronic low back pain 27 7785582 M54.50 - pt is following with ortho and physiatry> currently undergoing Interlamin ar Epidural Injection- stopped ibuprofen 800mg due to CKD- pt has stopped gabapentin 900mg QD as it was providing relief- tramadol, percocet, morphine, oxycodone (ER as well) was not providing relief- has had two facet injections with PSSP with no relief- was seen by pain management on 07/23/2023 who recommende d hydromorph one however will not prescribe due to intensity of medication and hx of overdose on lorazepam> pt is also constantly asking for more meds and mixed her meds> too much a risk of overdose and misuse with stronger narcotics- c/w duloxetine 60mg QD- pt stopped oxycontin 15mg BID and can take oxycodone 5mg in the middle of the day as insurance no longer covers- c/w percocept 10mg-325mg TID- pt has been given several names of different organisati on for pain management has not called to make appoitment or follow-up- pt has narcan at home Clear cell carcinoma of kidney 428701085 C64.9 - hx of renal carcinoma Gout 88340644 M10.9 - most recent episode on 02/27/2024 and again on 04/01/2024 with steroids- this is two episodes within the last month- uric acid trending down 10.4>8.9>8 >3.1- pt stopped allopurino l 300mg QD without telling MD- currently following with podiatry for this Hypertensi ve renal disease 62710609 I12.9 - at goal- BP today 124/80- c/w lisinopril 20mg QD Pt counselled on:-Dietar y Approaches to Stop Hypertensi on (DASH) is an eating plan rich in fruits, vegetables , whole grains, fish, poultry, nuts, legumes, and low-fat dairy. These foods are high in major nutrients such as potassium, magnesium, calcium, fiber, and protein.-A dvised continued adherence to medication s and low salt diet - extensive counsellin g done regarding dietary habits.-En couraged regular aerobic exercise 30 min for 4-5 x week.-BP monitoring at home advised to bring log at every visit-Side -effects of high BP can cause Stroke, Heart attack and even d/w pt-D/w pt when to call 911 or reach out to Health care provider:> Think you are having a reaction to a medicine you are taking.>Olivo ve headaches that keep coming back (recurring ).>Feel dizzy.>Hav e swelling in your ankles.>Olivo ve trouble with your vision. 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 - stable at this time, due to patient having a lot going on with her health- venlafaxin e switched to duloxetine - c/w wellbutrin 150mg- pt has been started on mirtazapin e 15mg QD> recommende d patient to speak with her prescriber to change this as she is worried about her weight- pt saw a counsellor in the past and does not want try again- pt was does have a med provider who prescribes her medication for both anxiety and depression - denies SI/HI- counsellin g provided- pt has med-prescr ibcoreen, medication s to be adjusted by specialist Hypercholesterolemia 136 07289 E78.00 - ASCVD score of 16.4%- lipid panel 06/2024: cholestero l-188, triglyceri de-179, HDL-48, LDL-109- pt was started on rosuvastat in 10mg- will recheck levels Pt counselled on:- Eat a heart-heal thy diet- Choose healthy fats. Avoid saturated fats that are found primarily in red meat, moseley, sausage, and full-fat dairy products. Advised to choose lean proteins like chicken, turkey, and fish when possible. Switch to low-fat or fat-free dairy. And use monounsatu rated fats like olive and canola oil for cooking.- Cut out the trans fats. Trans fats are found in fried food and processed foods, like cookies, crackers, and other snacks.- Eat more omega-3s. Counseled on eating more fish, including salmon, mackerel, arias ,nuts and seeds, like walnuts and flax seeds.- Increase your fiber intake. By eating more oats, brain, fruits, beans, and vegetables , can lower your LDL cholestero l levels.- Eat more fruits and veggies. Chronic pain syndrome 37 5042603 G89.4 - please see above Screening for malignant neoplasm of breast 394556733 Z12.39 [id number] DENNISE MCELROY MD Main Office [address] [facility] [address] [place] [address] 10/17/2024 08:30:56 10/20/2024 12:11:43 [id number] DENNISE MCELROY MD Main Office [address] [place] [address] [place] [address] 11/11/2024 11:07:01 11/11/2024 14:08:32 [id number] DENNISE MCELROY MD Main Office [address] [facility] [address] [place] [address] 11/27/2024 14:02:28 11/27/2024 14:55:56 Screening for malignant neoplasm of breast 935869721 Z12.39 Palpitations 28709593 R0 0.2 923050 - HR today is between 110 bpm to 114 bpm- this is most likely because patient has not been taking her metoprolol succinate> sent refill of metoprolol succinate ER 50mg QD to the pharmacy- pt was seen by cardiology 10/2021 and underwent extensive testing> holter monitor was normal Hypertensi ve renal disease 12864676 I12.9 - at goal- BP today 128/79- c/w lisinopril 20mg QD Pt counselled on:-Dietar y Approaches to Stop Hypertensi on (DASH) is an eating plan rich in fruits, vegetables , whole grains, fish, poultry, nuts, legumes, and low-fat dairy. These foods are high in major nutrients such as potassium, magnesium, calcium, fiber, and protein.-A dvised continued adherence to medication s and low salt diet - extensive counsellin g done regarding dietary habits.-En couraged regular aerobic exercise 30 min for 4-5 x week.-BP monitoring at home advised to bring log at every visit-Side -effects of high BP can cause Stroke, Heart attack and even d/w pt-D/w pt when to call 911 or reach out to Health care provider:> Think you are having a reaction to a medicine you are taking.>Olivo ve headaches that keep coming back (recurring ).>Feel dizzy.>Hav e swelling in your ankles.>Olivo ve trouble with your vision. Anxiety state 931044034 F41.1 - stable- pt mentions that hydroxyzin e was not helping therefore medication was stopped- do not recommend patient going back on lorazepam as on two occasions it caused acute respirator y failure> medication prescribed by another provider- c/w duloxetine ER 60mg QD Chronic ki dney disease stage 3 190080765 N18.32 - GFR currently 29 (ordered by specialist )- pt counselled on staying hydrated- pt advised to hold advil- pt does follow with nephrology /oncology Chronic low back pain 27 0544757 M54.50 - pt is following with ortho and physiatry> currently undergoing Interlamin ar Epidural Injection- stopped ibuprofen 800mg due to CKD- pt has stopped gabapentin 900mg QD as it was providing relief- tramadol, percocet, morphine, oxycodone (ER as well) was not providing relief- has had two facet injections with PSSP with no relief- was seen by pain management on 07/23/2023 who recommende d hydromorph one however will not prescribe due to intensity of medication and hx of overdose on lorazepam> pt is also constantly asking for more meds and mixed her meds> too much a risk of overdose and misuse with stronger narcotics- c/w duloxetine 60mg QD- stopped all opioids as patient due to recent hospitaliz ation. 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 38461440 F32.4 - stable at this time, due to patient having a lot going on with her health- venlafaxin e switched to duloxetine - c/w wellbutrin 150mg- pt has been started on mirtazapin e 15mg QD> recommende d patient to speak with her prescriber to change this as she is worried about her weight- pt saw a counsellor in the past and does not want try again- pt was does have a med provider who prescribes her medication for both anxiety and depression - denies SI/HI- counsellin g provided- pt has med-prescr iber, medication s to be adjusted by specialist Post-disch arge follow-up [id number] Z09 786989 - reviewed two hospitaliz ations Acute resp iratory failure 25531702 J96.01 49063362 - now resolved- it was initially thought to be from infectious causes however seen by ID who stopped all antibiotic s as not likely cause- likely from opiod overdose and polypharma cy> this is based urine screen toxicology screen that was negative for benzos and positive for fentanyl, please note pt did receive fentanyl 2 weeks prior to the urine test however vector control specialist felt it was from new source- due to nature of hospitaliz ation will no longer be placing patient on any opioid pain medication [id number] DENNISE MCELROY MD Main Office [address] [place] [address] 12/16/2024 14:34:51 12/16/2024 15:20:06 Hypertensive renal disease 15702325 I12.9 - at goal- BP today 126/83- c/w lisinopril 20mg QD Pt counselled on:-Dietar y Approaches to Stop Hypertensi on (DASH) is an eating plan rich in fruits, vegetables , whole grains, fish, poultry, nuts, legumes, and low-fat dairy. These foods are high in major nutrients such as potassium, magnesium, calcium, fiber, and protein.-A dvised continued adherence to medication s and low salt diet - extensive counsellin g done regarding dietary habits.-En couraged regular aerobic exercise 30 min for 4-5 x week.-BP monitoring at home advised to bring log at every visit-Side -effects of high BP can cause Stroke, Heart attack and even d/w pt-D/w pt when to call 911 or reach out to Health care provider:> Think you are having a reaction to a medicine you are taking.>Olivo ve headaches that keep coming back (recurring ).>Feel dizzy.>Hav e swelling in your ankles.>Olivo ve trouble with your vision. Chronic ki dney disease stage 3 616311871 N18.32 - GFR currently 29 (ordered by specialist )- pt counselled on staying hydrated- pt advised to hold advil- pt does follow with nephrology /oncology Palpitations 84288399 R0 0.2 481254 - resolved- HR today is 69 and on EKG 56- will decrease metoprolol succinate from 50mg to 25mg due to mild bradycardi a- pt was seen by cardiology 10/2021 and underwent extensive testing> holter monitor was normal Chronic pain 14310576 M5 4.50 - pt is following with ortho and physiatry> currently undergoing Interlamin ar Epidural Injection- stopped ibuprofen 800mg due to CKD- pt has stopped gabapentin 900mg QD as it was providing relief- tramadol, percocet, morphine, oxycodone (ER as well) was not providing relief- has had two facet injections with PSSP with no relief- was seen by pain management on 07/23/2023 who recommende d hydromorph one however will not prescribe due to intensity of medication and hx of overdose on lorazepam> pt is also constantly asking for more meds and mixed her meds> too much a risk of overdose and misuse with stronger narcotics- c/w duloxetine 60mg QD- stopped all opioids as patient due to recent hospitaliz ation. pt was seen by vector control specialist and diagnosed with opiod dependence - pt felt as the suboxone was not helping her therefore medication was stopped- instead will try buprenorph ine 10mcg weekly> no QTC prolongati on on EKG Chronic low back pain 27 0969177 M54.50 [id number] DENNISE MCELROY MD Main Office [address] [facility] [address] [facility] [place] [address] 01/23/2025 11:20:17 01/23/2025 12:25:17 Chronic low back pain [id number] M54.50 - pt is following with ortho and physiatry- stopped ibuprofen 800mg due to CKD- pt has stopped gabapentin 900mg QD as it was not providing relief- tramadol, percocet, morphine, oxycodone (ER as well) was not providing relief- has had two facet injections with PSSP with no relief- was seen by pain management on 07/23/2023 who recommende d hydromorph one however will not prescribe due to intensity of medication and hx of overdose on lorazepam and fentanyl causing respirator y failure> pt is also constantly asking for more meds and mixed her meds> too much a risk of overdose and misuse with stronger narcotics- c/w duloxetine 60mg QD- pt stopped oxycontin 15mg BID and oxycodone 5mg in the middle of the day as insurance no longer covers- c/w percocept 10mg-325mg TID- pt has been given several names of different organisati on for pain management has not called to make appoitment or follow-up- pt has narcan at home Chronic pain syndrome 37 [id number] G89.4 - please see above [id number] DENNISE MCELROY MD Main Office [address] [place] [address] 02/19/2025 13:49:22 02/19/2025 14:35:11 Chronic low back pain [id number] M54.50 - pt is following with ortho and physiatry- stopped ibuprofen 800mg due to CKD- pt has stopped gabapentin 900mg QD as it was not providing relief- tramadol, percocet, morphine, oxycodone (ER as well), percocet was not providing relief> stopped oxycontin 15mg BID and oxycodone 5mg in the middle of the day as insurance no longer covers- has had two facet injections with PSSP with no relief- was seen by pain management on 07/23/2023 who recommende d hydromorph one however will not prescribe due to intensity of medication and hx of overdose on lorazepam and fentanyl causing respirator y failure> pt is also constantly asking for more meds and mixed her meds> too much a risk of overdose and misuse with stronger narcotics- c/w duloxetine 60mg QD- stopped percocet 10mg-325mg TID- will retry back morphine 30mg IR TID as needed as it provided more relief> counselled on AE- pt has been given several names of different organisati on for pain management has not called to make appoitment or follow-up- pt has narcan at home Pruritus of vagina [id number] 003 N89.8 916000 - recurrent problem- performed vaginitis swab in office today- provided patient with treatment Osteoporosis [id number] M8 1.0 - improved, currently osteopenia - c/w vitamin d and calcium- pt was on alendronat e for a short period of time> dentist does not want patient to resume this due to concerns for jaw and teeth [id number] DENNISE MCELROY MD Main Office [address] [facility] [address] [place] [address] 02/27/2025 12:46:07 02/27/2025 16:08:18 Atrophy of vagina [id number] N95.2 179774 - patient has been having recurrent episodes of vaginal itching. initially thought to be candiasis however after undergoing vaginitis swab which was negative that is not likely to be the case- will treat for vaginal atrophy with estradiol cream to see if there is improvemen t Chronic low back pain 27 [id number] M54.50 - pt is following with ortho and physiatry- stopped ibuprofen 800mg due to CKD- pt has stopped gabapentin 900mg QD as it was not providing relief- tramadol, percocet, morphine, oxycodone (ER as well), percocet was not providing relief> stopped oxycontin 15mg BID and oxycodone 5mg in the middle of the day as insurance no longer covers> small update on morphine 30mg makes patient very numb and stomach problems, this was suspected has medication did this to her in the past however patient kept on insisting that this was the perfect med for her- has had two facet injections with PSSP with no relief- was seen by pain management on 07/23/2023 who recommende d hydromorph one however will not prescribe due to intensity of medication and hx of overdose on lorazepam and fentanyl causing respirator y failure> pt is also constantly asking for more meds and mixed her meds> too much a risk of overdose and misuse with stronger narcotics- c/w duloxetine 60mg QD- restarted percocet 10mg-325mg TID- pt has been given several names of different organisati on for pain management has not called to make appoitment or follow-up- pt has narcan at home Chronic pain syndrome 37 [id number] G89.4 02329 - please see above Health Concerns Section Related Observation LastModified by Organization Detai ls LastModified Time None Recorded Concern Status LastModified by Organization Details LastModified Time None Recorded Advance Directives Directive None Recorded Payers Insurance Date Sequence Insurance Name Policy Number Policy Ricci Covered Member ID Ricci Member ID Guarantor Name 03/19/2025 1 MEDICARE [place]: [employer] Serene Cox Ashraf [id number] Serene Cox Andriy 03/11/2025 2 [facility] ([facility]DEMNITY) [id number] 2 Colby Ye Andriy [id number] Serene Cox Andriy Notes Date Note Type Note Provider Name and Address Organization Details Recorded Time text/html Hospitalization Contact RecordReported by PatientHospitalization Contact RecordFor follow up, [facility],admit date: (please enter in format 'mm/dd/yyyy') (/),date of discharge: (please enter in format 'mm/dd/yyyy') (/06/2024), anddate of contact: (please enter in format 'mm/dd/yyyy') (/07/2024).Medi care covered inpatient stay? yesMedicare GOPI with in 48 working hours? yesHigh Complexity code valid on or before:OctoberModerate Complexity code valid on or before:NovemberHCP on file? noMOLST on file? noDischarge Summary available? yes 74 year old female was transferred to [facility] on 10/25/2024 from [facility] for further medical management and conditioning . patient transferred due to deconditioning , generalized weakness . due to high risk of falls , patient agreed to be transferred to rehab. During rehab stay patient received the following services PT, OT, chcf. after 14 days patient hit all milestones to be discharge to home with VNA services. Patient was admitted on 11/08/2024 , [facility]. Gr[employer] GOPI call to patient regarding recent discharge status, no answer left detailed message on voice mail. patient is schedule for hospital follow up with Chrissie on 11/19/2024 at 10:15 am. Coordinator updated all medications for provider review . Hospitalization from 10/03/2024- year old female presented to [facility] on 10/03/2024 complaining of nausea,vomiting, diarrhea and poor PO intake x 2 days. During ED evaluation found to be hypotensive , lab revealed UTI with large LE and moderate bacteria. Septic protocol was completed. Patient was admitted to ICU for septic vs hypovolemic shock due to positive for UTI and severe dehydration. During hospital stay patient completed the following : antibiotic regimen for UTI / IV fluid for hydration diarrhea improved treated with short term steriod opiates management was treated as needed Sleep apnea was noted patient requires CPAP at night PCP Heads Up: Medical staff recommended rehab patient deferred[facility]. Updated medications as noted on discharge .ROS as noted in the HPI Kaitlin Ashraf is a 74 year old F who presents to the clinic for hospital follow-up. Please note that patient had two hospitalizations back to back. Patient reports she is doing well. She is very upset that there was fentanyl noted in the urine while she was hospitalized. Firmly states that she has not taken it and believes there may have been an error. DENNISE MCELROY MD [address] [address], [place], [address], [facility] 11/27/2024 20:06:25 5 text/html Hypertension F/UReported by PatientHPIFor lifestyle, patient reportsnot exercising regularlybut reportslimiting/avoiding salt. For associated symptoms, patient reportsno dizziness,no lightheadedness,no chest pain,no shortness of breath,no palpitations,no edema, andno calf pain with exertion. For medications, patient reportstaking medications as directedandno side effects from medication. palpitationsReported by Patientcardiovascular symptomsFor rapid or irregular heartbeat (palpitations), patient reportsfast. EdemaReported by PatientHPIFor associated symptoms, patient reportsswelling in lower legs onlybut reportsno shortness of breath,no shortness of breath during exertion,no nocturia,no significant weight gain, andno cough. For quality, patient reportslegs swell equally. For severity, patient reportsmild. For duration, patient reportsintermittent. For onset/timing, patient reportsabrupt onset. Serene Ashraf is a 74 year old F who presents to the clinic for follow-up no HR, BP and lower extremity edema. Pt sent a patient case on 12/01/2024 stating that she was getting swelling in her feet and tachycardia. Both of these complaints have now resolved. Pt continues ask MD for opiod medications. It was stated to patient on multiple occasions that she cannot be placed back on opioids. This is because during recent hospitalization there was fentanyl noted in the urine. The urine was also negative for opioids and benzos two medications in which patient's should have been on. Therefore, there is a question on how fentanyl got into patient's utox and if there is a opioid abuse. Serene continues to deny missuage of medication and denies ever taking fentanyl. DENNISE MCELROY MD [address] [address], [place], [address], [facility] 12/16/2024 16:26:21 5 text/html Back PainReported by PatientHPIFor quality, patient reportssharp(and aching). For severity, patient reportsworsening. For aggravating factors, patient reportsmovement/positioning . For location, patient reportspain is not radiating. For duration, patient reportschronic. For onset/timing, patient reportsrecurrent episode. For context, patient reportsprior back problems,used medications for back pain, andhad evaluations by back specialist. For alleviating factors, patient reportsrelieved by changing position. For associated symptoms, patient reportsno fever,no weak limbs,no numbness of the legs/feet,no tingling,no incontinence, andno shortness of breath.Chronic problem. Pt tried internal muscle relaxer device which provided no relief so it was removed. Pt spends most of her day in bed and cannot cook or stay on her feet for long.ROS as noted in the HPI Serene Ashraf is a 74 year old F who presents to the clinic for follow-up on her chronic back pain. Patient has been speaking with Louise to get clarification on her hospitalizations in October. In the notes from the vector control specialist they mentioned opiod abuse. Patient did clarify with hospital and letter was sent to PCP. Patient has received 4 doses of fentanyl on previous admission and most likely the cause of fentanyl noted in the urine. Pt has seen several specialist and has tried several therapies with no success. Pt was seen by physiatry and completed two facet injections. This provided no improvement to patient. Patient tried tramadol, oxycodone, oxycodone ER and morphine as well which provided no relief. Patient continues to request for stronger medication even after dosages have been increased. Pt does have a questionable history with pain medication. Please note was once hospitalized for overuse a of benzos (lorazepam). Continues to follow with physiatry. Recently got a L5-S1 intralaminar epidural. Gave no relief. Will be another in one month. Pt has other narcotics at home which she did not finish from coursed. Likes to mix and match and make own regimen. DENNISE MCELROY MD [address], [address], [facility] 01/23/2025 14:07:13 5 text/html Back PainReported by PatientHPIFor quality, patient reportssharp(and aching). For severity, patient reportsworsening. For aggravating factors, patient reportsmovement/positioning . For location, patient reportspain is not radiating. For duration, patient reportschronic. For onset/timing, patient reportsrecurrent episode. For context, patient reportsprior back problems,used medications for back pain, andhad evaluations by back specialist. For alleviating factors, patient reportsrelieved by changing position. For associated symptoms, patient reportsno fever,no weak limbs,no numbness of the legs/feet,no tingling,no incontinence, andno shortness of breath.Chronic problem. Pt tried internal muscle relaxer device which provided no relief so it was removed. Pt spends most of her day in bed and cannot cook or stay on her feet for long.ROS as noted in the HPI Serene Ashraf is a 74 year old F who presents to the clinic for follow-up on her chronic back pain. Patient has been speaking with Louise to get clarification on her hospitalizations in October. In the notes from the vector control specialist they mentioned opiod abuse. Patient did clarify with hospital and letter was sent to PCP. Patient has received 4 doses of fentanyl on previous admission and most likely the cause of fentanyl noted in the urine. Pt does have a questionable history with pain medication. Please note was once hospitalized for overuse a of benzos (lorazepam). Pt has seen several specialist and has tried several therapies with no success. Pt was seen by physiatry and completed two facet injections. This provided no improvement to patient. Patient tried tramadol, oxycodone, oxycodone ER, percocet and morphine as well which provided no relief. Patient continues to request for stronger medication even after dosages have been increased. It has been very clear to patient that stronger medication will not be provided. Also, patient was seen by Dr. Eli for pain management who recommended dilaudid. PCP told patient that she will not prescribe this and MD who recommended this can prescribe it. Dr. Eli does not want to prescribe therfore unsure why it was even recommended. Continues to follow with physiatry. Recently got a L5-S1 intralaminar epidural. Gave no relief. Will be another in one month. Pt has other narcotics at home which she did not finish from coursed. Likes to mix and match and make own regimen. DENNISE MCELROY MD [address] [address], [place], [address], [facility] 02/19/2025 17:26:30 5 text/html Back PainReported by PatientHPIFor quality, patient reportssharp(and aching). For severity, patient reportsworsening. For aggravating factors, patient reportsmovement/positioning . For location, patient reportspain is not radiating. For duration, patient reportschronic. For onset/timing, patient reportsrecurrent episode. For context, patient reportsprior back problems,used medications for back pain, andhad evaluations by back specialist. For alleviating factors, patient reportsrelieved by changing position. For associated symptoms, patient reportsno fever,no weak limbs,no numbness of the legs/feet,no tingling,no incontinence, andno shortness of breath.Chronic problem. Pt tried internal muscle relaxer device which provided no relief so it was removed. Pt spends most of her day in bed and cannot cook or stay on her feet for long.ROS as noted in the HPI Serene Asrhaf is a 74 year old F who was seen over [facility] for follow-up on her chronic back pain. Patient spoke with Louise to get clarification on her hospitalizations in October. In the notes from the vector control specialist they mentioned opiod abuse. Patient did clarify with hospital and letter was sent to PCP. Patient has received 4 doses of fentanyl on previous admission and most likely the cause of fentanyl noted in the urine. Pt does have a questionable history with pain medication. Please note was once hospitalized for overuse a of benzos (lorazepam). Pt has seen several specialist and has tried several therapies with no success. Pt was seen by physiatry and completed two facet injections. This provided no improvement to patient. Patient tried tramadol, oxycodone, oxycodone ER, percocet and morphine as well which provided no relief. Patient continues to request for stronger medication even after dosages have been increased. It has been very clear to patient that stronger medication will not be provided. Also, patient was seen by Dr. Eli for pain management who recommended dilaudid. PCP told patient that she will not prescribe this and MD who recommended this can prescribe it. Dr. Eli does not want to prescribe therfore unsure why it was even recommended. Continues to follow with physiatry. Recently got a L5-S1 intralaminar epidural. Gave no relief. Will be another in one month. Pt has other narcotics at home which she did not finish from coursed. Likes to mix and match and make own regimen. DENNISE MCELROY MD [address] [address], [place], [address], [facility] 02/27/2025 16:25:01 OBGyn Episode No OBEpisode recorded.
--- OUTSIDE RECORDS SUMMARY | 2025-04-17 11:50 | XMS_ITS | Encounter Summary ---
Author Organization Formerly [facility] Address [address] [place] [address] Phone Care Team Providers Care [employer]er [employer] Name Role Phone Wang Tilley MD Unavailable [phone] Rose Marie Manrique MD Primary Care Prov ider Benjamín Michelle MD Unavailable Unavailable Encounter Details Date Type Department Care Team (Late st Contact Info) Description 09/19/2016 Procedure Pass [facility] [address] [place] [address] Social History Tobacco Use Types Packs/Day Years [...] on filedocumented in this encounter Care Teams As[employer]er [employer] Relationship Specialty Start Date End Date Rose Marie Manrique MD [address] [place] [address] PCP - General Internal Medicine 09/19/16 Wang Tilley MD [address] [facility] [facility] [address] [place] [address] [email or web address] Referring Physician Urology 08/23/16 Benjamín Michelle MD Orthopedic Surgery 09/19/16 documented as of this encounter Additional Source Comments The information contained in this document represents components of the legal health record. It is not the complete legal health record.[facility]
--- OUTSIDE RECORDS SUMMARY | 2025-04-17 11:50 | XMS_ITS | Data Portability ---
Author Organization [facility] [employer] [facility], Main Office Address [address] [place] [address] Care Team Providers Care Metal Drawer Name Role Phone ADITYA JAMES 1ST FLOOR OTHER [phone] GORDO MERLOS Primary Care Provider Assessment No assessment recorded. Plan of Treatment Reminders Order Date Submit Date Provider Last Modified By Organization Details Last Modified Time Details Appointments None record ed. Lab None record ed. Referral None record ed. Procedures None record ed. Surgeries None record ed. Imaging None record ed. Medication Orders None record ed. Patient TargetsNo targets recorded. Patient InstructionsNo instructions recorded. Reason for Referral None Reported. Problems Name Problem SNOMED Code Status Onset Date Resolution Date Notes Provider Name and Address Organization Details Recorded Time Acute urinary tract infection 922898801 Active 2020 FRANCISCO OLIVEIRA NP [address], [address], [place], [address], [facility] [employer] 10:03:53 Gastroesoph ageal reflux disease without esophagitis 530900925 Active 2020 FRANCISCO OLIVEIRA NP [address], [address], [place], [address], [facility] [employer] [facility] 10:04:03 Chronic pain 79629806 Active 2020 FRANCISCO OLIVEIRA NP [address], [address], [place], [address], [facility] [employer] 10:04:18 Essential hypertensio n 20858849 Active 2020 FRANCISCO OLIVEIRA NP [address] , [address], [place], [address], [facility] [employer] 10:04:25 Smoker 57288641 Active 2020 FRANCISCO OLIVEIRA NP [address], [address], [place], [address], [employer] [facility] 1 10:04:35 Mixed anxiety and depressive disorder 142328351 Active 2020 FRANCISCODestiny COOLEYCARLOTTA HOLMAN [address], [address], [place], [address], [employer] [facility] 1 10:24:22 History of nephrectomy 9557482135721 4 Active 2020 FRANCISCO CARLOTTA OLIVEIRA [address], [address], [place], [address], [place] [facility] 1 10:26:37 History of alcoholism 368351310 Active 2020 FRANCISCO OLIVEIRA NP [address], [address], [place], [address], [place] [facility] 1 10:27:37 Fall Active 2020 FRANCISCO OLIVEIRA NP [address], [address], [place], [address], [facility] 1 08:34:49 Problem Notes None recorded. Medical Equipment None Reported. Allergies No known drug allergies Vitals Date Recorded Body height Body temperature Oxygen saturation Oxygen saturation in Arterial blood by Pulse oximetry Heart rate Systolic And Diastolic Provider Name and Address Organization Details Last Updated DateTime 1 167.64 cm 97.2 [degF] 94 % 94 % 91 /min 113/62 mm[Hg] Serenity Evans MD [address] , [address], [place], [address], [employer] [facility] 1 06:56:26 Date Recorded Body height Heart rate Respiratory rate Body temperature Oxygen saturation Oxygen saturation in Arterial blood by Pulse oximetry Systolic And Diastolic Provider Name and Address Organization Details Last Updated DateTime 1 167.64 cm 100 /min 18 /min 97.4 [degF] 96 % 96 % 164/95 mm[Hg] FRANCISCO OLIVEIRA NP [address], [address], [place], [address], [facility] 1 11:34:36 Date Recorded Body height Heart rate Respiratory rate Body temperature Oxygen saturation Oxygen saturation in Arterial blood by Pulse oximetry Systolic And Diastolic Provider Name and Address Organization Details Last Updated DateTime 1 167.64 cm 88 /min 18 /min 97.2 [degF] 99 % 99 % 125/79 mm[Hg] FRANCISCO OLIVEIRA NP [address], [address], [place], [address], [facility] [facility] 1 15:53:57 Date Recorded Body height Heart rate Respiratory rate Body temperature Oxygen saturation Oxygen saturation in Arterial blood by Pulse oximetry Systolic And Diastolic Provider Name and Address Organization Details Last Updated DateTime 1 167.64 cm 78 /min 18 /min 97 [degF] 96 % 96 % 128/66 mm[Hg] FRANCISCO OLIVEIRA NP [address], [address], [place], [address], [facility] 1 08:34:39 Date Recorded Body height Heart rate Respiratory rate Body temperature Oxygen saturation Oxygen saturation in Arterial blood by Pulse oximetry Systolic And Diastolic Provider Name and Address Organization Details Last Updated DateTime 1 167.64 cm 79 /min 18 /min 97.1 [degF] 95 % 95 % 106/60 mm[Hg] FRANCISCO OLIVEIRA NP [address], [address], [place], [address], [facility] 1 11:37:24 Social History Question Answer Notes LastModified by [employer] Details LastModified Time Tobacco Smoking Status Current Every Day Smoker FRANCISCO OLIVEIRA NP [address], [address], [place], [address], [facility] 09/28/2020 10:06:21 Do You Have An Advance Directive? Yes [facility], No Hd Or Art Nut Information not available 09/28/2020 How Much Tobacco Do You Smoke? 0.5 PPD Information not available 09/28/2020 On What Date Was Tobacco Cessation Counseling Provided? 09/28/2020 Declined Information not available 09/28/2020 Sex: Unknown Functional Status Question Answer Note LastModified by [employer] Details LastModified Time What is your level of alcohol consumption? Moderate 2 hiballs a day, alleged quit 4 weeks ago Information not available 09/28/2020 Mental Status None recorded. Family History Nothing Reported. Medical History No medical history recorded. Gynecological HistoryNo gynecological history recorded. Obstetrics History GPAL:G 0 P 0 0 0 0 Immunizations Vaccine Type Date Status Note Provider Nam e and Address Organization Details Recorded Time Influenza, split virus, quadrivalent, preservative [facility] 12[facility]06:57 Tdap 5 completed [facility] 10/01/2020 12:07:13 COVID-19, mRNA, LNP-S, PF, 30 mcg/0.3 mL dose 1 [facility] 12:07:32 Pneumococcal conjugate PCV 13 8 completed [facility] 10/01/2020 12:07:49 pneumococcal polysaccharide PPV23 7 [facility] 12:08:02 zoster live 3 completed [facility] 10/01/2020 12:08:17 Past Encounters Encounter ID Performer Location Encounter Start Date Encounter Closed Date Diagnosis/Indication Diagnosis SNOMED-CT Code Diagnosis ICD10 Code Diagnosis IMO Codes Diagnosis Note [id number] CARLOTTA SEPULVEDA [address] [facility] [place] [address] 09/28/2020 08:03:21 09/30/2020 13:59:36 Acute urinary tract infection 553771577 N39.0 cefpodoxin e 200 mg b id for 4 doses monitor urine output Chronic pain 40838515 G8 9.29 oxycodone 5 mg q8hr prn Essential hypertension 22235687 I10 lisinopril 20 mg daily monitor bp Gastroesop hageal reflux disease without esophagitis 343324411 K21.9 omeprazole 20 mg daily carafate 1 gm ac/hs ca/carb 600 daily Mixed anxi ety and depressive disorder 508463042 F41.8 cymbalta 60 mg daily lorazapam 1 mg q12 hr psych prn Smoker 31174665 F17.200 nicotine patch 21 mg daily encourage cessation History of nephrectomy 2339330341 9104 Z90.5 prednisone taper History of alcoholism 16 6112094 F10.21 omega 3 daily folic acid 1 mg daily thiamine 100 mg daily mvi daily ecnourage cessation [id number] Serenity Evans MD [address] [address] 10/01/2020 06:55:25 10/05/2020 14:27:23 Chronic pain 21058396 G89.29 duloxetine 60 mg daily oxycodone 4 mg q8h prn s/p stimulator for chronic LBP physiatry PT/OT Essential hypertension 08005594 I10 lisinopril 20 mg daily ASA 81 mg daily will monitor Gastroesop hageal reflux disease without esophagitis 856814898 K21.9 sucralfate 1 gm before meals and at hs omeprazole 20 mg bid will monitor History of alcoholism 16 9115806 F10.21 thiamine 100 mg daily folic acid 1 mg daily MVI daily will monitor Mixed anxi ety and depressive disorder 479345655 F41.8 duloxetine 60 mg daily lorazepam 1 mg q12h fu psychiatry Smoker 11024896 F17.200 nicotine patch 21 mg/24h daily will monitor and encourage d/c smoking Renal cell carcinoma 702 180193 C64.9 s/p nephrectom y fu oncology 10/08/20 prednisone taper - see [facility] Acute urin radha tract infection 792257280 N30.00 antibiotic s completed will monitor [id number] CARLOTTA SEPULVEDA ERIKA [address] [place] [address] 10/04/2020 11:08:26 10/07/2020 09:48:05 Essential hypertension 25822982 I10 lisinopril 20 mg daily monitor bp Chronic pain 88184506 G8 9.29 oxycodone 5 mg q8hr prn [id number] FRANCISCO OLIVEIRA NP [address] [address] 10/08/2020 15:41:09 10/12/2020 16:03:33 Gastroesophageal reflux disease without esophagitis 071532493 K21.9 omeprazole 20 mg daily carafate 1 gm ac/hs ca/carb 600 daily Mixed anxi ety and depressive disorder 146762223 F41.8 cymbalta 60 mg daily lorazapam 1 mg q12 hr psych prn [id number] FRANCISCO COOLEYCARLOTTA HOLMAN [facility] [address] [place] [address] 10/12/2020 08:34:08 10/14/2020 13:16:39 Acute urinary tract infection 419831752 N39.0 cefalexin 500 mg q12 hr x 7days monitor urine output Fall W19.XXXA PT OT eval and treat fall precaution s frequent safety checks [id number] FRANCISCO OLIVEIRA NP [address] [address] 10/15/2020 08:29:02 10/18/2020 12:43:10 Fall W19.XXXA PT OT eval and treat fall precaution s frequent safety checks History of alcoholism 16 4577646 F10.21 omega 3 daily folic acid 1 mg daily thiamine 100 mg daily mvi daily encourage cessation Health Concerns Section Related Observation LastModified by Organization Detai ls LastModified Time None Recorded Concern Status LastModified by Organization Details LastModified Time None Recorded Advance Directives Directive Y: DNI [facility], ivf, no hd or art nut Payers Insurance Date Sequence Insurance Name Policy Number Policy Ricci Covered Member ID Ricci Member ID Guarantor Name 09/30/2020 1 [place]ICARE [place]: [employer] [employer] [employer] Serene Ashraf [id number] Serene Ashraf 10/18/2020 2 [facility] IN[facility]MNITY [facility]AN (INDEMNITY) [id number] 2 Serene Ashraf [id number] Serene Ashraf Notes Date Note Type Note Provider Name and Address Organization Details Recorded Time 10/01/2020 text/html ROS as noted in the HPI This 70 year old woman was admitted to [facility] on 09/27/20 for rehab and continued care. Patient presented to [facility] ER on 09/23/20 with weakness. Evaluation revealed leukocytosis with WBC 14.7, Metabolic panel remarkable for anion gap 14, random glucose 138. Toxicology was positive for opiates. Serum alcohol <3. UA positive for leukocyte esterase and nitrites as well as heavy bacteriuria. Patient received IV fluids in ER. Patient is on chronic opiates for pain due to osteoporotic fractures. She was diagnosed with acute metabolic encephalopathy unclear if from UTI or taking her medications incorrectly. Patient was seen by psychiatry and duloxetine dose was increased and lorazepam dose decreased. UC grew Ecoli and patient was initially treated with ceftriaxone which was transitioned to cefpodoxime. Patient had been on chronic steroids in conjuction with treatment fo renal cancer and was discharged from hospital on a steroid taper 40 mg daily x 2d, then 30 mg daily x2d, then 20 mg daily x 2d, then 10 mg daily x 3d. Medical history is remarkable for hypertension, tobacco dependence, renal cell carcinoma s/p left nephrectomy, chronic low back pain s/p multiple facet injections and spinal stimulator, osteoporosis MOLST: full code except DNI - dated 09/27/20 Serenity Evans MD [address] [facility] [address], [place], [address], [employer] 10/01/2020 12:48:40 10/04/2020 text/html ROS as noted in the HPI seen today for acute rounding visit, CAOx3 she tends to lie flat on the bed and refuses to get up to a chair, she will reluctantly participate withPT, tolerating her current pain med routine and frequently asks for more, she appears comfortable at time of visit, lungs clear FRANCISCO OLIVEIRA NP [address], [address], [place], [address], [employer] 10/04/2020 13:11:01 10/08/2020 text/html ROS as noted in the HPI seen today for acute rounding visit, CAOx3 vague and forgetful, she is complaining of abdominal pain, she did have a large bm today, visual exam noted a 3 cm oval bruise on her left abdomen, it is healing, soft slightly tender to touch, BS+, she tends to stay in bed most of the time even with encouragement to get up FRANCISCO OLIVEIRA NP [address], [address], [place], [address], [employer] 10/08/2020 15:56:50 10/12/2020 text/html ROS as noted in the HPI seen today for acute rounding visit, she went to the hospital last night after a fall hitting her head, CT was negative, she was found to have a uti again, she refused a chair van/ambulance back to facility and her brought her back, she was unable to get out of the car independently, PT and PHARMACY SERVICE ASSOCIATE needed to assist her to a wheelchair, she is slow to respond, very sleepy and it was reported the car smelled of pot smoke, she had difficulty transfering from wheelchair to bed or following directions to do so. VSS neuros intact but slow, lungs clear FRANCISCO OLIVEIRA NP [address], [address], [place], [address], [employer] [facility] [facility] 10/12/2020 08:40:41 10/15/2020 text/html ROS as noted in the HPI seen today for acute rounding visit, CAOx3 very forgetful, she tends to stay in bed, and says she cannot stand or walk but she was witnessed ambulating independently with her walker to the bathroom, I believe she at her baseline for activity FRANCISCO OLIVEIRA NP [address], [address], [place], [address], [employer] [facility] 10/15/2020 12:16:49 OBGyn Episode No OBEpisode recorded.
--- OUTSIDE RECORDS SUMMARY | 2025-04-17 11:50 | XMS_ITS | Data Portability ---
Author Organization [place] - [facility] Address [address] [place], [place] [address] [address] Care Team Providers Care Floral Merchandiser Name Role Phone GORDO MERLOS Primary Care Provider Assessment Encounter Date Assessment Date Assessment LastModified by Organization Details LastModified Time 01/27/2021 01/27/2021 Overview/History : 70 yo female with PMH of HTN, insomnia, chronic low back pain with spinal stimulator, depression, and history of renal cancer with nephrectomy c/o pain to the left hand for 2 months since she being discharged from short term rehab for a fall and SAH. She is not able to recall any events around the fall or possible injury to left hand and denies any new injury. Left hand pain is continuous to dorsum of left lateral hand and over thenar surface of left hand as well as generalized left wrist pain. Pain has been consistent in intensity over the past 2 months. Pain 3-4/10. Pain sometimes worse when using hand but not always. Pain somewhat improved with occasional use of Excedrin. Denies any new injury. Denies any numbness, weakness, or tingling in left fingers, hand or wrist. Exam: VSS, alert and ambulatory with no focal deficits, Lungs CTA, Heart with normal heart sounds and normal peripheral pulses. No visible deformity to left hand. Normal range of motion with full extension & flexion of all digits. 5/5 strength of all digits and hand grasps. Sensation intact to each digit and both hands/wrists. No snuffbox tenderness left hand/wrist. Minimal tenderness over thenar prominence and dorsum of left hand over 4th and 5th metacarpals. No bony crepitus. No edema noted, good CMS present.Skin normal appearance with no erythema, ecchyosis, edema or wounds. DDx considered, but not limited to: left hand/wrist strain/sprain, bone fracture left hand/wrist, including navicular fracture, carpal tunnel, arthritis (OA) Left hand/wrist sprain/strain - likely due to history of past fall with fairly benign exam of left hand and wrist - no deformity, FROM and CMS intact Bone fracture including navicular fx- less likely as patient has had pain for at least 2 months and fall in October 2020 with no new injury reported. No gross deformity, no bony crepitus, FROM and CMS intact, No snuffbox tenderness, No joint edema. Carpal tunnel - unlikely as patient denies any paresthesia and CMS intact Arthritis (OA) - somewhat likely given patient age, as well as chronicity of pain without visible deformity and mild tenderness present with FROM and CMS intact Work up/Results: Left hand and wrist xrays ordered Plan/Discussion: Due to history of fall with limited recall of events and chronicity of persistent pain, will xray left hand and wrist to check for any bony fracture or abnormality. Advised patient to rest left hand as possible and avoid lifting with it, to apply cool compresses to area multiple times per day. Advised ibuprofen 200 mg 2-3 tablets every 6 hours as needed for pain and to follow up with PCP in 4-5 days if no improvement or any worsening. Patient verbalized understanding of and agreed to plan. In order to obtain further information and compare any laboratory results/values, I have accessed patient records on the [place] [facility]. This information was pertinent in my medical decision making today. [email or web address] Not available 01/28/2021 06:12:54 Plan of Treatment Reminders Order Date Submit Date Provider Last Modified By Organization Details Last Modified Time Details Appointments None recorded . Lab None recorded . Referral None recorded . Procedures None recorded . Surgeries None recorded . Imaging XR, hand, 2 view - fall injury 021 01/28/20 21 [address] [facility] ([facility] [address] [place] [address], [id number], 1 08:53:47 XR, wrist, 3 or more view 021 01/28/20 21 [address] ([facility] [address] [place] [address], [address], 08:53:47 Medication Orders None recorded . Patient TargetsNo targets recorded. Patient Instructions Encounter Date Encounter Id Patient Instructions Last Modified By Organization Details Last Modified Time 01/27/2021 [id number] Today you were seen for pain in your left hand and wrist for the past 2 months. We have ordered xrays to be done to check for any possible broken bones or abnormalities. You will be contacted by the agency that will come to do the xrays. You should rest the left hand as possible and apply cool compresses for 20-30 minutes 4- 6 times per day and elevate hand when doing so. You may take ibuprofen 200 mg (2-3 tablets) every 6 hour as needed for pain. You will be notified regarding the results of your xrays and further instructions if needed. A copy of this report will be sent to your doctor for follow up. You should your doctor if no improvement in 4-5 days or if any worsening. [email or web address] Not available 01/27/2021 14:37:39 Reason for Referral None Reported. Results Created Date Observation Date Name Description Value Unit Range Abnormal Flag Note LastModifiedBy Organization Detail LastModifiedTime 01/30/20 21 XR, hand, 2 view No observ ation record ed. [email or web address] [employer] ([employer]) [address] [facility], [place], [address], 01/29/2021 11:34:38 01/30/20 21 XR, wrist , 3 or more view No observ ation record ed. [employer] ([employer]) [address] [facility], [place], [address], 01/29/2021 11:34:39 Result Notes None recorded. Problems Name Problem SNOMED Code Status Onset Date Resolution Date Notes Provider Name and Address Organization Details Recorded Time History of primary malignan t neoplasm of kidney 214500841 Active 2020 TRENTON RIGGS NP [address], [place], [address], [place] [facility] 14:16:03 History of nephrect jazzy 2220578373 9104 Completed 202001/27/2021 Removal Reason: cancer TRENTON RIGGS, CARLOTTA [address], [place], [address], [place] [facility] 06:11:41 History of nephrect jazzy 0203277691 9104 Completed 202001/27/2021 TRENTON RIGGS NP [address], [place], [address], [place] [facility] 06:11:41 Chronic low back pain 429212646 Active 2020 TRENTONJack RIGGS, FOXER [address], [place], [address], [place] [facility] 14:17:30 History of nephrect jazzy 3244716732 9104 Active 2020 TRENTONJack RIGGS, CARLOTTA [address], [place], [address], [place] [facility] 06:11:41 Depressi ve disorder 59692166 Active 2020 TRENTON ONEIL, FOXER [address] [place], [address], [place] [facility] 14:18:09 Chronic insomnia 554956832 Active 2020 TRENTON ONEIL, CARLOT[place] [address], [place], [address], [place] [facility] 14:18:27 Hyperten sive disorder 75996728 Active 2020 TRENTON FLOWERMARYSE, FOXER [address], [place], [address], [place] [facility] 14:18:35 Subarach noid hemorrha ge 11167700 Active 2020 TRENTON ONEIL, FOXER [address], [place], [address], [place] [facility] 05:30:27 Problem Notes None recorded. Medical Equipment None Reported. Allergies No known drug allergies Medications Name Sig Start Date Stop Date Status Note LastModified by Organization Details LastModified Time clotrimazole 10 mg tosin DISSOLVE ONE TOSIN MOUTH/THROA T 5 TIMES A DAY FOR 7 DAYS active Not Available Not Available No t Available prednisone 10 mg tablet TAKE ONE TABLET BY MOUTH EVERY DAY IN THE MORNING WITH BREAKFAST active Not Available Not Available No t Available sucralfate 100 mg/mL oral suspension TAKE 10ML BY MOUTH 4 TIMES A DAY, (SHAKE WELL BEFORE EACH USE) active Not Available Not Available No t Available promethazine 12.5 mg tablet active Not Available Not Available Not Available lisinopril 20 mg tablet TAKE ONE TABLET BY MOUTH EVERY DAY active Not Available Not Available No t Available ondansetron HCl 4 mg tablet TAKE ONE TABLET BY MOUTH EVERY 8 TO 12 HOURS active Not Available Not Available No t Available prednisone 20 mg tablet TAKE ONE TABLET BY MOUTH TWICE A DAY active Not Available Not Available No t Available prochlorpera zine maleate 10 mg tablet TAKE ONE TABLET BY MOUTH EVERY 6 HOURS NEEDED active Not Available Not Available No t Available hydromorphon e 2 mg tablet TAKE ONE TABLET BY MOUTH TWICE A DAY NEEDED FOR PAIN active Not Available Not Available No t Available promethazine 50 mg tablet TAKE ONE TABLET BY MOUTH EVERY 8 HOURS NEEDED FOR NAUSEA active Not Available Not Available No t Available prochlorpera zine 25 mg rectal suppository INSERT ONE SUPPOSITORY INTO RECTUM ONCE DAILY NEEDED FOR NAUSEA. active Not Available Not Available Not Available cephalexin 500 mg capsule TAKE ONE CAPSULE BY MOUTH EVERY 12 HOURS FOR 7 DAYS active Not Available Not Available N ot Available vancomycin 250 mg capsule TAKE ONE CAPSULE BY MOUTH FOUR TIMES A DAY active Not Available Not Available Not Available omeprazole 20 mg capsule,bel yed release TAKE ONE CAPSULE BY MOUTH TWICE A DAY active Not Available Not Available No t Available folic acid 1 mg tablet TAKE ONE TABLET BY MOUTH EVERY DAY active Not Available Not Available No t Available hydroxyzine HCl 25 mg tablet TAKE ONE TABLET BY MOUTH EVERY 8 HOURS NEEDED active Not Available Not Available No t Available zolpidem 5 mg tablet TAKE ONE TABLET BY MOUTH EVERY DAY AT BEDTIME active Not Available Not Available No t Available lorazepam 1 mg tablet TAKE ONE TABLET BY MOUTH EVERY 6 HOURS NEEDED active Not Available Not Available No t Available budesonide DR - ER 3 mg capsule,bel yed,extended release TAKE TWO CAPSULES BY MOUTH EVERY DAY active Not Available Not Available No t Available scopolamine 1 mg over 3 days transdermal patch APPLY 1 PATCH ONTO THE SKIN EVERY THIRD DAY active Not Available Not Available No t Available oxycodone 5 mg tablet TAKE 1 TABLET BY MOUTH EVERY 8 HOURS NEEDED FOR PAIN. active Not Available Not Available No t Available cholestyrami ne (with sugar) 4 gram oral powder TAKE 1 SCOOP DISSOLVED IN WATER THREE TIMES A DAY WITH MEALS active Not Available Not Available No t Available duloxetine 30 mg capsule,bel yed release TAKE ONE CAPSULE BY MOUTH EVERY DAY active Not Available Not Available No t Available thiamine mononitrate (vitamin B1) 100 mg tablet TAKE ONE TABLET BY MOUTH EVERY DAY active Not Available Not Available No t Available Vitals Date Recorded Oxygen saturation Oxygen saturation in Arterial blood by Pulse oximetry Heart rate Respiratory rate Body temperature Systolic And Diastolic Provider Name and Address Organization Details Last Updated DateTime 1 95 % 95 % 94 /min 18 /min 97.7 [degF] 132/70 mm[Hg] Not Available [facility] 14:19:23 Social History None recorded. Functional Status None recorded. Mental Status None recorded. Family History Nothing Reported. Medical History No medical history recorded. Gynecological HistoryNo gynecological history recorded. Obstetrics History GPAL:G 0 P 0 0 0 0 Past Encounters Encounter ID Performer Location Encounter Start Date Encounter Closed Date Diagnosis/Indication Diagnosis SNOMED-CT Code Diagnosis ICD10 Code Diagnosis IMO Codes Diagnosis Note [id number] TRENTON RIGGS NP [facility] [address] [place] [address] 01/27/2021 14:12:09 01/28/2021 09:28:18 Pain of left wrist [id number] 56707 M25.532 Pending xray results Pain of left hand 210323 2069 15599 M79.642 Pending xray results Health Concerns Section Related Observation LastModified by Organization Clair [email or web address] LastModified Time None Recorded Concern Status LastModified by Organization Details LastModified Time None Recorded Advance Directives Directive None Recorded Payers Insurance Date Sequence Insurance Name Policy Number Policy Ricci Covered Member ID Ricci Member ID Guarantor Name 01/28/2021 1 MEDICARE B-[place]: [facility] [employer] Serene Ashraf [id number] Serene Ashraf 01/26/2021 2 [facility] SERVICES PLAN F (MEDICARE SUPPLEMENT) [id number] Serene Ashraf [id number] Serene Ashraf 01/26/2021 1 *SELF PAY* Serene Ashraf [id number] Serene Ashraf Notes Date Note Type Note Provider Name and Address Organization Details Recorded Time 01/27/2021 text/html 70 yo female with PMH of HTN, chronic insomnia, chronic low back pain with spinal stimulator, depression, history of renal cancer with nephrectomy c/o pain to the left hand for 2 months since she being discharged from short term rehab at [facility] after inpatient stay at [facility] for a fall. Reports she was getting out of a car and fell. Does not remember how she landed. Not able to recall events surrounding fall. Per [facility], patient was admitted to [facility] on 10/16/20 for fall and SAH, no surgery. She was discharged to rehab on 10/21/20. Patient reports pain is continuous to dorsum of left lateral hand and over medial aspect on palmar surface of left hand as well as generalized left wrist pain. Pain has been consistent in intensity over the past 2 months. Pain 3-4/10. Pain sometimes worse when using hand but not always. Pain somewhat improved with occasional use of Excedrin. Denies any new injury. Denies any numbness, weakness, or tingling in left fingers, hand or wrist. TRENTON RIGGS NP [address], [place], [address], [place] [facility] 01/28/2021 06:13:07 OBGyn Episode No OBEpisode recorded.
--- OUTSIDE RECORDS SUMMARY | 2025-04-17 11:50 | XMS_ITS | Encounter Summary ---
Author Organization [facility] Address [address] [place] [address] Phone Care Team Providers Care Crap Game Box Person Name Role Phone Wang Tilley MD Unavailable [phone] Rose Marie Manrique MD Primary Care Prov ider Benjamín Michelle MD Unavailable Unavailable Encounter Details Date Type Department Care Team (Late st Contact Info) Description 09/19/2016 Procedure Pass [facility] [address] [place] [address] Social History Tobacco Use Types Packs/Day Years [...] on filedocumented in this encounter Care Teams Crap Game Box Person Relationship Specialty Start Date End Date Rose Marie Manrique MD [address] [place] [address] PCP - General Internal Medicine 09/19/16 Wang Tilley MD [address] [facility] [place] [address] [email or web address] Referring Physician Urology 08/23/16 Benjamín Michelle MD Orthopedic Surgery 09/19/16 documented as of this encounter Additional Source Comments The information contained in this document represents components of the legal health record. It is not the complete legal health record.[facility]
== END 2025-04-17 11:45 | disposition home or self-care (01) ==
LOC: HO.HNS 10:26
PROVIDERS: PCP Internal Medicine; Visit Provider Physician Assistant
DX: M54.50 Low back pain, unspecified (principal)
CPT/HCPCS: 99213

== ENCOUNTER → 2025-04-17 10:25 | Outpatient (BNVA) | payer MEDICARE, OTHER, SELFPAY | PROVIDERS: PCP Internal Medicine; Visit Provider Physician Assistant | DX: M54.50 Low back pain, unspecified (principal); M85.89 Other specified disorders of bone density and structure, multiple sites | CPT/HCPCS: 99212 ==

== ENCOUNTER 2025-06-03 08:59 | Outpatient (AMB) | payer MEDICARE, OTHER, SELFPAY ==
--- OUTSIDE RECORDS SUMMARY | 2025-05-29 09:45 | XMS_ITS | Encounter Summary ---
Author Organization [facility] Address [address] [place] [address] Care Team Providers Care Airplane Designer Name Role Phone Dennise Mcelroy MD Primary Care Provider [phone] Reason for Visit * Reason Comments Follow-up Encounter Details Date Type Department Care Team (Latest Contact Info) Description 05/29/2025 9:45 AM EST Office Visit [facility] Hematology Oncology [address] [place] [address] Teo Mcclain MD [address] [place] [address] Malignant neoplasm of left kidney (CMS/HCC V24, CMS/HCC V28) (Primary Dx); Septic shock (CMS/HCC V24, CMS/HCC V28); Anemia, unspecified type; Anxiety; Intractable back pain; Drug-induced hypothyroidism Social History Tobacco Use Types Packs/Day Years [...] for your loved ones. For example, child care center administrator or elderly care for an older adult? [...] AM EDT documented as of this encounter Last Filed Vital Signs Vital Sign Reading Time Taken Comments Blood Pressure 112/51 05/29/2025 9:44 AM EST Pulse 80 05/29/2025 9:44 AM EST Temperature 36.1 C (97 F) 05/29/2025 9:44 AM EST Respiratory Rate - - Oxygen Saturation 98% 05/29/2025 9:44 AM EST Inhaled Oxygen Concentration - - Weight 94.8 kg (209 lb) 05/29/2025 9:44 AM EST Height 172.7 cm (5' 8 ) 05/29/2025 9:44 AM EST Body Mass Index 31.78 05/29/2025 9:44 AM EST documented in this encounter Progress Notes * Teo Butcher-MD Marine - 05/29/2025 9:45 AM EST CHIEF COMPLAINT: No chief complaint on file. Renal cell carcinoma Anemia Sepsis, UTI IDENTIFIER:Serene Ashraf is a 75 y.o. female. HPI: The patient returns for follow up of C carcinoma metastatic disease Immunotherapy related colitis, intractable nausea Intractable back pain Weight gain Anxiety For details of initial diagnosis and follow up until APR 18, 2024- please refer to notes from prior [facility] EMR last note dated 01/30/2024 - Patient was seen in clinic 6 months previously. She had lab work performed, but the specimens were lost. Due to recheck today. She continues close follow-up with her PCP who is providing her pain medication. She is to have a new PCP evaluation, requests the recommendations. No recent imaging, as she has completed more than 9 years on surveillance for metastatic renal cellcarcinoma Continues to be quite anxious, about her health and also her 's health. had a familymember/brother who due to leukemia and currently he is battling anemia. Patient is veryworried if he would develop leukemia as well Her weight is stable. Continues to experience intense back pain particularly with standing, movement which has been present for more than 5 years The following is copied, reviewed and edited Cancer Staging No matching staging information was found for the patient. Oncology History No problem history exists. 68 year-old presented with a upper pole left kidney mass in 2016 and underwent left partial nephrectomy on 07/22/2015 demonstrating a 2.5 x 2.1 x 1.6 cm renal cell carcinoma unclassified with papillary and collecting duct morphologic features. Tumor extended into the perinephric tissue. The surgical margins were negative, thus yielding tumor stage pT 3a NX. Ms. Ashraf was carefully followed with serial CT scans and on 08/08/2016 was seen to have a new mass arising from the posterior aspect of the left kidney measuring 1.5 cm in diameter with ill- defined margins. On 10/24/2016, Ms. Ashraf underwent left sided total nephrectomy adrenalectomy and lymphadenectomy with perinephric fat tissue exci joselyn as well. Residual tumor was seen to measure 1.5 x 0.6 x 0.5 cm. 17 lymph nodes contained in the specimen were all negative. There was no vascular invasion seen. Once again the pathology type is reported as renal cell carcinoma unclassified type. Postoperatively close serial CT scan management was then again undertaken. Ms. Ashraf was then seen by Dr. Didier Ernst of interventional radiology in consultation. After consideration of repeat biopsy, the decision was taken based on progression on serial CT scans and the malignant appearance of the lesion to undertake cryoablation. This wasperformed with excellent tolerance on 01/26/2017. After documented progression was observed, a trial of Votrient generated hepatotoxicity with protracted jaundice no evidence of benefit on repeat imaging. Opdivo was initiated on 08/27/2017 and has the yielded complete clinical response which has been stable now since that time with most recent scan on 04/12/2018 nivolumab discontinued after the last dose on 04/29/2018 because of intractable diarrhea. This has responded beautifully to a single dose of octreotide and oral budesonide. 09/13/2018 : Diarrhea resolved; Back didn't respond to IR cortisone injection; Feet currently hurting 09/20/2018: CT scan showed no evidence of cancer, Blood cultures negative Echocardiogram no vegetations, Feet still hurt 10/18/2018: Back still major issue along with fatigue. neurosurgeon recommended facet injections atinterventional radiology 10/30/2018: Had facet injection without relief 01/15/2019: Still fatigued; Bowels fine tapering steroid. Back better after facet injections PLAN --68-year-old smoker with metastatic renal cell carcinoma developed severe hepatotoxicity after one month of therapy with Votrient. It took nearly 2 months for jaundice and associated symptoms to resolve. After 8 months of therapy with Opdivo , CT scan showed marked stable response. Opdivo wasstopped because of the severe diarrhea. Exacerbation of diarrhea has resolved on budesonide. Currently no evidence of disease recurrence. No evidence of the endocarditis either septic or marantic with negative echocardiogram negative blood cultures. Plan 1. Stop Prednisone 2.5 mg every other day 2. Stop Budesonide 3. [address] scan 03/2019 -- More recently she has been experiencing significant, persistent nausea. Patient had a GI evaluationlast Sunday, Dr. Townsend called me to discuss, patient had cortisol estimates, that showed low values in the a.m., and low normal values in the p.m. Therefore, hypoadrenalism was suspected, patient was started on dexamethasone 0.5 mg p.o. twice a day. Patient denies any dizziness, episodes of fall, or weakness. Her weight has been fluctuating. For hypertension, she has been on lisinopril 40 mg daily She also has a prescription for pain medication, oxycodone, uses for severe back pain, osteoporoticvertebral fractures 02/08 She returns after labs and restaiging imaging No evidence of cancer recureence-- reassured But has chronic issues-- bothersome Very upset about back pain Inability to walk, weight gain, nausea, anxiety about cancer recurrence etc Follows with PCP re:L pain medication I advised against using more anxiety meds She may need counselling Diet management as unable to walk or exerise She denies any headache or vision changes. No new areas of skeletal pain apart from her chronic back issues. 11/2024 - Patient returns for 4-month follow-up. In the interim she had a hospitalization with episode of UTI, sepsis, hypotension requiring pressor support and ICU stay for nearly 2 weeks in late September. She is quite annoyed with the care that she received, so is her , reports that they nearly lost her twice due to the low blood pressure issues. She was also concerned about her diet requirements such as lactose-free diet not being followed strictly. She continues on follow- up with her PCP regarding pain management. She is walking with a walker. She is due for lab work, I will order today. Particularly in the anemia is of concern, will recheck. Imaging studies from hospitalization was reviewed, no evidence of cancer recurrence, reassured ROS: GENERAL: No malaise, significant weight loss or fever NECK: No lumps, goiter, pain or significant neck swelling RESPIRATORY: No cough, wheezing or shortness of breath CARDIOVASCULAR: No chest pain, leg swelling or palpitations GI: No abdominal discomfort, blood in stools or black stools MUSCULOSKELETAL: No joint pain or swelling, back pain, or muscle pain. HEMATOLOGY/LYMPHOLOGY No prolonged bleeding, easy bruisability or swollen nodes Other Systems review is non contributory PAST MEDICAL HISTORY: Active Ambulatory Problems Diagnosis Date Noted Alcohol abuse 09/08/2020 Anxiety 06/02/2019 Cachexia ([facility] V24) 11/26/2020 Clostridium difficile infection 03/01/2021 Collagenous colitis 03/24/2019 Essential hypertension 03/24/2019 Gait instability 11/26/2020 Intractable back pain 09/30/2019 Left upper quadrant abdominal pain 09/08/2020 Malignant neoplasm metastatic to both lungs ([facility] V24, [facility] V28) 10/29/2017 Malignant neoplasm of left kidney ([facility] V24, [facility] V28) 02/28/2017 Nausea 03/24/2019 Oral candidiasis 11/26/2020 Osteoporosis with current pathological fracture 04/08/2019 Weight gain 04/08/2019 Weight loss 03/01/2021 Septic shock ([facility] V24, [facility] V28) 10/03/2024 UTI (urinary tract infection) 10/03/2024 Metabolic acidosis 10/03/2024 Increased ammonia level 10/03/2024 Severe diarrhea 10/03/2024 Severe dehydration 10/03/2024 DEVYN (acute kidney injury) ([facility] V24) 10/03/2024 Anxiety and depression 10/06/2024 Panic anxiety syndrome 10/06/2024 Sepsis with acute organ dysfunction, due to unspecified organism, unspecified organ dysfunction type, unspecified whether septic shock present ([facility] V24, [facility] V28) 10/17/2024 Acute encephalopathy 10/18/2024 Acute hypoxic respiratory failure ([facility] V24, [facility] V28) 10/18/2024 Septic shock ([facility] V24, [facility] V28) 10/18/2024 Aspiration pneumonia ([facility] V24, [facility] V28) 10/18/2024 Heart palpitations 05/12/2025 Resolved Ambulatory Problems Diagnosis Date Noted No Resolved Ambulatory Problems Past Medical History: Diagnosis Date Anxiety disorder Depression FH: kidney cancer Hyperlipidemia Hypertension Renal cell carcinoma ([facility] V24, [facility] V28) Sleep apnea SOCIAL HISTORY: Social History Tobacco Use Smoking status: Former Current packs/day: 1.50 Types: Cigarettes Smokeless tobacco: Never Substance Use Topics Alcohol use: Yes FAMILY HISTORY: No family history on file. Current Outpatient Medications: ascorbic acid (VITAMIN C) 1,000 mg tablet, Take 1 tablet (1,000 mg total) by mouth 1 (one) time each day., Disp: , Rfl: buPROPion SR (WELLBUTRIN SR) 150 mg 12 hr tablet, Take 1 tablet (150 mg total) by mouth 1 (one) time each day in the morning., Disp: , Rfl: calcium citrate-vitamin D (CITRACAL+D) 315 mg-5 mcg (200 unit) per tablet, Take 1 tablet by mouth 2(two) times a day., Disp: , Rfl: cloNIDine (CATAPRES) 0.1 mg tablet, Take 1 tablet (0.1 mg total) by mouth 2 (two) times a day. (Patient taking differently: Take 1 tablet (0.1 mg total) by mouth 1 (one) time each day if needed.), Disp: , Rfl: D-MANNOSE ORAL, Take 1,500 mg by mouth 2 (two) times a day., Disp: , Rfl: DULoxetine (CYMBALTA) [address] capsule, Take 2 capsules (60 mg total) by mouth 1 (one) time each day. Do not crush or chew., Disp: , Rfl: estradioL (ESTRACE) 0.01 % (0.1 mg/gram) vaginal cream, Insert 2 g into the vagina 1 (one) time each day., Disp: , Rfl: folic acid/multivit-min/lutein (CENTRUM SILVER ORAL), Take by mouth 1 (one) time each day., Disp: ,Rfl: inositoL 650 mg tablet, Take by mouth., Disp: , Rfl: Lactobacillus acidophilus (PROBIOTIC ORAL), Take by mouth., Disp: , Rfl: lisinopriL (PRINIVIL,ZESTRIL) 5 mg tablet, Take 1 tablet (5 mg total) by mouth 1 (one) time each day. (Patient taking differently: Take 4 tablets (20 mg total) by mouth 1 (one) time each day.), Disp:30 each, Rfl: 0 LORazepam (ATIVAN) 2 mg tablet, Take 1 tablet (2 mg total) by mouth at bedtime as needed. (Patient taking differently: Take 1 tablet (2 mg total) by mouth at bedtime.), Disp: , Rfl: mirtazapine (REMERON) 15 mg tablet, Take 1 tablet (15 mg total) by mouth. at bedtime, Disp: , Rfl: omega-3 fatty acids 1,000 mg capsule, Take by mouth daily., Disp: , Rfl: oxyCODONE-acetaminophen (PERCOCET) 10-325 mg per tablet, every 8 (eight) hours if needed for severepain., Disp: , Rfl: prochlorperazine (COMPAZINE) 10 mg tablet, Take 1 tablet (10 mg total) by mouth every 6 (six) hoursif needed for nausea., Disp: 120 tablet, Rfl: 3 psyllium (METAMUCIL) 3.4 gram packet, Take 1 packet by mouth 1 (one) time each day., Disp: , Rfl: rosuvastatin (CRESTOR) 10 mg tablet, Take 1 tablet (10 mg total) by mouth 1 (one) time each day., Disp: , Rfl: tiZANidine (ZANAFLEX) 4 mg capsule, Take 1 capsule (4 mg total) by mouth 2 (two) times a day., Disp: , Rfl: Allergies Allergen Reactions Lactose Unknown PHYSICAL EXAM: Visit Vitals OB Status Postmenopausal Smoking Status Former APPEARANCE: Alert and in no acute distress Anxious, wheelchair EYES: PERRL, conjunctiva pink and sclera are Normal without icterus ORAL CAVITY: No erythema or exudates NECK: Neck supple, no adenopathy, HEART: RRR with normal S1 and S2, no murmurs, no gallops, no JVD appreciated LUNG: clear to auscultation bilaterally Percussion note normal LYMPH NODES: No palpable superficial adenopathy Vertebral-tenderness with thoracic and upper lumbar ABDOMEN: Bowel sounds normoactive, no bruits, soft, non-tender, without organomegaly or palpable masses EXTREMITIES: Extremities warm and well perfused without clubbing, cyanosis, rash or edema NEURO: Oriented X 3, no focal weakness; sensation is normal In size LABS: Review of Lab results , interpreted Lab Results Component Value Date WBC 9.1 11/27/2024 HGB 11.0 (L) 11/27/2024 HCT 37.4 11/27/2024 MCV 92.1 11/27/2024 PLT 207 11/27/2024 Lab Results Component Value Date NA 143 11/27/2024 K 3.8 11/27/2024 CL 107 11/27/2024 CO2 25 11/27/2024 GLUCOSE 107 (H) 11/27/2024 BUN 27 (H) 11/27/2024 CREATININE 1.83 (H) 11/27/2024 CALCIUM 9.5 11/27/2024 PROT 7.8 11/27/2024 ALBUMIN 3.7 11/27/2024 BILITOT 0.2 11/27/2024 AST 31 11/27/2024 ALT 28 11/27/2024 PHOS 3.3 10/24/2024 MG 1.8 (L) 10/25/2024 ALKPHOS 144 (H) 11/27/2024 EGFR 29 (L) 11/27/2024 Review of Imaging, interpreted MR Lumbar Spine wo Contrast Narrative: PROCEDURE: Lumbar spine MRI INDICATION: Pain TECHNIQUE: Multiplanar, multisequence MRI of the Lumbar spine Without contrast. COMPARISON: 10/17/2024 CT. FINDINGS: Mild retrolisthesis at L1-2, L2-3, and L3-4, similar compared to prior. Chronic T12 compression fracture with evidence of prior vertebral augmentation, unchanged. No acutefracture or suspicious marrow replacing lesion. Multilevel degenerative loss of normal disc height and signal of associated degenerative discogenicendplate change, most pronounced at L1-2 and L3-4. [...] endplate spurring. Bilateral facet arthropathy. Moderate left greaterthan right foraminal stenosis. No spinal canal stenosis.. [...] foraminal stenosis bilaterally. No spinal canal stenosis. Impression: Degenerative and postsurgical changes throughout the lumbar spine without high-grade foraminal or spinal canal stenosis. Chronic T12 compression fractures status post vertebral augmentation. No acute fracture. -------- FINAL REPORT -------- Dictated By: PJ CASIANO Dictated Date: 01/07/2025 15:11 ET Assigned Physician: PJ CASIANO Reviewed and Electronically Signed By: PJ CASIANO Signed Date: 01/07/2025 15:30 ET Workstation ID: [id number] Transcribed By: Self Edit Transcribed Date: 01/07/2025 15:11 ET Review of External Documentation Tests ordered - CT scans IMPRESSION: 1. Malignant neoplasm of left kidney (CMS/HCC V24, CMS/HCC V28) 2. Septic shock (CMS/HCC V24, CMS/HCC V28) 3. Anemia, unspecified type 4. Anxiety 5. Intractable back pain PLAN: 75 - year-old lady with renal cell carcinoma, stage IV disease, on surveillance x more than 7 years #1 Renal cell cancer --initial diagnosis 2015, status post nephrectomy, July 2015, metastatic disease, diagnosed in July 2016, treated with immunotherapy, discontinued Opdivo immunotherapy inNov2017, due to colitis Latest restaging imaging CT reviewed and copy provided It showed-stable changes no lymphadenopathy or mass, reassured Imaging studies from hospitalization reviewed in detail and a copy provided Also continue follow-up with case finisher due to patient's concern about CKD Soft tissue nodule in the retroperitoneal area noted, will monitor closely for any progression, none currently hold off imaging unless significant new symptoms #3 Nausea, --- continues on lorazepam for control of nausea which is improved Obtaining subsequent PCP #4 Essential Hypertension --appears to be stable, follows with PCP #5 transaminitis Prior history, secondary to Votrient, may need to use caution if further disease progression, may need lower doses of tyrosine kinase inhibitors if attempted #6 osteoporosis, vertebral fracture, pain control Continue follow-up with orthopedics/pain management, no recent fractures --No pain medications or anxiety medications from our office due to her prior issues with the medication overuse, and alcohol use -Currently on Percocet from PCP office. Needs a new PCP #7 History of C. difficile infection x2, in 2020 received treatment from GI office, Monitor for recurrence of diarrhea #8 Cardiac issues? On CT-- awaiting cardiology FU #9 Episode of sepsis, UTI, recovered after long hospital stay Completed more than 9 years since initial diagnosis in July 2015 #10 weight gain-May be candidate for medication such as ozempic / Wegovy -To discussion with the PCP #11 anxiety about health, familial stressors, counseled Clinic follow-up in 6 months sooner if any new issues. Pain Control--PCP team Health Care Proxy--her Teo Mcclain MD Cc Dennise Mcelroy MD documented in this encounter Plan of Treatment Upcoming Encounters Date Type Department Care Team (Late st Contact Info) Description 06/12/2025 10:30 AM EST Ancillary Procedure [facility] [address] [phone] 11/20/2025 10:30 AM EDT Office Visit [facility] Hematology Oncology [address] [place] [address] Teo Mcclain MD [address] [place] [address] Scheduled Orders Name Type Priority Associated Diagnoses Orde r Schedule Comprehensive metabolic panel Lab Routine Malignant neoplasm of left kidney (CMS/HCC V24, CMS/HCC V28) Every 12 weeks for 4 Occurrences starting 05/29/2025 until 05/29/2026, 1 completed documented as of this encounter Results * Thyroid stimulating hormone with reflex to free t4 and free t3 (05/29/2025 10:41 AM EST) TSH 1.54 0.40 - 4.00 mcIU/mL 05/29/2025 12:55 PM [facility] Blood Venous blood specimen / Unknown Venipuncture / Unknown 05/29/2025 10:41 AM EST 05/29/2025 11:27 AM EST Teo Mcclain MD LAB BLOOD ORDERABLE S Final Result [facility] [address] [place] [address], * (ABNORMAL) Comprehensive metabolic panel (05/29/2025 10:41 AM EST) Pathologist [facility] Sodium 137 133 - 145 mmol/L 05/29/2025 12:48 PM [facility] Potassium 6.0(H) 3.5 - 5.5 mmol/L 05/29/2025 12:48 PM [facility] Chloride 104 96 - 110 mmol/L 05/29/2025 12:48 PM [facility] CO2 24 21 - 32 mmol/L 05/29/2025 12:48 PM [facility] Anion Gap 9 3 - 11 05/29/2025 12:48 PM [facility] Glucose 120(H) 70 - 100 mg/dL 05/29/2025 12:48 PM [facility] BUN 33(H) 5 - 25 mg/dL 05/29/2025 12:48 PM [facility] Creatinine 1.73(H) 0.50 - 1.10 mg/dL 05/29/2025 12:48 PM [facility] eGFR 31(L) >=60 mL/min/1. 73m2 05/29/2025 12:48 PM [facility] Comment:Calculation based on the Chronic Kidney Disease Epidemiology Collaboration (CKD-EPI) equation refit without adjustment for race. BUN/Creatinine Ratio 19.1 05/29/2025 12:48 PM [facility] Calcium 9.7 8.5 - 10.5 mg/dL 05/29/2025 12:48 PM [facility] AST (SGOT) 28 10 - 42 unit/L 05/29/2025 12:48 PM [facility] ALT (SGPT) 32 10 - 60 unit/L 05/29/2025 12:48 PM [facility] Alkaline Phosphatase 169(H) 42 - 121 unit/L 05/29/2025 12:48 PM [facility] Total Protein 7.3 6.0 - 8.0 g/dL 05/29/2025 12:48 PM [facility] Albumin 4.5 3.2 - 5.0 g/dL 05/29/2025 12:48 PM [facility] Total Bilirubin 0.3 0.0 - 1.4 mg/dL 05/29/2025 12:48 PM [facility] Blood Venous blood specimen / Unknown Venipuncture / Unknown 05/29/2025 10:41 AM EST 05/29/2025 11:27 AM EST us Teo Mcclain MD LAB BLOOD ORDERABLE S Final Result [facility] [address] [place] [address], * (ABNORMAL) Iron and TIBC (05/29/2025 10:41 AM EST) [facility] Iron 48 40 - 150 mcg/dL 05/29/2025 12:48 PM EST [facility] TIBC 447 250 - 450 mcg/dL 05/29/2025 12:48 PM EST [facility] Iron Saturation 11(L) 15 - 50 % 12:48 PM EST [facility] Blood Venous blood specimen / Unknown Venipuncture / Unknown 05/29/2025 10:41 AM EST 05/29/2025 11:27 AM EST us Teo Mcclain MD LAB BLOOD ORDERABLE S Final Result Performing Organization Address [facility]/ZIP Co de Phone Number [facility] [address] [place] [address], [place] [phone] * Ferritin (05/29/2025 10:41 AM EST) [facility] Ferritin 23 7 - 271 ng/mL 05/29/2025 12:53 PM EST [facility] Blood Venous blood specimen / Unknown Venipuncture / Unknown 05/29/2025 10:41 AM EST 05/29/2025 11:27 AM EST us Teo Mcclain MD LAB BLOOD ORDERABLE S Final Result [facility] [address] [place] [address], [place] [phone] * Vitamin B12 and folate (05/29/2025 10:41 AM EST) [facility] Vitamin B-12 257 211 - 911 pcg/mL 05/29/2025 1:00 PM EST [facility] Folate >24.0 >=5.4 ng/ml 05/29/2025 1:00 PM EST [facility] Comment:Over the counter sup plements containing high doses of biotin may interfere with this assay. If interference is suspected, patients shoud be retested after refraining from biotin supplements for 72 hours. Blood Venous blood specimen / Unknown Venipuncture / Unknown 05/29/2025 10:41 AM EST 05/29/2025 11:27 AM EST Teo Mcclain MD LAB BLOOD ORDERABLE S Final Result [facility] ([facility]) [facility] [address] [place] [address], [place] [phone] documented in this encounter Visit Diagnoses Diagnosis Malignant neoplasm of left kidney (CMS/[facility] V24, CMS/[facility] V28)- Primary Septic shock (CMS/[facility] V24, [facility] V28) Anemia, unspecified type Anxiety Anxiety state, unspecified Intractable back pain Drug-induced hypothyroidism documented in this encounter Discontinued Medications Medication Sig Discontinue Reason Start Date End Da te polyethylene glycol (Golytely) 236-22.74-6.74 -5.86 gram solution Take 4L by mouth once for one dose. May substitue any PEG. Starting at 6PM the night before your procedure drink 1 8oz glasses at your own pace until you complete half of the gallon. Finish 2nd half of the gallon 5 hours before your procedure. 11/11/2024 05/28/2025 mirtazapine (REMERON) 7.5 mg tablet Take 1 tablet (7.5 mg total) by mouth at bedtime as needed (sleep). 10/25/2024 05/28/2025 metoprolol tartrate (LOPRESSOR) 25 mg tablet Take 1 tablet (25 mg total) by mouth 2 (two) times a day. 10/25/2024 05/28/2025 lactobacillus acidoph-l.bulgar 100 million cell granules in packet Take 1 packet by mouth 4 (four) times a day (with meals and nightly). 10/25/2024 05/28/2025 hydrOXYzine pamoate (VISTARIL) 50 mg capsuleIndications:Asp iration pneumonia of both lungs, unspecified aspiration pneumonia type, unspecified part of lung (CMS/[facility] V24, CMS/[facility] V28),Severe diarrhea Take 1 capsule (50 mg total) by mouth 3 (three) times a day if needed for anxiety for up to 10 days. 10/25/2024 05/28/2025 furosemide (LASIX) 20 mg tablet Take 1 tablet (20 mg total) by mouth 1 (one) time each day. 10/16/2024 05/28/2025 buPROPion (WELLBUTRIN) 75 mg tablet Take 1 tablet (75 mg total) by mouth 2 (two) times a day. 10/16/2024 05/28/2025 bisacodyL (DULCOLAX) 5 mg EC tablet Take 2 tablets by mouth right before beginning bowel prep. See instructions provided by the office 11/11/2024 05/28/2025 documented as of this encounter Historical Medications * This list may reflect changes made after this encounter. metoprolol succinate (TOPROL-XL) 25 mg 24 hr tablet Take 1 tablet (25 mg total) by mouth 1 (one) time each day. added in this encounter Care Teams Airplane Designer Relationship Specialty Start Date End Date Dennise Mcelroy MD [address] [phone] PCP - General 08/08/23 documented as of this encounter
--- OUTSIDE RECORDS SUMMARY | 2025-05-29 10:45 | XMS_ITS | Encounter Summary ---
Author Organization [facility] Address [address] [place] [address] Care Team Providers Care Merchandising Execution Manager Name Role Phone Dennise Mcelroy MD Primary Care Provider [phone] Encounter Details Date Type Department Care Team (Late st Contact Info) Description 05/29/2025 10:45 AM EST Lab Draw Station - [facility] [address] [address] Malignant neoplasm of left kidney (CMS/HCC V24, CMS/HCC V28); Drug-induced hypothyroidism Social History Tobacco Use Types Packs/Day Years Used Date Smoking Tobacco: Former Cigarettes Smokeless Tobacco: Never Alcohol Use Standard [...] for your loved ones. For example, child development specialist or elderly care for an older adult? [...] Description 06/12/2025 10:30 AM EST Ancillary Procedure [facility] [address] [place] [address] 11/20/2025 10:30 AM EDT Office Visit [facility] Hematology Oncology [address] [place] [phone] Teo Mcclain MD [address] [place] [address] documented as of this encounter Procedures Procedure Name Priority Date/Time Associated Diagnosis Comments THYROID STIMULATING HORMONE WITH REFLEX TO FREE T4 AND FREE T3 Routine 05/29/2025 10:41 AM EST Drug-induced hypothyroidism VITAMIN B12 AND FOLATE Routine 05/29/2025 10:41 AM EST Malignant neoplasm of left kidney (CMS/HCC V24, CMS/HCC V28) CBC WITH AUTO DIFFERENTIAL Routine 05/29/2025 10:41 AM EST Malignant neoplasm of left kidney (CMS/HCC V24, CMS/HCC V28) IRON AND TIBC Routine 05/29/2025 10:41 AM EST Malignant neoplasm of left kidney (CMS/HCC V24, CMS/HCC V28) CBC AND DIFFERENTIAL Routine 05/29/2025 10:41 AM EST Malignant neoplasm of left kidney (CMS/HCC V24, CMS/HCC V28) FERRITIN Routine 05/29/2025 10:41 AM EST Malignant neoplasm of left kidney (CMS/HCC V24, CMS/HCC V28) COMPREHENSIVE METABOLIC PANEL Routine 05/29/2025 10:41 AM EST Malignant neoplasm of left kidney (CMS/HCC V24, CMS/HCC V28) documented in this encounter Results * (ABNORMAL) CBC auto differential (05/29/2025 10:41 AM EST) WBC 6.8 4.8 - 10.8 K/mcL LAB HEMETOLOGY METHOD 05/29/2025 11:40 AM EST [facility] [[email or web address] RBC 4.00 3.80 - 4.80 M/mcL LAB HEMETOLOGY METHOD 05/29/2025 11:40 AM [facility] Hemoglobin 11.8 11.5 - 16.0 g/dL LAB HEMETOLOGY METHOD 05/29/2025 11:40 AM [facility] Hematocrit 37.4 35.0 - 47.0 % LAB HEMETOLOGY METHOD 05/29/2025 11:40 AM [facility] MCV 92.6 79.0 - 98.0 FL LAB HEMETOLOGY METHOD 05/29/2025 11:40 AM [facility] MCH 29.2 27.0 - 32.0 pcg LAB HEMETOLOGY METHOD 05/29/2025 11:40 AM [facility] MCHC 31.6(L) 32.0 - 37.0 g/dL LAB HEMETOLOGY METHOD 05/29/2025 11:40 AM [facility] RDW 13.6 11.0 - 15.0 % LAB HEMETOLOGY METHOD 05/29/2025 11:40 AM [facility] Platelets 213 130 - 400 K/mcL LAB HEMETOLOGY METHOD 05/29/2025 11:40 AM [facility] MPV 11.3(H) 7.0 - 11.0 FL LAB HEMETOLOGY METHOD 05/29/2025 11:40 AM [facility] NRBC 0.0 <1.0 % LAB HEMETOLOGY METHOD 05/29/2025 11:40 AM [facility] NRBC Absolute 0.00 <0.10 K/mcL LAB HEMETOLOGY METHOD 05/29/2025 11:40 AM [facility] Neutrophils Relative 59.7 % LAB HEMETOLOGY METHOD 05/29/2025 11:40 AM [facility] Lymphocytes Relative 28.7 % LAB HEMETOLOGY METHOD 05/29/2025 11:40 AM EST [facility] Monocytes Relative 8.6 % LAB HEMETOLOGY METHOD 05/29/2025 11:40 AM EST [facility] Eosinophils Relative 2.2 % LAB HEMETOLOGY METHOD 05/29/2025 11:40 AM [facility] Basophils Relative 0.4 % LAB HEMETOLOGY METHOD 05/29/2025 11:40 AM EST [facility] Immature Granulocytes Relative 0.4 % LAB HEMETOLOGY METHOD 05/29/2025 11:40 AM [facility] Neutrophils Absolute 4.08 1.50 - 7.00 K/mcL LAB HEMETOLOGY METHOD 05/29/2025 11:40 AM [facility] Lymphocytes Absolute 1.96 1.00 - 5.00 K/mcL LAB HEMETOLOGY METHOD 05/29/2025 11:40 AM EST [facility] Monocytes Absolute 0.59 0.20 - 1.00 K/mcL LAB HEMETOLOGY METHOD 05/29/2025 11:40 AM [facility] Eosinophils Absolute 0.15 0.00 - 0.50 K/mcL LAB HEMETOLOGY METHOD 05/29/2025 11:40 AM [facility] Basophils Absolute 0.03 0.00 - 0.20 K/mcL LAB HEMETOLOGY METHOD 05/29/2025 11:40 AM EST [facility] Immature Granulocytes Absolute 0.03 0.00 - 0.03 K/mcL LAB HEMETOLOGY METHOD 05/29/2025 11:40 AM [facility] Blood Venous blood specimen / Unknown Venipuncture / Unknown 05/29/2025 10:41 AM EST 05/29/2025 11:26 AM EST us Subramony Sarahi ALAMO LAB BLOOD ORDERABLE S Final Result [facility] [address] [place] [address], [place] [phone] * Thyroid stimulating hormone with reflex to free t4 and free t3 (05/29/2025 10:41 AM EST) TSH 1.54 0.40 - 4.00 mcIU/mL 05/29/2025 12:55 PM [facility] Blood Venous blood specimen / Unknown Venipuncture / Unknown 05/29/2025 10:41 AM EST 05/29/2025 11:27 AM EST Teo Mcclain MD LAB BLOOD ORDERABLE S Final Result [facility] [address] [place] [address], * (ABNORMAL) Comprehensive metabolic panel (05/29/2025 10:41 AM EST) Pathologist [facility] Sodium 137 133 - 145 mmol/L 05/29/2025 12:48 PM [facility] Potassium 6.0(H) 3.5 - 5.5 mmol/L 05/29/2025 12:48 PM [facility] Chloride 104 96 - 110 mmol/L 05/29/2025 12:48 PM [facility] CO2 24 21 - 32 mmol/L 05/29/2025 12:48 PM [facility] Anion Gap 9 3 - 11 05/29/2025 12:48 PM [facility] Glucose 120(H) 70 - 100 mg/dL 05/29/2025 12:48 PM [facility] BUN 33(H) 5 - 25 mg/dL 05/29/2025 12:48 PM [facility] Creatinine 1.73(H) 0.50 - 1.10 mg/dL 05/29/2025 12:48 PM [facility] eGFR 31(L) >=60 mL/min/1. 73m2 05/29/2025 12:48 PM [facility] Comment:Calculation based on the Chronic Kidney Disease Epidemiology Collaboration (CKD-EPI) equation refit without adjustment for race. BUN/Creatinine Ratio 19.1 05/29/2025 12:48 PM [facility] Calcium 9.7 8.5 - 10.5 mg/dL 05/29/2025 12:48 PM [facility] AST (SGOT) 28 10 - 42 unit/L 05/29/2025 12:48 PM [facility] ALT (SGPT) 32 10 - 60 unit/L 05/29/2025 12:48 PM [facility] Alkaline Phosphatase 169(H) 42 - 121 unit/L 05/29/2025 12:48 PM [facility] Total Protein 7.3 6.0 - 8.0 g/dL 05/29/2025 12:48 PM [facility] Albumin 4.5 3.2 - 5.0 g/dL 05/29/2025 12:48 PM [facility] Total Bilirubin 0.3 0.0 - 1.4 mg/dL 05/29/2025 12:48 PM [facility] Blood Venous blood specimen / Unknown Venipuncture / Unknown 05/29/2025 10:41 AM EST 05/29/2025 11:27 AM EST us Teo Mcclain MD LAB BLOOD ORDERABLE S Final Result [facility] [address] [place] [address], * (ABNORMAL) Iron and TIBC (05/29/2025 10:41 AM EST) Pathologist [facility] Iron 48 40 - 150 mcg/dL 05/29/2025 12:48 PM EST [facility] TIBC 447 250 - 450 mcg/dL 05/29/2025 12:48 PM EST [facility] Iron Saturation 11(L) 15 - 50 % 12:48 PM EST [facility] Blood Venous blood specimen / Unknown Venipuncture / Unknown 05/29/2025 10:41 AM EST 05/29/2025 11:27 AM EST us Teo Mcclain MD LAB BLOOD ORDERABLE S Final Result Performing Organization Address [facility]/ZIP Co de Phone Number [facility] [address] [place] [address], [place] [phone] * Ferritin (05/29/2025 10:41 AM EST) [facility] Ferritin 23 7 - 271 ng/mL 05/29/2025 12:53 PM EST [facility] Blood Venous blood specimen / Unknown Venipuncture / Unknown 05/29/2025 10:41 AM EST 05/29/2025 11:27 AM EST us Teo Mcclain MD LAB BLOOD ORDERABLE S Final Result [facility] [address] [place] [address], [place] [phone] * Vitamin B12 and folate (05/29/2025 10:41 AM EST) [facility] Vitamin B-12 257 211 - 911 pcg/mL 05/29/2025 1:00 PM EST [facility] Folate >24.0 >=5.4 ng/ml 05/29/2025 1:00 PM EST [facility] Comment:Over the counter sup plements containing high doses of biotin may interfere with this assay. If interference is suspected, patients shoud be retested after refraining from biotin supplements for 72 hours. Blood Venous blood specimen / Unknown Venipuncture / Unknown 05/29/2025 10:41 AM EST 05/29/2025 11:27 AM EST us Subramalyse Mcclain MD LAB BLOOD ORDERABLE S Final Result [facility] ([facility] [[email or web address] [address] [place] [address], documented in this encounter Visit Diagnoses Diagnosis Malignant neoplasm of left kidney (CMS/HCC V24, CMS/HCC V28) Drug-induced hypothyroidism documented in this encounter Care Teams Merchandising Execution Manager Relationship Specialty Start Date End Date Dennise Mcelroy MD [address] [phone] PCP - General 08/08/23 documented as of this encounter
--- NOTE | 2025-06-03 09:01 | A.OFFVIS_ITS ---
Vital Signs 3 06/03/25 09:06 Height 5 ft 4.88 in Weight 210 lb 7.026 oz BMI 35.1 BP 122/62 Blood Pressure Location Rt brachial Position Sitting Pulse 102 H Pulse Source Pulse Oximeter Pulse Oximetry (%) 96 Oxygen Delivery Method Room Air Intake Visit Reasons: Osteopenia Intake Note: NEW Patient presents today to establish care for Osteopenia: ? Date of last Bone Density Screenin02/08/2024 Leadership Development Consultant Required: No Accompanied by: Self / Same As Patient Allergies lactose Allergy (Verified 06/03/25 09:04) Diarrhea Microfoam surgical tape Allergy (Severe, Uncoded 06/03/25 09:04) Blister HPI Comments Details: 75 years old female with past medical history mentioned below, seen in the office for initial evaluation and management of osteoporosis. Past medical history is significant for a vertebral compression fracture in 2016, which was treated with kyphoplasty. Also reports a recent fracture of a small toe. Herniated disc surgery was performed in 1998. History of kidney cancer in 2016, resulting in the removal of one kidney. Also reports a history of metastatic malignant neoplasm to bilateral lungs in 2018, though this was not treated. Hypertension, depression, and anxiety are also reported. Denies any history of diabetes or thyroid issues, though recent thyroid function tests were normal. Presents for consultation regarding osteoporosis management. Reports significant back pain and expresses concern about bone health, particularly in the context of a recent diagnosis of osteopenia and a history of a vertebral compression fracture. Reports a history of osteoporosis, with a bone density test performed a long time ago, estimated to be over 10 years. Was prescribed Fosamax by Dr. Bedolla approximately two to three years ago but took it for less than one month before discontinuing due to concerns about dental health, specifically that it would ruin teeth, as advised by a dentist. Has not received any other treatment for osteoporosis since. Reports that treatments from [facility], including facet injections, were for back pain, not osteoporosis. Current medications include oxycodone-acetaminophen 10 mg for pain, bupropion (Wellbutrin), mirtazapine, metoprolol succinate, prochlorperazine, psyllium husk, rosuvastatin, and vitamin C. Previously took gabapentin but no longer does. Takes calcium citrate with vitamin D3 once daily and a [employer] multivitamin daily. Reports taking bupropion for depression and anxiety. Social history is notable for being a former smoker with a 47-year history of smoking. Diet is described as primarily consisting of meat and potatoes, with infrequent consumption of green leafy vegetables like broccoli and spinach. Reports lactose intolerance, causing diarrhea, and avoids milk and cheese. Drinks orange juice daily and occasionally consumes soda containing phosphoric acid. Allergies include lactose intolerance. Physical exam: General: Well appearing. NAD. Not Cushingoid or Acromegalic Neck/Thyroid: Thyroid not palpable, no nodules. CV: RRR, no murmur. No edema. Resp:Lungs clear to auscultation bilaterally Abdomen: Soft, nontender. nondistended Extremities/Neuro: Pain to palpation of her lumbar spine Labs Imaging [facility] Medical History (Updated 06/03/25 @ 11:27 by Kareen Saeed MD) Depression C. difficile colitis Spinal cord stimulator dysfunction Smoker History of chemotherapy Back pain ELIAS on CPAP Hypertension Clostridioides difficile infection Fatty liver Renal cancer Disc disorder Osteoarthritis Osteoporosis Low back pain Surgical History Hx of partial nephrectomy Status post kyphoplasty History of back surgery Hx of appendectomy H/O partial adrenalectomy H/O kyphoplasty Social History Alcohol intake: never Patient Tobacco Use Status: Former Tobacco user Cigarette Packs Per Day: 0.5 Cigarettes Per Day: 10.0 Years Smoked: 51 Female Reproductive History Menstrual Date of last Bone Density Screenin02/08/24 (DEXA done at [facility]) Physical Exam Vital Signs: Last Vital Signs Pulse 102 H 06/03/25 09:06 BP 122/62 06/03/25 09:06 Pulse Ox 96 06/03/25 09:06 Oxygen Delivery Method Room Air 06/03/25 09:06 BMI result Body Mass Index 35.1 Assessment & Plan Assessment & Plan (1) Osteoporosis: Code(s): M81.0 - Age-related osteoporosis without current pathological fracture Category: Medical Qualifiers: Presence of current pathological fracture: with current pathological fracture Osteoporosis type: age-related Encounter type: initial encounter Q ualified Code(s): M80.00XA - Age-related osteoporosis with current pathological fracture, unspecified site, initial encounter for fracture Plan: - Assessment: The diagnosis is osteoporosis based on the history of a spontaneous vertebral compression fracture in 2016, which is a high-risk fracture indicating clinically significant bone weakness regardless of bone density scan results that may suggest osteopenia. The current presentation is consistent with untreated osteoporosis. - Investigations planned: Will order blood work to assess calcium levels, thyroid function, and kidney function. A repeat 24-hour urine collection for calcium will be performed prior to the next follow-up appointment to assess calcium excretion after supplementation adjustments. - Medical treatment planned: Will initiate treatment with calcium citrate with vitamin D3, increasing the dose to one tablet twice daily. This is to ensure adequate calcium and vitamin D intake before considering other pharmacologic therapies. The plan is to start with an oral agent like Fosamax or an injectable agent such as Prolia (denosumab), or Reclast (zoledronic acid), depending on tolerance and kidney function. The choice of Prolia may be preferred given the reduced kidney function. - Lifestyle modifications: Advised to increase intake of calcium-rich foods. - Follow-up appointments: A follow-up appointment is scheduled in three months to review lab results and assess response to increased calcium supplementation before initiating further osteoporosis treatment. Additional Notes: - Patient education on the diagnosed condition: Extensive counseling was provided regarding the diagnosis of osteoporosis versus osteopenia, explaining that the history of a spontaneous vertebral fracture defines the condition as osteoporosis regardless of bone density numbers. The importance of treatment was emphasized to prevent further fractures, particularly of the spine and hips. The mechanism of osteoporosis medications was explained, clarifying that they help prevent fractures by strengthening bones. The risk of osteonecrosis of the jaw associated with certain medications (Biphosphonates/Prolia) was discussed in the context of upcoming dental work (root canal). It was explained that this risk is lower if there are no recent bone manipulations like extractions or implants. - Instructions for monitoring and managing symptoms: Instructed to start taking calcium citrate with vitamin D3 twice daily immediately. Provided instructions on how to properly collect the 24-hour urine sample for the next visit. - Any specific patient or family concerns addressed during the consultation: Addressed significant concerns regarding back pain management, clarifying that this is outside the scope of endocrinology practice and should be managed by pain specialists or primary care providers. Acknowledged the frustration with pain management and the difficulty in accessing adequate pain relief. Reassured that the current focus is on preventing further bone damage and fractures through appropriate osteoporosis treatment. Plan 70 minutes spent reviewing previous records, labs, imaging, education and documenting in the chart Orders: Orders 2 Comprehensive Met. Panel 10 Weeks M81.0 - Age-related osteoporosis without current pathological fracture Parathyroid Hormone Intact 10 Weeks M81.0 - Age-related osteoporosis without current pathological fracture Creatinine, 24 Hr Group 10 Weeks M81.0 - Age-related osteoporosis without current pathological fracture Free T4 (Free Thyroxine) 10 Weeks M81.0 - Age-related osteoporosis without current pathological fracture Thyroid Stimulating Hormone 10 Weeks M81.0 - Age-related osteoporosis without current pathological fracture Calcium, 24 Hr Ur 10 Weeks M81.0 - Age-related osteoporosis without current pathological fracture Phosphorus 10 Weeks M81.0 - Age-related osteoporosis without current pathological fracture Vitamin D 25-OH Total 10 Weeks M81.0 - Age-related osteoporosis without current pathological fracture Patient Instructions: Please take calcium citrate + Vit D 1 tab twice daily Please have blood/urine work up done (at least 2 weeks prior to next appointment) at [facility] on [address] [place] [address], [address], [address] [place] [address] 24-Hour Urine Calcium Collection Instructions Purpose: This test measures the amount of calcium excreted in your urine over a 24-hour period. It helps evaluate calcium metabolism and diagnose certain conditions. Supplies Needed: 24-hour urine collection container (provided by the lab or clinic) Urine hat or collection device (optional, for easier collection) Written instructions (this sheet) Instructions: Start the Collection: Choose a day when you can be at home or have easy access to a bathroom. Upon waking up on the first day, urinate and discard this first morning urine. Do not collect this sample. Note the exact time?this is your start time. Collect All Urine: For the next 24 hours, collect all urine you pass into the provided container. Each time you urinate, collect it in a clean container and transfer it to the 24-hour collection jug. Store the collection container in a cool place, preferably in a refrigerator or on ice, during the collection period. Finish the Collection: Exactly 24 hours after your start time, urinate one last time and add this urine to the container. This completes the collection. After Collection: Ensure the lid is tightly closed. Label the container with your name, date, and start/end times. Return the container to the laboratory or your physician?s office as soon as possible after completion. Important Tips: Do not miss any urine during the 24-hour period. If you do, the test may need to be repeated. Do not allow toilet paper, stool, or other materials to get into the urine sample. Continue your usual diet unless instructed otherwise. Some tests may require you to avoid certain foods or medications?follow any additional instructions provided by your physician. Coding Level of Care Code New Pt Level 5 (21614) Add On Problem Visit Only Diagnoses Age-related osteoporosis with current pathological fracture, initial encounter M80.00XA Presence of current pathological fracture: with current pathological fracture Osteoporosis type: age-related Encounter type: initial encounter
[2025-06-03 09:06] VITALS: BP 122/62; PULSE 102; O2SAT 96; BMI 35.1
--- OUTSIDE RECORDS SUMMARY | 2025-06-03 09:42 | XMS_ITS | Encounter Summary ---
Author Organization [facility] Address [address] [place] [address] Care Team Providers Care Bindery Operator Name Role Phone Dennise Mcelroy MD Primary Care Provider [phone] Encounter Details Date Type Department Care Team (Late st Contact Info) Description 10/31/2024 Lab Requisition [facility] - Main Lab [address] [place] [address] Racquel Hendricks MD [address] [place] [address] Chronic systolic (congestive) heart failure (CMS/HCC V24, CMS/HCC V28); Severe sepsis with septic shock (CODE) (CMS/HCC V24, CMS/[facility] V28) Social History Tobacco Use Types Packs/Day [...] your loved ones. For example, child care associate teacher or elderly care for an older adult? [...] Description 06/12/2025 10:30 AM EST Ancillary Procedure [facility] - [address] [place] [phone] 11/20/2025 10:30 AM EDT Office Visit [facility] Hematology Oncology [address] [place] [phone] Teo Mcclain MD [address] [place] [phone] documented as of this encounter Procedures Procedure Name Priority Date/Time Associated Diagnosis Comments CBC WITH AUTO DIFFERENTIAL Routine 10/31/2024 5:42 AM EDT Chronic systolic (congestive) heart failure (CMS/HCC V24, CMS/HCC V28) Severe sepsis with septic shock (CODE) (CMS/HCC V24, CMS/HCC V28) CBC AND DIFFERENTIAL Routine 10/31/2024 5:42 [...] CBC auto differential (10/31/2024 5:42 AM EDT) WBC 7.6 4.8 - 10.8 K/[facility] LAB HEMETOLOGY METHOD 10/31/2024 10:14 AM EDT [facility] RBC 3.70(L) 3.80 - 4.80 M/mcL LAB HEMETOLOGY METHOD 10/31/2024 10:14 AM EDT [facility] Hemoglobin 10.4(L) 11.5 - 16.0 g/dL LAB HEMETOLOGY METHOD 10/31/2024 10:14 AM [facility] Hematocrit 34.0(L) 35.0 - 47.0 % LAB HEMETOLOGY METHOD 10/31/2024 10:14 AM [facility] MCV 92.9 79.0 - 98.0 FL LAB HEMETOLOGY METHOD 10/31/2024 10:14 AM [facility] MCH 28.4 27.0 - 32.0 pcg LAB HEMETOLOGY METHOD 10/31/2024 10:14 AM [facility] MCHC 30.6(L) 32.0 - 37.0 g/dL LAB HEMETOLOGY METHOD 10/31/2024 10:14 AM [facility] RDW 14.1 11.0 - 15.0 % LAB HEMETOLOGY METHOD 10/31/2024 10:14 AM [facility] Platelets 172 130 - 400 K/mcL LAB HEMETOLOGY METHOD 10/31/2024 10:14 AM [facility] MPV 12.6(H) 7.0 - 11.0 FL LAB HEMETOLOGY METHOD 10/31/2024 10:14 AM [facility] NRBC 0.0 <1.0 % LAB HEMETOLOGY METHOD 10/31/2024 10:14 AM [facility] NRBC Absolute 0.00 <0.10 K/mcL LAB HEMETOLOGY METHOD 10/31/2024 10:14 AM [facility] Neutrophils Relative 60.8 % LAB HEMETOLOGY METHOD 10/31/2024 10:14 AM [facility] Lymphocytes Relative 23.6 % LAB HEMETOLOGY METHOD 10/31/2024 10:14 AM [facility] Monocytes Relative 10.8 % LAB HEMETOLOGY METHOD 10/31/2024 10:14 AM EDT [facility] Eosinophils Relative 4.1 % LAB HEMETOLOGY METHOD 10/31/2024 10:14 AM EDT [facility] Basophils Relative 0.4 % LAB HEMETOLOGY METHOD 10/31/2024 10:14 AM EDT [facility] Immature Granulocytes Relative 0.3 % LAB HEMETOLOGY METHOD 10/31/2024 10:14 AM EDT [facility] Neutrophils Absolute 4.61 1.50 - 7.00 K/mcL LAB HEMETOLOGY METHOD 10/31/2024 10:14 AM EDT [facility] Lymphocytes Absolute 1.79 1.00 - 5.00 K/mcL LAB HEMETOLOGY METHOD 10/31/2024 10:14 AM EDT [facility] Monocytes Absolute 0.82 0.20 - 1.00 K/mcL LAB HEMETOLOGY METHOD 10/31/2024 10:14 AM EDT [facility] Eosinophils Absolute 0.31 0.00 - 0.50 K/mcL LAB HEMETOLOGY METHOD 10/31/2024 10:14 AM EDT [facility] Basophils Absolute 0.03 0.00 - 0.20 K/mcL LAB HEMETOLOGY METHOD 10/31/2024 10:14 AM EDT [facility] Immature Granulocytes Absolute 0.02 0.00 - 0.03 K/mcL LAB HEMETOLOGY METHOD 10/31/2024 10:14 AM EDT [facility] Blood Venous blood specimen / Unknown Venipuncture / Unknown 10/31/2024 5:42 AM EDT 10/31/2024 9:15 AM EDT us Racquel Hendricks MD LAB BLOOD ORDERABLES Final Resu lt [facility] [address] [place] [address], * (ABNORMAL) Basic metabolic panel (10/31/2024 5:42 AM EDT) Sodium 140 133 - 145 mmol/L LAB CHEMISTRY METHOD 10/31/2024 11:47 AM [facility] Potassium 3.5 3.5 - 5.5 mmol/L LAB CHEMISTRY METHOD 10/31/2024 11:47 AM [facility] Chloride 103 96 - 110 mmol/L LAB CHEMISTRY METHOD 10/31/2024 11:47 AM [facility] CO2 25 21 - 32 mmol/L LAB CHEMISTRY METHOD 10/31/2024 11:47 AM [facility] Anion Gap 12(H) 3 - 11 LAB CHEMISTRY METHOD 10/31/2024 11:47 AM [facility] Glucose 72 70 - 100 mg/dL LAB CHEMISTRY METHOD 10/31/2024 11:47 AM [facility] BUN 22 5 - 25 mg/dL LAB CHEMISTRY METHOD 10/31/2024 11:47 AM [facility] Creatinine 1.64(H) 0.50 - 1.10 mg/dL LAB CHEMISTRY METHOD 10/31/2024 11:47 AM [facility] eGFR 33(L) >=60 mL/min/1. 73m2 LAB CHEMISTRY METHOD 10/31/2024 11:47 AM [facility] Comment:Calculation based on the Chronic Kidney Disease Epidemiology Collaboration (CKD-EPI) equation refit without adjustment for race. BUN/Creatinine Ratio 13.4 LAB CHEMISTRY METHOD 10/31/2024 11:47 AM [facility] Calcium 9.5 8.5 - 10.5 mg/dL LAB CHEMISTRY METHOD 10/31/2024 11:47 AM [facility] Blood Venous blood specimen / Unknown Venipuncture / Unknown 10/31/2024 5:42 AM EDT 10/31/2024 9:15 AM EDT us Racquel Hendricks MD LAB BLOOD ORDERABLES Final Resu lt [facility] [address] [place] [address], documented in this encounter Visit Diagnoses Diagnosis Chronic systolic (congestive) heart failure (CMS/HCC V24, CMS/[facility] V28) Severe sepsis with septic shock (CODE) (CMS/HCC V24, [facility] V28) documented in this encounter Care Teams Bindery Operator Relationship Specialty Start Date End Date Dennise Mcelroy MD [address] [address] PCP - General 08/08/23 documented as of this encounter
--- OUTSIDE RECORDS SUMMARY | 2025-06-03 09:42 | XMS_ITS | Encounter Summary ---
Author Organization [facility] Address [address] [place] [address] Care Team Providers Care Oil Field Operator Name Role Phone Dennise Mcelroy MD Primary Care Provider [phone] Encounter Details Date Type Department Care Team (Late st Contact Info) Description 10/27/2024 Lab Requisition [facility] - Main Lab [address] [place] [address] Racquel Hendricks MD [address] [place] [id number] Acute kidney failure, unspecified (CMS/HCC V24); Sepsis, [...] do you feel lonely or isolated from ose around you? Never 10/04/2024 Food Risk [...] your loved ones. For example, child development teacher or elderly care for an older [...] Description 06/12/2025 10:30 AM EST Ancillary Procedure [facility] - [address] [place] [phone] 11/20/2025 10:30 AM EDT Office Visit [facility] Hematology Oncology [address] [place] [address] Hadley-Teo Hawthorne MD [address] [place] [address] documented as of this encounter Procedures Procedure Name Priority Date/Time Associated Diagnosis Comments COMPLETE BLOOD COUNT Routine 10/27/2024 4:14 AM EDT Acute kidney failure, unspecified ([facility] V24) Sepsis, unspecified organism ([facility] V24, [facility] V28) BASIC METABOLIC PANEL Routine 10/27/2024 4:14 AM EDT Acute kidney failure, unspecified ([facility] V24) Sepsis, unspecified organism ([facility] V24, CMS/HCC V28) documented in this encounter Results * (ABNORMAL) Basic metabolic panel (10/27/2024 4:14 AM EDT) Sodium 142 133 - 145 mmol/L LAB CHEMISTRY METHOD 10/27/2024 10:43 AM [facility] Potassium 4.0 3.5 - 5.5 mmol/L LAB CHEMISTRY METHOD 10/27/2024 10:43 AM T [facility] Comment:Hemolysis present Chloride 106 96 - 110 mmol/L LAB CHEMISTRY METHOD 10/27/2024 10:43 AM [facility] CO2 28 21 - 32 mmol/L LAB CHEMISTRY METHOD 10/27/2024 10:43 AM [facility] Anion Gap 8 3 - 11 LAB CHEMISTRY METHOD 10/27/2024 10:43 AM [facility] Glucose 84 70 - 100 mg/dL LAB CHEMISTRY METHOD 10/27/2024 10:43 AM EDT [facility] BUN 7 5 - 25 mg/dL LAB CHEMISTRY METHOD 10/27/2024 10:43 AM EDT [facility] Creatinine 1.19(H) 0.50 - 1.10 mg/dL LAB CHEMISTRY METHOD 10/27/2024 10:43 AM T [facility] eGFR 48(L) >=60 mL/min/1. 73m2 LAB CHEMISTRY METHOD 10/27/2024 10:43 AM EDT [facility] Comment:Calculation based on the Chronic Kidney Disease Epidemiology Collaboration (CKD-EPI) equation refit without adjustment for race. BUN/Creatinine Ratio 5.9 LAB CHEMISTRY METHOD 10/27/2024 10:43 AM [facility] Calcium 9.0 8.5 - 10.5 mg/dL LAB CHEMISTRY METHOD 10/27/2024 10:43 AM [facility] Blood Venous blood specimen / Unknown Venipuncture / Unknown 10/27/2024 4:14 AM EDT 10/27/2024 9:43 AM EDT us Racquel Hendricks MD LAB BLOOD ORDERABLES Final Resu lt [facility] [address] [place] [address], * (ABNORMAL) Complete blood count (10/27/2024 4:14 AM EDT) WBC 4.7(L) 4.8 - 10.8 K/mcL LAB HEMETOLOGY METHOD 10/27/2024 10:08 AM EDT [facility] RBC 3.50(L) 3.80 - 4.80 M/mcL LAB HEMETOLOGY METHOD 10/27/2024 10:08 AM EDT [facility] Hemoglobin 9.9(L) 11.5 - 16.0 g/dL LAB HEMETOLOGY METHOD 10/27/2024 10:08 AM EDT [facility] Hematocrit 32.5(L) 35.0 - 47.0 % LAB HEMETOLOGY METHOD 10/27/2024 10:08 AM EDT [facility] MCV 93.4 79.0 - 98.0 FL LAB HEMETOLOGY METHOD 10/27/2024 10:08 AM EDT [facility] MCH 28.4 27.0 - 32.0 pcg LAB HEMETOLOGY METHOD 10/27/2024 10:08 AM EDT [facility] MCHC 30.5(L) 32.0 - 37.0 g/dL LAB HEMETOLOGY METHOD 10/27/2024 10:08 AM [facility] RDW 14.6 11.0 - 15.0 % LAB HEMETOLOGY METHOD 10/27/2024 10:08 AM [facility] Platelets 136 130 - 400 K/mcL LAB HEMETOLOGY METHOD 10/27/2024 10:08 AM T [facility] MPV 12.6(H) 7.0 - 11.0 FL LAB HEMETOLOGY METHOD 10/27/2024 10:08 AM [facility] NRBC 0.0 <1.0 % LAB HEMETOLOGY METHOD 10/27/2024 10:08 AM EDT [facility] NRBC Absolute 0.00 <0.10 K/mcL LAB HEMETOLOGY METHOD 10/27/2024 10:08 AM [facility] Blood Venous blood specimen / Unknown Venipuncture / Unknown 10/27/2024 4:14 AM EDT 10/27/2024 9:43 AM EDT us Racquel Hendricks MD LAB BLOOD ORDERABLES Final Resu lt [facility] [address] [place] [address], documented in this encounter Visit Diagnoses Diagnosis Acute kidney failure, unspecified (CMS/HCC V24) Acute kidney failure, unspecified Sepsis, unspecified organism (CMS/HCC V24, CMS/[facility] V28) documented in this encounter Care Teams Oil Field Operator Relationship Specialty Start Date End Date Dennise Mcelroy MD [address] [address] PCP - General 08/08/23 documented as of this encounter
--- OUTSIDE RECORDS SUMMARY | 2025-06-03 09:42 | XMS_ITS ---
Author Name [facility] Organization Unknown Encounters Encounter Type Encounter Reason Primary Diagnosis Location Date Ambulatory [facility] 05/11/2025 Ambulatory [facility] 05/11/2025 Ambulatory [facility] 05/11/2025
--- OUTSIDE RECORDS SUMMARY | 2025-06-03 09:42 | XMS_ITS | Encounter Summary ---
Author Organization [facility] Address [address] [place] [address] Phone Care Team Providers Care Frame Coverer Name Role Phone Wang Tilley MD Unavailable [phone] Rose Marie Manrique MD Primary Care Prov ider Benjamín Michelle MD Unavailable Unavailable Encounter Details Date Type Department Care Team (Late st Contact Info) Description 09/19/2016 Procedure Pass [facility] [address] [place] [address] Social History Tobacco Use Types Packs/Day Years [...] on filedocumented in this encounter Care Teams Frame Coverer Relationship Specialty Start Date End Date Rose Marie Manrique MD [address] [place] [address] PCP - General Internal Medicine 09/19/16 Wang Tilley MD [address] [place] [address] [email or web address] Referring Physician Urology 08/23/16 Benjamín Michelle MD Orthopedic Surgery 09/19/16 documented as of this encounter Additional Source Comments The information contained in this document represents components of the legal health record. It is not the complete legal health record.[facility]
--- OUTSIDE RECORDS SUMMARY | 2025-06-03 09:42 | XMS_ITS | Clinical Summary ---
Author Organization [facility] [employer] [facility] Prior to 11/15/[address] [place] [address] Care Team Providers Care Senior Ui Ux Designer Name Role Phone Dennise Mcelroy MD [...] (PROBIOTIC PO) Take by mouth. 0 Active [place]-3 Fatty Acids (FISH OIL) 1000 MG CAPS [...] age to complete this topic Care Teams Senior Ui Ux Designer Relationship Specialty Start Date End Date Dennise Mcelroy MD [address] [phone] PCP - General Internal Medicine 08/08/23
--- OUTSIDE RECORDS SUMMARY | 2025-06-03 09:42 | XMS_ITS | Clinical Summary ---
Author Organization [facility] Address [address] [place] [address] Phone Care Team Providers Care Pipe Fitter Name Role Phone Wang Tilley MD Unavailable [phone] Rose Marie Manrique MD Primary Care Prov [...] VACCINES (50+ years) (2 of 2 - PPSV23, PCV20, or PCV21) 08/30/2017 07/05/2017 INFLUENZA VACCINE (#1) 2025 0, [...] topic Medical Devices Not on file Insurance [employer] [facility] TOTAL CHOICE INDEMNITY MEDICARE PART A & B [employer] [facility] TOTAL CHOICE INDEMNITY MEDICARE PART A & B [employer] [facility] TOTAL CHOICE INDEMNITY MEDICARE PART A & B [employer] TOTAL CHOICE INDEMNITY MEDICARE PART A & B [employer] TOTAL CHOICE INDEMNITY MEDICARE PART A & B [facility] TOTAL CHOICE INDEMNITY MEDICARE PART A & B [employer] TOTAL CHOICE INDEMNITY MEDICARE PART A & B [employer] TOTAL CHOICE INDEMNITY MEDICARE PART A & B [facility] TOTAL CHOICE INDEMNITY MEDICARE PART A & B Advance Directives For more information, please contact: [phone] (9AM - 5PM [facility], Sunday-Sunday) Documents on File Type Date Recorded Patient Office Bookkeeper Expl anation Durable Power of Boring Machine Operator 11/17/2019 11:10 AM Healthcare Proxy 09/19/2016 1:14 PM [facility] are Proxy Care Teams Pipe Fitter Relationship Specialty Start Date End Date Rose Marie Manrique MD [address] [facility] [address] [place] [address] PCP - General Internal Medicine 09/19/16 Wang Tilley MD [address] [facility] [address] [place] [address] [email or web address] Referring Physician Urology 08/23/16 Benjamín Michelle MD Orthopedic Surgery 09/19/16 Additional Source Comments The information contained in this document represents components of the legal health record. It is not the complete legal health record.[facility]
--- OUTSIDE RECORDS SUMMARY | 2025-06-03 09:43 | XMS_ITS | Encounter Summary ---
Author Organization [facility] Address [address] [place] [address] Phone Care Team Providers Care Svp Digital Sales Name Role Phone Wang Tilley MD Unavailable [phone] Rose Marie Manrique MD Primary Care Prov ider Benjamín Michelle MD Unavailable Unavailable Encounter Details Date Type Department Care Team (Late st Contact Info) Description 09/19/2016 Procedure Pass [facility] [address] [place] [address] Social History Tobacco Use Types Packs/Day Years [...] on filedocumented in this encounter Care Teams Svp Digital Sales Relationship Specialty Start Date End Date Rose Marie Manrique MD [address] [facility] [address] [place] [address] PCP - General Internal Medicine 09/19/16 Wang Tilley MD [address] [facility] [address] [place] [address] [email or web address] Referring Physician Urology 08/23/16 Benjamín Michelle MD Orthopedic Surgery 09/19/16 documented as of this encounter Additional Source Comments The information contained in this document represents components of the legal health record. It is not the complete legal health record.[facility]
--- OUTSIDE RECORDS SUMMARY | 2025-06-03 09:43 | XMS_ITS | Encounter Summary ---
Author Organization [facility] Address [address] [place] [address] Phone Care Team Providers Care Commodities Requirements Analyst Name Role Phone Wang Tilley MD Unavailable [phone] Rose Marie Manrique MD Primary Care Prov ider Benjamín Michelle MD Unavailable Unavailable Encounter Details Date Type Department Care Team (Late st Contact Info) Description 09/19/2016 Procedure Pass [facility] [address] [place] [address] Social History Tobacco Use Types Packs/Day Years [...] on filedocumented in this encounter Care Teams Commodities Requirements Analyst Relationship Specialty Start Date End Date Rose Marie Manrique MD [address] [facility] [address] [place] [address] PCP - General Internal Medicine 09/19/16 Wang Tilley MD [address] [facility] [address] [place] [address] [email or web address] Referring Physician Urology 08/23/16 Benjamín Michelle MD Orthopedic Surgery 09/19/16 documented as of this encounter Additional Source Comments The information contained in this document represents components of the legal health record. It is not the complete legal health record.[facility]
--- OUTSIDE RECORDS SUMMARY | 2025-06-03 09:43 | XMS_ITS | Encounter Summary ---
Author Organization [facility] Address [address] [facility] [address] [place] [address] Phone Care Team Providers Care Chiller Tender Name Role Phone Wang Tilley MD Unavailable [phone] Rose Marie Manrique MD Primary Care Prov ider Benjamín Michelle MD Unavailable Unavailable Encounter Details Date Type Department Care Team (Late st Contact Info) Description 09/19/2016 Procedure Pass [facility] [address] [place] [address] Social History Tobacco Use Types Packs/Day Years [...] on filedocumented in this encounter Care Teams Chiller Tender Relationship Specialty Start Date End Date Rose Marie Manrique MD [address] [facility] [address] [place] [address] PCP - General Internal Medicine 09/19/16 Wang Tilley MD [address] [facility] [address] [place] [address] [email or web address] Referring Physician Urology 08/23/16 Benjamín Michelle MD Orthopedic Surgery 09/19/16 documented as of this encounter Additional Source Comments The information contained in this document represents components of the legal health record. It is not the complete legal health record.[facility]
--- OUTSIDE RECORDS SUMMARY | 2025-06-03 09:43 | XMS_ITS | Encounter Summary ---
Author Organization [facility] Address [address] [place] [address] Phone Care Team Providers Care Animal Bounty Hunter Name Role Phone Wang Tilley MD Unavailable [phone] Rose Marie Manrique MD Primary Care Prov ider Benjamín Michelle MD Unavailable Unavailable Encounter Details Date Type Department Care Team (Late st Contact Info) Description 09/19/2016 Procedure Pass [facility] [address] [place] [address] Social History Tobacco Use Types Packs/Day Years [...] on filedocumented in this encounter Care Teams Animal Bounty Hunter Relationship Specialty Start Date End Date Rose Marie Manrique MD [address] [facility] [address] [place] [address] PCP - General Internal Medicine 09/19/16 Wang Tilley MD [address] [facility] [address] [place] [address] [email or web address] Referring Physician Urology 08/23/16 Benjamín Michelle MD Orthopedic Surgery 09/19/16 documented as of this encounter Additional Source Comments The information contained in this document represents components of the legal health record. It is not the complete legal health record.[facility]
--- OUTSIDE RECORDS SUMMARY | 2025-06-03 09:43 | XMS_ITS | Clinical Summary ---
Author Organization [facility] Address [address] [place] [address] Phone Care Team Providers Care Die Grinder Name Role Phone Dennise Mcelroy MD Primary Care Provider Allergies Active Allergy Reactions Criticality Noted Date Comments Lactose Unknown 10/03/2024 Medications calcium citrate-vitami n D (CITRACAL+D) 315 mg-5 mcg (200 unit) per tablet Take 1 tablet by mouth 2 (two) times a day. Active folic acid/multivit- min/lutein (CENTRUM SILVER ORAL) Take by mouth 1 [...] mouth 1 (one) time each day. Active prochlorperazi ne (COMPAZINE) 10 mg tablet Take 1 tablet (10 mg total) by mouth every 6 (six) hours if needed for nausea. 120 tablet 3 08/29/19 25 Active DULoxetine (CYMBALTA) [address] capsule Take 2 capsules (60 mg total) by mouth 1 (one) time each day. Do not crush or chew. 10/17/19 Active lisinopriL (PRINIVIL,ZEST RIL) 5 mg tablet Take 1 tablet (5 mg total) by mouth 1 (one) time each day. 30 each 10/17/19 Active Additional Information Patient taking differently: 20 mgoral Daily, Reported on 05/12/2025 psyllium (METAMUCIL) 3.4 gram packet Take 1 packet by mouth 1 (one) time each day. 10/27/19 25 2025 Active LORazepam (ATIVAN) 2 mg tablet Take 1 tablet (2 mg total) by mouth at bedtime as needed. 03/29/20 Active mirtazapine (REMERON) 15 mg tablet Take 1 tablet (15 mg total) by mouth. at bedtime Active buPROPion SR (WELLBUTRIN SR) 150 mg 12 hr tablet Take 1 tablet (150 mg total) by mouth 1 (one) time each day in the morning. Active ascorbic acid (VITAMIN C) 1,000 mg tablet Take 1 tablet (1,000 mg total) by mouth 1 (one) time each day. Active inositoL 650 mg tablet Take by mouth. Activ e D-MANNOSE ORAL Take 1,500 mg by mouth 2 (two) times a day. Active oxyCODONE-acet aminophen (PERCOCET) 10-325 mg per tablet every 8 (eight) hours if needed for severe pain. Active estradioL (ESTRACE) 0.01 % (0.1 mg/gram) vaginal cream Insert 2 g into the vagina 1 (one) time each day. Active tiZANidine (ZANAFLEX) 4 mg capsule Take 1 capsule (4 mg total) by mouth 2 (two) times a day. Active metoprolol succinate (TOPROL-XL) 25 mg 24 hr tablet Take 1 tablet (25 mg total) by mouth 1 (one) time each day. Active buPROPion (WELLBUTRIN) 75 mg tablet Take 1 tablet (75 mg total) by mouth 2 (two) times a day. 60 each 10/17/19 25 2024 Discontinued furosemide (LASIX) 20 mg tablet Take 1 tablet (20 mg total) by mouth 1 (one) time each day. 30 each 052024 Discontinued hydrOXYzine pamoate (VISTARIL) 50 mg capsuleIndicat ions:Aspiratio n pneumonia of both lungs, unspecified aspiration pneumonia type, unspecified part of lung ([facility] V24, [facility] V28),Severe diarrhea Take 1 capsule (50 mg total) by mouth 3 (three) times a day if needed for anxiety for up to 10 days. 10/26/192024 Discontinued lactobacillus acidoph-l.bulg ar 100 million cell granules in packet Take 1 packet by mouth 4 (four) times a day (with meals and nightly). 10/26/192024 Discontinued mirtazapine (REMERON) 7.5 mg tablet Take 1 tablet (7.5 mg total) by mouth at bedtime as needed (sleep). 10/26/192024 Discontinued metoprolol tartrate (LOPRESSOR) 25 mg tablet Take 1 tablet (25 mg total) by mouth 2 (two) times a day. 10/26/192024 Discontinued bisacodyL (DULCOLAX) 5 mg EC tablet Take 2 tablets by mouth right before beginning bowel prep. See instructions provided by the office 2 tablet 11/12/192024 Discontinued polyethylene glycol (Golytely) 236-22.74-6.74 -5.86 gram solution Take 4L by mouth once for one dose. May substitue any PEG. Starting at 6PM the night before your procedure drink 1 8oz glasses at your own pace until you complete half of the gallon. Finish 2nd half of the gallon 5 hours before your procedure. 4000 mL 11/12/192024 Discontinued lisinopriL (PRINIVIL,ZEST RIL) 5 mg tablet Take 1 tablet (5 mg total) by mouth 1 (one) time each day. 2024 Discontinued(D iscontinued by another clinician) Active Problems Problem Noted Date Diagnosed Date Heart palpitations 05/12/2025 Acute encephalopathy 10/18/2024 Acute hypoxic respiratory failure 10/18/2024 Septic shock 10/18/2024 Aspiration pneumonia 10/18/2024 Sepsis with acute organ dysf unction, due to unspecified organism, unspecified organ dysfunction type, unspecified whether septic shock present 10/17/2024 Anxiety and depression 10/06/2024 Panic anxiety syndrome 10/06/2024 Septic shock 10/03/2024 UTI (urinary tract infection) 10/03/2024 Metabolic acidosis 10/03/2024 Increased ammonia level 10/03/2024 Severe diarrhea 10/03/2024 Severe dehydration 10/03/2024 DEVYN (acute kidney injury) 10/03/2024 Clostridium difficile infection 03/01/2021 Weight loss 03/01/2021 Cachexia 11/26/2020 Gait instability 11/26/2020 Oral candidiasis 11/26/2020 Alcohol abuse 09/08/2020 Left upper quadrant abdominal pain 09/08/2020 Intractable back pain 09/30/2019 Anxiety 06/02/2019 Osteoporosis with current pathological fracture 04/08/2019 Weight gain 04/08/2019 Collagenous colitis 03/24/2019 Essential hypertension 03/24/2019 Nausea 03/24/2019 Malignant neoplasm metastatic to both lungs 10/16 Malignant neoplasm of left kidney 02/28/2017 Encounters Date Type Department Care Team Description 05/29/2025 10:45 AM EST Lab Draw Station - [address] [phone] Malignant neoplasm of left kidney (CMS/HCC V24, CMS/HCC V28); Drug-induced hypothyroidism 05/29/2025 9:45 AM EST Office Visit [facility] Hematology Oncology [address] [place] [phone] Teo Mcclain MD Malignant neoplasm of left kidney (CMS/HCC V24, CMS/HCC V28) (Primary Dx); Septic shock (CMS/HCC V24, CMS/HCC V28); Anemia, unspecified type; Anxiety; Intractable back pain; Drug-induced hypothyroidism 05/26/2025 Telephone [facility] Hematology Oncology [address] [place] [phone] Teo Mcclain MD 05/12/2025 1:30 PM EST Office Visit [facility] - [facility] [address] [phone] Nick Esqueda MD Dilated cardiomyopathy ([facility] V24, [facility] V28) (Primary Dx); Sepsis with acute organ dysfunction, due to unspecified organism, unspecified organ dysfunction type, unspecified whether septic shock present (CMS/[facility] V24, CMS/[facility] V28); Malignant neoplasm metastatic to both lungs (CMS/HCC V24, [facility] V28); Malignant neoplasm of left kidney ([facility] V24, [facility] V28) 04/23/2025 Telephone Gastroenterology - [address] [facility] [address] [place] [address] Jose Maria Aragon MD from Last 3 Months Immunizations Immunization Administration Dates Next Due Pfizer [...] disorder DX:Anxiety diso rder Renal cell carcinoma ([facility] V24, [facility] V28) DX:Renal cell carcinoma (HCC) Hyperlipidemia Sleep [...] for your loved ones. For example, child neurologist or elderly care for an older adult? [...] Orientation Straight 10/04/2024 12 :21 AM EDT Last Filed Vital Signs Vital Sign Reading Time Taken Comments Blood Pressure 112/51 05/29/2025 9:44 AM EST Pulse 80 05/29/2025 9:44 AM EST Temperature 36.1 C (97 F) 05/29/2025 9:44 AM EST Respiratory Rate 17 11/25/2024 12:38 PM EDT Oxygen Saturation 98% 05/29/2025 9:44 AM EST Inhaled Oxygen Concentration - - Weight 94.8 kg (209 lb) 05/29/2025 9:44 AM EST Height 172.7 cm (5' 8 ) 05/29/2025 9:44 AM EST Body Mass Index 31.78 05/29/2025 9:44 AM EST Plan of Treatment Upcoming Encounters Date Type Department Care Team (Late st Contact Info) Description 06/12/2025 10:30 AM EST Ancillary Procedure [facility] - [address] [place] [address] 11/20/2025 10:30 AM EDT Office Visit [facility] Hematology Oncology [address] [place] [phone] Hadley-Teo Hawthorne MD [address] [place] [phone] Health Maintenance Due Date Last Done Comments Non-Opioid Controlled Substance Agreement 1950 Hepatitis A Vaccines (1 of 2 - Risk 2-dose series) 1970 Hepatitis B Vaccines (1 of 3 - Risk 3-dose series) 2011 Cholesterol Screening (Lipid Panel) 05/25/2022 Hepatitis C Screening 05/25/2022 Medicare Annual Wellness Visit 11/03/2023 11/02/2022 Depression Screening 06/18/2024 COVID-19 Vaccine (13 - Mixed Product risk season) 2025 03/04/2025, 03/08/2024, 03/21/2023, Additional history exists Social Influencers of Health Screening 10/04/2025 10/04/2024 Drug Screen 10/17/2025 10/17/2024 Falls Risk Assessment 11/25/2025 11/25/2024 Hypertension/CHF/CAD Annual BMP Blood Test 05/29/2026 05/29/2025, 11/27/2024, 10/31/2024, Additional history exists Breast Cancer Screening 02/09/2027 02/09/2025 Osteoporosis Screening (Bone Density Screening) 01/03/2029 01/03/2019 Colorectal Cancer Screening: Colonoscopy 11/25/2034 11/25/2024, 09/24/2024 DTaP,Tdap,and Td Vaccines (4 - Td or Tdap) 02/09/2035 02/09/2025, 05/19/2015, 10/29/2006 Pneumococcal Vaccine: 50+ Years Completed 04/14/2022, 07/05/2017, 06/28/2016 RSV Immunization Adult Patients Completed 03/06/2023 Zoster Vaccines Completed 02/07/2024, 11/16, 07/20/2012 Influenza Vaccine Completed 03/04/2025, , 03/06/2023, Additional history exists HIB Vaccines Aged Out No longer eligi [...] Diagnosis Comments CBC WITH AUTO DIFFERENTIAL Routine 05/29/2025 10:41 AM EST Malignant neoplasm of left kidney (CMS/HCC V24, CMS/HCC V28) THYROID STIMULATING HORMONE WITH REFLEX TO FREE T4 AND FREE T3 Routine 05/29/2025 10:41 AM EST Drug-induced hypothyroidism COMPREHENSIVE METABOLIC PANEL Routine 05/29/2025 10:41 AM [...] of left kidney (CMS/HCC V24, CMS/HCC V28) VITAMIN B12 AND FOLATE Routine 05/29/2025 10:41 AM EST Malignant neoplasm of left kidney (CMS/HCC V24, CMS/HCC V28) COLONOSCOPY Routine 11/25/2024 12:17 PM EDT History of colon polyps DRUG ABUSE SCREEN 8A PANEL, URINE STAT 10/17/2024 7:45 PM EDT from Last 3 Months or Most Recently Relevant to Health Maintenance Results * Thyroid stimulating hormone with reflex to free t4 and free t3 (05/29/2025 10:41 AM EST) Pathologist [facility] [place] TSH 1.54 0.40 - 4.00 mcIU/mL 05/29/2025 12:55 PM EST [facility] Blood Venous blood specimen / Unknown Venipuncture / Unknown 05/29/2025 10:41 AM EST 05/29/2025 11:27 AM EST us Subramony Sarahi ALAMO LAB BLOOD ORDERABLE S Final Result [facility] [address] [place] [address], [place] [phone] * Vitamin B12 and folate (05/29/2025 10:41 AM EST) Pathologist [facility] [place] Vitamin B-12 257 211 - 911 pcg/mL 05/29/2025 1:00 PM [facility] Folate >24.0 >=5.4 ng/ml 05/29/2025 1:00 PM [facility] Comment:Over the counter sup plements containing high doses of biotin may interfere with this assay. If interference is suspected, patients shoud be retested after refraining from biotin supplements for 72 hours. Blood Venous blood specimen / Unknown Venipuncture / Unknown 05/29/2025 10:41 AM EST 05/29/2025 11:27 AM EST Teo Mcclain MD LAB BLOOD ORDERABLE S Final Result [facility] [address] [place] [address], [place] [phone] * (ABNORMAL) CBC auto differential (05/29/2025 10:41 AM EST) WBC 6.8 4.8 - 10.8 K/mcL LAB HEMETOLOGY METHOD 05/29/2025 11:40 AM [facility] RBC 4.00 3.80 - 4.80 M/mcL LAB HEMETOLOGY METHOD 05/29/2025 11:40 AM [facility] Hemoglobin 11.8 11.5 - 16.0 g/dL LAB HEMETOLOGY METHOD 05/29/2025 11:40 AM [facility] Hematocrit 37.4 35.0 - 47.0 % LAB HEMETOLOGY METHOD 05/29/2025 11:40 AM [facility] MCV 92.6 79.0 - 98.0 FL LAB HEMETOLOGY METHOD 05/29/2025 11:40 AM [facility] MCH 29.2 27.0 - 32.0 pcg LAB HEMETOLOGY METHOD 05/29/2025 11:40 AM [facility] MCHC 31.6(L) 32.0 - 37.0 g/dL LAB HEMETOLOGY METHOD 05/29/2025 11:40 AM [facility] RDW 13.6 11.0 - 15.0 % LAB HEMETOLOGY METHOD 05/29/2025 11:40 AM [facility] Platelets 213 130 - 400 K/mcL LAB HEMETOLOGY METHOD 05/29/2025 11:40 AM [facility] MPV 11.3(H) 7.0 - 11.0 FL LAB HEMETOLOGY METHOD 05/29/2025 11:40 AM [facility] NRBC 0.0 <1.0 % LAB HEMETOLOGY METHOD 05/29/2025 11:40 AM [facility] NRBC Absolute 0.00 <0.10 K/mcL LAB HEMETOLOGY METHOD 05/29/2025 11:40 AM [facility] Neutrophils Relative 59.7 % LAB HEMETOLOGY METHOD 05/29/2025 11:40 AM [facility] Lymphocytes Relative 28.7 % LAB HEMETOLOGY METHOD 05/29/2025 11:40 AM [facility] Monocytes Relative 8.6 % LAB HEMETOLOGY METHOD 05/29/2025 11:40 AM [facility] Eosinophils Relative 2.2 % LAB HEMETOLOGY METHOD 05/29/2025 11:40 AM [facility] Basophils Relative 0.4 % LAB HEMETOLOGY METHOD 05/29/2025 11:40 AM [facility] Immature Granulocytes Relative 0.4 % LAB HEMETOLOGY METHOD 05/29/2025 11:40 AM [facility] Neutrophils Absolute 4.08 1.50 - 7.00 K/mcL LAB HEMETOLOGY METHOD 05/29/2025 11:40 AM [facility] Lymphocytes Absolute 1.96 1.00 - 5.00 K/mcL LAB HEMETOLOGY METHOD 05/29/2025 11:40 AM EST [facility] Monocytes Absolute 0.59 0.20 - 1.00 K/[facility] LAB HEMETOLOGY METHOD 05/29/2025 11:40 AM EST [facility] Eosinophils Absolute 0.15 0.00 - 0.50 K/[facility] LAB HEMETOLOGY METHOD 05/29/2025 11:40 AM EST [facility] Basophils Absolute 0.03 0.00 - 0.20 K/[facility] LAB HEMETOLOGY METHOD 05/29/2025 11:40 AM EST [facility] Immature Granulocytes Absolute 0.03 0.00 - 0.03 K/[facility] LAB HEMETOLOGY METHOD 05/29/2025 11:40 AM EST [facility] Blood Venous blood specimen / Unknown Venipuncture / Unknown 05/29/2025 10:41 AM EST 05/29/2025 11:26 AM EST us Subramony Sarahi ALAMO LAB BLOOD ORDERABLE S Final Result [facility] [address] [place] [address], * (ABNORMAL) Iron and TIBC (05/29/2025 10:41 AM EST) Iron 48 40 - 150 mcg/dL 05/29/2025 12:48 PM EST [facility] TIBC 447 250 - 450 mcg/dL 05/29/2025 12:48 PM EST [facility] Iron Saturation 11(L) 15 - 50 % 12:48 PM EST [facility] Blood Venous blood specimen / Unknown Venipuncture / Unknown 05/29/2025 10:41 AM EST 05/29/2025 11:27 AM EST us Teo Mcclain MD LAB BLOOD ORDERABLE S Final Result [facility] [address] [place] [address], [place] [phone] * Ferritin (05/29/2025 10:41 AM EST) Ferritin 23 7 - 271 ng/mL 05/29/2025 12:53 PM [facility] Blood Venous blood specimen / Unknown Venipuncture / Unknown 05/29/2025 10:41 AM EST 05/29/2025 11:27 AM EST us Teo Mcclain MD LAB BLOOD ORDERABLE S Final Result Performing Organization Address [facility]/ZIP Co de Phone Number [facility] [address] [place] [address], [place] [phone] * (ABNORMAL) Comprehensive metabolic panel (05/29/2025 10:41 AM EST) Sodium 137 133 - 145 mmol/L 05/29/2025 12:48 PM [facility] Potassium 6.0(H) 3.5 - 5.5 mmol/L 05/29/2025 12:48 PM [facility] Chloride 104 96 - 110 mmol/L 05/29/2025 12:48 PM [facility] CO2 24 21 - 32 mmol/L 05/29/2025 12:48 PM [facility] Anion Gap 9 3 - 11 05/29/2025 12:48 PM [facility] Glucose 120(H) 70 - 100 mg/dL 05/29/2025 12:48 PM [facility] BUN 33(H) 5 - 25 mg/dL 05/29/2025 12:48 PM [facility] Creatinine 1.73(H) 0.50 - 1.10 mg/dL 05/29/2025 12:48 PM [facility] eGFR 31(L) >=60 mL/min/1. 73m2 05/29/2025 12:48 PM [facility] Comment:Calculation based on the Chronic Kidney Disease Epidemiology Collaboration (CKD-EPI) equation refit without adjustment for race. BUN/Creatinine Ratio 19.1 05/29/2025 12:48 PM [facility] Calcium 9.7 8.5 - 10.5 mg/dL 05/29/2025 12:48 PM [facility] AST (SGOT) 28 10 - 42 unit/L 05/29/2025 12:48 PM [facility] ALT (SGPT) 32 10 - 60 unit/L 05/29/2025 12:48 PM [facility] Alkaline Phosphatase 169(H) 42 - 121 unit/L 05/29/2025 12:48 PM [facility] Total Protein 7.3 6.0 - 8.0 g/dL 05/29/2025 12:48 PM [facility] Albumin 4.5 3.2 - 5.0 g/dL 05/29/2025 12:48 PM [facility] Total Bilirubin 0.3 0.0 - 1.4 mg/dL 05/29/2025 12:48 PM [facility] Blood Venous blood specimen / Unknown Venipuncture / Unknown 05/29/2025 10:41 AM EST 05/29/2025 11:27 AM EST Teo Mcclain MD LAB BLOOD ORDERABLE S Final Result [facility] [address] [place] [address], * COLONOSCOPY Anesthesia - MAC; [facility] ENDOSCOPY (11/25/2024 12:17 PM EDT) Anatomical Region [...] previously scheduled. Narrative 11/25/2024 12:13 PM EDT [facility] GI Patient Name: Serene Araujo Procedure Date: [...] history of colonic polyps CPT copyright 2020 [employer]. All rights reserved. The codes documented in this report are preliminary and upon pigs feet finisher review may be revised to meet current compliance requirements. Jose Maria Aragon MD 11/25/2024 12:13:02 PM This report has been signed electronically.Jose Maria Aragon MD Number of Addenda: 0 Note Initiated On: 11/25/2024 11:53 AM Scope In: Scope Out: Endoscopy Department at [facility] - [address] [place] [phone] Procedure Note Jose Maria Aragon MD - 11/25/2024 [facility] GI Patient Name: Serene Araujo Procedure Date: [...] history of colonic polyps CPT copyright 2020 [employer]. All rights reserved. The codes documented in this report are preliminary and upon pigs feet finisher reviewmay be revised to meet current compliance requirements. Jose Maria Aragon MD 11/25/2024 12:13:02 PM This report has been signed electronically.Jose Maria Aragon MD Number of Addenda: 0 Note Initiated On: 11/25/2024 11:53 AM Scope In: Scope Out: Endoscopy Department at [facility] - [address] [place] [phone] IMPRESSION: - Diverticulosis in the sigmoid colon. [...] Maria Aragon MD GI~PROCEDURE ORDERABLES Final Result * (ABNORMAL) Drug abuse screen 8a panel, urine (10/17/2024 7:45 PM EDT) Amphetamine Screen, Ur Negative Negative LAB CHEMISTRY METHOD 5 8:34 PM EDT [facility] Comment:Certain OTC medicati ons containing ephedrine, phenylephrine, pseudoephedrine and phenylpropanolamine can cause false positive results. Barbiturate Screen, Ur Negative Negative LAB CHEMISTRY METHOD 5 8:34 PM EDT [facility] Benzodiazepine Screen, Ur Negative Negative LAB CHEMISTRY METHOD 5 8:34 PM EDT [facility] Cocaine Screen, Ur Negative Negative LAB CHEMISTRY METHOD 5 8:34 PM EDT [facility] Opiate Screen, Ur Positive(A ) Negative LAB CHEMISTRY METHOD 5 8:34 PM EDT [facility] Cannabinoid (THC) Screen, Ur Negative Negative LAB CHEMISTRY METHOD 5 8:34 PM EDT [facility] Comment:Specimens from patie nts taking pantoprazole sodium (Protonix) have been shown to produce false positive results. Oxycodone Screen, Ur Positive(A ) Negative LAB CHEMISTRY METHOD 5 8:34 PM EDT [facility] Fentanyl, Ur Positive(A ) Negative LAB CHEMISTRY METHOD 5 8:34 PM EDT [facility] Urine Urine specimen obtained by clean catch procedure / Unknown Non-blood Collection / Unknown 10/17/2024 7:45 PM EDT 10/17/2024 7:56 PM EDT Narrative [facility] - 10/17/2024 8:34 PM EDT Assay cutoffs: Amphetamines 1000 ng/mL Barbiturates 200 ng/mL Benzodiazepines 200 ng/mL Cocaine 300 ng/mL Fentanyl 1 ng/mL Opiates 300 ng/mL Oxycodone 100 ng/mL THC 50 ng/mL Semi-quantitative assay for screening purposes only. Unconfirmed screening result should not be used for non-medical purposes. *ALTERNATE METHOD CONFIRMATION DONE UPON REQUEST ONLY* us Alayna PEN[facility] LAB URINE ORDERABLES Final Resul t [facility] [address] [place] [address], from Last 3 Months or Most Recently Relevant to Health Maintenance Insurance MEDICARE [facility] Advance Directives Documents on File Type Date Recorded Patient Surgical Brace Maker Expl anation Health Care Decision (hx) 09/28/2020 [...] DIRECTIVE Health Care Decision (hx) 09/28/2020 Colby Stratton [employer] ADVANCE DIRECTIVE Health Care Decision (hx) [...] way: Code status discussion: discussion with healthcare direct sales representative To update the patient's code status, [...] Agents on File Name Relationship [facility] Colby Arajuo Spouse Health Care Agent Care Teams Die Grinder Relationship Specialty Start Date End Date Dennise Mcelroy MD [address] [phone] PCP - General 08/08/23
== END 2025-06-03 10:11 | disposition home or self-care (01) ==
LOC: HO.ENCR 09:00
PROVIDERS: PCP Internal Medicine; Visit Provider Student in an Organized Health Care Education/Training Program
DX: M80.08XA Age-related osteoporosis with current pathological fracture, vertebra(e), initial encounter for fracture (principal)
CPT/HCPCS: 99205; G2211

== ENCOUNTER → 2025-06-03 08:59 | Outpatient (BNVA) | payer MEDICARE, OTHER, SELFPAY | PROVIDERS: PCP Internal Medicine; Visit Provider Student in an Organized Health Care Education/Training Program | DX: M80.08XA Age-related osteoporosis with current pathological fracture, vertebra(e), initial encounter for fracture (principal); Z76.89 Persons encountering health services in other specified circumstances | CPT/HCPCS: 99202 ==